=== PATIENT | female | born 1945 | race Caucasian/White ===

== ENCOUNTER 2022-11-06 18:06 | Inpatient (IN) | payer MEDICARE, BC, SELFPAY ==
[2022-11-06 18:08] VITALS: BP 126/60; PULSE 72; RESP 20; TEMP 36.6; O2SAT 96; BMI 25.0
--- NOTE | 2022-11-06 18:12 | XR_ITS ---
The [address] [address] Patient Name: CARLITOS RACHEL MRN: [id number] date: 1945 Sex: F Assigned Patient Location: ER Current Patient Location: ER Accession/Order Number: [id number] Exam Date: 11/06/2022 18:14 Report Date: 11/06/2022 18:48 At the request of: ROSETTA PALACIO Procedure: XR tibia fibula LT 2V EXAM: XR ankle LT min 3V, XR foot LT min 3V, XR tibia fibula LT 2V HISTORY: fall COMPARISON: None. TECHNIQUE: 3 views of the left foot, 3 views of the left ankle, frontal and lateral views of the left tibia and fibula are performed. FINDINGS: The bones are demineralized. There is no acute fracture. There are degenerative changes within the midfoot. The ankle mortise is preserved. There is joint space narrowing and chondrocalcinosis at the knee. No acute fracture is seen. There is a plantar calcaneal spur. There are calcifications along the Achilles tendon and plantar fascia. IMPRESSION: Osteopenia with degenerative changes. No acute fracture is seen. Electronically authenticated by: DHARA MILLER Date: 11/06/2022 18:48
--- NOTE | 2022-11-06 18:12 | XR_ITS ---
The [address] [address] Patient Name: CARLITOS RACHEL MRN: [id number] date: 1945 Sex: F Assigned Patient Location: ER Current Patient Location: ER Accession/Order Number: [id number] Exam Date: 11/06/2022 18:14 Report Date: 11/06/2022 18:48 At the request of: ROSETTA PALACIO Procedure: XR foot LT min 3V EXAM: XR ankle LT min 3V, XR foot LT min 3V, XR tibia fibula LT 2V HISTORY: fall COMPARISON: None. TECHNIQUE: 3 views of the left foot, 3 views of the left ankle, frontal and lateral views of the left tibia and fibula are performed. FINDINGS: The bones are demineralized. There is no acute fracture. There are degenerative changes within the midfoot. The ankle mortise is preserved. There is joint space narrowing and chondrocalcinosis at the knee. No acute fracture is seen. There is a plantar calcaneal spur. There are calcifications along the Achilles tendon and plantar fascia. IMPRESSION: Osteopenia with degenerative changes. No acute fracture is seen. Electronically authenticated by: DHARA MILLER Date: 11/06/2022 18:48
--- NOTE | 2022-11-06 18:12 | XR_ITS ---
The [address] [address] Patient Name: CARLITOS RACHEL MRN: [id number] date: 1945 Sex: F Assigned Patient Location: ER Current Patient Location: ER Accession/Order Number: [id number] Exam Date: 11/06/2022 18:14 Report Date: 11/06/2022 18:48 At the request of: ROSETTA PALACIO Procedure: XR ankle LT min 3V EXAM: XR ankle LT min 3V, XR foot LT min 3V, XR tibia fibula LT 2V HISTORY: fall COMPARISON: None. TECHNIQUE: 3 views of the left foot, 3 views of the left ankle, frontal and lateral views of the left tibia and fibula are performed. FINDINGS: The bones are demineralized. There is no acute fracture. There are degenerative changes within the midfoot. The ankle mortise is preserved. There is joint space narrowing and chondrocalcinosis at the knee. No acute fracture is seen. There is a plantar calcaneal spur. There are calcifications along the Achilles tendon and plantar fascia. IMPRESSION: Osteopenia with degenerative changes. No acute fracture is seen. Electronically authenticated by: DHARA MILLER Date: 11/06/2022 18:48
--- NOTE | 2022-11-06 18:14 | ED.FALL1 ---
Documented by User: Franki Hare MD 11/06/22 18:15 HPI - Fall General Chief Complaint: Fall Stated Complaint: FALL ANKLE PAIN Time Seen by Provider: 11/06/22 18:12 Source: patient Mode of arrival: ambulance Limitations: no limitations History of Present Illness HPI Narrative: this patient's here by transistor tester squad. She fell at home. She thinks she stumbled. She is quite sure she did not have loss of consciousness or syncope. She normally ambulates with no assistance. Her is with her. He had called the squad because she cannot put any weight on the lower left leg and ankle. She is not having pain in her hip or pelvis. The right leg is atraumatic. She does take Plavix. She did not hit her head or neck. She is a good historian. She arrived with a temporizing splint in place. Related Data Home Medications Medication Instructions Recorded Confirmed buspirone 10 mg tablet 10 mg PO DAILY 11/06/22 11/06/22 buspirone 5 mg tablet 5 mg PO DAILY 11/06/22 11/06/22 donepezil 10 mg tablet (Aricept) 10 mg PO DAILY 11/06/22 11/06/22 ferrous sulfate 325 mg (65 mg 325 mg PO DAILY 11/06/22 11/06/22 iron) tablet gabapentin 100 mg capsule 100 mg PO DAILY 11/06/22 11/06/22 hydroxyzine HCl 25 mg tablet 25 mg PO DAILY 11/06/22 11/06/22 lorazepam 2 mg tablet 2 mg PO DAILY 11/06/22 11/06/22 meloxicam 7.5 mg tablet 7.5 mg PO DAILY 11/06/22 11/06/22 memantine 28 mg capsule 28 mg PO DAILY 11/06/22 11/06/22 sprinkle,extended release 24hr (Namenda XR) pantoprazole 20 mg tablet,delayed 20 mg PO DAILY 11/06/22 11/06/22 release paroxetine HCl 40 mg tablet 40 mg PO DAILY 11/06/22 11/06/22 quetiapine 50 mg tablet (Seroquel) 50 mg PO DAILY 11/06/22 11/06/22 ropinirole 0.25 mg tablet 0.25 mg PO DAILY 11/06/22 11/06/22 sucralfate 1 gram tablet 1 g PO DAILY 11/06/22 11/06/22 trazodone 100 mg tablet 100 mg PO .as needed PRN insomnia 11/06/22 11/06/22 Allergies Allergy/AdvReac Type Severity Reaction Status Date / Time No Known Drug Allergies Allergy Verified 11/06/22 18:31 PFSH PFS Social History Smoking status: Former smoker Exam Narrative Exam Narrative: awake alert vital signs are stable blood pressure good as noted. She is oriented ?3 and a good historian. Constitutional does not have evidence of any head neck or upper extremity trauma or injury. No tenderness to palpation in cervical range of motion is normal. Cognition is also normal. Moving to the lower extremity she does have ecchymosis swelling on the lateral aspect of the left foot metatarsal area. Also some swelling over the ankle joint and also the distal tibia-fibula area. The knee is nontender to palpation. The right lower extremity has no symptoms whatsoever Constitutional Vital Signs - 24 hr 11/06/22 18:08 Temperature 97.9 F Pulse Rate [Monitor] 72 Respiratory Rate 20 Blood Pressure [Left Arm] 126/60 H Pulse Oximetry 96 Course Vital Signs Vital signs: Vital Signs Temperature 97.9 F 11/06/22 18:08 Pulse Rate 72 11/06/22 18:08 Respiratory Rate 20 11/06/22 18:08 Blood Pressure 126/60 H 11/06/22 18:08 Pulse Oximetry 96 11/06/22 18:08 Temperature 97.9 F 11/06/22 21:04 Pulse Rate 89 11/06/22 21:04 Respiratory Rate 18 11/06/22 21:04 Blood Pressure 148/70 H 11/06/22 21:04 Pulse Oximetry 96 11/06/22 21:04 Oxygen Delivery Method Room Air 11/06/22 21:04 Discharge Plan Discharge Chief Complaint: Fall Clinical Impression: Foot fracture, left Patient Disposition: Admitted as Observation Discharge Date/Time: 11/06/22 20:54 Documented by User: Hernán Wagner MD 11/06/22 20:37 HPI - Fall General Chief Complaint: Fall Stated Complaint: FALL ANKLE PAIN Time Seen by Provider: 11/06/22 18:12 Related Data Home Medications Medication Instructions Recorded Confirmed buspirone 10 mg tablet 10 mg PO DAILY 11/06/22 11/06/22 buspirone 5 mg tablet 5 mg PO DAILY 11/06/22 11/06/22 donepezil 10 mg tablet (Aricept) 10 mg PO DAILY 11/06/22 11/06/22 ferrous sulfate 325 mg (65 mg 325 mg PO DAILY 11/06/22 11/06/22 iron) tablet gabapentin 100 mg capsule 100 mg PO DAILY 11/06/22 11/06/22 hydroxyzine HCl 25 mg tablet 25 mg PO DAILY 11/06/22 11/06/22 lorazepam 2 mg tablet 2 mg PO DAILY 11/06/22 11/06/22 meloxicam 7.5 mg tablet 7.5 mg PO DAILY 11/06/22 11/06/22 memantine 28 mg capsule 28 mg PO DAILY 11/06/22 11/06/22 sprinkle,extended release 24hr (Namenda XR) pantoprazole 20 mg tablet,delayed 20 mg PO DAILY 11/06/22 11/06/22 release paroxetine HCl 40 mg tablet 40 mg PO DAILY 11/06/22 11/06/22 quetiapine 50 mg tablet (Seroquel) 50 mg PO DAILY 11/06/22 11/06/22 ropinirole 0.25 mg tablet 0.25 mg PO DAILY 11/06/22 11/06/22 sucralfate 1 gram tablet 1 g PO DAILY 11/06/22 11/06/22 trazodone 100 mg tablet 100 mg PO .as needed PRN insomnia 11/06/22 11/06/22 Allergies Allergy/AdvReac Type Severity Reaction Status Date / Time No Known Drug Allergies Allergy Verified 11/06/22 18:31 PFSH PFSH Social History Smoking status: Former smoker Exam Constitutional Vital Signs - 24 hr 11/06/22 18:08 Temperature 97.9 F Pulse Rate [Monitor] 72 Respiratory Rate 20 Blood Pressure [Left Arm] 126/60 H Pulse Oximetry 96 Course Vital Signs Vital signs: Vital Signs Temperature 97.9 F 11/06/22 18:08 Pulse Rate 72 11/06/22 18:08 Respiratory Rate 20 11/06/22 18:08 Blood Pressure 126/60 H 11/06/22 18:08 Pulse Oximetry 96 11/06/22 18:08 Temperature 97.9 F 11/06/22 21:04 Pulse Rate 89 11/06/22 21:04 Respiratory Rate 18 11/06/22 21:04 Blood Pressure 148/70 H 11/06/22 21:04 Pulse Oximetry 96 11/06/22 21:04 Oxygen Delivery Method Room Air 11/06/22 21:04 MDM - Fall MDM Narrative Medical decision making narrative: care transferred at change of shift. patient fell at home injuring left foot. CT ordered at change of shift. CT demonstrated multiple fractures of the left foot . Not able to exclude Lisfrac ligamentous injury. Discussed with Dr Cunningham and he would like her admitted to the hospitalist service and he will consult. Discussed with Telehospitalist and patient accepted for admission Discharge Plan Discharge Chief Complaint: Fall Clinical Impression: Foot fracture, left Patient Disposition: Admitted as Observation Discharge Date/Time: 11/06/22 20:54 Procedures ED Procedure Instructions Procedures Procedures: left foot fracture. fiber glass material and extra padding used to place a posterior ankle splint. Patient tolerated the procedure well. N/V WNL post procedure. No complications
--- NOTE | 2022-11-06 18:31 | CT_ITS ---
The [address] [address] Patient Name: CARLITOS RACHEL MRN: [facility]:[id number] date: 1945 Sex: F Assigned Patient Location: ER Current Patient Location: ER Accession/Order Number: [id number] Exam Date: 11/06/2022 18:35 Report Date: 11/06/2022 19:09 At the request of: ROSETTA PALACIO Procedure: CT foot LT wo con Examination:CT foot LT wo con INDICATION:fall COMPARISON:Left foot and ankle x-rays from the same day. TECHNIQUE:Multiple thin section transaxial slices were acquired through the left foot without contrast. Coronal and sagittal reconstructed images were reviewed. FINDINGS:The bones are severely osteopenic. There is an acute fracture involving the cuboid bone with extension to each articular surface. There are also acute fractures identified in the first, second, third and fourth proximal metatarsal bones. There is an acute fracture in the medial cuneiform bone. There are hypertrophic changes involving the distal tibia and medial malleolus which are chronic. There is very severe diffuse soft tissue swelling. There is no significant widening of the Lisfranc joint space bases examination. However, given the distribution of the fractures, Lisfranc ligament injury cannot be excluded based on CT imaging. IMPRESSION: 1. Acute fractures involving the proximal first through fourth metatarsal bones. Acute fractures of the cuboid bone and medial cuneiform bone. 2. There is severe diffuse soft tissue swelling. 3. Multiple is not significantly widened with dysfunctional based on this examination, the possibility of underlying Lisfranc ligament injury cannot be excluded given the distribution of the fractures. Electronically authenticated by: KILO HARRY Date: 11/06/2022 19:09
--- NOTE | 2022-11-06 18:33 | PC.NURSE ---
pt brought in by ems from home because patient states that she was at home and felt like she couldn't see and she tripped and fell onto left ankle. bruising and swelling to top of left foot at this time. ice pack applied. pt given 50mcg of fentanyl and 4mg of zofran on ride over. pt states pain has not improved at all.
[2022-11-06] MEDS: KETOROLAC TROMETHAMINE 10 MG TABLET PO (18:51)
[2022-11-06 20:58] LABS: Basophils Percent Auto 0.1 % (0.2-2.0); Eosinophils Percent Auto 0.1 % (0.9-7.0); Hemoglobin 8.2 g/dL (12.0-16.0); Immature Granulocytes Abs Auto 0.04 10^3/uL (0.00-0.03); Immature Granulocytes Pct Auto 0.5 % (0.0-0.5); Lymphocytes Absolute Auto 0.9 10^3/uL (1.2-3.8); Lymphocytes Percent Auto 10.8 % (20.5-60.0); Mean Corpuscular HGB Conc 28.3 g/dL (29.9-35.2); Mean Corpuscular Hemoglobin 19.2 pg (26.7-34.0); Mean Corpuscular Volume 68.1 fL (81.0-99.0); Mean Platelet Volume 8.5 fL (9.5-13.5); Monocytes Absolute Auto 0.3 10^3/uL (0.3-0.8); Monocytes Percent Auto 3.5 % (1.7-12.0); Neutrophils Absolute Auto 7.3 10^3/uL (1.4-6.5); Platelet Count 289 10^3/uL (150-450); Red Blood Count 4.26 10^6/uL (4.20-5.40); Red Cell Distribution Width 18.7 % (11.0-15.0); White Blood Count 8.6 10^3/uL (4.0-11.0)
[2022-11-06 21:04] VITALS: BP 148/70; PULSE 89; RESP 18; TEMP 36.6; O2SAT 96; BMI 24.9
[2022-11-06 21:07] LABS: Anion Gap 12.4; BUN Creatinine Ratio 25.4; Calcium 8.8 mg/dL (8.5-10.1); Carbon Dioxide 26.5 mmol/L (21.0-32.0); Chloride 107 mmol/L (98-107); Estimated GFR (African America 51 (>=60); Estimated GFR (Non-African Ame 43 (>=60); Glucose 137 mg/dL (74-106); Potassium 4.9 mmol/L (3.5-5.1); Sodium 141 mmol/L (136-145)
[2022-11-07] VITALS (7 sets, daily range): BP systolic 105–163; BP diastolic 58–88; PULSE 69–71; RESP 18–20; TEMP 36.6–37.6; O2SAT 92–95
--- NOTE | 2022-11-07 00:26 | P.PN_ITS ---
Progress Note: Subjective Subjective Interval history: Left foot pain, inability to bear weight.. HPI: this is a 77 years old female who presents with above complaints. 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 She fell at home. She thinks she stumbled. She is quite sure she did not have loss of consciousness or syncope. She normally ambulates with no assistance. Her is with her. He had called the squad because she cannot put any weight on the lower left leg and ankle. She is not having pain in her hip or pelvis. The right leg is atraumatic. She does take Plavix. She did not hit her head or neck. She is a good historian. She arrived with a temporizing splint in place. Ambulation in the emergency room including CT of the left lower extremity revealed multiple fractures in the left foot bones. Dr. Crespo, podiatry has been consulted recommended medical admission Exam Narrative Exam Narrative: Physical Exam: Not in distress, pleasant, cooperative, Head - atraumatic, eyes - pupils equal, round, reactive to light, extra ocular movement intact, MMM Neck - supple, thyroid not enlarged, LN not palpated Lungs - clear to auscultation, no dullness on percussion CVS - heart sounds S1, S2, no additional murmurs gallop, regular rate and rhythm Gastrointestinal?abdomen is soft, non-tender, non-distended, no organomegaly, positive bowel sounds Extremities no clubbing, cyanosis or edema Neurological?cranial nerve II?XII grossly intact, no meningeal signs, no cerebellar signs, no sensory deficit Musculoskeletal - DJD related changes in multiple joints, no effusions, ROM preserved Dermatological - the skin dry, warm, no rashes Psychiatric?patient has normal affect Constitutional Vital Signs - 24 hr 11/06/22 18:08 11/06/22 21:04 11/06/22 21:04 Temperature 97.9 F 97.9 F Pulse Rate 89 Pulse Rate [Monitor] 72 Respiratory Rate 20 18 Blood Pressure [Left Arm] 126/60 H 148/70 H Pulse Oximetry 96 96 Oxygen Delivery Method Room Air Room Air Progress Note: Objective Labs Labs: Short CBC 11/06/22 Range/Units 20:40 WBC 8.6 (4.0-11.0) 10^3/uL Hgb 8.2 L (12.0-16.0) g/dL Hct 29.0 L (36.0-48.0) % Plt Count 289 (150-450) 10^3/uL BMP 11/06/22 20:40 Sodium 141 Potassium 4.9 Chloride 107 Carbon Dioxide 26.5 BUN 31.0 H Creatinine 1.22 H Glucose 137 H Calcium 8.8 Progress Note: A&P Assessment and Plan (1) Foot fracture, left: Assessment and Plan: Admit to medical floor Pain control Follow-up with Dr. Cunningham for further recommendations (2) Dementia: Assessment and Plan: Continue home dose of Namenda and Aricept Avoid use of psychotropic medications Patient is at risk for delirium Continue with daily orientation (3) Hypertension: Assessment and Plan: Continue home medications, adjust as needed Telemedicine Attestation Telemedicine Attestation I conducted this encounter from [place][] via secure live, [id number] video conference with the patient, located at [facility] with [foot fracture]. Prior to the interview, the risks and benefits of telemedicine were discussed with the patient and verbal consent was obtained. As the provider for the telehealth service, I attest that I introduced myself to the patient, provided my credentials, disclosed by location and determined that based on a review of the patient's chart and discussion with members of the patient's treatment team, telemedicine via real-time, 2 way, and interactive audio and video platform is an appropriate and effective means of providing the service. ?The patient and I mutually agree this visit is appropriate for tel emedicine. ?The virtual encounter was taken place from? [place], [place]. ?The encounter took approximately 35 minutes. ?The nurse was present during the entire time and I was able to move the stethoscope in appropriate directions. ?The patient was evaluated at the Hospital ? Portions of this note may be dictated using [employer] voice recognition software. Variances in spelling and vocabulary are possible and unintentional. Not all errors may be caught and/or corrected. Please notify the author if any discrepancies are noted and/or if the meaning of any statement is unclear.? ? Patient verbally consented for treatment via video visit with patient currently located at [facility] and provider located in [place].
[2022-11-07] MEDS: TRAZODONE HCL 50 MG TABLET 100 MG PO ×2 (00:53→20:48)
[2022-11-07 04:50] LABS: Basophils Percent Auto 0.2 % (0.2-2.0); Eosinophils Percent Auto 0.2 % (0.9-7.0); Hematocrit 25.8 % (36.0-48.0); Hemoglobin 7.3 g/dL (12.0-16.0); Immature Granulocytes Abs Auto 0.02 10^3/uL (0.00-0.03); Immature Granulocytes Pct Auto 0.3 % (0.0-0.5); Lymphocytes Absolute Auto 1.3 10^3/uL (1.2-3.8); Lymphocytes Percent Auto 20.7 % (20.5-60.0); Mean Corpuscular HGB Conc 28.3 g/dL (29.9-35.2); Mean Corpuscular Hemoglobin 19.5 pg (26.7-34.0); Mean Corpuscular Volume 68.8 fL (81.0-99.0); Mean Platelet Volume 8.5 fL (9.5-13.5); Monocytes Absolute Auto 0.4 10^3/uL (0.3-0.8); Monocytes Percent Auto 6.9 % (1.7-12.0); Neutrophils Absolute Auto 4.6 10^3/uL (1.4-6.5); Neutrophils Percent Auto 71.7 % (43.0-75.0); Platelet Count 257 10^3/uL (150-450); Red Blood Count 3.75 10^6/uL (4.20-5.40); Red Cell Distribution Width 18.5 % (11.0-15.0); White Blood Count 6.4 10^3/uL (4.0-11.0)
[2022-11-07 05:13] LABS: Alanine Aminotransferase 17 U/L (14-59); Albumin Globulin Ratio 0.9; Albumin Level 2.8 g/dL (3.4-5.0); Alkaline Phosphatase 96 U/L (46-116); Anion Gap 10.1; Aspartate Amino Transferase 21 U/L (15-37); BUN Creatinine Ratio 26.1; Bilirubin Total 0.6 mg/dL (0.2-1.0); Calcium 8.5 mg/dL (8.5-10.1); Carbon Dioxide 26.9 mmol/L (21.0-32.0); Chloride 108 mmol/L (98-107); Estimated GFR (African America 53 (>=60); Estimated GFR (Non-African Ame 44 (>=60); Globulin 3.2 g/dL; Glucose 128 mg/dL (74-106); Sodium 140 mmol/L (136-145)
[2022-11-07] MEDS: OMEPRAZOLE 20 MG CAPSULE.DR PO (08:35)
[2022-11-07] MEDS: QUETIAPINE FUMARATE 25 MG TABLET 50 MG PO (08:35)
[2022-11-07] MEDS: PAROXETINE HCL 20 MG TABLET 40 MG PO (08:35)
[2022-11-07] MEDS: DONEPEZIL HCL 10 MG TABLET PO (08:36)
[2022-11-07] MEDS: HYDROXYZINE HCL 25 MG TABLET PO (08:36)
[2022-11-07] MEDS: MELOXICAM 7.5 MG TABLET PO (08:36)
[2022-11-07] MEDS: SUCRALFATE 1 GM TABLET PO (08:36)
[2022-11-07] MEDS: MEMANTINE HCL 28 MG CAP XR PO (08:36)
[2022-11-07] MEDS: GABAPENTIN 100 MG CAPSULE PO (08:36)
[2022-11-07] MEDS: FERROUS SULFATE 325 MG TABLET PO ×2 (08:36→20:45)
--- NOTE | 2022-11-07 08:36 | P.HP_ITS ---
H&P: HPI History of Present Illness Chief complaint: FALL ANKLE PAIN LEFT FOOT FRACTURE Narrative: Patient with a syncopal episode from a fall, resulted in fractures of her metatarsal bones, consult to podiatry, work-up for syncope. Review of Systems ROS Status of ROS 10 or more systems reviewed and unremarkable except as noted in history and below Constitutional Denies: fever or chills Neurological Reports: weakness in extremities, lack of coordination, dizziness and behavioral changes; Denies: numbness in extremities PFSH PFS Medical History (Updated 11/07/22 @ 00:55 by Bhavani Newman) Surgical History (Updated 11/07/22 @ 01:00 by Bhavani Newman) Social History (Updated 11/07/22 @ 00:59 by Bhavani Newman) Within the past year, how often did you have a drink containing alcohol: never Score interpretation: A score less than 3 is consistent with normal alcohol consumption. 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 Highest level of school completed/degree received: some college, no degree Are you now , , , , never or living with a partner: Meds Home Medications and Allergies Home Medications Medication Instructions Recorded Confirmed Type buspirone 5 mg tablet 5 mg PO TID 11/06/22 11/07/22 History donepezil 10 mg tablet (Aricept) 10 mg PO DAILY 11/06/22 11/06/22 History ferrous sulfate 325 mg (65 mg 325 mg PO BID 11/06/22 11/07/22 History iron) tablet lorazepam 2 mg tablet 2 mg PO DAILY PRN anxiety 11/06/22 11/07/22 History meloxicam 7.5 mg tablet 7.5 mg PO QAM 11/06/22 11/07/22 History memantine 28 mg capsule 28 mg PO DAILY 11/06/22 11/06/22 History sprinkle,extended release 24hr (Namenda XR) pantoprazole 20 mg tablet,delayed 20 mg PO DAILY 11/06/22 11/06/22 History release paroxetine HCl 40 mg tablet 40 mg PO DAILY 11/06/22 11/06/22 History quetiapine 50 mg tablet (Seroquel) 50 mg PO DAILY 11/06/22 11/06/22 History ropinirole 0.25 mg tablet 0.25 mg PO .AT BEDTIME 11/06/22 11/07/22 History trazodone 100 mg tablet 100 mg PO .AT BEDTIME insomnia 11/06/22 11/07/22 History hydroxyzine HCl 25 mg tablet 25 mg PO QID PRN anxiety 11/07/22 11/07/22 History Allergies Allergy/AdvReac Type Severity Reaction Status Date / Time No Known Drug Allergies Allergy Verified 11/06/22 18:31 Exam Constitutional Vital Signs - 24 hr 11/06/22 18:08 11/06/22 21:04 11/06/22 21:04 Temperature 97.9 F 97.9 F Pulse Rate 89 Pulse Rate [Monitor] 72 Respiratory Rate 20 18 Blood Pressure [Left Arm] 126/60 H 148/70 H Blood Pressure [Right Arm] Pulse Oximetry 96 96 Oxygen Delivery Method Room Air Room Air 11/07/22 05:00 Temperature 99.6 F Pulse Rate 69 Pulse Rate [Monitor] Respiratory Rate 18 Blood Pressure [Left Arm] Blood Pressure [Right Arm] 163/83 H Pulse Oximetry 95 Oxygen Delivery Method Common normals: apparent distress Exam limitations: behavioral limitations General appearance: in distress; not comfortable HENMT Common normals: normocephalic Chest Common normals: inspection of chest normal Respiratory Common normals: normal respiratory effort and no retractions Cardio Common normals: no JVD, regular rate and regular rhythm GI Common normals: Normal to inspection, nondistended, normoactive bowel sounds present Back & Pelvis Common normals: no CVA tenderness Extremity Common normals: abnormal to inspection Results Labs Labs: Short CBC 11/06/22 11/07/22 Range/Units 20:40 04:29 WBC 8.6 6.4 (4.0-11.0) 10^3/uL Hgb 8.2 L 7.3 L (12.0-16.0) g/dL Hct 29.0 L 25.8 L (36.0-48.0) % Plt Count 289 257 (150-450) 10^3/uL BMP 11/06/22 11/07/22 20:40 04:29 Sodium 141 140 Potassium 4.9 5.0 Chloride 107 108 H Carbon Dioxide 26.5 26.9 BUN 31.0 H 31.0 H Creatinine 1.22 H 1.19 H Glucose 137 H 128 H Calcium 8.8 8.5 Liver Function 11/07/ Range/Units 04:29 Total Bilirubin 0.6 (0.2-1.0) mg/dL AST 21 (15-37) U/L ALT 17 (14-59) U/L Alkaline Phosphatase 96 (46-116) U/L Albumin 2.8 L (3.4-5.0) g/dL Assessment and Plan Assessment and Plan (1) Foot fracture, left: (2) Dementia: (3) Hypertension: Plan Foot multiple metatarsal fractures-consult to podiatry Syncope-uncertain etiology-Possibly related to anemia.Continue with work-up Acute blood loss anemia-uncertain source, check occult blood, patient denies black tarry stools-1 unit of PRBCs today likely needs more thanBut will go slow with the amount due to age Uncertain etiology for her syncope and acute blood loss-medical treatment and evaluation will require at least a 2 midnight stay. We will change patient to inpatient status for acute treatment of the above. Unable to improveAnd stabili ze her over the course of the first 24 hours.
--- NOTE | 2022-11-07 08:47 | CM.NOTE ---
Rounds made with Dr. Burk, discussed low Hgb and need for blood transfusion today. Dr. Cunningham will also consult on pt today.
--- NOTE | 2022-11-07 12:07 | SWNOTE1 ---
JEFFERY met with pt to discuss dc needs. Pt had a fall at home and fractured some bones, in foot? SW and pt talked for 15-20 minutes. Pt is aware that she does need to go to rehab for a short time due to her foot. Pt would like to go to [facility] as her has been there in past and she is familiar with them. During conversation pt voiced many concerns and also how she feels anxious as well. She voiced she is the caregiver of the and her son is helping right now but does not want to take full responsibility for him. She stated Dr. Burk's office is working on getting home health back in. Pt also spoke about her cats and caring for them, and also worrying about her identity being stolen. She did voice that her son is assisting with this and has called to cancel cards and the bank is aware. Referral is being sent to [facility]. JEFFERY updated nursing. No precert.
[2022-11-07 13:16] LABS: Eosinophils Percent Auto 0.2 % (0.9-7.0); Hematocrit 26.3 % (36.0-48.0); Hemoglobin 7.6 g/dL (12.0-16.0); Immature Granulocytes Abs Auto 0.02 10^3/uL (0.00-0.03); Immature Granulocytes Pct Auto 0.3 % (0.0-0.5); Lymphocytes Absolute Auto 1.1 10^3/uL (1.2-3.8); Mean Corpuscular HGB Conc 28.9 g/dL (29.9-35.2); Mean Corpuscular Hemoglobin 19.6 pg (26.7-34.0); Mean Corpuscular Volume 67.8 fL (81.0-99.0); Mean Platelet Volume 8.6 fL (9.5-13.5); Monocytes Absolute Auto 0.5 10^3/uL (0.3-0.8); Monocytes Percent Auto 8.5 % (1.7-12.0); Neutrophils Absolute Auto 4.3 10^3/uL (1.4-6.5); Platelet Count 271 10^3/uL (150-450); Red Blood Count 3.88 10^6/uL (4.20-5.40); Red Cell Distribution Width 18.4 % (11.0-15.0)
[2022-11-07] MEDS: BUSPIRONE HCL 10 MG TABLET 5 MG PO ×3 (15:05→23:35)
[2022-11-07] MEDS: LORAZEPAM 1 MG TABLET 2 MG PO (15:43)
[2022-11-07] MEDS: ONDANSETRON PF 4 MG/2 ML VIAL IV (15:43)
--- NOTE | 2022-11-07 16:33 | P.PODCN_ITS ---
[facility] - Podiatry Data of Consult Patient: new to practice Consult date: 11/07/22 Requesting physician: Shaikh Ashwini MD Primary care provider: Piyush Burk MD Details: left foot fractures Consult Narrative Reason for consult: foot fractures Narrative: patient was seen and evaluated this morning. She is a 77-year-old female with past medical history significant for anxiety and depression and dementia.she states yesterday she fell and felt/heard a crunch in her left foot. States she was unable to put any weight on the foot and came to the emergency room. Due to not having much help at home and unable to be nonweightbearing she is admitted to the hospital for observation. The emergency room last night she had x-rays as well as CT performed demonstrating multiplle fractures in her midfoot as well as cuboid. She was told she may or may not need surgery. She is placed into a posterior splint. Today she is complaining of left foot pain. Denies any constitutional symptoms. cc:: CC: Shaikh Ashwini MD Review of Systems ROS Status of ROS 10 or more systems reviewed and unremarkable except as noted in history and below [facility] Medical History (Updated 11/07/22 @ 00:55 by Bhavani Newman) Surgical History (Updated 11/07/22 @ 01:00 by Bhavani Newman) Social History (Updated 11/07/22 @ 00:59 by Bhavani Newman) Within the past year, how often did you have a drink containing alcohol: never Score interpretation: A score less than 3 is consistent with normal alcohol consumption. 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 Highest level of school completed/degree received: some college, no degree Are you now , , , , never or living with a partner: Exam Narrative Exam Narrative: splint is clean dry and intact to left lower extremity I removed, and an David wrap to her foot to evaluate her fractures Edema and ecchymosis noted within the mid foot No fracture blisters No breaks in the skin no Open lesions No hematoma noted Pain to palpation across the midfoot Range of motion deferred Strength deferred Compartments soft and compressible No pain with calf compression Constitutional Vital Signs - 24 hr 11/06/22 18:08 11/06/22 21:04 11/06/22 21:04 Temperature 97.9 F 97.9 F Pulse Rate 89 Pulse Rate [Monitor] 72 Respiratory Rate 20 18 Blood Pressure Blood Pressure [Left Arm] 126/60 H 148/70 H Blood Pressure [Right Arm] Pulse Oximetry 96 96 Oxygen Delivery Method Room Air Room Air 11/07/22 05:00 11/07/22 13:41 11/07/22 15:20 Temperature 99.6 F 98.8 F 97.9 F Pulse Rate 69 69 Pulse Rate [Monitor] Respiratory Rate 18 20 20 Blood Pressure 155/72 H Blood Pressure [Left Arm] Blood Pressure [Right Arm] 163/83 H 133/78 H Pulse Oximetry 95 Oxygen Delivery Method 11/07/22 15:38 Temperature 98 F Pulse Rate 70 Pulse Rate [Monitor] Respiratory Rate 20 Blood Pressure 159/88 H Blood Pressure [Left Arm] Blood Pressure [Right Arm] Pulse Oximetry Oxygen Delivery Method Assessment and Plan Assessment and Plan (1) Foot fracture, left: (2) Dementia: (3) Hypertension: Plan assessment: lis lorenza fracture, left foot Cuboid fracture, left foot Plan: patient seen and evaluated today Physical exam findings discussed with the patient I reviewed her imaging and discussed this with her Her hemoglobin and hematocrit were low this morning at 7.3 Vitals noted to have hypertension I discussed with her that we will likely treat her without surgery and these fractures can heal nonoperatively she will remain nonweightbearing for 8-12 weeks Due to some problems staying nonweightbearing and she does not have much help at home and recommend detention home placement I did discuss this with her hospitalist She complains with us in one week Her splint should remain clean dry and intact Ice, elevate for swelling Pain management per primary team
[2022-11-07 19:33] LABS: Basophils Percent Auto 0.2 % (0.2-2.0); Eosinophils Percent Auto 0.3 % (0.9-7.0); Hematocrit 29.6 % (36.0-48.0); Hemoglobin 8.4 g/dL (12.0-16.0); Immature Granulocytes Abs Auto 0.02 10^3/uL (0.00-0.03); Immature Granulocytes Pct Auto 0.3 % (0.0-0.5); Lymphocytes Absolute Auto 1.2 10^3/uL (1.2-3.8); Lymphocytes Percent Auto 17.9 % (20.5-60.0); Mean Corpuscular HGB Conc 28.4 g/dL (29.9-35.2); Mean Corpuscular Hemoglobin 19.8 pg (26.7-34.0); Mean Corpuscular Volume 69.6 fL (81.0-99.0); Mean Platelet Volume 8.6 fL (9.5-13.5); Monocytes Absolute Auto 0.6 10^3/uL (0.3-0.8); Monocytes Percent Auto 8.7 % (1.7-12.0); Neutrophils Absolute Auto 4.7 10^3/uL (1.4-6.5); Neutrophils Percent Auto 72.6 % (43.0-75.0); Platelet Count 273 10^3/uL (150-450); Red Blood Count 4.25 10^6/uL (4.20-5.40); Red Cell Distribution Width 18.6 % (11.0-15.0); White Blood Count 6.4 10^3/uL (4.0-11.0)
[2022-11-07] MEDS: ROPINIROLE HCL 0.25 MG TABLET PO ×2 (20:48→23:36)
[2022-11-07] MEDS: ROPINIROLE HCL 0.25 MG TABLET (21:50)
[2022-11-08] VITALS (11 sets, daily range): BP systolic 108–148; BP diastolic 54–73; PULSE 69–80; RESP 18–20; TEMP 36.8–37.1; O2SAT 93; BMI 24.9
[2022-11-08] MEDS: BUSPIRONE HCL 10 MG TABLET 5 MG PO ×3 (05:08→21:05)
[2022-11-08 05:10] LABS: Eosinophils Percent Auto 0.2 % (0.9-7.0); Hematocrit 29.9 % (36.0-48.0); Hemoglobin 8.6 g/dL (12.0-16.0); Immature Granulocytes Abs Auto 0.03 10^3/uL (0.00-0.03); Immature Granulocytes Pct Auto 0.5 % (0.0-0.5); Lymphocytes Absolute Auto 1.3 10^3/uL (1.2-3.8); Lymphocytes Percent Auto 19.8 % (20.5-60.0); Mean Corpuscular HGB Conc 28.8 g/dL (29.9-35.2); Mean Corpuscular Hemoglobin 19.9 pg (26.7-34.0); Mean Corpuscular Volume 69.1 fL (81.0-99.0); Mean Platelet Volume 9.1 fL (9.5-13.5); Monocytes Absolute Auto 0.6 10^3/uL (0.3-0.8); Neutrophils Absolute Auto 4.6 10^3/uL (1.4-6.5); Neutrophils Percent Auto 70.5 % (43.0-75.0); Platelet Count 277 10^3/uL (150-450); Red Blood Count 4.33 10^6/uL (4.20-5.40); Red Cell Distribution Width 18.3 % (11.0-15.0); White Blood Count 6.5 10^3/uL (4.0-11.0)
[2022-11-08 07:07] LABS: Alanine Aminotransferase 17 U/L (14-59); Albumin Globulin Ratio 0.8; Albumin Level 2.9 g/dL (3.4-5.0); Alkaline Phosphatase 102 U/L (46-116); Aspartate Amino Transferase 21 U/L (15-37); BUN Creatinine Ratio 27.8; Calcium 8.7 mg/dL (8.5-10.1); Carbon Dioxide 26.4 mmol/L (21.0-32.0); Chloride 105 mmol/L (98-107); Estimated GFR (African America >60 (>=60); Estimated GFR (Non-African Ame >60 (>=60); Globulin 3.5 g/dL; Glucose 146 mg/dL (74-106); Potassium 4.4 mmol/L (3.5-5.1); Sodium 139 mmol/L (136-145); Total Protein 6.4 g/dL (6.4-8.2)
--- NOTE | 2022-11-08 08:03 | CA_ITS ---
Patient: CARLITOS RACHEL Exam Date: 11/08/2022 : 1945 Gender:F Ordering : DR Piyush Burk . Admission #: [id number] Family : SHAIKH Nicolás NINO . Order #: [id number] CLICK HERE TO VIEW EXAM ECHOCARDIOGRAM REPORT PROCEDURE: CA ECHO DOPPLER COMPLETE INDICATIONS: Near syncope, hypertension, dementia, pacemaker COMPARISON: None. DESCRIPTION: COMPLETE ECHOCARDIOGRAM Real-time transthoracic echocardiography with 2D, M-mode, spectral and color flow Doppler performed. QUALITY: Technical quality was good. LEFT VENTRICLE: Normal chamber size. Proximal septal hypertrophy (sigmoid septum). Mild concentric left ventricular hypertrophy. Normal systolic function. LV EF: Normal left ventricular ejection fraction, (55-60%). DIASTOLIC: Grade II diastolic dysfunction. ATRIAL SEPTUM: Visually appears intact. LEFT ATRIUM: Mild dilatation. RIGHT ATRIUM: Normal chamber size. RIGHT VENTRICLE: Normal chamber size. Normal right ventricular systolic function. TRICUSPID VALVE: Normal mobility and thickness. No stenosis with mild to moderate regurgitation. Doppler studies reveal moderately (45-60) elevated right sided pressures. RVSP 59 mmHg MITRAL VALVE: Normal mobility and thickness. No evidence of mitral valve stenosis. There is no mitral annular calcification. Mild mitral regurgitation. AORTIC VALVE: Normal trileaflet appearance. Mildly calcified left coronary cusp. Normal leaflet mobility. No evidence of aortic valve stenosis. No aortic regurgitation. AORTIC ROOT: Normal diameter and appearance. PULMONIC VALVE: Normal thickness and mobility. No stenosis. Trivial regurgitation. PERICARDIUM: No evidence of pericardial effusion. IVC: IVC is mildly dilated (2.2 cm) with partial collapse. PLEURA: CONCLUSION: 1. Mild concentric left ventricular hypertrophy. Normal left ventricular systolic function. LVEF is 55 to 60%. 2. Normal right ventricular size and systolic function. 3. Grade 2 diastolic dysfunction. 4. No significant valvular dysfunction. 5. Moderately elevated right-sided pressures. RVSP is 59 mmHg. 6. No pericardial effusion. Adult Echocardiography Procedure Report Left Ventricle LVEDD (3.7 - 5.6 cm): 5.19 cm LVESD (2.2 - 4.0 cm): 2.56 cm LVIVS thickness (0.6 - 1.2 cm): 1.33 cm LVPW thickness (0.5 - 1.0 cm): 0.85 cm e': 0.07 m/s E - e': 11.70 LVOT Max Gradient: 9.05 mm[Hg] LVOT Area (cm2): 1.50 m/s Peak Velocity (LVOT): 1.50 m/s LVOT Diameter 2.15 cm Left Atrium LA Volume Index (2D A2C): 41.81 ml/m2 Left Atrium Systolic Dimension: 3.27 cm Mitral Valve MV E to A Ratio: 0.83 Mitral Valve A-Wave Peak Velocity: 1.01 m/s Mitral Valve E-Wave Peak Velocity: 0.84 m/s Right Ventricle Aorta AO Root Diam: 3.03 cm Aortic Valve AoV Area (Peak Lazaro): 3.46 cm2, 3.46 cm2 Peak Velocity(Antegrade Flow): 1.58 m/s Peak Gradient(Antegrade Flow): 9.96 mm[Hg] Mean Velocity(Antegrade Flow): 1.01 m/s Mean Gradient(Antegrade Flow): 4.79 mm[Hg] Velocity Time Integral: 29.25 cm Tricuspid Valve Peak Velocity (Regurgitant Flow): 2.99 m/s, 3.32 m/s Pulmonic Valve Mean Gradient: 3.87 mm[Hg] Mean Velocity: 0.91 m/s Peak Velocity: 1.42 m/s, 1.65 m/s Peak Gradient: 10.93 mm[Hg], 8.03 mm[Hg] Right Atrium Dictated by: nIder Salgado M.D. on 11/08/2022 at 17:14 Approved by: Inder Salgado M.D. on 11/08/2022 at 17:18
--- NOTE | 2022-11-08 08:03 | CT_ITS ---
[address] [address] Patient Name: CARLITOS RACHEL MRN: [facility]:[id number] date: 1945 Sex: F Assigned Patient Location: [place] Current Patient Location: [place] Accession/Order Number: [id number] Exam Date: 11/08/2022 08:45 Report Date: 11/08/2022 09:58 At the request of: KATIE SANTIAGO Procedure: CT angio head CT angio head, CT angio neck, 11/08/2022 8:45 AM EDT INDICATION: near syncope - post circulation eval COMPARISON: Noncontrast and contrast enhanced CT of the head 11/03/2021 TECHNIQUE: Axial images of the head and neck were obtained with administration of IV contrast. Multiplanar reformatted images, MIP and 3D images were generated and reviewed as needed. Dose reduction techniques were achieved by using automated exposure control and/or adjustment of mA and/or kV according to patient size and/or use of iterative reconstruction technique. FINDINGS: CTA NECK Aortic arch: No significant stenosis of the origins of the major arch vessels. Left carotid system: No evidence of significant (50% or greater) stenosis or occlusion. Right carotid system: No evidence of significant (50% or greater) stenosis or occlusion. Vertebral arteries: Codominant. No evidence of significant (50% or greater) stenosis or occlusion. No aneurysm, dissection or occlusion. The thyroid gland is unremarkable. No focal consolidation at the lung apices. No acute fracture or dislocation. IMPRESSION: Patent neck CTA. No aneurysm, dissection or rate limiting stenosis. CT/CTA BRAIN: No intracranial mass, sulcal effacement, midline shift or hydrocephalus. No extra-axial collection. Periventricular and deep white matter microvascular ischemic change. Coleman-white matter differentiation is preserved. Remote lacunar infarct left basal ganglia. Orbits unremarkable. Chronic mucosal thickening within the right maxillary sinus. The remaining paranasal sinuses and mastoid air cells are clear. No acute skull fracture. The distal cervical, petrous, cavernous and supraclinoid segments of the internal carotid artery are patent bilaterally. The cerebral arteries are patent. No aneurysm, dissection or occlusion. No enhancing intracranial mass or active extravasation of contrast. Visualized portions of the dural sinuses cortical veins demonstrate no occlusion. No acute skull fracture. IMPRESSION: 1. No acute intracranial process. 2. 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 3. Patent head CTA. No aneurysm, dissection or rate limiting stenosis. Electronically authenticated by: ELISABETH TATUM Date: 11/08/2022 09:58
--- NOTE | 2022-11-08 08:03 | CT_ITS ---
[address] [address] Patient Name: CARLITOS RACHEL MRN: [facility]:[id number] date: 1945 Sex: F Assigned Patient Location: MS Current Patient Location: MS Accession/Order Number: [id number] Exam Date: 11/08/2022 08:45 Report Date: 11/08/2022 09:58 At the request of: KATIE SANTIAGO Procedure: CT angio neck CT angio head, CT angio neck, 11/08/2022 8:45 AM EDT INDICATION: near syncope - post circulation eval COMPARISON: Noncontrast and contrast enhanced CT of the head 11/03/2021 TECHNIQUE: Axial images of the head and neck were obtained with administration of IV contrast. Multiplanar reformatted images, MIP and 3D images were generated and reviewed as needed. Dose reduction techniques were achieved by using automated exposure control and/or adjustment of mA and/or kV according to patient size and/or use of iterative reconstruction technique. FINDINGS: CTA NECK Aortic arch: No significant stenosis of the origins of the major arch vessels. Left carotid system: No evidence of significant (50% or greater) stenosis or occlusion. Right carotid system: No evidence of significant (50% or greater) stenosis or occlusion. Vertebral arteries: Codominant. No evidence of significant (50% or greater) stenosis or occlusion. No aneurysm, dissection or occlusion. The thyroid gland is unremarkable. No focal consolidation at the lung apices. No acute fracture or dislocation. IMPRESSION: Patent neck CTA. No aneurysm, dissection or rate limiting stenosis. CT/CTA BRAIN: No intracranial mass, sulcal effacement, midline shift or hydrocephalus. No extra-axial collection. Periventricular and deep white matter microvascular ischemic change. Coleman-white matter differentiation is preserved. Remote lacunar infarct left basal ganglia. Orbits unremarkable. Chronic mucosal thickening within the right maxillary sinus. The remaining paranasal sinuses and mastoid air cells are clear. No acute skull fracture. The distal cervical, petrous, cavernous and supraclinoid segments of the internal carotid artery are patent bilaterally. The cerebral arteries are patent. No aneurysm, dissection or occlusion. No enhancing intracranial mass or active extravasation of contrast. Visualized portions of the dural sinuses cortical veins demonstrate no occlusion. No acute skull fracture. IMPRESSION: 1. No acute intracranial process. 2. 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 3. Patent head CTA. No aneurysm, dissection or rate limiting stenosis. Electronically authenticated by: ELISABETH TATUM Date: 11/08/2022 09:58
--- NOTE | 2022-11-08 08:06 | P.PN_ITS ---
Progress Note: Subjective Subjective Interval history: Patient still has significant lightheadedness. Not really vertigo but just very off balance. No focal deficits at the time, does come and go Exam Constitutional Vital Signs - 24 hr 11/07/22 13:41 11/07/22 15:20 11/07/22 15:38 Temperature 98.8 F 97.9 F 98 F Pulse Rate 69 70 Respiratory Rate 20 20 20 Blood Pressure 155/72 H 159/88 H Blood Pressure [Right Arm] 133/78 H Pulse Oximetry Oxygen Delivery Method 11/07/22 16:38 11/07/22 18:18 11/07/22 20:09 Temperature 98.1 F 98.9 F Pulse Rate 71 70 Respiratory Rate 20 20 20 Blood Pressure 156/80 H 145/71 H Blood Pressure [Right Arm] Pulse Oximetry Oxygen Delivery Method 11/07/22 20:09 11/08/22 04:44 Temperature 98.3 F 98.8 F Pulse Rate 69 69 Respiratory Rate 20 18 Blood Pressure Blood Pressure [Right Arm] 105/58 L 148/73 H Pulse Oximetry 92 L 93 L Oxygen Delivery Method Room Air Room Air Common normals: no apparent distress Chest Common normals: inspection of chest normal Respiratory Common normals: normal respiratory effort, no retractions and no use of accessory muscles Cardio Common normals: no JVD, regular rate, regular rhythm and S1 normal heart sound Palpation: normal PMI GI Common normals: Normal to inspection, nondistended, normoactive bowel sounds present Extremity Common normals: abnormal to inspection (Foot is in brace) Progress Note: Objective Labs Labs: Short CBC 11/07/22 11/07/22 11/08/22 Range/Units 13:05 18:03 04:35 WBC 6.0 6.4 6.5 (4.0-11.0) 10^3/uL Hgb 7.6 L 8.4 L 8.6 L (12.0-16.0) g/dL Hct 26.3 L 29.6 L 29.9 L (36.0-48.0) % Plt Count 271 273 277 (150-450) 10^3/uL BMP 11/08/22 04:35 Sodium 139 Potassium 4.4 Chloride 105 Carbon Dioxide 26.4 BUN 25.0 H Creatinine 0.90 Glucose 146 H Calcium 8.7 Liver Function 11/08/22 Range/Units 04:35 Total Bilirubin 1.0 (0.2-1.0) mg/dL AST 21 (15-37) U/L ALT 17 (14-59) U/L Alkaline Phosphatase 102 (46-116) U/L Albumin 2.9 L (3.4-5.0) g/dL Progress Note: A&P Assessment and Plan (1) Foot fracture, left: (2) Dementia: (3) Hypertension: Plan Foot multiple metatarsal fractures-consult to podiatry Syncope-uncertain etiology-Initial thought was syncope possibly related to the anemia, anemia is improving patient still having episodes, will place patient on telemetry, check CTA, unable to do CTA yesterday secondary to elevated creatinine,We will review CTA and echocardiogram later today,Telemetry pending Acute blood loss anemia-uncertain source, check occult blood, patient denies black tarry stools-currently stable but still likely upper gastrointestinal blood loss anemia-Serial examsWith labs, Awaiting stool study unable to improve patient over the first 24 hours. She is likely here at leastAnother 1 to 2 daysFor continued medical management work-up of syncope, patient unsafe for being discharged homeUntil etiology for her syncopeCan be treated to prevent further fractures.
[2022-11-08] MEDS: OMEPRAZOLE 20 MG CAPSULE.DR PO (08:29)
[2022-11-08] MEDS: QUETIAPINE FUMARATE 25 MG TABLET 50 MG PO (08:29)
[2022-11-08] MEDS: MELOXICAM 7.5 MG TABLET PO (08:29)
[2022-11-08] MEDS: PAROXETINE HCL 20 MG TABLET 40 MG PO (08:29)
[2022-11-08] MEDS: DONEPEZIL HCL 10 MG TABLET PO (08:29)
[2022-11-08] MEDS: FERROUS SULFATE 325 MG TABLET PO ×2 (08:29→20:41)
[2022-11-08] MEDS: MEMANTINE HCL 28 MG CAP XR PO (08:29)
[2022-11-08] MEDS: HYDROXYZINE HCL 25 MG TABLET PO (08:29)
[2022-11-08] MEDS: ASPIRIN 81 MG TABLET.DR PO (08:31)
--- NOTE | 2022-11-08 10:39 | SWNOTE1 ---
SW did review IMM form with pt on 11/07/22. Pt did not voice any questions or concerns. Pt signed form and was given original, copy placed in chart.
--- NOTE | 2022-11-08 11:03 | SWNOTE1 ---
Updates sent to [facility], they are still reviewing referral. Earliest discharge would be 11/10/22.
--- NOTE | 2022-11-08 12:08 | SWNOTE1 ---
[facility] is able to accept when pt is ready for discharge.
[2022-11-08] MEDS: TRAZODONE HCL 50 MG TABLET 100 MG PO (20:41)
[2022-11-08] MEDS: ROPINIROLE HCL 0.25 MG TABLET PO (21:06)
[2022-11-09] VITALS (16 sets, daily range): BP systolic 104–158; BP diastolic 64–89; PULSE 68–74; RESP 16–18; TEMP 36.4–36.7; O2SAT 93–94
[2022-11-09] MEDS: BUSPIRONE HCL 10 MG TABLET 5 MG PO ×3 (05:08→20:56)
[2022-11-09 05:19] LABS: Basophils Percent Auto 0.2 % (0.2-2.0); Eosinophils Absolute Auto 0.1 10^3/uL (0.0-0.7); Eosinophils Percent Auto 2.1 % (0.9-7.0); Hematocrit 29.8 % (36.0-48.0); Hemoglobin 8.5 g/dL (12.0-16.0); Immature Granulocytes Abs Auto 0.02 10^3/uL (0.00-0.03); Immature Granulocytes Pct Auto 0.4 % (0.0-0.5); Lymphocytes Absolute Auto 1.9 10^3/uL (1.2-3.8); Mean Corpuscular HGB Conc 28.5 g/dL (29.9-35.2); Mean Corpuscular Hemoglobin 19.5 pg (26.7-34.0); Mean Corpuscular Volume 68.3 fL (81.0-99.0); Mean Platelet Volume 8.8 fL (9.5-13.5); Monocytes Absolute Auto 0.4 10^3/uL (0.3-0.8); Monocytes Percent Auto 7.9 % (1.7-12.0); Neutrophils Absolute Auto 2.7 10^3/uL (1.4-6.5); Neutrophils Percent Auto 52.4 % (43.0-75.0); Platelet Count 278 10^3/uL (150-450); Red Blood Count 4.36 10^6/uL (4.20-5.40); Red Cell Distribution Width 18.8 % (11.0-15.0); White Blood Count 5.2 10^3/uL (4.0-11.0)
[2022-11-09 05:55] LABS: Alanine Aminotransferase 30 U/L (14-59); Albumin Globulin Ratio 0.7; Albumin Level 2.6 g/dL (3.4-5.0); Alkaline Phosphatase 109 U/L (46-116); Anion Gap 8.4; Aspartate Amino Transferase 36 U/L (15-37); BUN Creatinine Ratio 19.4; Bilirubin Total 0.8 mg/dL (0.2-1.0); Calcium 8.6 mg/dL (8.5-10.1); Carbon Dioxide 28.6 mmol/L (21.0-32.0); Chloride 105 mmol/L (98-107); Estimated GFR (African America >60 (>=60); Estimated GFR (Non-African Ame 55 (>=60); Globulin 3.5 g/dL; Glucose 90 mg/dL (74-106); Sodium 138 mmol/L (136-145); Total Protein 6.1 g/dL (6.4-8.2)
[2022-11-09] MEDS: MELOXICAM 7.5 MG TABLET PO (08:00)
[2022-11-09] MEDS: OMEPRAZOLE 20 MG CAPSULE.DR PO (08:00)
[2022-11-09] MEDS: PAROXETINE HCL 20 MG TABLET 40 MG PO (08:00)
[2022-11-09] MEDS: FERROUS SULFATE 325 MG TABLET PO ×2 (08:01→20:52)
[2022-11-09] MEDS: HYDROXYZINE HCL 25 MG TABLET PO ×2 (08:01→20:52)
[2022-11-09] MEDS: QUETIAPINE FUMARATE 25 MG TABLET 50 MG PO (08:02)
[2022-11-09] MEDS: LORAZEPAM 1 MG TABLET 2 MG PO (08:02)
[2022-11-09] MEDS: MEMANTINE HCL 28 MG CAP XR PO (08:02)
--- NOTE | 2022-11-09 08:27 | P.PN_ITS ---
Progress Note: Subjective Subjective Interval history: Lightheadedness is a little bit better this morning. But patient has not been moving around yet Exam Constitutional Vital Signs - 24 hr 11/08/22 10:04 11/08/22 12:25 11/08/22 13:05 Temperature 98.5 F Pulse Rate 70 71 71 Respiratory Rate 20 Blood Pressure [Left Arm] Blood Pressure [Right Arm] 108/54 L Pulse Oximetry 93 L Oxygen Delivery Method Room Air 11/08/22 14:07 11/08/22 15:51 11/08/22 18:04 Temperature Pulse Rate 80 70 70 Respiratory Rate Blood Pressure [Left Arm] Blood Pressure [Right Arm] Pulse Oximetry Oxygen Delivery Method 11/08/22 19:49 11/08/22 20:00 11/08/22 20:20 Temperature 98.3 F Pulse Rate 70 78 Respiratory Rate 20 18 Blood Pressure [Left Arm] 116/68 Blood Pressure [Right Arm] Pulse Oximetry Oxygen Delivery Method Room Air 11/08/22 22:00 11/09/22 00:00 11/09/22 02:00 Temperature Pulse Rate 70 70 70 Respiratory Rate Blood Pressure [Left Arm] Blood Pressure [Right Arm] Pulse Oximetry Oxygen Delivery Method 11/09/22 04:00 11/09/22 04:53 11/09/22 06:00 Temperature 97.7 F Pulse Rate 74 68 70 Respiratory Rate 18 Blood Pressure [Left Arm] Blood Pressure [Right Arm] 158/89 H Pulse Oximetry 93 L Oxygen Delivery Method Room Air 11/09/22 08:05 Temperature Pulse Rate 70 Respiratory Rate Blood Pressure [Left Arm] Blood Pressure [Right Arm] Pulse Oximetry Oxygen Delivery Method [facility] Common normals: normocephalic Chest Common normals: inspection of chest normal Respiratory Common normals: normal respiratory effort, no retractions, no use of accessory muscles and clear to auscultation bilaterally Cardio Common normals: no JVD, regular rate, regular rhythm and S1 normal heart sound GI Common normals: Normal to inspection, nondistended, normoactive bowel sounds present Extremity Common normals: abnormal to inspection Progress Note: Objective Labs Labs: Short CBC 11/09/22 Range/Units 05:00 WBC 5.2 (4.0-11.0) 10^3/uL Hgb 8.5 L (12.0-16.0) g/dL Hct 29.8 L (36.0-48.0) % Plt Count 278 (150-450) 10^3/uL BMP 11/09/22 05:00 Sodium 138 Potassium 4.0 Chloride 105 Carbon Dioxide 28.6 BUN 19.0 H Creatinine 0.98 Glucose 90 Calcium 8.6 Liver Function 11/09/22 Range/Units 05:00 Total Bilirubin 0.8 (0.2-1.0) mg/dL AST 36 (15-37) U/L ALT 30 (14-59) U/L Alkaline Phosphatase 109 (46-116) U/L Albumin 2.6 L (3.4-5.0) g/dL Progress Note: A&P Assessment and Plan (1) Foot fracture, left: (2) Dementia: (3) Hypertension: Plan Foot multiple metatarsal fractures-consult to podiatry-no surgery Syncope-uncertain etiology-Initial thought was syncope possibly related to the anemia, anemia is improving patient still having episodes, telemetry so far with nothing but she has not had any significantNear syncopal episodes just a lightheadedness. CTA head and neck were all normal. Acute blood loss anemia-uncertain source, check occult blood, patient denies bl ack tarry stools- check occult studies today.All ?unable to improve patient over the first 24 hours.? She is likely here at leastAnother 1 to 2 daysFor continued medical management work-up of syncope, patient unsafe for being discharged homeUntil etiology for her syncopeCan be treated to prevent further fractures.
--- NOTE | 2022-11-09 09:36 | PM.PN ---
Progress Note: Subjective Subjective Interval history: patient seen and evaluated this morning. Overall complains of increasing swelling and pain. States her pain medicine is not controlling her pain today. She seems quite somnolent and hard to arouse today as well which I think is secondary to increased pain medication. States that she is not quite sure of her plan for discharge. Seems to repeat questions to me that I have answered before and is somewhat confused. Denies any constitutional symptoms. Denies any other pedal complaints Exam Narrative Exam Narrative: Exam Narrative: splint is clean dry and intact to left lower extremity I removed, aand changed out her Codman and David wrap Edema and ecchymosis noted within the mid foot No fracture blisters No breaks in the skin no Open lesions No hematoma noted Pain to palpation across the midfoot Range of motion deferred Strength deferred Compartments soft and compressible wiggles digits without discomfort No pain with calf compression Constitutional Vital Signs - 24 hr 11/08/22 10:04 11/08/22 12:25 11/08/22 13:05 Temperature 98.5 F Pulse Rate 70 71 71 Respiratory Rate 20 Blood Pressure [Left Arm] Blood Pressure [Right Arm] 108/54 L Pulse Oximetry 93 L Oxygen Delivery Method Room Air 11/08/22 14:07 11/08/22 15:51 11/08/22 18:04 Temperature Pulse Rate 80 70 70 Respiratory Rate Blood Pressure [Left Arm] Blood Pressure [Right Arm] Pulse Oximetry Oxygen Delivery Method 11/08/22 19:49 11/08/22 20:00 11/08/22 20:20 Temperature 98.3 F Pulse Rate 70 78 Respiratory Rate 20 18 Blood Pressure [Left Arm] 116/68 Blood Pressure [Right Arm] Pulse Oximetry Oxygen Delivery Method Room Air 11/08/22 22:00 11/09/22 00:00 11/09/22 02:00 Temperature Pulse Rate 70 70 70 Respiratory Rate Blood Pressure [Left Arm] Blood Pressure [Right Arm] Pulse Oximetry Oxygen Delivery Method 11/09/22 04:00 11/09/22 04:53 11/09/22 06:00 Temperature 97.7 F Pulse Rate 74 68 70 Respiratory Rate 18 Blood Pressure [Left Arm] Blood Pressure [Right Arm] 158/89 H Pulse Oximetry 93 L Oxygen Delivery Method Room Air 11/09/22 08:05 Temperature Pulse Rate 70 Respiratory Rate Blood Pressure [Left Arm] Blood Pressure [Right Arm] Pulse Oximetry Oxygen Delivery Method Progress Note: Objective Labs Labs: Short CBC 11/09/22 Range/Units 05:00 WBC 5.2 (4.0-11.0) 10^3/uL Hgb 8.5 L (12.0-16.0) g/dL Hct 29.8 L (36.0-48.0) % Plt Count 278 (150-450) 10^3/uL BMP 11/09/22 05:00 Sodium 138 Potassium 4.0 Chloride 105 Carbon Dioxide 28.6 BUN 19.0 H Creatinine 0.98 Glucose 90 Calcium 8.6 Liver Function 11/09/22 Range/Units 05:00 Total Bilirubin 0.8 (0.2-1.0) mg/dL AST 36 (15-37) U/L ALT 30 (14-59) U/L Alkaline Phosphatase 109 (46-116) U/L Albumin 2.6 L (3.4-5.0) g/dL Progress Note: A&P Assessment and Plan (1) Foot fracture, left: (2) Dementia: (3) Hypertension: Plan assessment: lis franc fracture, left foot Cuboid fracture, left foot Plan: patient seen and evaluated today Physical exam findings discussed with the patient I reviewed her imaging and discussed this with her Her hemoglobin and hematocrit were iimproved today Vitals noted to have hypertension I discussed with her that we will likely treat her without surgery and these fractures can heal nonoperatively she will remain nonweightbearing for 8-12 weeks Due to some problems staying nonweightbearing and she does not have much help at home and recommend [facility] placement I did discuss this with her hospitalist She should follow up with us in one week from discharge I did change out her splint today because she complained of increased swelling and pain and I believe the splint was getting too tight, I loosened the cast padding as well as the David wrap for her and she had good this was already feeling better Her splint should remain clean dry and intact Ice, elevate for swelling Pain management per primary team she seems a little confused and somnolent today which I think is secondary to the pain medication
--- NOTE | 2022-11-09 13:08 | PT.DAILY ---
Physical Therapy Daily Note PT Daily Note/Assess Start: 11/09/22 13:02 Freq: Status: Active Protocol: Document 11/09/22 13:02 AALIYAH (Rec: 11/09/22 13:08 AALIYAH [id number]) Physical Therapy Daily Note/Assessment Time In/Time Out Time In 12:15 Time Out 12:33 Pain In Pain Level 7 Pain Out Pain Level 7 Subjective Subjective Pt sitting in BS chair upon arrival. Agrees to PT. 7/10 L foot pain. NWB L LE. Therapeutic Exercise Time Therapeutic Exercise Minutes (minutes) 5 Therapeutic Exercise Units 0 Therapeutic Exercise Treatment Therapeutic Exercise Treatment Pt performs AP, heel slides, abd slides, SLR on R in long sitting 10x ea. Foot of chair lowered and she perfroms AP (R ), LAQ and marches bilat 10x ea. Therapeutic Activity Time Therapeutic Activity Minutes (minutes) 8 Therapeutic Activity Units 1 Therapeutic Activity Treatment Chair Transfer Ability Moderate Assist Therapeutic Activity Comments Sit>stand from BS chair to RW ModA. Static stand 5 sec before attempting to hop R LE only - 2 hops forward and needs to takes 4 smaller hops back - using RW CGA. Pt able to maintain NWB L LE with this activity. Takes seated rest break. Sit>stand again with ModA and static stands for 30 sec before needing rest break. Remains in BS chair with call light in reach and lunch ordered for pt. Feet elevated. Total Physical Therapy Time Total Therapy Minutes 13 Total Physical Therapy Units 1 Summary Daily Note Summary Improved mobility with RW - 2 hops achieved with NWB LE.
[2022-11-09] MEDS: ASPIRIN 81 MG TABLET.DR PO (14:16)
--- NOTE | 2022-11-09 15:15 | SWNOTE1 ---
Pt will be dc tomorrow as long as medically stable. SW called and set up trips transportation, they will be here at 10:00. SW notified nursing, family, and [place]. SW completed HENS and got packet ready for weekend.
[2022-11-09] MEDS: DOCUSATE SODIUM 100 MG CAPSULE PO (19:28)
[2022-11-09] MEDS: TRAZODONE HCL 50 MG TABLET 100 MG PO (20:52)
[2022-11-09] MEDS: DONEPEZIL HCL 10 MG TABLET PO (20:52)
[2022-11-09] MEDS: ROPINIROLE HCL 0.25 MG TABLET PO (20:56)
[2022-11-09 21:13] LABS: Glucometer 159 mg/dL (74-106)
[2022-11-10] VITALS (15 sets, daily range): BP systolic 138–182; BP diastolic 74–91; PULSE 69–76; RESP 18–20; TEMP 36.7–36.8; O2SAT 93–94
[2022-11-10] MEDS: BUSPIRONE HCL 10 MG TABLET 5 MG PO ×3 (04:44→21:24)
[2022-11-10 05:35] LABS: Basophils Percent Auto 0.3 % (0.2-2.0); Eosinophils Absolute Auto 0.1 10^3/uL (0.0-0.7); Hematocrit 29.1 % (36.0-48.0); Hemoglobin 8.6 g/dL (12.0-16.0); Immature Granulocytes Abs Auto 0.01 10^3/uL (0.00-0.03); Immature Granulocytes Pct Auto 0.3 % (0.0-0.5); Lymphocytes Absolute Auto 1.4 10^3/uL (1.2-3.8); Lymphocytes Percent Auto 37.1 % (20.5-60.0); Mean Corpuscular HGB Conc 29.6 g/dL (29.9-35.2); Mean Corpuscular Hemoglobin 20.3 pg (26.7-34.0); Mean Corpuscular Volume 68.8 fL (81.0-99.0); Mean Platelet Volume 8.5 fL (9.5-13.5); Monocytes Absolute Auto 0.3 10^3/uL (0.3-0.8); Monocytes Percent Auto 8.4 % (1.7-12.0); Neutrophils Absolute Auto 1.9 10^3/uL (1.4-6.5); Neutrophils Percent Auto 50.9 % (43.0-75.0); Platelet Count 278 10^3/uL (150-450); Red Blood Count 4.23 10^6/uL (4.20-5.40); Red Cell Distribution Width 19.2 % (11.0-15.0); White Blood Count 3.7 10^3/uL (4.0-11.0)
[2022-11-10 05:57] LABS: Alanine Aminotransferase 150 U/L (14-59); Albumin Globulin Ratio 0.7; Albumin Level 2.5 g/dL (3.4-5.0); Alkaline Phosphatase 265 U/L (46-116); Anion Gap 9.3; Aspartate Amino Transferase 230 U/L (15-37); BUN Creatinine Ratio 21.4; Bilirubin Total 0.7 mg/dL (0.2-1.0); Calcium 8.7 mg/dL (8.5-10.1); Carbon Dioxide 27.8 mmol/L (21.0-32.0); Chloride 106 mmol/L (98-107); Estimated GFR (African America >60 (>=60); Estimated GFR (Non-African Ame 55 (>=60); Globulin 3.4 g/dL; Glucose 94 mg/dL (74-106); Potassium 4.1 mmol/L (3.5-5.1); Sodium 139 mmol/L (136-145); Total Protein 5.9 g/dL (6.4-8.2)
[2022-11-10 08:43] LABS: Prothrombin Time 9.7 sec (9.0-11.6)
[2022-11-10 08:45] LABS: Ammonia 26 umol/L (11-32); Partial Thromboplastin Time 25.6 sec (22.3-36.2)
[2022-11-10 08:46] LABS: INR <0.93
[2022-11-10 08:49] LABS: Alanine Aminotransferase 155 U/L (14-59); Albumin Globulin Ratio 0.6; Albumin Level 2.3 g/dL (3.4-5.0); Alkaline Phosphatase 274 U/L (46-116); Anion Gap 10.9; Aspartate Amino Transferase 241 U/L (15-37); BUN Creatinine Ratio 21.6; Bilirubin Total 0.7 mg/dL (0.2-1.0); Calcium 8.8 mg/dL (8.5-10.1); Carbon Dioxide 28.3 mmol/L (21.0-32.0); Chloride 104 mmol/L (98-107); Estimated GFR (African America >60 (>=60); Estimated GFR (Non-African Ame 55 (>=60); Globulin 3.6 g/dL; Glucose 105 mg/dL (74-106); Potassium 4.2 mmol/L (3.5-5.1); Sodium 139 mmol/L (136-145); Total Protein 5.9 g/dL (6.4-8.2)
[2022-11-10] MEDS: PAROXETINE HCL 20 MG TABLET 40 MG PO (09:05)
[2022-11-10] MEDS: MEMANTINE HCL 28 MG CAP XR PO (09:05)
[2022-11-10] MEDS: OMEPRAZOLE 20 MG CAPSULE.DR PO (09:06)
[2022-11-10] MEDS: QUETIAPINE FUMARATE 25 MG TABLET 50 MG PO (09:06)
[2022-11-10] MEDS: MELOXICAM 7.5 MG TABLET PO (09:06)
[2022-11-10] MEDS: FERROUS SULFATE 325 MG TABLET PO ×2 (09:06→21:24)
[2022-11-10] MEDS: HYDROXYZINE HCL 25 MG TABLET PO ×2 (09:06→23:54)
[2022-11-10] MEDS: ASPIRIN 81 MG TABLET.DR PO (09:08)
--- NOTE | 2022-11-10 09:09 | US_ITS ---
[address] [address] Patient Name: CARLITOS RACHEL MRN: [id number] date: 1945 Sex: F Assigned Patient Location: [place] Current Patient Location: [place] Accession/Order Number: [id number] Exam Date: 11/10/2022 15:05 Report Date: 11/10/2022 16:33 At the request of: KATIE SANTIAGO Procedure: US right upper quadrant EXAMINATION: US right upper quadrant TECHNIQUE: Limited ultrasound of the abdomen was performed. Grayscale and color flow Doppler imaging. HISTORY: elevated LFT. COMPARISON: MRI 07/26/2020 FINDINGS: Liver: The liver demonstrates normal homogeneous echotexture and normal size. Gallbladder/biliary: Gallbladder has been surgically removed. The common extrahepatic duct diameter measures 5mm. There is no intra or extrahepatic biliary dilatation. There is no visualized obstructing biliary stone. Pancreas: The visualized portion of the pancreas demonstrates normal homogeneous echotexture. Right Kidney: A few tiny echogenic foci of the right kidney measuring up to 4 mm which may represent tiny nonobstructing stones. No hydronephrosis or renal mass. Other findings: None IMPRESSION: No acute right upper quadrant pathology. Electronically authenticated by: ANUP RHODES Date: 11/10/2022 16:33
--- NOTE | 2022-11-10 09:51 | P.PN_ITS ---
Progress Note: Subjective Subjective Interval history: No complaints - denies Abd pain - Foot pain better Exam Constitutional Vital Signs - 24 hr 11/09/22 10:37 11/09/22 12:00 11/09/22 14:01 Temperature Pulse Rate 71 70 70 Respiratory Rate Blood Pressure [Left Arm] Blood Pressure [Right Arm] Pulse Oximetry Oxygen Delivery Method 11/09/22 14:08 11/09/22 15:59 11/09/22 18:03 Temperature 97.6 F Pulse Rate 69 71 70 Respiratory Rate 18 Blood Pressure [Left Arm] Blood Pressure [Right Arm] 104/64 Pulse Oximetry 94 L Oxygen Delivery Method Room Air 11/09/22 19:31 11/09/22 20:02 11/09/22 21:37 Temperature 98.1 F Pulse Rate 70 69 Respiratory Rate 18 16 Blood Pressure [Left Arm] Blood Pressure [Right Arm] 126/79 H Pulse Oximetry 93 L Oxygen Delivery Method Room Air 11/09/22 22:00 11/10/22 00:00 11/10/22 01:55 Temperature Pulse Rate 71 71 70 Respiratory Rate Blood Pressure [Left Arm] Blood Pressure [Right Arm] Pulse Oximetry Oxygen Delivery Method 11/10/22 03:56 11/10/22 04:43 11/10/22 07:58 Temperature 98.1 F Pulse Rate 70 69 70 Respiratory Rate 18 Blood Pressure [Left Arm] 182/91 H Blood Pressure [Right Arm] Pulse Oximetry 93 L Oxygen Delivery Method Room Air Chest Common normals: inspection of chest normal Respiratory Common normals: normal respiratory effort, no retractions and clear to auscultation bilaterally Cardio Common normals: regular rate and regular rhythm GI Common normals: soft to palpation; tender Palpation: tender (RUQ) Details: RLQ Progress Note: Objective Labs Labs: Short CBC 11/10/22 Range/Units 05:10 WBC 3.7 L (4.0-11.0) 10^3/uL Hgb 8.6 L (12.0-16.0) g/dL Hct 29.1 L (36.0-48.0) % Plt Count 278 (150-450) 10^3/uL BMP 11/10/22 11/10/22 05:10 08:17 Sodium 139 139 Potassium 4.1 4.2 Chloride 106 104 Carbon Dioxide 27.8 28.3 BUN 21.0 H 21.0 H Creatinine 0.98 0.97 Glucose 94 105 Calcium 8.7 8.8 Liver Function 11/10/22 11/10/22 Range/Units 05:10 08:17 Total Bilirubin 0.7 0.7 (0.2-1.0) mg/dL AST 230 H 241 H (15-37) U/L ALT 150 H 155 H (14-59) U/L Alkaline Phosphatase 265 H 274 H (46-116) U/L Albumin 2.5 L 2.3 L (3.4-5.0) g/dL Progress Note: A&P Assessment and Plan (1) Foot fracture, left: (2) Dementia: (3) Hypertension: Plan Foot multiple metatarsal fractures-consult to podiatry-no surgery Syncope-uncertain etiology-Initial thought was syncope possibly related to the anemia, anemia is improving patient still having episodes, telemetry so far with nothing but she has not had any significantNear syncopal episodes just a lightheadedness. CTA head and neck were all normal. - syncpe some better Acute blood loss anemia-uncertain source, check occult blood, patient denies black tarry stools- check occult studies today.All Acute Elevation in liver enzymes - [facility] up some on repeat will check u/s abd - and change pain meds - unable to d/c due to acute hepatitis ?unable to improve patient over the first 24 hours.? She is likely here at leastAnother 1 to 2 daysFor continued medical management work-up of syncope, patient unsafe for being discharged homeUntil etiology for her syncopeCan be treated to prevent further fractures.
--- NOTE | 2022-11-10 10:12 | PT.DAILY ---
Physical Therapy Daily Note PT Daily Note/Assess Start: 11/09/22 13:02 Freq: Status: Active Protocol: Document 11/10/22 07:45 AALIYAH (Rec: 11/10/22 10:12 AALIYAH [id number]) Physical Therapy Daily Note/Assessment Time In/Time Out Time In 07:45 Time Out 08:00 Pain In Pain Level 7 Pain Out Pain Level 7 Subjective Subjective Pt supine upon arrival. Agrees to get into chair for breakfast. DC for today was postponed. Therapeutic Exercise Time Therapeutic Exercise Minutes (minutes) 5 Therapeutic Exercise Units 0 Therapeutic Exercise Treatment Therapeutic Exercise Treatment Seated AP(R only), LAQ, marches, add squeezes 10x to improve strength and maintain mobility - seated in BS chair . Therapeutic Activity Time Therapeutic Activity Minutes (minutes) 5 Therapeutic Activity Units 1 Therapeutic Activity Treatment Bed Mobility Ability Maximum Assist Chair Transfer Ability Minimum Assist Therapeutic Activity Comments Pt performs supine>sit transfer with MaxA needed to advance upper body and L LE this morning. Able to maintain seated balance at EOB unsupported. Sit>stand Mert with bed elevated. Pt hops on R LE to BS chair about 3' with RW Mert - maintains NWB L LE. Remains seated in BS chair upon completion with call light in reach and needs met. Total Physical Therapy Time Total Therapy Minutes 10 Total Physical Therapy Units 1 Summary Daily Note Summary Increased assistance needed for bed mobs today. Improving stability with gait while maintaining NWB L LE.Would benefit from SNF to regain strength/endurance/mobility.
[2022-11-10] MEDS: TRAMADOL HCL 50 MG TABLET PO ×2 (14:04→23:53)
[2022-11-10] MEDS: DOCUSATE SODIUM 100 MG CAPSULE PO (21:24)
[2022-11-10] MEDS: DONEPEZIL HCL 10 MG TABLET PO (21:25)
[2022-11-10] MEDS: TRAZODONE HCL 50 MG TABLET 100 MG PO (21:25)
[2022-11-10] MEDS: ROPINIROLE HCL 0.25 MG TABLET PO (21:25)
[2022-11-11] VITALS (7 sets, daily range): BP systolic 161; BP diastolic 91; PULSE 70–73; RESP 18; TEMP 36.8; O2SAT 93
[2022-11-11] MEDS: BUSPIRONE HCL 10 MG TABLET 5 MG PO ×2 (05:17→13:30)
[2022-11-11 05:36] LABS: Basophils Percent Auto 0.2 % (0.2-2.0); Eosinophils Absolute Auto 0.1 10^3/uL (0.0-0.7); Eosinophils Percent Auto 2.8 % (0.9-7.0); Hematocrit 32.3 % (36.0-48.0); Hemoglobin 9.3 g/dL (12.0-16.0); Immature Granulocytes Abs Auto 0.02 10^3/uL (0.00-0.03); Immature Granulocytes Pct Auto 0.4 % (0.0-0.5); Lymphocytes Absolute Auto 1.6 10^3/uL (1.2-3.8); Lymphocytes Percent Auto 33.1 % (20.5-60.0); Mean Corpuscular HGB Conc 28.8 g/dL (29.9-35.2); Mean Corpuscular Hemoglobin 20.1 pg (26.7-34.0); Mean Corpuscular Volume 69.9 fL (81.0-99.0); Mean Platelet Volume 8.7 fL (9.5-13.5); Monocytes Absolute Auto 0.3 10^3/uL (0.3-0.8); Monocytes Percent Auto 6.2 % (1.7-12.0); Neutrophils Absolute Auto 2.7 10^3/uL (1.4-6.5); Neutrophils Percent Auto 57.3 % (43.0-75.0); Platelet Count 348 10^3/uL (150-450); Red Blood Count 4.62 10^6/uL (4.20-5.40); Red Cell Distribution Width 19.9 % (11.0-15.0); White Blood Count 4.7 10^3/uL (4.0-11.0)
[2022-11-11 05:59] LABS: Alanine Aminotransferase 138 U/L (14-59); Albumin Globulin Ratio 0.7; Albumin Level 2.6 g/dL (3.4-5.0); Alkaline Phosphatase 286 U/L (46-116); Anion Gap 11.4; Aspartate Amino Transferase 120 U/L (15-37); Bilirubin Total 0.7 mg/dL (0.2-1.0); Chloride 104 mmol/L (98-107); Estimated GFR (African America >60 (>=60); Estimated GFR (Non-African Ame 53 (>=60); Globulin 3.9 g/dL; Glucose 95 mg/dL (74-106); Potassium 4.4 mmol/L (3.5-5.1); Sodium 140 mmol/L (136-145); Total Protein 6.5 g/dL (6.4-8.2)
[2022-11-11] MEDS: MEMANTINE HCL 28 MG CAP XR PO (08:24)
[2022-11-11] MEDS: HYDROXYZINE HCL 25 MG TABLET PO (08:24)
[2022-11-11] MEDS: TRAMADOL HCL 50 MG TABLET PO (08:24)
[2022-11-11] MEDS: PAROXETINE HCL 20 MG TABLET 40 MG PO (08:24)
[2022-11-11] MEDS: MELOXICAM 7.5 MG TABLET PO (08:24)
[2022-11-11] MEDS: FERROUS SULFATE 325 MG TABLET PO (08:25)
[2022-11-11] MEDS: ASPIRIN 81 MG TABLET.DR PO (08:25)
[2022-11-11] MEDS: OMEPRAZOLE 20 MG CAPSULE.DR PO (08:25)
[2022-11-11] MEDS: QUETIAPINE FUMARATE 25 MG TABLET 50 MG PO (08:25)
--- NOTE | 2022-11-11 08:29 | P.DS_ITS ---
DS: Providers Provider Date of admission: 11/07/22 08:37 Primary care physician: Piyush Burk MD Consults: 11/06/22 Consult to Manager Delivery Routine 11/07/22 08:37 Occupational Therapy Eval and Treat Routine Physical Therapy Eval and Treat Routine 11/07/22 08:38 Consult to Podiatry Routine Consulting Provider: Tad Cunningham DS: Diagnosis Discharge Diagnosis (1) Foot fracture, left: (2) Dementia: (3) Hypertension: Plan Foot multiple metatarsal fractures Syncope-uncertain etiology Acute blood loss anemia Acute Elevation in liver enzymes DS: Summary Hospital Course Hospital Course: Patient admitted after syncopal episode resulting in fracture, 4 metatarsal fractures, initially thought the altered mental status likely secondary to acute blood loss anemia, she was given 1 unit of PRBCs with an excellent increase in her hemoglobin, her near syncopal symptoms persisted. CTA of head and neck were normal. Medications were adjusted and she is a little bit better now. She has not did complain about the dizziness over the last 24 hours. She was to be discharged yesterday but had acute elevation in her liver enzymes likely related to oxycodone, that was the only medication was changed and liver test are better, ultrasound of liver was normal, she is status postcholecystectomy. Current pain control with Ultram. With nonweightbearing, pain should also be improving. Stable for discharge to rehab Status at Discharge Functional status at discharge: bed bound Overall status at discharge: patient is not back to baseline Time Spent with Patient Time attestation: Total time spent providing and/or coordinating discharge services: Exam Constitutional Vital Signs - 24 hr 11/10/22 09:51 11/10/22 11:55 11/10/22 14:10 Temperature Pulse Rate 70 70 71 Respiratory Rate Blood Pressure [Right Arm] Pulse Oximetry Oxygen Delivery Method 11/10/22 14:00 11/10/22 16:04 11/10/22 17:42 Temperature 98.2 F Pulse Rate 76 70 70 Respiratory Rate 20 Blood Pressure [Right Arm] 138/74 H Pulse Oximetry 93 L Oxygen Delivery Method Room Air 11/10/22 19:28 11/10/22 20:00 11/10/22 21:22 Temperature 98.1 F Pulse Rate 70 75 Respiratory Rate 20 18 Blood Pressure [Right Arm] 139/83 H Pulse Oximetry 94 L Oxygen Delivery Method Room Air 11/10/22 23:50 11/11/22 01:56 11/11/22 03:59 Temperature Pulse Rate 75 70 70 Respiratory Rate Blood Pressure [Right Arm] Pulse Oximetry Oxygen Delivery Method 11/11/22 05:46 11/11/22 05:48 11/11/22 07:54 Temperature 98.2 F Pulse Rate 73 71 70 Respiratory Rate 18 Blood Pressure [Right Arm] 161/91 H Pulse Oximetry 93 L Oxygen Delivery Method Room Air Documenting provider has reviewed patient's vital signs: yes Common normals: no apparent distress Chest Common normals: inspection of chest normal Respiratory Common normals: normal respiratory effort, no use of accessory muscles and clear to auscultation bilaterally Cardio Common normals: no JVD, regular rate and regular rhythm Jugular venous distention: JVD and other GI Common normals: Normal to inspection, nondistended, normoactive bowel sounds present, soft to palpation and non-tender Extremity Common normals: abnormal to inspection (Splint on left foot) DS: Data Data Completed and Pending Labs on day of discharge: Labs from last 24 hours 11/11/22 11/10/22 04:49 08:17 WBC 4.7 RBC 4.62 Hgb 9.3 L Hct 32.3 L MCV 69.9 L MCH 20.1 L MCHC 28.8 L RDW 19.9 H Plt Count 348 MPV 8.7 L Neut % (Auto) 57.3 Lymph % (Auto) 33.1 [place] % (Auto) 6.2 Eos % (Auto) 2.8 Baso % (Auto) 0.2 Neut # (Auto) 2.7 Lymph # (Auto) 1.6 [place] # (Auto) 0.3 Eos # (Auto) 0.1 Baso # (Auto) 0.0 Abs Immat Gran (auto) 0.02 Imm/Tot Granulo (auto) 0.4 PT 9.7 INR <0.93 APTT 25.6 Sodium 140 139 Potassium 4.4 4.2 Chloride 104 104 Carbon Dioxide 29.0 28.3 Anion Gap 11.4 10.9 BUN 21.0 H 21.0 H Creatinine 1.00 0.97 Est GFR ( Amer) >60 >60 Est GFR (Non-Af Amer) 53 L 55 L BUN/Creatinine Ratio 21.0 21.6 Glucose 95 105 Calcium 9.0 8.8 Total Bilirubin 0.7 0.7 AST 120 H 241 H ALT 138 H 155 H Alkaline Phosphatase 286 H 274 H Ammonia 26 Total Protein 6.5 5.9 L Albumin 2.6 L 2.3 L Globulin 3.9 3.6 Albumin/Globulin Ratio 0.7 0.6 Discharge Plan Discharge Disposition: Xfer SNF Condition: Good Discharge Medications: New tramadol 50 mg Tablet 50 mg PO Q4H PRN (Reason: Pain Scale 7-10) Qty: 180 0RF Continued buspirone 5 mg tablet 5 mg PO TID donepezil [Aricept] 10 mg tablet 10 mg PO DAILY ferrous sulfate 325 mg (65 mg iron) tablet 325 mg PO BID lorazepam 2 mg tablet 2 mg PO DAILY PRN (Reason: anxiety) meloxicam 7.5 mg tablet 7.5 mg PO QAM memantine [Namenda XR] 28 mg capsule,sprinkle,ER 24hr 28 mg PO DAILY pantoprazole 20 mg tablet,delayed release (DR/EC) 20 mg PO DAILY paroxetine HCl 40 mg tablet 40 mg PO DAILY quetiapine [Seroquel] 50 mg tablet 50 mg PO DAILY ropinirole 0.25 mg tablet 0.25 mg PO .AT BEDTIME trazodone 100 mg tablet 100 mg PO .AT BEDTIME hydroxyzine HCl 25 mg tablet 25 mg PO QID PRN (Reason: anxiety) 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 Forms: Portal Instructions Referrals: Piyush Burk MD [Primary Care Provider] - 1 week
--- NOTE | 2022-11-11 09:39 | PT.DAILY ---
Physical Therapy Daily Note PT Daily Note/Assess Start: 11/09/22 13:02 Freq: Status: Active Protocol: Document 11/11/22 09:05 AALIYAH (Rec: 11/11/22 09:39 BLANCHEGLENDY [id number]) Physical Therapy Daily Note/Assessment Time In/Time Out Time In 09:05 Time Out 09:15 Pain In Pain N/A Pain Out Pain N/A Subjective Subjective Pt sitting in BS chair just finished breakfast. Reports she would like to lay down after PT. Therapeutic Exercise Time Therapeutic Exercise Minutes (minutes) 3 Therapeutic Exercise Units 0 Therapeutic Exercise Treatment Therapeutic Exercise Treatment Seated AP (R), marches, add squeezes and LAQ 10x ea prior to transfers. R LE supine ex heel slides, SLR, abd slides, AP 10x ea. Therapeutic Activity Time Therapeutic Activity Minutes (minutes) 6 Therapeutic Activity Units 1 Therapeutic Activity Treatment Bed Mobility Ability Moderate Assist Chair Transfer Ability Minimum Assist Therapeutic Activity Comments Pt sit>stand to RW Mert. 3 forward hops then pivot on R LE and 4 retro hops to bed. Sit>supine ModA for L LE. R LE supine ex complete then remains supine with pillows under L LE. Total Physical Therapy Time Total Therapy Minutes 9 Total Physical Therapy Units 1 Summary Daily Note Summary Improving mobility while maintain NWB but does fatigue quickly.
== END 2022-11-11 14:10 | DRG 563 ==
LOC: ER 20:34 → MS 21:10
PROVIDERS: Internal Medicine; Admitting Provider Family Medicine; Emergency Provider Internal Medicine; PCP Family Medicine; Visit Provider Family Medicine
DX: S92.312A Displaced fracture of first metatarsal bone, left foot, initial encounter for closed fracture (principal); D62 Acute posthemorrhagic anemia; R55 Syncope and collapse; S92.322A Displaced fracture of second metatarsal bone, left foot, initial encounter for closed fracture; S92.332A Displaced fracture of third metatarsal bone, left foot, initial encounter for closed fracture; S92.342A Displaced fracture of fourth metatarsal bone, left foot, initial encounter for closed fracture; F03.90 Unspecified dementia, unspecified severity, without behavioral disturbance, psychotic disturbance, mood disturbance, and anxiety; I10 Essential (primary) hypertension; Z87.891 Personal history of nicotine dependence; Z79.899 Other long term (current) drug therapy; S92.212A Displaced fracture of cuboid bone of left foot, initial encounter for closed fracture; W01.0XXA Fall on same level from slipping, tripping and stumbling without subsequent striking against object, initial encounter; Z91.81 History of falling; R74.01 Elevation of levels of liver transaminase levels; T40.2X5A Adverse effect of other opioids, initial encounter; Z90.49 Acquired absence of other specified parts of digestive tract; Z79.1 Long term (current) use of non-steroidal anti-inflammatories (NSAID)
CPT/HCPCS: 36415; 36430; 70496; 70498; 73590; 73610; 73630; 73700; 76705; 80048; 80053; 81003; 82140; 85025; 85610; 85730; 86850; 86900; 86901; 93306; 96374; 97116; 97161; 97165; 97530; 97535; 99285; G0328; G0378; P9016; Q3014; Q9967

== ENCOUNTER 2023-01-02 10:43 | Outpatient (OUT) | payer MEDICARE, BC, SELFPAY ==
--- NOTE | 2023-01-02 | XR_ITS ---
The [address] [address] Patient Name: CARLITOS RACHEL MRN: [id number] date: 1945 Sex: F Assigned Patient Location: [facility] Current Patient Location: [facility] Accession/Order Number: [id number] Exam Date: 01/02/2023 10:50 Report Date: 01/02/2023 23:24 At the request of: YELENA HOANG Procedure: XR foot LT min 3V EXAM: XR foot LT min 3V HISTORY: LEFT FOOT PAIN COMPARISON: 12/05/2022 foot radiographs. 11/06/2022 CT foot. TECHNIQUE: 3 view study FINDINGS: The proximal phalanx fracture of the fifth toe is healed. There is persistent deformity of the cuboid with the fracture line barely discernible. The previously described fractures of the first through fourth metatarsals are not visualized. Osteopenia generally is noted. Soft tissue swelling is noted. XR/XR foot LT min 3V IMPRESSION: Healed proximal phalanx fifth digit fracture. The fracture lines of the cuboid remain visible. The known first through fourth metatarsal fractures are not well depicted. Electronically authenticated by: Bhaskar LIM Date: 01/02/2023 23:24
== END 2023-01-02 10:44 | disposition home or self-care (01) ==
LOC: RAD 10:43
PROVIDERS: PCP Family Medicine; Visit Provider Podiatrist Foot & Ankle Surgery
DX: S92.342A Displaced fracture of fourth metatarsal bone, left foot, initial encounter for closed fracture (principal)
CPT/HCPCS: 73630

== ENCOUNTER 2023-01-23 10:59 | Outpatient (OUT) | payer MEDICARE, BC, SELFPAY ==
--- NOTE | 2023-01-23 | XR_ITS ---
[address] [address] Patient Name: CARLITOS RACHEL MRN: [id number] date: 1945 Sex: F Assigned Patient Location: [facility] Current Patient Location: [facility] Accession/Order Number: [id number] Exam Date: 01/23/2023 11:15 Report Date: 01/23/2023 16:56 At the request of: YELENA HOANG Procedure: XR foot LT min 3V PROCEDURE: XR foot LT min 3V COMPARISON: 01/02/2023 HISTORY: LEFT FOOT PAIN FINDINGS: BONES:Slight interval sclerosis along a extra-articular fracture proximal diaphysis of the fifth proximal phalanx. Subtle lucency through the lateral cuboid likely represents a healing fracture. Moderate degenerative change with joint space narrowing marginal osteophyte relation. Moderate plantar enthesopathic spurring of the calcaneus. Underlying permeative pattern of bone suggest osteopenia SOFT TISSUES:Negative. No visible soft tissue swelling. EFFUSION:None visible. OTHER: Negative. XR/XR foot LT min 3V IMPRESSION: Stable healing fractures of the fifth proximal phalanx and cuboid Electronically authenticated by: NISREEN VALDEZ Date: 01/23/2023 16:56
== END 2023-01-23 11:00 | disposition home or self-care (01) ==
LOC: RAD 11:00
PROVIDERS: PCP Family Medicine; Visit Provider Podiatrist Foot & Ankle Surgery
DX: S92.342A Displaced fracture of fourth metatarsal bone, left foot, initial encounter for closed fracture (principal)
CPT/HCPCS: 73630

== ENCOUNTER 2023-02-01 15:56 | Emergency (ER) | payer MEDICARE, BC, SELFPAY ==
[2023-02-01 16:01] VITALS: BP 130/57; PULSE 84; RESP 18; TEMP 37.1; O2SAT 98; BMI 22.4
--- NOTE | 2023-02-01 16:04 | XR_ITS ---
The [address] [address] Patient Name: CARLITOS RACHEL MRN: [id number] date: 1945 Sex: F Assigned Patient Location: ER Current Patient Location: ER Accession/Order Number: [id number] Exam Date: 02/01/2023 16:40 Report Date: 02/01/2023 17:21 At the request of: GEORGE RUSSELL Procedure: XR foot LT min 3V EXAM: XR foot LT min 3V HISTORY: injury COMPARISON: 01/23/2023. 01/02/2023. TECHNIQUE: 3 views. FINDINGS: Nondisplaced intra-articular fracture extending through the base of the fourth proximal phalanx. Diffuse soft tissue swelling. Calcaneal spur at the attachment of plantar aponeurosis. Diffuse demineralization. XR/XR foot LT min 3V IMPRESSION: 1. Nondisplaced intra-articular fracture extending through the base of the fourth proximal phalanx. 2. Diffuse demineralization. 3. Diffuse soft tissue swelling. 4. Calcaneal spur at the attachment of plantar aponeurosis. Electronically authenticated by: BLAIR BRENNAN Date: 02/01/2023 17:21
--- NOTE | 2023-02-01 16:07 | XR_ITS ---
The [place] [id number] Patient Name: CARLITOS RACHEL MRN: [id number] date: 1945 Sex: F Assigned Patient Location: ER Current Patient Location: Accession/Order Number: [id number] Exam Date: 02/01/2023 16:40 Report Date: 02/01/2023 17:05 At the request of: AMANDO SARKAR Procedure: XR ankle LT min 3V EXAM: XR ankle LT min 3V TECHNIQUE: AP, lateral and oblique views left ankle HISTORY: pain COMPARISON: 11/06/2022 FINDINGS: There is no acute fracture or dislocation of the left ankle. The ankle mortise is aligned. Soft tissue swelling is seen laterally. Chronic deformity of the tip of the lateral malleolus. There is diffuse bony demineralization. Moderate-sized plantar calculus spur. Degenerative changes of the midfoot. Thickening of the distal Achilles tendon. XR/XR ankle LT min 3V IMPRESSION: No fracture. Thickening of the Achilles tendon which could represent a partial tear and/or tendinosis. Electronically authenticated by: ANUP RHODES Date: 02/01/2023 17:05
--- NOTE | 2023-02-01 17:16 | ED_ITS ---
Documented by User: Lizbet Rico 02/01/23 17:31 HPI - General Adult General Chief complaint: Extremity Injury, Lower Stated complaint: foot injury Time Seen by Provider: 02/01/23 16:05 Source: patient Mode of arrival: walk-in History of Present Illness HPI narrative: 77 year old female presents to ed with chief complaint of left lateral foot and ankle injury. pt states she just returned home from a significant foot fracture in October. She has been in rehabilitation therapy until two days ago. Today she was walking through her home and tripped over an object. She has left lateral and ankle pain and swelling. Minimal amount of pain across the dorsal aspect of the 1st through 4th digits of the left foot. Left lateral ankle tenderness noted with swelling. Extremity is neurovascular intact. She has been walking with an David wrap and her walker at home. Related Data Home Medications Medication Instructions Recorded Confirmed buspirone 5 mg tablet 5 mg PO TID 11/06/22 11/07/22 donepezil 10 mg tablet (Aricept) 10 mg PO DAILY 11/06/22 11/06/22 ferrous sulfate 325 mg (65 mg 325 mg PO BID 11/06/22 11/07/22 iron) tablet lorazepam 2 mg tablet 2 mg PO DAILY PRN anxiety 11/06/22 11/07/22 meloxicam 7.5 mg tablet 7.5 mg PO QAM 11/06/22 11/07/22 memantine 28 mg capsule 28 mg PO DAILY 11/06/22 11/06/22 sprinkle,extended release 24hr (Namenda XR) pantoprazole 20 mg tablet,delayed 20 mg PO DAILY 11/06/22 11/06/22 release paroxetine HCl 40 mg tablet 40 mg PO DAILY 11/06/22 11/06/22 quetiapine 50 mg tablet (Seroquel) 50 mg PO DAILY 11/06/22 11/06/22 ropinirole 0.25 mg tablet 0.25 mg PO .AT BEDTIME 11/06/22 11/07/22 trazodone 100 mg tablet 100 mg PO .AT BEDTIME insomnia 11/06/22 11/07/22 hydroxyzine HCl 25 mg tablet 25 mg PO QID PRN anxiety 11/07/22 11/07/22 Previous Rx's Medication Instructions Recorded tramadol 50 mg tablet 50 mg PO Q4H PRN Pain Scale 7-10 11/11/22 #180 tabs Allergies Allergy/AdvReac Type Severity Reaction Status Date / Time No Known Drug Allergies Allergy Verified 11/06/22 18:31 Review of Systems ROS Narrative All Systems are negative except as noted/marked.All systems reviewed and otherwise negative [facility] Medical History (Updated 02/01/23 @ 17:31 by Lizbet Rico) Surgical History (Updated 11/07/22 @ 01:00 by Bhavani Newman) Social History (Updated 11/07/22 @ 00:59 by Bhavani Newman) Within the past year, how often did you have a drink containing alcohol: never Score interpretation: A score less than 3 is consistent with normal alcohol consumption. 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 General: The patient appears well and in no apparent distress. Patient is resting comfortably on cart. Skin: Warm, dry, no pallor noted. There is no rash noted. Head: Normocephalic, atraumatic Eye: Normal conjunctiva, no drainage, EOMI. PERRL Musculoskeletal: left lateral ankle pain and swelling, pain to the 1st through 4th tarsals of the left foot.remainder of extremities are unremarkable. pulses noted bilaterally Neurological: A&O x4, normal speech Psychiatric: Cooperative Constitutional Vital Signs, click to edit/add: Last Vital Signs Temp 98.7 F 02/01/23 16:01 Pulse 82 02/01/23 17:39 Resp 16 02/01/23 17:39 BP 132/78 02/01/23 17:39 Pulse Ox 98 02/01/23 17:39 O2 Del Method Room Air 02/01/23 17:39 Course Vital Signs Vital signs: Vital Signs Temperature 98.7 F 02/01/23 16:01 Pulse Rate 84 02/01/23 16:01 Respiratory Rate 18 02/01/23 16:01 Blood Pressure 130/57 02/01/23 16:01 Pulse Oximetry 98 02/01/23 16:01 Oxygen Delivery Method Room Air 02/01/23 16:01 Temperature 98.7 F 02/01/23 16:01 Pulse Rate 82 02/01/23 17:39 Respiratory Rate 16 02/01/23 17:39 Blood Pressure 132/78 02/01/23 17:39 Pulse Oximetry 98 02/01/23 17:39 Oxygen Delivery Method Room Air 02/01/23 17:39 Medical Decision Making MDM Narrative Medical decision making narrative: patient presenting here with a chief complaint of left lateral ankle and foot pain. X-ray bby radiology ALLERGY shows no acute new fracture deformity. Patient is currently recovering from a cuboid and cuneiform fracture in October. She has completed physical therapy. She does see Dr. Cunningham. Patient will be given David wrap and air splint and postop shoe. Discharged home with left lateral ankle sprain. Rest ice elevation. Follow-up with Dr. Cunningham. We discussed results with patient and family agree with plan of care. They verbalize understanding. Medical Records Medical records reviewed: Yes I reviewed the patient's medical records Imaging Data foot fx: Radiologist's impression: MRN: [facility]:[id number] date: 1945 Sex: F Assigned Patient Location: ER Current Patient Location: ER Accession/Order Number: [id number] Exam Date: 02/01/2023 16:40 Report Date: 02/01/2023 17:21 At the request of: GEORGE MC Procedure: XR foot LT min 3V EXAM: XR foot LT min 3V HISTORY: injury COMPARISON: 01/23/2023. 01/02/2023. TECHNIQUE: 3 views. FINDINGS: Nondisplaced intra-articular fracture extending through the base of the fourth proximal phalanx. Diffuse soft tissue swelling. Calcaneal spur at the attachment of plantar aponeurosis. Diffuse demineralization. IMPRESSION: 1. Nondisplaced intra-articular fracture extending through the base of the fourth proximal phalanx. 2. Diffuse demineralization. 3. Diffuse soft tissue swelling. 4. Calcaneal spur at the attachment of plantar aponeurosis. Electronically authenticated by: BLAIR BRENNAN Date: 02/01/2023 17:21 Discharge Plan Discharge Chief Complaint: Extremity Injury, Lower Clinical Impression: Ankle sprain and strain Patient Disposition: Home, Self-Care Time of Disposition Decision: 17:30 Condition: Good Prescriptions / Home Meds: No Action buspirone 5 mg tablet 5 mg PO TID donepezil [Aricept] 10 mg tablet 10 mg PO DAILY ferrous sulfate 325 mg (65 mg iron) tablet 325 mg PO BID lorazepam 2 mg tablet 2 mg PO DAILY PRN (Reason: anxiety) meloxicam 7.5 mg tablet 7.5 mg PO QAM memantine [Namenda XR] 28 mg capsule,sprinkle,ER 24hr 28 mg PO DAILY pantoprazole 20 mg tablet,delayed release (DR/EC) 20 mg PO DAILY paroxetine HCl 40 mg tablet 40 mg PO DAILY quetiapine [Seroquel] 50 mg tablet 50 mg PO DAILY ropinirole 0.25 mg tablet 0.25 mg PO .AT BEDTIME trazodone 100 mg tablet 100 mg PO .AT BEDTIME hydroxyzine HCl 25 mg tablet 25 mg PO QID PRN (Reason: anxiety) tramadol 50 mg Tablet 50 mg PO Q4H PRN (Reason: Pain Scale 7-10) Qty: 180 0RF Instructions: Ankle Sprain (ED), Ankle Stirrup Splint (ED) Stand Alone Forms: Portal Instructions Referrals: Piyush Burk MD [Primary Care Provider] - 1 week Tad Cunningham DPM [Physician] - 1 week Discharge Date/Time: 02/01/23 17:42 Documented by User: George Mc MD 02/01/23 18:55 HPI - General Adult General Chief complaint: Extremity Injury, Lower Stated complaint: foot injury Time Seen by Provider: 02/01/23 16:05 Related Data Home Medications Medication Instructions Recorded Confirmed buspirone 5 mg tablet 5 mg PO TID 11/06/22 11/07/22 donepezil 10 mg tablet (Aricept) 10 mg PO DAILY 11/06/22 11/06/22 ferrous sulfate 325 mg (65 mg 325 mg PO BID 11/06/22 11/07/22 iron) tablet lorazepam 2 mg tablet 2 mg PO DAILY PRN anxiety 11/06/22 11/07/22 meloxicam 7.5 mg tablet 7.5 mg PO QAM 11/06/22 11/07/22 memantine 28 mg capsule 28 mg PO DAILY 11/06/22 11/06/22 sprinkle,extended release 24hr (Namenda XR) pantoprazole 20 mg tablet,delayed 20 mg PO DAILY 11/06/22 11/06/22 release paroxetine HCl 40 mg tablet 40 mg PO DAILY 11/06/22 11/06/22 quetiapine 50 mg tablet (Seroquel) 50 mg PO DAILY 11/06/22 11/06/22 ropinirole 0.25 mg tablet 0.25 mg PO .AT BEDTIME 11/06/22 11/07/22 trazodone 100 mg tablet 100 mg PO .AT BEDTIME insomnia 11/06/22 11/07/22 hydroxyzine HCl 25 mg tablet 25 mg PO QID PRN anxiety 11/07/22 11/07/22 Previous Rx's Medication Instructions Recorded tramadol 50 mg tablet 50 mg PO Q4H PRN Pain Scale 7-10 11/11/22 #180 tabs Allergies Allergy/AdvReac Type Severity Reaction Status Date / Time No Known Drug Allergies Allergy Verified 11/06/22 18:31 [facility] Medical History (Updated 02/01/23 @ 17:31 by Lizbet Rico) Surgical History (Updated 11/07/22 @ 01:00 by Bhavani Newman) Social History (Updated 11/07/22 @ 00:59 by Bhavani Newman) Within the past year, how often did you have a drink containing alcohol: never Score interpretation: A score less than 3 is consistent with normal alcohol consumption. 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 Highest level of school completed/degree received: some college, no degree Are you now , , , , never or living with a partner: Exam Constitutional Vital Signs, click to edit/add: Last Vital Signs Temp 98.7 F 02/01/23 16:01 Pulse 82 02/01/23 17:39 Resp 16 02/01/23 17:39 BP 132/78 02/01/23 17:39 Pulse Ox 98 02/01/23 17:39 O2 Del Method Room Air 02/01/23 17:39 Course Vital Signs Vital signs: Vital Signs Temperature 98.7 F 02/01/23 16:01 Pulse Rate 84 02/01/23 16:01 Respiratory Rate 18 02/01/23 16:01 Blood Pressure 130/57 02/01/23 16:01 Pulse Oximetry 98 02/01/23 16:01 Oxygen Delivery Method Room Air 02/01/23 16:01 Temperature 98.7 F 02/01/23 16:01 Pulse Rate 82 02/01/23 17:39 Respiratory Rate 16 02/01/23 17:39 Blood Pressure 132/78 02/01/23 17:39 Pulse Oximetry 98 02/01/23 17:39 Oxygen Delivery Method Room Air 02/01/23 17:39 Medical Decision Making MDM Narrative Medical decision making narrative: patient presenting here with a chief complaint of left lateral ankle and foot pain. X-ray bb radiology [facility]ERGY shows no acute new fracture deformity. Patient is currently recovering from a cuboid and cuneiform fracture in October. She has completed physical therapy. She does see Dr. Cunningham. Patient will be given David wrap and air splint and postop shoe. Discharged home with left lateral ankle sprain. Rest ice elevation. Follow-up with Dr. Cunningham. We discussed results with patient and family agree with plan of care. They verbalize understanding. I, Dr Mc, have reviewed the above progress note and course of action in the ER; agree with the above. I have personally seen and evaluated this patient, gone over history and physical, and discussed disposition and treatment plan with the patient. Patient was placed in David wrap, Aircast, and postop shoe to the right ankle/foot. Splint was assisted with . the patient was neurovascularly intact before and after the splint was placed. the affected bones/injured area had proper alignment in a splint. Education on splint care at home was given at bedside. Patient and family have no questions at discharge. Discharge Plan Discharge Chief Complaint: Extremity Injury, Lower Clinical Impression: Ankle sprain and strain Patient Disposition: Home, Self-Care Time of Disposition Decision: 17:30 Condition: Good Prescriptions / Home Meds: No Action buspirone 5 mg tablet 5 mg PO TID donepezil [Aricept] 10 mg tablet 10 mg PO DAILY ferrous sulfate 325 mg (65 mg iron) tablet 325 mg PO BID lorazepam 2 mg tablet 2 mg PO DAILY PRN (Reason: anxiety) meloxicam 7.5 mg tablet 7.5 mg PO QAM memantine [Namenda XR] 28 mg capsule,sprinkle,ER 24hr 28 mg PO DAILY pantoprazole 20 mg tablet,delayed release (DR/EC) 20 mg PO DAILY paroxetine HCl 40 mg tablet 40 mg PO DAILY quetiapine [Seroquel] 50 mg tablet 50 mg PO DAILY ropinirole 0.25 mg tablet 0.25 mg PO .AT BEDTIME trazodone 100 mg tablet 100 mg PO .AT BEDTIME hydroxyzine HCl 25 mg tablet 25 mg PO QID PRN (Reason: anxiety) tramadol 50 mg Tablet 50 mg PO Q4H PRN (Reason: Pain Scale 7-10) Qty: 180 0RF Instructions: Ankle Sprain (ED), Ankle Stirrup Splint (ED) Stand Alone Forms: Portal Instructions Referrals: Piyush Burk MD [Primary Care Provider] - 1 week Tad Cunningham DPM [Physician] - 1 week Discharge Date/Time: 02/01/23 17:42
[2023-02-01 17:39] VITALS: BP 132/78; PULSE 82; RESP 16; O2SAT 98
== END 2023-02-01 17:42 | disposition home or self-care (01) ==
PROVIDERS: Emergency Provider Emergency Medicine; PCP Family Medicine
DX: S93.402A Sprain of unspecified ligament of left ankle, initial encounter (principal); S96.912A Strain of unspecified muscle and tendon at ankle and foot level, left foot, initial encounter; W18.40XA Slipping, tripping and stumbling without falling, unspecified, initial encounter; Z79.899 Other long term (current) drug therapy; Z87.81 Personal history of (healed) traumatic fracture; Z87.891 Personal history of nicotine dependence
CPT/HCPCS: 73610; 73630; 99284

== ENCOUNTER 2023-02-15 15:39 | Emergency (ER) | payer MEDICARE, BC, SELFPAY ==
[2023-02-15] VITALS (17 sets, daily range): BP systolic 118–142; BP diastolic 58–73; PULSE 70–88; RESP 12–23; TEMP 36.8; O2SAT 93–98; BMI 24.6
--- NOTE | 2023-02-15 16:17 | ECG_ITS ---
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
[2023-02-15] MEDS: 0.9 % SODIUM CHLORIDE 1,000 ML 1000 ML IV (16:33)
[2023-02-15] MEDS: ONDANSETRON PF 4 MG/2 ML VIAL IV (16:33)
[2023-02-15 16:41] LABS: Basophils Percent Auto 0.1 % (0.2-2.0); Eosinophils Absolute Auto 0.1 10^3/uL (0.0-0.7); Eosinophils Percent Auto 1.6 % (0.9-7.0); Hematocrit 36.9 % (36.0-48.0); Hemoglobin 11.2 g/dL (12.0-16.0); Immature Granulocytes Abs Auto 0.03 10^3/uL (0.00-0.03); Immature Granulocytes Pct Auto 0.3 % (0.0-0.5); Lymphocytes Absolute Auto 2.1 10^3/uL (1.2-3.8); Lymphocytes Percent Auto 24.2 % (20.5-60.0); Mean Corpuscular HGB Conc 30.4 g/dL (29.9-35.2); Mean Corpuscular Hemoglobin 27.3 pg (26.7-34.0); Mean Platelet Volume 8.7 fL (9.5-13.5); Monocytes Absolute Auto 0.7 10^3/uL (0.3-0.8); Monocytes Percent Auto 7.5 % (1.7-12.0); Neutrophils Absolute Auto 5.7 10^3/uL (1.4-6.5); Neutrophils Percent Auto 66.3 % (43.0-75.0); Platelet Count 374 10^3/uL (150-450); Red Cell Distribution Width 17.2 % (11.0-15.0); White Blood Count 8.7 10^3/uL (4.0-11.0)
--- NOTE | 2023-02-15 16:55 | XR_ITS ---
The [address] [address] Patient Name: CARLITOS RACHEL MRN: [id number] date: 1945 Sex: F Assigned Patient Location: ER Current Patient Location: ER Accession/Order Number: [id number] Exam Date: 02/15/2023 16:50 Report Date: 02/15/2023 17:06 At the request of: AMANDO SARKAR Procedure: XR chest 1V EXAM: XR chest 1V at 1650 hours HISTORY: weakness . Hypotension COMPARISON: 06/18/2021 TECHNIQUE: AP upright portable chest x-ray FINDINGS: The heart is borderline enlarged without overt cardiac decompensation. No acute infiltrate, effusion or pneumothorax is identified. A left-sided transvenous pacemaker is in place. The osseous structures are grossly intact XR/XR chest 1V IMPRESSION: Interval placement of left-sided pacemaker. The cardiac silhouette is slightly larger in size, without overt cardiac decompensation. A discrete infiltrate is not identified. Electronically authenticated by: YELENA DAVIS Date: 02/15/2023 17:06
[2023-02-15 16:57] LABS: Alanine Aminotransferase 14 U/L (14-59); Albumin Globulin Ratio 0.8; Albumin Level 2.8 g/dL (3.4-5.0); Alkaline Phosphatase 116 U/L (46-116); Anion Gap 12.7; Aspartate Amino Transferase 21 U/L (15-37); BUN Creatinine Ratio 22.7; Bilirubin Total 0.4 mg/dL (0.2-1.0); Carbon Dioxide 27.9 mmol/L (21.0-32.0); Chloride 106 mmol/L (98-107); Estimated GFR (African America 58 (>=60); Estimated GFR (Non-African Ame 48 (>=60); Globulin 3.4 g/dL; Glucose 133 mg/dL (74-106); Potassium 4.6 mmol/L (3.5-5.1); Sodium 142 mmol/L (136-145); Total Protein 6.2 g/dL (6.4-8.2); Troponin I High Sensitivity 10.1 pg/mL (4.0-51.3)
--- NOTE | 2023-02-15 17:55 | ED_ITS ---
HPI - General Adult General Chief complaint: Recheck/Abnormal Lab/Rx Stated complaint: HYPOTENSION Time Seen by Provider: 02/15/23 15:50 Source: patient Mode of arrival: ambulance Limitations: no limitations History of Present Illness HPI narrative: 77-year-old female presented to the emergency room with a chief complaint of hypotension. Patient was being seen at Dr. Mae's office. She states she had not eaten or drinking today. She became lightheaded and dizzy and had a low blood pressure while in the office. Son had driven her to the appointment and she states she began to feel lightheaded upon driving to the doctor's appointment today. Patient looks well at this time. Upon arrival with pressure had improved. She denied chest pain or shortness of breath. He is a history of dementia and hypertension. She has not taking any of her medications prior to coming today. Related Data Home Medications Medication Instructions Recorded Confirmed buspirone 5 mg tablet 5 mg PO TID 11/06/22 11/07/22 donepezil 10 mg tablet (Aricept) 10 mg PO DAILY 11/06/22 02/15/23 meloxicam 7.5 mg tablet 7.5 mg PO QAM 11/06/22 02/15/23 memantine 28 mg capsule 28 mg PO DAILY 11/06/22 02/15/23 sprinkle,extended release 24hr (Namenda XR) pantoprazole 20 mg tablet,delayed 20 mg PO DAILY 11/06/22 02/15/23 release paroxetine HCl 40 mg tablet 40 mg PO DAILY 11/06/22 02/15/23 quetiapine 50 mg tablet (Seroquel) 50 mg PO DAILY 11/06/22 02/15/23 ropinirole 0.25 mg tablet 0.25 mg PO .AT BEDTIME 11/06/22 02/15/23 trazodone 100 mg tablet 100 mg PO .AT BEDTIME insomnia 11/06/22 02/15/23 hydroxyzine HCl 25 mg tablet 25 mg PO QID PRN anxiety 11/07/22 02/15/23 buspirone 15 mg tablet 15 mg PO DAILY 02/15/23 02/15/23 Allergies Allergy/AdvReac Type Severity Reaction Status Date / Time No Known Drug Allergies Allergy Verified 11/06/22 18:31 Review of Systems ROS Narrative All Systems are negative except as noted/marked.All systems reviewed and otherwise negative [facility] Medical History (Updated 02/15/23 @ 18:40 by Lizbet Rico) Anxiety ?F41.9 - Anxiety disorder, unspecified (ICD-10) Depression ?F32.A - Depression, unspecified (ICD-10) Surgical History (Updated 11/07/22 @ 01:00 by Bhavani Newman) Bariatric surgery status ?Z98.84 - Bariatric surgery status (ICD-10) Social History (Updated 11/07/22 @ 00:59 by Bhavani Newman) Within the past year, how often did you have a drink containing alcohol: never Score interpretation: A score less than 3 is consistent with normal alcohol consumption. 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 General: The patient appears well and in no apparent distress. Patient is resting comfortably on cart. Skin: Warm, dry, no pallor noted. There is no rash noted. Head: Normocephalic, atraumatic Eye: Normal conjunctiva, no drainage, EOMI. PERRL Ears, Nose, Mouth, and Throat: oral mucosa is moist. Nares patent. Mouth without vesicles. Ear canals patent. Tm's without Erythema Cardiovascular: Regular Rate and Rhythm Respiratory: Patient is in no distress, no accessory muscle use, lungs are clear to auscultation, no wheezing, rales or rhonchi Back: non-tender, no CVA tenderness bilaterally to percussion. GI: Normal bowel sounds, no tenderness to palpation, no masses appreciated. No rebound, guarding, or rigidity noted. Musculoskeletal: Patient is able to ambulate moves all extremities well no swelling no edema noted to bilateral lower extremities, Neurological: A&O 3, normal speech Psychiatric: Cooperative Constitutional Vital Signs, click to edit/add: Last Vital Signs Temp 98.2 F 02/15/23 15:36 Pulse 70 02/15/23 17:20 Resp 23 02/15/23 17:20 BP 133/73 02/15/23 19:10 Pulse Ox 98 02/15/23 17:00 O2 Del Method Room Air 02/15/23 16:38 Course Vital Signs Vital signs: Vital Signs Temperature 98.2 F 02/15/23 15:36 Pulse Rate 70 02/15/23 15:36 Respiratory Rate 16 02/15/23 15:36 Blood Pressure 118/68 02/15/23 15:36 Pulse Oximetry 97 02/15/23 15:36 Oxygen Delivery Method Room Air 02/15/23 15:36 Temperature 98.2 F 02/15/23 15:36 Pulse Rate 70 02/15/23 17:20 Respiratory Rate 23 02/15/23 17:20 Blood Pressure 133/73 02/15/23 19:10 Pulse Oximetry 98 02/15/23 17:00 Oxygen Delivery Method Room Air 02/15/23 16:38 Medical Decision Making Differential Diagnosis Differential Diagnosis: Hypotension, bradycardia, dizziness Medical Records Medical records reviewed: Yes I reviewed the patient's medical records Medical records narrative: Patient was brought to the emergency room for evaluation. While at doctor's office prior to arrival she was lightheaded and dizzy. She is known to be hypotensive at the office. Upon arrival patient initial blood pressure was 118/67. Patient states she hadn't eaten or drank today prior to going to her doctor's appointment. She became lightheaded while at the doctor's office and had a low blood pressure per nursing staff. Patient was sent here by david for evaluation. She is alert and oriented. CBC BMP showed a mildly elevated BUN/creatinine at 25 and 1.1. Patient was given IV fluids and states she feels much better at this time. Urinalysis also reviewed and unremarkable. Patient's son is at bedside and she does feel comfortable going home. Blood pressure is improved Patient did eat here in the emergency room. she did become nauseous after eating which Son states is typical behavior due to gastroparesis The patient's symptoms are due to dehydration and dizziness. Patient is stable at this time, Patient will follow back up with Dr. mae. Patient came member verbalized understanding agrees with plan of care Lab Data Lab results reviewed: Yes I reviewed the patient's lab results Labs: Lab Results 02/15/23 02/15/23 Range/Units 16:34 18:23 WBC 8.7 (4.0-11.0) 10^3/uL RBC 4.10 L (4.20-5.40) 10^6/uL Hgb 11.2 L (12.0-16.0) g/dL Hct 36.9 (36.0-48.0) % MCV 90.0 (81.0-99.0) fL MCH 27.3 (26.7-34.0) pg MCHC 30.4 (29.9-35.2) g/dL RDW 17.2 H (11.0-15.0) % Plt Count 374 (150-450) 10^3/uL MPV 8.7 L (9.5-13.5) fL Neut % (Auto) 66.3 (43.0-75.0) % Lymph % (Auto) 24.2 (20.5-60.0) % [place] % (Auto) 7.5 (1.7-12.0) % Eos % (Auto) 1.6 (0.9-7.0) % Baso % (Auto) 0.1 L (0.2-2.0) % Neut # (Auto) 5.7 (1.4-6.5) 10^3/uL Lymph # (Auto) 2.1 (1.2-3.8) 10^3/uL [place] # (Auto) 0.7 (0.3-0.8) 10^3/uL Eos # (Auto) 0.1 (0.0-0.7) 10^3/uL Baso # (Auto) 0.0 (0.0-0.1) 10^3/uL Abs Immat Gran (auto) 0.03 (0.00-0.03) 10^3/uL Imm/Tot Granulo (auto) 0.3 (0.0-0.5) % Sodium 142 (136-145) mmol/L Potassium 4.6 (3.5-5.1) mmol/L Chloride 106 (98-107) mmol/L Carbon Dioxide 27.9 (21.0-32.0) mmol/L Anion Gap 12.7 BUN 25.0 H (7.0-18.0) mg/dL Creatinine 1.10 H (0.55-1.02) mg/dL Est GFR ( Amer) 58 L (>=60) Est GFR (Non-Af Amer) 48 L (>=60) BUN/Creatinine Ratio 22.7 Glucose 133 H (74-106) mg/dL Calcium 9.0 (8.5-10.1) mg/dL Total Bilirubin 0.4 (0.2-1.0) mg/dL AST 21 (15-37) U/L ALT 14 (14-59) U/L Alkaline Phosphatase 116 (46-116) U/L Troponin I High Sens 10.1 (4.0-51.3) pg/mL Total Protein 6.2 L (6.4-8.2) g/dL Albumin 2.8 L (3.4-5.0) g/dL Globulin 3.4 g/dL Albumin/Globulin Ratio 0.8 Urine Color Lt. yellow (YELLOW) Urine Clarity Slightly cloudy A (CLEAR) Urine pH 5.5 (5.0-9.0) Ur Specific [place] 1.025 (1.005-1.025) Urine Protein Negative (NEG/TRACE) mg/dL Urine Glucose (UA) Negative (NEGATIVE) mg/dL Urine Ketones Negative (NEGATIVE) mg/dL Urine Occult Blood Negative (NEGATIVE) Urine Nitrite Negative (NEGATIVE) Urine Bilirubin Negative (NEGATIVE) Urine Urobilinogen 0.2 (0.2-1.0) EU/dL Ur Leukocyte Esterase Negative (NEGATIVE) Urine RBC None seen (0-2) #/HPF Urine WBC None seen (NONE SEEN) #/HPF Ur Squamous Epith Cells Moderate A (NONE/RARE) #/LPF Urine Crystals None seen (None Seen) #/HPF Amorphous Sediment Moderate Urine Bacteria None seen (NONE SEEN) #/HPF Urine Casts None seen (NONE SEEN) #/LPF Urine Mucus Trace A (NONE SEEN) Ur Culture Indicated? No Imaging Data Chest x-ray: Attestation: I have reviewed the pertinent imaging results. ECG Data Attestation: ?I have reviewed the pertinent ECG results. Interpretation: 1539 Paced rhythm with a rate of 69 bpm, NH interval 158 ms duration of 158 ms atrial pacemaker Discharge Plan Discharge Chief Complaint: Recheck/Abnormal Lab/Rx Clinical Impression: Hypotension, Dehydration Patient Disposition: Home, Self-Care Time of Disposition Decision: 18:39 Condition: Good Mode of Transportation: Private Vehicle Prescriptions / Home Meds: No Action buspirone 5 mg tablet 5 mg PO TID donepezil [Aricept] 10 mg tablet 10 mg PO DAILY meloxicam 7.5 mg tablet 7.5 mg PO QAM memantine [Namenda XR] 28 mg capsule,sprinkle,ER 24hr 28 mg PO DAILY pantoprazole 20 mg tablet,delayed release (DR/EC) 20 mg PO DAILY paroxetine HCl 40 mg tablet 40 mg PO DAILY quetiapine [Seroquel] 50 mg tablet 50 mg PO DAILY ropinirole 0.25 mg tablet 0.25 mg PO .AT BEDTIME trazodone 100 mg tablet 100 mg PO .AT BEDTIME hydroxyzine HCl 25 mg tablet 25 mg PO QID PRN (Reason: anxiety) buspirone 15 mg tablet 15 mg PO DAILY Instructions: Hypotension (ED) Stand Alone Forms: Portal Instructions Referrals: Piyush Mae MD [Primary Care Provider] - 1 week Discharge Date/Time: 02/15/23 19:11
[2023-02-15] MEDS: PROMETHAZINE HCL 25 MG/ML VIAL 12.5 MG IV (17:56)
[2023-02-15 18:29] LABS: Bilirubin Urine NEGATIVE (NEGATIVE); Blood Urine NEGATIVE (NEGATIVE); Color Urine LT. YELLOW (YELLOW); Glucose Urine UA NEGATIVE (NEGATIVE); Ketones Urine NEGATIVE (NEGATIVE); Leukocyte Esterase Urine NEGATIVE (NEGATIVE); Nitrite Urine NEGATIVE (NEGATIVE); Protein Urine NEGATIVE (NEG/TRACE); Specific Gravity Urine 1.025 (1.005-1.025); Urobilinogen Urine 0.2 EU/dL (0.2-1.0); pH Urine 5.5 (5.0-9.0)
[2023-02-15 18:30] LABS: Clarity Urine SLIGHTLY CLOUDY (CLEAR)
[2023-02-15 18:35] LABS: Amorphous Sediment Urine MODERATE; Bacteria Urine NONE SEEN #/HPF (NONE SEEN); Cast Seen? NONE SEEN #/LPF (NONE SEEN); Crystals Seen? None Seen #/HPF (None Seen); Mucus Urine TRACE (NONE SEEN); RBC Urine NONE SEEN #/HPF (0-2); Squamous Epithelial Cell Urine MODERATE #/LPF (NONE/RARE); Urine Culture Indicated NO; WBC Urine NONE SEEN #/HPF (NONE SEEN)
== END 2023-02-15 19:11 | disposition home or self-care (01) ==
PROVIDERS: Physician Assistant; Emergency Provider Emergency Medicine; PCP Family Medicine
DX: I95.9 Hypotension, unspecified (principal); E86.0 Dehydration; F03.90 Unspecified dementia, unspecified severity, without behavioral disturbance, psychotic disturbance, mood disturbance, and anxiety; I10 Essential (primary) hypertension; Z79.899 Other long term (current) drug therapy; F41.9 Anxiety disorder, unspecified; F32.A Depression, unspecified; Z98.84 Bariatric surgery status; Z95.0 Presence of cardiac pacemaker
CPT/HCPCS: 36415; 71045; 80053; 81001; 84484; 85025; 93005; 96361; 96374; 96375; 99285

== ENCOUNTER 2023-04-09 09:12 | Outpatient (OUT) | payer MEDICARE, BC, SELFPAY ==
[2023-04-09 09:33] LABS: Basophils Percent Auto 0.2 % (0.2-2.0); Eosinophils Absolute Auto 0.3 10^3/uL (0.0-0.7); Eosinophils Percent Auto 4.8 % (0.9-7.0); Hematocrit 35.4 % (36.0-48.0); Hemoglobin 10.8 g/dL (12.0-16.0); Immature Granulocytes Abs Auto 0.01 10^3/uL (0.00-0.03); Immature Granulocytes Pct Auto 0.2 % (0.0-0.5); Lymphocytes Absolute Auto 2.3 10^3/uL (1.2-3.8); Lymphocytes Percent Auto 44.4 % (20.5-60.0); Mean Corpuscular HGB Conc 30.5 g/dL (29.9-35.2); Mean Corpuscular Hemoglobin 26.2 pg (26.7-34.0); Mean Corpuscular Volume 85.9 fL (81.0-99.0); Mean Platelet Volume 9.1 fL (9.5-13.5); Monocytes Absolute Auto 0.3 10^3/uL (0.3-0.8); Monocytes Percent Auto 6.3 % (1.7-12.0); Neutrophils Absolute Auto 2.3 10^3/uL (1.4-6.5); Neutrophils Percent Auto 44.1 % (43.0-75.0); Platelet Count 318 10^3/uL (150-450); Red Blood Count 4.12 10^6/uL (4.20-5.40); Red Cell Distribution Width 13.9 % (11.0-15.0); White Blood Count 5.2 10^3/uL (4.0-11.0)
[2023-04-09 10:26] LABS: Estimated Average Glucose 120 mg/dL; Glycohemoglobin A1C 5.8 % (4.5-6.2)
[2023-04-09 12:21] LABS: Alanine Aminotransferase 17 U/L (14-59); Albumin Level 3.3 g/dL (3.4-5.0); Alkaline Phosphatase 96 U/L (46-116); Anion Gap 14.2; Aspartate Amino Transferase 22 U/L (15-37); Bilirubin Total 0.8 mg/dL (0.2-1.0); Calcium 8.8 mg/dL (8.5-10.1); Carbon Dioxide 28.8 mmol/L (21.0-32.0); Chloride 105 mmol/L (98-107); Chol HDL Ratio 2.9; Cholesterol 233 mg/dL (<=200); Estimated GFR (African America 55 (>=60); Estimated GFR (Non-African Ame 45 (>=60); Free T3 2.21 pg/mL (2.18-3.98); Globulin 3.2 g/dL; Glucose 85 mg/dL (74-106); HDL Cholesterol 80 mg/dL (40-60); Sodium 144 mmol/L (136-145); Thyroid Stimulating Hormone 1.223 uIU/mL (0.358-3.740); Total Protein 6.5 g/dL (6.4-8.2); Triglycerides 74 mg/dL (<=150); VLDL CHOLESTEROL 14.8 mg/dL
== END 2023-04-09 09:13 | disposition home or self-care (01) ==
LOC: LAB 09:12
PROVIDERS: PCP Family Medicine; Visit Provider Family Medicine
DX: E78.5 Hyperlipidemia, unspecified (principal); E11.9 Type 2 diabetes mellitus without complications; F03.90 Unspecified dementia, unspecified severity, without behavioral disturbance, psychotic disturbance, mood disturbance, and anxiety; F41.9 Anxiety disorder, unspecified; D64.9 Anemia, unspecified; E55.9 Vitamin D deficiency, unspecified
CPT/HCPCS: 36415; 80053; 80061; 82306; 83036; 83540; 84436; 84443; 84481; 85025

== ENCOUNTER 2023-05-10 14:19 | Outpatient (OUT) | payer MEDICARE, BC, SELFPAY ==
--- OUTSIDE RECORDS SUMMARY | 2023-05-10 14:23 | XMS_ITS | CCD ---
Author Name Unknown Address [address] [place] [address] Organization [facility] Care Team Providers Care Librarian Special Collections Name Role Phone Katie Burk Primary Care Unavailable Jim Lundberg Consulting Unavailable Janusz Vargas Attending UnavailJanusz Elizabeth Admitting Unavailabl e JACK ., DR WILSON Admitting Unavailable HOY ., DR WILSON Attending Unavailable HOY ., DR WILSON Primary Care Unavailable HOY ., DR WILSON Consulting Unavailable HOY ., DR WILSON Admitting Unavailable HOY ., DR WILSON Attending Unavailable HOY ., DR WILSON Primary Care Unavailable HOY ., DR WILSON Consulting Unavailable ZIEBER, DR SATURNINO Ortiz Consulting Unavailable HOY ., DR WILSON Admitting Unavailable HOY ., DR WILSON Attending Unavailable HOY ., DR WILSON Primary Care Unavailable HOY ., DR WILSON Consulting Unavailable ZIEBER, DR SATURNINO Ortiz Consulting Unavailable HOY ., DR WILSON Admitting Unavailable HOY ., DR WILSON Attending Unavailable HOY ., DR WILSON Primary Care Unavailable HOY ., DR WILSON Consulting Unavailable [place], DR NISREEN Trimble Consulting Unavailable Katie Burk Primary Care Physician [phone] Yury POND Attending Unavailable DANNY SAUNDERS Referring Unavailable STEPHAN OLVERA Attending Unavailable DANNY SAUNDERS Referring Unavailable STEPHAN OLVERA Attending Unavailable Allergies Allergy Classification Reported Allergen(s) Allergy Type Date of Onset Reaction(s) Facility (2 sources) atorvastatin; Translations: [ATORVASTATIN] Drug Allergy 06-19-19 [facility] Repository (1 source) chlordiazePOXIDE Drug Allergy 06-19-19 [facility] Repository (1 source) clidinium Drug Allergy 06-19-19 [facility] Repository (1 source) venom-honey bee Drug allergy (disorder) 06-19-19 [facility] Repository (1 source) chlordiazePOXIDE / clidinium Drug Allergy 02-26-20 13 [facility] Repository (1 source) Dextroamphetamine Drug Allergy 04-16-20 19 [facility] Repository (2 sources) chlordiazePOXIDE / clidinium; Translations: [chlordiazepoxide-cli dinium] Drug Allergy [facility] (1 source) Bee pollen; Translations: [BEE POLLEN] Propensity to adverse reactions to drug (disorder) 12-27-[address] [facility] Repository (1 source) chlordiazePOXIDE / clidinium; Translations: [CHLORDIAZEPOXIDE-CLI DINIUM] Drug Allergy 12-27-[address] [facility] Repository Medications Current Medications Medication Drug Class(es) Dates Sig (Normalized) Sig (Original) busPIRone hydrochloride 15 mg oral tablet (1 source) Start: 11-06-2022 take 1 tablet by mouth twice daily busPIRone 15 mg Tab 15 mg = 1 tab(s), Oral, BID, Refills(s) 0 Start Date: 11/06/22 Status: Ordered ferrous sulfate 325 mg delayed release oral tablet (1 source) Start: 04-15-2023 take 1 tablet by mouth twice daily ferrous sulfate 325 mg oral enteric coated tablet 325 mg = 1 tab(s), Oral, BID, Refills(s) 0 Start Date: 04/15/23 Status: Ordered hydrOXYzine hydrochloride 25 mg oral tablet (1 source) Antihistamine Start: 04-15-2023 take 1 tablet by mouth four times daily hydrOXYzine hydrochloride 25 mg Tab 25 mg = 1 tab(s), Oral, QID, Refills(s) 0 Start Date: 04/15/23 Status: Ordered meloxicam 7.5 mg oral tablet (1 source) Nonsteroidal Anti-inflammatory Drug Start: 05-01-2023 take 1 tablet by mouth once daily meloxicam 7.5 mg Tab 7.5 mg = 1 tab(s), Oral, Daily, Refills(s) 0 Start Date: 05/01/23 Status: Ordered 24 hr memantine hydrochloride 28 mg extended release oral capsule (1 source) I-gsnbsz-I-aspartat e Receptor Antagonist Start: 04-15-2023 take 1 capsule by mouth once daily Namenda XR 28 mg oral capsule, extended release 28 mg = 1 cap(s), Oral, Daily, Refills(s) 0 Start Date: 04/15/23 Status: Ordered olmesartan medoxomil 5 mg oral tablet (1 source) Angiotensin 2 Receptor Ezra Start: 04-15-2023 take 2 tablets by mouth once daily olmesartan 5 mg oral tablet 10 mg = 2 tab(s), Oral, Daily, Refills(s) 0 Start Date: 04/15/23 Status: Ordered pantoprazole 20 mg delayed release oral tablet (1 source) Proton Pump Inhibitor Start: 11-06-2022 take 1 tablet by mouth once daily Pantoprazole [address] Tab 20 mg = 1 tab(s), Oral, Daily, Refills(s) 0 Start Date: 11/06/22 Status: Ordered PARoxetine hydrochloride 40 mg oral tablet (1 source) Serotonin Reuptake Inhibitor Start: 04-15-2023 take 1 tablet by mouth once daily paroxetine 40 mg Tab 40 mg = 1 tab(s), Oral, Daily, Refills(s) 0 Start Date: 04/15/23 Status: Ordered rOPINIRole 0.25 mg oral tablet (1 source) Nonergot Dopamine Agonist Start: 11-06-2022 take 1 tablet by mouth once daily ropinirole 0.25 mg Tab 0.25 mg = 1 tab(s), Oral, Daily, Refills(s) 0 Start Date: 11/06/22 Status: Ordered sucralfate 1000 mg oral tablet (1 source) Aluminum Complex Start: 04-15-2023 Carafate 1 gram Tab 1 gm = 1 tab(s), Oral, QIDACHS, Refills(s) 0 Start Date: 04/15/23 Status: Ordered Completed/Discontinued Medications Medication Drug Class(es) Dates Sig (Normalized) Sig (Original) donepezil hydrochloride 10 mg oral tablet (1 source) Start: 11-06-2022 QUEtiapine 50 mg oral tablet (1 source) Atypical Antipsychotic Start: 11-06-2022 traZODone hydrochloride 100 mg oral tablet (1 source) Serotonin Reuptake Inhibitor Start: 11-06-2022 Problems Active Problems Problem Classification Problem Date Documented Date Episodic/Chronic Anxiety disorders (2 sources) Anxiety disorder, unspecified; Translations: [Anxiety] Onset: 06-19-2021 04-15-2023 Chronic Conduction disorders (4 sources) Atrioventricular block, second degree; Translations: [Presence of cardiac pacemaker] Onset: 06-19-2021 Chronic Congestive heart failure; nonhypertensive (1 source) Unspecified diastolic (congestive) heart failure; Translations: [UNSPECIFIED DIASTOLIC HEART FAILURE] Onset: 11-22-2021 Chronic Deficiency and other anemia (2 sources) Iron deficiency anemia; Translations: [Iron deficiency anemia, unspecified] Onset: 05-01-2023 Episodic Delirium, dementia, and amnestic and other cognitive disorders (2 sources) Unspecified dementia without behavioral disturbance; Translations: [Dementia] Onset: 11-22-2021 04-15-2023 Chronic Diabetes mellitus without complication (1 source) Type 2 diabetes mellitus without complication 04-15-2023 Chronic Disorders of lipid metabolism (1 source) Hyperlipidemia, unspecified; Translations: [HYPERLIPIDEMIA UNSPECIFIED] Onset: 11-08-2021 Chronic Esophageal disorders (3 sources) Gastro-esophageal reflux disease without esophagitis; Translations: [Gastroesophageal reflux disease without esophagitis] Onset: 06-19-2021 Chronic Essential hypertension (3 sources) Essential hypertension; Translations: [Essential (primary) hypertension] Onset: 05-03-2023 04-15-2023 Chronic Hypertension with complications and secondary hypertension (5 sources) Hypertensive heart disease with heart failure; Translations: [HTN HEART DISEASE W/HEART FAIL] Onset: 11-08-2021 Chronic Mood disorders (1 source) Depressive disorder 04-15-2023 Chronic Mood disorders (1 source) Mood disorders; Translations: [F32.A - Depression, unspecified] Onset: 06-19-2021 Occlusion or stenosis of precerebral arteries (1 source) Occlusion and stenosis of bilateral carotid arteries; Translations: [OCCLUSION AND STENOS MIGUEL CAROTID ART] Onset: 11-22-2021 Chronic Osteoarthritis (1 source) Unspecified osteoarthritis, unspecified site; Translations: [M19.90 - Unspecified osteoarthritis, unspecified site] Onset: 06-19-2021 Chronic Other bone disease and musculoskeletal deformities (1 source) Osteopenia 04-15-2023 Episodic Other hereditary and degenerative nervous system conditions (1 source) Restless legs syndrome; Translations: [G25.81 - Restless legs syndrome] Onset: 06-19-2021 Chronic Residual codes; unclassified (2 sources) H/O: Disorder; Translations: [Personal history of other specified conditions] Onset: 05-01-2023 Episodic Screening and history of mental health and substance abuse codes (1 source) Ex-smoker 04-15-2023 Episodic Spondylosis; intervertebral disc disorders; other back problems (1 source) Spondylosis without myelopathy or radiculopathy, lumbar region; Translations: [SPONDYLS W/O MYELO-/RADICULOP LUMB] Onset: 12-26-2021 Chronic Unclassified (1 source) I95.9 - Hypotension, unspecified; Translations: [I95.9 - Hypotension, unspecified] Onset: 06-19-2021 Unclassified (3 sources) CONTACT W/AND (SUSP) EXPOS COVID-19; Translations: [CONTACT W/AND (SUSP) EXPOS COVID-19] Onset: 07-18-2022 Unclassified (1 source) COUGH, UNSPECIFIED; Translations: [COUGH, UNSPECIFIED] Onset: 07-18-2022 Unclassified (1 source) Body mass index 20-24 - normal 05-01-2023 Past or Other Problems Problem Classification Problem Date Documented Da te Episodic/Chronic Acute and unspecified renal failure (1 source) Acute kidney failure, unspecified; Translations: [N17.9 - Acute kidney failure, unspecified] Onset: 06-19-2021 Episodic Cardiac dysrhythmias (1 source) Bradycardia, unspecified; Translations: [R00.1 - Bradycardia, unspecified] Onset: 06-19-2021 Episodic Deficiency and other anemia (1 source) Anemia, unspecified; Translations: [ANEMIA UNSPECIFIED] Onset: 11-08-2021 Episodic Diabetes mellitus without complication (1 source) Other abnormal glucose; Translations: [OTHER ABNORMAL GLUCOSE] Onset: 11-08-2021 Episodic Other lower respiratory disease (1 source) Shortness of breath; Translations: [SHORTNESS OF BREATH] Onset: 11-22-2021 Episodic Other screening for suspected conditions (not mental disorders or infectious disease) (1 source) Other specified abnormal findings of blood chemistry; Translations: [R79.89 - Other specified abnormal findings of blood chemistry] Onset: 06-19-2021 Episodic Other upper respiratory infections (1 source) Acute upper respiratory infection, unspecified; Translations: [J06.9 - Acute upper respiratory infection, unspecified] Onset: 06-19-2021 Episodic Residual codes; unclassified (4 sources) Other amnesia; Translations: [OTHER AMNESIA] Onset: 11-03-2021 Episodic Spondylosis; intervertebral disc disorders; other back problems (4 sources) Sciatica, unspecified side; Translations: [SCIATICA UNSPECIFIED SIDE] Onset: 12-22-2021 Episodic Sprains and strains (1 source) Sprain of unspecified ligament of right ankle, initial encounter; Translations: [S93.401A - Sprain of unspecified ligament of right ankle, initial encounter] Onset: 06-19-2021 Episodic Unclassified (1 source) CONTACT W/AND (SUSP) EXPOS COVID-19; Translations: [CONTACT W/AND (SUSP) EXPOS COVID-19] Onset: 07-17-2022 Results Test Name Value Interpretation Reference Range Facility Office Visiton 05-03-2023 Follow-up visit [id number] Johann Rachel ma 1945 F Date Provider Department Center 05/03/2023 Jose-STEPHAN OLVERA [facility] Family History Family history unknown: Yes Level of Service:29507 [place] OFFICE/OUTPATIENT ESTABLISHED MOD MDM [address] [facility] Consent for Procedure/Surger yon 05-02-2023 Consent for Procedure/Surgery [id number] IFF Normal [facility] Facesheeton 05-02-2023 Facesheet [id number] TIFF Normal [facility] Ambulatory Visit Summaryon 1 07-02-2022 Ambulatory Visit Summary CARLITOS RACHEL :1945 Visit Date:05/01/2023 Ambulatory Visit Instructions Your Diagnosis Iron deficiency anemia GERD (gastroesophageal reflux disease) History of ulcer disease Your Care Team Attending Physician - DEJAH CANNON, Yury Ortiz Primary Care Physician - Katie Burk MD This Is Your Medications List Contact prescribing physician if questions or concerns busPIRone (busPIRone 15 mg Tab) donepezil (donepezil 10 mg Tab) ferrous sulfate (ferrous sulfate 325 mg oral enteric coated tablet) hydrOXYzine (hydrOXYzine hydrochloride 25 mg Tab) meloxicam (meloxicam 7.5 mg Tab) memantine (Namenda XR 28 mg oral capsule, extended release) olmesartan (olmesartan 5 mg oral tablet) pantoprazole (Pantoprazole [address] Tab) paroxetine (paroxetine 40 mg Tab) quetiapine (quetiapine 50 mg oral tablet) ropinirole (ropinirole 0.25 mg Tab) sucralfate (Carafate 1 gram Tab) trazodone (traZODONE 100 mg Tab) Procedures Performed Arthroscopy of knee, Bariatric surgery, Biopsy of adrenal gland, EGD - esophagogastroduodenosc opy, Hysterectomy, Insertion of pacemaker pulse generator. Discharge Vitals Heart Rate (Peripheral) 76 Respiratory Rate 16 Blood Pressure 132/90 Height 152.4 cm Height 60 in Weight 57.2 kg Weight 125.84 lb BMI 24.63 Medications What How Much When Instructions Unchanged busPIRone (busPIRone 15 mg Tab) 1 Tablets By Mouth 2 times a day Contact prescribing physician if questions or concerns Unchanged donepezil (donepezil 10 mg Tab) 1 Tablets By Mouth Once a day (at bedtime) 10 Unknown, Oral, 0 Refill(s) Contact prescribing physician if questions or concerns Unchanged ferrous sulfate (ferrous sulfate 325 mg oral enteric coated tablet) 1 Tablets By Mouth 2 times a day Contact prescribing physician if questions or concerns Unchanged hydrOXYzine (hydrOXYzine hydrochloride 25 mg Tab) 1 Tablets By Mouth 4 times a day Contact prescribing physician if questions or concerns Unchanged meloxicam (meloxicam 7.5 mg Tab) 1 Tablets By Mouth Every day Contact prescribing physician if questions or concerns Unchanged memantine (Namenda XR 28 mg oral capsule, extended release) 1 Capsules By Mouth Every day Contact prescribing physician if questions or concerns Unchanged olmesartan (olmesartan 5 mg oral tablet) 2 Tablets By Mouth Every day Contact prescribing physician if questions or concerns Unchanged pantoprazole (Pantoprazole [address] Tab) 1 Tablets By Mouth Every day Contact prescribing physician if questions or concerns Unchanged paroxetine (paroxetine 40 mg Tab) 1 Tablets By Mouth Every day Contact prescribing physician if questions or concerns Unchanged quetiapine (quetiapine 50 mg oral tablet) 1 Tablets By Mouth Every day 50 Unknown, Oral, 0 Refill(s) Contact prescribing physician if questions or concerns Unchanged ropinirole (ropinirole 0.25 mg Tab) 1 Tablets By Mouth Every day Contact prescribing physician if questions or concerns Unchanged sucralfate (Carafate 1 gram Tab) 1 Tablets By Mouth Four times a day (before meals and at bedtime) Contact prescribing physician if questions or concerns Unchanged trazodone (traZODONE 100 mg Tab) 1 Tablets By Mouth Once a day (at bedtime) 100 Unknown, Oral, 0 Refill(s) Contact prescribing physician if questions or concerns Medications and Immunizations Administered Not Given influenza virus vaccine, inactivated, Patient Refuses Allergies Librax Problems Ongoing - Any problem that you are currently receiving treatment for. Anxiety BMI 24.0-24.9, adult Dementia Depressive disorder Essential hypertension Former smoker GERD (gastroesophageal reflux disease) History of ulcer disease Iron deficiency anemia Osteopenia Type 2 diabetes mellitus without complication Patient Survey You may receive a survey via text or e-mail asking about your office visit. Please share your experience with us by completing your survey. We appreciate your feedback and thank you for choosing us for your care. Normal [facility] Physician Referralon 023 Physician Referral [id number] IFF Normal [facility] Covid-19 PCR (CVDTBH)on SARS-CoV-2 (COVID-19) RNA UKRTIS+probe Ql (Unsp spec) Not detected Normal NOT DETECTED [facility] Comment on above: Result Comment: When diagnostic testing is negative, the possibility of a false negative should be considered in the context of a patient's recent exposures and the presence of clinical signs and symptoms consistent with SARS-CoV-2. This test is not yet approved or cleared by the [place] FDA. When there are no FDA-approved or cleared tests available, and other criteria are met, FDA can make tests available under an emergency access mechanism called an Emergency Use Authorization (EUA). The EUA for this test is supported by the [place] of Health and Human Service's declaration that circumstances exist to justify the emergency use of in vitro diagnostics for the detection and/or diagnosis of the virus that causes COVID-19. This EUA will remain in effect for the duration of the COVID-19 declaration justifying emergency of IVDs, unless it is terminated or revoked by the FDA (after which the test may no longer be used). Performed By: #### C [facility] ####[facility] [id number] [place], [place] [address]Zt. Karla Benjamin Office Visiton 06-12-2022 Follow-up visit [id number] Johann Rachel evans Jennifer 1945 F Date Provider Department Center 06/12/2022 STEPHAN DE [facility] Family History Family history unknown: Yes Level of Service:48893 [place] OFFICE/OUTPATIENT ESTABLISHED LOW MDM 20-[address] [facility] XR LSPINE MIN 4 VIEWSon 12-11 XR LSPINE MIN 4 VIEWS EXAMINATION: XR LSPINE MIN 4 VIEWS HISTORY: Sciatica COMPARISON: 02/22/2021 FINDINGS: BONES: 4 mm anterolisthesis of L4. Moderate degenerative spondylosis and facet osteoarthropathy most significant at L5-S1 DISC SPACES: Mild to moderate multilevel disc space narrowing PARASPINOUS: Negative. No paraspinous abnormality is seen. OTHER: Extensive vascular calcifications. 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 Exam Date: 11/17/2021 : 1945 Gender:F Ordering : DR KATIE BURK . Admission #: [id number] Family : Order #: [id number] CLICK HERE TO VIEW EXAM ECHOCARDIOGRAM REPORT PROCEDURE: CARDIO PULMONARY ECHOCARDIO M/2D COMP INDICATIONS: Shortness of breath, pacemaker COMPARISON: None. DESCRIPTION: COMPLETE ECHOCARDIOGRAM Real-time transthoracic echocardiography with 2D, M-mode, spectral and color flow Doppler performed. QUALITY: Technical quality was good. 59 105# BP 134/88 HR 70 LEFT VENTRICLE: Normal chamber size. Proximal septal hypertrophy (sigmoid septum). Abnormal septal motion likely due to ventricular pacing. Systolic function is at the lower limits of normal. LV EF: Lower limits of normal left ventricular ejection fraction, (50-55%). DIASTOLIC: Diastolic function is indeterminate. ATRIAL SEPTUM: LEFT ATRIUM: Mild dilatation. RIGHT ATRIUM: Mild dilatation. RIGHT VENTRICLE: Normal chamber size. Normal right ventricular systolic function. TRICUSPID VALVE: Normal mobility and thickness. No stenosis with mild regurgitation. No evidence of pulmonary hypertension. RVSP 28 mmHg MITRAL VALVE: Normal mobility and thickness. No evidence of mitral valve stenosis. There is no mitral annular calcification. Trivial mitral regurgitation. AORTIC VALVE: Normal trileaflet appearance. Mildly calcified aortic valve. Normal leaflet mobility. No evidence of aortic valve stenosis. No aortic regurgitation. AORTIC ROOT: Normal diameter and appearance. Ascending aorta is normal in size (3.5 cm) PULMONIC VALVE: Normal thickness and mobility. No stenosis. Trivial regurgitation. PERICARDIUM: No evidence of pericardial effusion. IVC: Collapses with inspirations. PLEURA: CONCLUSION: 1. Left ventricular systolic function is at the lower limits of normal. LVEF is 50 to 55%. 2. Normal right ventricular size and function. 3. No significant valvular dysfunction. 4. Normal right-sided pressures. 5. No pericardial effusion. Dictated by: Inder Salgado M.D. on 11/20/2021 at 09:23 Approved by: Inder Salgado M.D. on 11/20/2021 at 09:29 Normal [facility] US CAROTID ART BILon 07-08-2 022 US CAROTID ART MIGUEL EXAMINATION: US REID TID ART MIGUEL HISTORY: Bilateral carotid artery occlusion , dementia, confusion COMPARISON: No relevant comparison available. TECHNIQUE: Duplex Doppler ultrasound analysis of carotid and vertebral arteries. . Bilateral carotid arterial duplex examination was performed using B-mode, color flow and spectral analysis. Carotid stenosis is reported according to validated velocity parameters, similar to NASCET criteria. FINDINGS: RIGHT CAROTID ARTERY: No visible stenosis or significant plaque. RIGHT VERTEBRAL: Antegrade flow. Subclavian: PSV: 96.4 cm/s EDV: 6.7 cm/s CCA: Prox: PSV: 75.7 cm/s EDV: 16.4 cm/s Mid: PSV: 51.1 cm/s EDV: 9.2 cm/s Distal: PSV: 58.1 cm/s EDV: 11.0 cm/s BULB: PSV: 58.1 cm/s EDV: 11.9 cm/s ICA: Prox: PSV: 48.8 cm/s EDV: 11.8 cm/s Mid: PSV: 46.7 cm/s EDV: 16.8 cm/s Distal: PSV: 68.6 cm/s EDV: 21.5 cm/s ECA: PSV: 45.3 cm/s EDV: 6.8 cm/s VERTEBRAL: PSV: 58.1 cm/s EDV: 16.1 cm/s ICA/CCA ratio: PSV: 1.2 EDV: 2.0 LEFT CAROTID ARTERY: Mild plaque without significant stenosis. LEFT VERTEBRAL: Antegrade flow. Subclavian: PSV: 86.6 cm/s EDV: 4.0 cm/s CCA: Prox: PSV: 67.7 cm/s EDV: 19.7 cm/s Mid: PSV: 46.0 cm/s EDV: 9.7 cm/s Distal: PSV: 49.5 cm/s EDV: 16.8 cm/s BULB: PSV: 43.8 cm/s EDV: 14.7 cm/s ICA: Prox: PSV: 44.5 cm/s EDV: 15.4 cm/s Mid: PSV: 48.8 cm/s EDV: 19.6 cm/s Distal: PSV: 88.6 cm/s EDV: 29.2 cm/s ECA: PSV: 48.8 cm/s EDV: 7.5 cm/s VERTEBRAL: PSV: 55.9 cm/s EDV: 16.1 cm/s ICA/CCA ratio: PSV: 1.8 EDV: 1.7 IMPRESSION: 1. 0-49% flow stenosis within the right left carotid arteries. 2. Minimal atherosclerotic plaque without significant stenosis. Electronically authenticated by: SATURNINO HOLGUIN Date: 2021-11-17 17:57 Normal [facility] BNPon 11-03-2021 Natriuretic peptide B (Bld) [Mass/Vol] 284.0 pg/mL Normal <=1,800.0 [facility] Comment on above: Performed By: #### B SHRIMP PEELER, T7, LIPID, TSH #### [facility] [address] [place] [address] Dr. Karla Benjamin CBC AUTO DIFFon 11-03-2021 BASO # 0.0 103/ul Normal 0.0-0.1 [facility] Comment on above: Performed By: #### C BC #### [facility] [address] [place] [address] Dr. Karla Benjamin Basophils/100 WBC (Bld) 0.2 % Normal 0.2-2.0 [facility] Comment on above: Performed By: #### C BC #### [facility] [address] [place] [address] Dr. Karla Benjamin EO # 0.1 103/ul Normal 0.0-0.7 [facility] Comment on above: Performed By: #### C BC #### [facility] [address] [place] [address] Dr. Karla Benjamin Eosinophils/100 WBC (Bld) 2.5 % Normal 0.9-7.0 [facility] Comment on above: Performed By: #### C BC #### [facility] [address] [place] [address] Dr. Karla Benjamin Erythrocyte distribution width (RBC) [Ratio] 15.1 % Critically high 11.0-15.0 [facility] Comment on above: Performed By: #### C BC #### [facility] [address] [place] [address] Dr. Karla Benjamin Hematocrit (Bld) [Volume fraction] 35.0 % Critically low 36.0-48.0 [facility] Comment on above: Performed By: #### C BC #### [facility] [address] [place] [address] Dr. Karla Benjamin Hemoglobin (Bld) [Mass/Vol] 10.5 g/dL Critically low 12.0-16.0 [facility] Comment on above: Performed By: #### C BC #### [facility] [address] [place] [address] Dr. Karla Benjamin IG # 0.00 10e3/ul Normal 0.00-0.03 [facility] Comment on above: Performed By: #### C BC #### [facility] [address] [place] [address] Dr. Karla Benjamin IG % 0.0 % Normal 0.0-0.5 [facility] Comment on above: Performed By: #### C BC #### [facility] [address] [place] [address] Dr. Karla Benjamin LYMPH # 2.2 103/ul Normal 1.2-3.8 [facility] Comment on above: Performed By: #### C BC #### [facility] [address] [place] [address] Dr. Karla Benjamin Lymphocytes/100 WBC (Bld) 50.2 % Normal 20.5-60.0 [facility] Comment on above: Performed By: #### C BC #### [facility] [address] [place] [address] Dr. Karla Benjamin MANUAL DIFF REQ NO Normal [place] Comment on above: Performed By: #### C BC #### [facility] [address] [place] [address] Dr. Karla Benjamin MCH (RBC) [Entitic mass] 24.2 pg Critically low 26.7-34.0 [facility] Comment on above: Performed By: #### C BC #### [facility] [address] [place] [address] Dr. Karla Benjamin MCHC (RBC) [Mass/Vol] 30.0 g/dL Normal 29.9-35.2 [facility] Comment on above: Performed By: #### C BC #### [facility] [address] [place] [address] Dr. Karla Benjamin MCV (RBC) [Entitic vol] 80.6 fL Critically low 81.0-99.0 [facility] Comment on above: Performed By: #### C BC #### [facility] [address] [place] [address] Dr. Karla Benjamin MONO # 0.3 103/ul Normal 0.3-0.8 [facility] Comment on above: Performed By: #### C BC #### [facility] [address] [place] [address] Dr. Karla Benjamin Monocytes/100 WBC (Bld) 6.1 % Normal 1.7-12.0 [facility] Comment on above: Performed By: #### C BC #### [facility] [address] [place] [address] Dr. Karla Benjamin NEUT # 1.8 103/ul Normal 1.4-6.5 [facility] Comment on above: Performed By: #### C BC #### [facility] [address] [place] [address] Dr. Karla Benjamin Neutrophils/100 WBC (Bld) 41.0 % Critically low 43.0-75.0 [facility] Comment on above: Performed By: #### C BC #### [facility] [address] [place] [address] Dr. Karla Benjamin Platelet mean volume (Bld) [Entitic vol] 8.9 fL Critically low 9.5-13.5 [facility] Comment on above: Performed By: #### C BC #### [facility] [address] [place] [address] Dr. Karla Benjamin PLT 279 103/ul Normal 150-450 [facility] Comment on above: Performed By: #### C BC #### [facility] [address] [place] [address] Dr. Karla Benjamin RBC 4.34 106/ul Normal 4.20-5.40 [facility] Comment on above: Performed By: #### C BC #### [facility] [address] [place] [address] Dr. Karla Benjamin WBC 4.4 103/ul Normal 4.0-11.0 [facility] Comment on above: Performed By: #### C BC #### [facility] [address] [place] [address] HEAD WO W CONon CT HEAD WO W CON EXAMINATION: CT HEAD WO W CON HISTORY: Amnesia , unstable COMPARISON: CT head 06/18/2021 TECHNIQUE: CT imaging of the head following IV administration of non-ionic contrast. Multi-planar/3-D imaging were created to optimize visualization of vascular anatomy. Dose reduction techniques were achieved by using automated exposure control and/or adjustment of mA and/or kV according to patient size and/or use of iterative reconstruction technique. FINDINGS: VASCULATURE: Normal. No significant stenosis. No visible aneurysm or vascular malformation. VENTRICLES: Normal for age. No enlargement or displacement. 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 Prominent areas of decreased attenuation throughout the deep white matter bilaterally, unchanged. No excessive atrophy, mass, or hemorrhage, or abnormal enhancement. CEREBELLUM: Normal for age. No excessive atrophy, mass, or hemorrhage, or abnormal enhancement. BRAINSTEM: Normal for age. No excessive atrophy, mass, or hemorrhage, or abnormal enhancement. BASAL CISTERNS: Normal. No subarachnoid hemorrhage or effacement. SKULL: Negative. IMPRESSION: 1. Prominent, but age consistent atrophy and chronic small vessel ischemic changes; grossly stable. 2. No acute intracranial hemorrhage or appreciable acute abnormality. 3. No mass or mass effect. Electronically authenticated by: SATURNINO HOLGUIN Date: 2021-11-03 14:41 Normal [facility] FREE THYROXINE INDEX T7on FTI 2.61 Normal 1.30-4.50 [facility] Comment on above: Performed By: #### B SHRIMP PEELER, T7, LIPID, TSH #### [facility] [address] [address] [address] Karla Benjamin T3U 33.0 % Normal 30.0-39.0 [facility] Comment on above: Performed By: #### B SHRIMP PEELER, T7, LIPID, TSH #### [facility] [address] [place], [place] [address] Dr. Karla Benjamin T4 [Mass/Vol] 7.90 ug/dL Normal 4.80-13.90 [facility] Comment on above: Performed By: #### B SHRIMP PEELER, T7, LIPID, TSH #### [facility] [address] [address] [address] Karla Benjamin GLYCOHEMOGLOBIN A1Con 2021 ADA RECOMMENDATION SEE BELOW Normal [facility] Comment on above: Result Comment: ADA RECOMMENDED LIMIT 4.0 - 6.0 ADA THERAPEUTIC TARGET < 7.0 ACTION SUGGESTED > 7.0 Performed By: #### A 1C ####[facility] [address] [id number] Benjamin Glucose [Mass/Vol] 131 mg/dL Normal [facility] Comment on above: Performed By: #### A 1C ####[facility] [address] [place] [address]DrBillie Benjamin HbA1c (Bld) [Mass fraction] 6.2 % Normal 4.5-6.2 [facility] Comment on above: Performed By: #### A 1C ####[facility] [address] [address]DrBillie Benjamin IRONon 11-03-2021 Iron [Mass/Vol] 55.0 ug/dL Normal 50.0-170.0 [place] Comment on above: Performed By: #### I FADIA ####[facility] [address] [address]Dr. Karla Benjamin LIPID PROFILEon 11-03-2021 CHOL-HDL RATIO NORM SEE BELOW Normal [facility] Comment on above: Result Comment: 3.3 - 4.4 LOW RISK 4.4 - 7.1 AVERAGE RISK 7.1 - 11.0 MODERATE RISK >11.0 HIGH RISK Performed By: #### B SHRIMP PEELER, T7, LIPID, TSH #### [facility] [address] [address] [address] Karla Benjamin Cholesterol [Mass/Vol] 248 mg/dL Critically high <=200 [facility] Comment on above: Performed By: #### B SHRIMP PEELER, T7, LIPID, TSH #### [facility] [address] [address] [address] Karla Benjamin Cholesterol in HDL [Mass/Vol] 71 mg/dL Critically high 40-60 [facility] Comment on above: Performed By: #### B SHRIMP PEELER, T7, LIPID, TSH #### [facility] [address] [address] [address] Karla Benjamin Cholesterol in LDL [Mass/Vol] 157.6 mg/dL Normal [facility] Comment on above: Performed By: #### B SHRIMP PEELER, T7, LIPID, TSH #### [facility] [address] [address] [address] Karla Benjamin Cholesterol.total/Ch olesterol in HDL [Mass ratio] 3.5 {ratio} Normal [facility] Comment on above: Performed By: #### B SHRIMP PEELER, T7, LIPID, TSH #### [facility] [address] [address] [address] Karla Benjamin HDL NORMAL > or = 60 mg/dl - LO W CARDIOVASCULAR RISK <40 mg/dl - HIGH CARDIOVASCULAR RISK Normal [facility] Comment on above: Performed By: #### B SHRIMP PEELER, T7, LIPID, TSH #### [facility] [address] [address] [address] Karla Benjamin LDL CALC NORMAL SEE BELOW Normal [place] Comment on above: Result Comment: <100 mg/dl OPTIMAL 100 - 129 mg/dl NEAR OR ABOVE OPTIMAL 130 - 159 mg/dl BORDERLINE HIGH 160 - 189 mg/dl HIGH >190 mg/dl VERY HIGH Performed By: #### B SHRIMP PEELER, T7, LIPID, TSH #### [facility] [address] [address] [address] Karla Benjamin Triglyceride [Mass/Vol] 97 mg/dL Normal <=150 [facility] Comment on above: Performed By: #### B SHRIMP PEELER, T7, LIPID, TSH #### [facility] [address] [address] [address] Karla Benjamin VLDL CALC 19.4 mg/dL Normal [facility] Comment on above: Performed By: #### B SHRIMP PEELER, T7, LIPID, TSH #### [facility] [address] [address] [address] Karla Benjamin PROF 14(COMP METB)on 022 Albumin [Mass/Vol] 3.4 g/dL Normal 3.4-5.0 [facility] Comment on above: Performed By: #### C MP ####[facility] [address] [address]Dr. Karla Benjamin Albumin/Globulin [Mass ratio] 1.1 {ratio} Normal [facility] Comment on above: Performed By: #### C MP ####[facility] [address] [address]Dr. Karla Benjamin ALP [Catalytic activity/Vol] 116 U/L Normal 46-116 [facility] Comment on above: Performed By: #### C MP ####[facility] [address] [address]Dr. Karla Benjamin ALT [Catalytic activity/Vol] 26 U/L Normal 14-59 [facility] Comment on above: Performed By: #### C MP ####[facility] [address] [place], [place] [address]Dr. Karla Benjamin Anion gap [Moles/Vol] 10.3 mmol/L Normal [facility] Comment on above: Performed By: #### C MP ####[facility] [address] [place], [place] [address]Dr. Karla Sourav AST [Catalytic activity/Vol] 21 U/L Normal 15-37 [facility] Comment on above: Performed By: #### C MP ####[facility] [address] [place], [place] [address]Dr. Karla Sourav Bilirubin [Mass/Vol] 0.8 mg/dL Normal 0.2-1.0 [facility] Comment on above: Performed By: #### C MP ####[facility] [address] [place], [place] [address]Dr. Karla Sourav Calcium [Mass/Vol] 9.0 mg/dL Normal 8.5-10.1 [facility] Comment on above: Performed By: #### C MP ####[facility] [address] [place], [place] [address]Dr. Karla Sourav Chloride [Moles/Vol] 106 mmol/L Normal 98-107 [facility] Comment on above: Performed By: #### C MP ####[facility] [address] [place], [place] [address]Dr. Karla Sourav CO2 [Moles/Vol] 31.2 mmol/L Normal 21.0-32.0 [facility] Comment on above: Performed By: #### C MP ####[facility] [address] [place], [place] [address]Dr. Karla Sourav Creatinine [Mass/Vol] 1.19 mg/dL Critically high 0.55-1.02 [facility] Comment on above: Performed By: #### C MP ####[facility] [address] [place] [address]Dr. Karla Sourav EGFR-AF MICRONESIAN 53 mL/min/1.73m2 Critically low >=60 [facility] Comment on above: Performed By: #### C MP ####[facility] [address] [address]Dr. Karla Sourav EGFR-NON AF MICRONESIAN 44 mL/min/1.73m2 Critically low >=60 [facility] Comment on above: Performed By: #### C MP ####[facility] [address] [place], [place] [address]Dr. Karla Benjamin Globulin (S) [Mass/Vol] 3.1 g/dL Normal [facility] Comment on above: Performed By: #### C MP ####[facility] [address] [place], [place] [address]Dr. Karla Benjamin Glucose [Mass/Vol] 91 mg/dL Normal 74-106 [facility] Comment on above: Performed By: #### C MP ####[facility] [address] [place], [place] [address]Dr. Karla Benjamin Potassium [Moles/Vol] 4.6 mmol/L Normal 3.5-5.1 [facility] Comment on above: Performed By: #### C MP ####[facility] [address] [place], [place] [address]Dr. Karla Benjamin Protein [Mass/Vol] 6.5 g/dL Normal 6.4-8.2 [facility] Comment on above: Performed By: #### C MP ####[facility] [address] [place], [place] [address]Dr. Karla Benjamin Sodium [Moles/Vol] 143 mmol/L Normal 136-145 [facility] Comment on above: Performed By: #### C MP ####[facility] [address] [place], [place] [address]Dr. Karla Benjamin Urea nitrogen [Mass/Vol] 34.0 mg/dL Critically high 7.0-18.0 [facility] Comment on above: Performed By: #### C MP ####[facility] [address] [place], [place] [address]Dr. Karla Benjamin Urea nitrogen/Creatinine [Mass ratio] 28.6 mg/mg Normal [facility] Comment on above: Performed By: #### C MP ####[facility] [address] [place], [place] [address]PoDr. Karla Benjamin TSHon 11-03-2021 TSH 0.923 uIU/mL Normal 0.358-3.740 [facility] Comment on above: Performed By: #### B SHRIMP PEELER, T7, LIPID, TSH #### [facility] [address] [place], [place] [address] Dr. Karla Benjamin Basic Metabolic Panelon Calcium [Mass/Vol] 7.8 mg/dL Low 8.2-10.2 [facility] Comment on above: Performed By: #### C BC, HEPATIC, BMP #### [facility] [address] [place] [address] [place] Chloride [Moles/Vol] 108 mmol/L Normal 95-114 [facility] Comment on above: Performed By: #### C BC, HEPATIC, BMP #### [facility] [address] CO2 [Moles/Vol] 22.7 mmol/L Normal 22.0-30.0 [facility] Comment on above: Performed By: #### C BC, HEPATIC, BMP #### [facility] [address] [place] [address] [place] Creatinine [Mass/Vol] 0.82 mg/dL Normal 0.44-1.03 [facility] Comment on above: Performed By: #### C BC, HEPATIC, BMP #### [facility] [address] [place] [address] [place] Creatinine Clr Calc Pharmacy 48.89 Normal [facility] Comment on above: Result Comment: PERF ORMED BY: [facility] [address] [place] [address] PATHOLOGIST [employer] TRELL ELAINE M.D. Performed By: #### C BC, HEPATIC, BMP #### [facility] [address] Estimated GFR ( Radha > 60 Normal [facility] Comment on above: Result Comment: GFR estimated reference range: According to KDOQI guidelines, <60 ml/min/1.73m2 is sufficient to diagnose a patient with chronic kidney disease. Performed By: #### C BC, HEPATIC, BMP #### [facility] [address] [place] [address] [place] Estimated GFR (Non- Am > 60 Normal [facility] Comment on above: Performed By: #### C BC, HEPATIC, BMP #### [address] Glucose [Mass/Vol] 88 mg/dL Normal 70-100 [facility] Comment on above: Result Comment: [place] Glucose Reference Range is dependent on time and content of last meal. Glucose of more than 200 mg/dL in a nonstressed, ambulatory subject supports the diagnosis of Diabetes Mellitus. ADA recommended reference range Performed By: #### C BC, HEPATIC, BMP #### [address] Potassium Normal 3.5-5.1 [facility] Comment on above: Result Comment: Spec imen hemolyzed, redraw requested Performed By: #### C BC, HEPATIC, BMP #### [facility] [address] [place] [address] [place] Sodium [Moles/Vol] 140 mmol/L Normal 136-146 [facility] Comment on above: Performed By: #### C BC, HEPATIC, BMP #### [facility] [address] [place] [address] [place] Urea nitrogen [Mass/Vol] 15 mg/dL Normal 9-23 [facility] Comment on above: Performed By: #### C BC, HEPATIC, BMP #### [facility] [address] [place] [address] [place] Bilirubin, Total and Directo n 06-21-2021 Bilirubin [Mass/Vol] 1.0 mg/dL Normal 0.3-1.2 [facility] Comment on above: Performed By: #### A 1C WT eA #### [facility] [address] Bilirubin,Indirect 0.8 mg/dL Normal [facility] Comment on above: Performed By: #### A 1C WT eA #### [facility] [address] Redraw Bilirubin,Direct 0.2 mg/dL Normal 0.0-0.4 [facility] Comment on above: Performed By: #### A 1C WT eA #### [address] abdomen pelvis w conon CT abdomen pelvis w con [facility] [place] [address] [place] [address] CT Scan Report Signed Patient: Carlitos Rachel MR#: [id number] 305 : 1945 Acct:[id number] Age/Sex: 75 / F ADM Date: 06/19/21 Loc: Room: [address] [place] [address] Type: ADM IN Attending Dr: Janusz Vargas DO Ordering Provider: Janusz Vargas DO Date of Service: 06/21/21 CT/CT abdomen pelvis w con: abdominal pain, elevated LFT Copies to: Janusz Vargas DO CT ABDOMEN AND PELVIS WITH CONTRAST CLINICAL DATA: Abdominal pain and elevated liver functions. Recent pacemaker placement. COMPARISON: None Spiral images were obtained through the abdomen and pelvis following oral and 83 mm Isovue-300. This CT exam was performed using one or more following dose reduction techniques: Automated exposure control, adjustment of the mA and/or kV according to patient size, or use of iterative reconstruction technique. Limited cuts through the lung bases show a trace amount pleural fluid bilaterally and minor dependent atelectasis. There is a small hiatal hernia and postoperative changes of bariatric surgery. Diffuse subcutaneous edema is seen. The gallbladder is surgically absent. Intra and extrahepatic biliary dilatation is seen. No common duct stones are noted. There are a few tiny scattered hepatic hypodensities which are too small to fully characterize though they may be cysts. The spleen is unremarkable. The proximal pancreatic duct is mildly prominent. No other pancreatic abnormalities are seen. There is low density nodularity involving the right adrenal glands measuring 4.8 x 2.5 cm in size. There are symmetric bilateral renal nephrograms, without hydronephrosis. There are suspected tiny renal cysts Atherosclerotic plaque is present at the aorta, visceral and iliac arteries. No enlarged lymph nodes are present. There is minimal perihepatic free fluid that extends into the right paracolic gutter. Proximal The small bowel loops are not distended. There is moderate colonic stool. Postoperative changes suggesting ventral hernia repair are present at the anterior lower abdominal wall. There is osteopenia. There is subtle dextroscoliotic curvature and degenerative changes at the spine, greatest at the lower facets. There is also some degenerative change at the SI joints. Subcutaneous edema is visualized. Images through the pelvis show additional postoperative changes of suspected ventral hernia repair. There is subcutaneous edema. The small bowel loops are normal caliber. The appendix shows no signs of inflammation. There is mild stool at the distal colon. No diverticular disease is noted. The urinary bladder contains a Adrian catheter and is not adequately distended for assessment. There is a trace amount of free fluid as well as presacral edema. CT/CT abdomen pelvis w con IMPRESSION: MINOR BIBASILAR PLEURAL PARENCHYMAL CHANGES. SMALL HIATAL HERNIA. BILIARY AND PANCREATIC DUCTAL DILATATION. PATIENT IS STATUS POST CHOLECYSTECTOMY. THERE IS NO OBVIOUS CHOLEDOCHOLITHIASIS. TINY SUSPECTED HEPATIC AND RENAL CYSTS. NO BOWEL OR URINARY TRACT OBSTRUCTION. LOW DENSITY RIGHT ADRENAL NODULARITY. POSTOPERATIVE CHANGES OF BARIATRIC SURGERY AND SUSPECTED VENTRAL HERNIA REPAIR DIFFUSE SUBCUTANEOUS EDEMA AND MINIMAL ASCITES. Impression dictated by: Modesta Salgado M.D.06/21/2021 11:31 AM Dictation Location: [place] [address] Transcribed By: [facility] 06/21/21 1131 Dictated By: Modesta Salgado MD 06/21/21 1119 Signed By: 06/21/21 1131 Normal [facility] Complete Blood Count Auto Di ffon 06-21-2021 Basophils (Bld) [#/Vol] 0.0 10*3/uL Normal 0.0-0.2 [facility] Comment on above: Result Comment: PERF ORMED BY: [place] [id number] PATHOLOGIST [employer]PER[employer] TRELL ELAINE M.D. Performed By: #### C BC, HEPATIC, BMP #### [address] Basophils/100 WBC (Bld) 0.2 % Normal . [facility] Comment on above: Performed By: #### C BC, HEPATIC, BMP #### [address] Eosinophils (Bld) [#/Vol] 0.1 10*3/uL Normal 0.0-0.45 [facility] Comment on above: Performed By: #### C BC, HEPATIC, BMP #### [address] Eosinophils/100 WBC (Bld) 1.4 % Normal . [facility] Comment on above: Performed By: #### C BC, HEPATIC, BMP #### [address] Erythrocyte distribution width (RBC) [Ratio] 16.3 % High 11.9-15.3 [facility] Comment on above: Performed By: #### C BC, HEPATIC, BMP #### [address] Hematocrit (Bld) [Volume fraction] 30.9 % Low 34.0-46.4 [facility] Comment on above: Performed By: #### C BC, HEPATIC, BMP #### [address] Hemoglobin (Bld) [Mass/Vol] 9.9 g/dL Low 11.8-15.4 [facility] Comment on above: Performed By: #### C BC, HEPATIC, BMP #### [address] Lymphocytes (Bld) [#/Vol] 1.9 10*3/uL Normal 1.00-4.8 [facility] Comment on above: Performed By: #### C BC, HEPATIC, BMP #### [facility] [address] [place] [address] [place] Lymphocytes/100 WBC (Bld) 34.5 % Normal . [facility] Comment on above: Performed By: #### C BC, HEPATIC, BMP #### [facility] [address] [place] [address] [place] MCH (RBC) [Entitic mass] 25.3 pg Normal 24.7-34.3 [facility] Comment on above: Performed By: #### C BC, HEPATIC, BMP #### [facility] [address] [place] [address] [place] MCV (RBC) [Entitic vol] 78.6 fL Low 80-100 [facility] Comment on above: Performed By: #### C BC, HEPATIC, BMP #### [facility] [address] Mean Corpuscular HGB Conc 32.2 g/dL Normal 32.0-35.0 [facility] Comment on above: Performed By: #### C BC, HEPATIC, BMP #### [facility] [address] [place] [address] [place] Monocytes (Bld) [#/Vol] 0.3 10*3/uL Normal 0.0-0.8 [facility] Comment on above: Performed By: #### C BC, HEPATIC, BMP #### [facility] [address] [place] [address] [place] Monocytes/100 WBC (Bld) 4.9 % Normal . [facility] Comment on above: Performed By: #### C BC, HEPATIC, BMP #### [facility] [address] [place] [address] [place] Neutrophils (Bld) [#/Vol] 3.2 10*3/uL Normal 1.8-7.7 [facility] Comment on above: Performed By: #### C BC, HEPATIC, BMP #### [facility] [address] [place] [address] [place] Neutrophils/100 WBC (Bld) 59.0 % Normal . [facility] Comment on above: Performed By: #### C BC, HEPATIC, BMP #### [facility] [address] [place] [address] [place] Nucleated RBC/100 WBC (Bld) [Ratio] 0.0 % Normal 0-0.5 [facility] Comment on above: Performed By: #### C BC, HEPATIC, BMP #### [facility] [address] Platelet mean volume (Bld) [Entitic vol] 7.6 fL Normal 6.3-10.7 [facility] Comment on above: Performed By: #### C BC, HEPATIC, BMP #### [facility] [address] [place] [address] [place] Platelets (Bld) [#/Vol] 231 10*3/uL Normal 150-450 [facility] Comment on above: Performed By: #### C BC, HEPATIC, BMP #### [facility] [address] [place] [address] [place] RBC (Bld) [#/Vol] 3.93 10*6/uL Normal 3.60-5.00 [facility] Comment on above: Performed By: #### C AYANNA, HEPATIC, BMP #### [facility] [address] [place] [address] [place] WBC (Bld) [#/Vol] 5.4 10*3/uL Normal 4.5-11.0 [facility] Comment on above: Performed By: #### C BC, HEPATIC, BMP #### [address] ECG 12 lead ECGon 06-21-2021 ECG 12 lead ECG [facility] [place] [address] [place] [address] Electrocardiograph Report Signed Patient: Carlitos Rachel MR#: [id number] 305 : 1945 Acct:[id number] Age/Sex: 75 / F ADM Date: 06/19/21 Loc: Room: [address] [place] [address] Type: DIS IN Attending Dr: Janusz Vargas DO Ordering Provider: Janusz Vargas DO Date of Service: 06/21/2102/01/500 ECG/ECG 12 lead ECG: bradycardia Copies to: Test Reason : Blood Pressure : / mmHG Vent. Rate : 072 BPM Atrial Rate : 072 BPM P-R Int : 188 ms QRS Dur : 158 ms QT Int : 430 ms P-R-T Axes : 000 -79 089 degrees QTc Int : 470 ms Sinus rhythm Left bundle branch block Confirmed by FANNIE CANNON [facility], TRISHA ([id number]) on 06/21/2021 9:48:54 PM Referred By: Electronically Signed By:TRISHA LIU MD [facility] Transcribed By: MUS Signed By Trisha Liu MD, [facility] 06/21/212148 [facility] Hepatic Panelon 06-21-2021 Alanine Aminotransferase Normal 10-60 [facility] Comment on above: Result Comment: Spec imen hemolyzed, redraw requested Performed By: #### C BC, HEPATIC, BMP #### [facility] [address] [place] [address] [place] Albumin [Mass/Vol] 2.1 g/dL Low 3.2-5.5 [facility] Comment on above: Performed By: #### C BC, HEPATIC, BMP #### [facility] [address] [place] [id number] [facility] Albumin/Globulin [Mass ratio] 1.1 {ratio} [facility] Comment on above: Performed By: #### C BC, HEPATIC, BMP #### [facility] [address] [place] [address] [place] Alkaline Phosphatase Normal 32-92 [facility] Comment on above: Result Comment: Spec imen hemolyzed, redraw requested Performed By: #### C BC, HEPATIC, BMP #### [facility] [address] [place] [address] [place] Aspartate Amino Transferase Normal 10-42 [facility] Comment on above: Result Comment: Spec imen hemolyzed, redraw requested Performed By: #### C BC, HEPATIC, BMP #### [facility] [address] [place] [address] [place] Bilirubin,Direct Normal 0.0-0.4 [facility] Comment on above: Result Comment: Spec imen hemolyzed, redraw requested Performed By: #### C BC, HEPATIC, BMP #### [facility] [address] Bilirubin,Indirect Not performed Normal [facility] Comment on above: Performed By: #### C BC, HEPATIC, BMP #### [facility] [address] Bilirubin,Total Normal 0.3-1.2 [facility] Comment on above: Result Comment: Spec imen hemolyzed, redraw requested Performed By: #### C BC, HEPATIC, BMP #### [facility] [address] Globulin (S) [Mass/Vol] 2.0 g/dL Normal [facility] Comment on above: Performed By: #### C BC, HEPATIC, BMP #### [address] Protein [Mass/Vol] 4.1 g/dL Low 6.1-7.9 [facility] Comment on above: Performed By: #### C BC, HEPATIC, BMP #### [address] Redraw Lan 06-21-2021 ALT [Catalytic activity/Vol] 44 U/L Normal 10-60 [facility] Comment on above: Performed By: #### A 1C WTH eA #### [facility] [address] [place] [address] [place] Redraw Brandee 06-21-2021 AST [Catalytic activity/Vol] 38 U/L Normal 10-42 [facility] Comment on above: Performed By: #### A 1C WTH eA #### [facility] [address] [place] [address] [place] Redraw Alkaline Phosphataseo n 06-21-2021 ALP [Catalytic activity/Vol] 151 U/L High 32-92 [facility] Comment on above: Result Comment: PERF ORMED BY: [place] [id number] PATHOLOGIST [employer] SUPERVISOR TRELL ELAINE M.D. Performed By: #### [facility] e[facility] #### [facility] [address] [place] [address] Redraw Potassiumon 2 Potassium [Moles/Vol] 3.3 mmol/L Low 3.5-5.1 [facility] Comment on above: Performed By: #### A [facility] #### [address] XR ankle RT min 3V*on 2021 XR ankle RT min 3V* [facility] [place] [address] [place] [address] XRay Report Signed Patient: Carlitos Rachel MR#: [id number] 305 : 1945 Acct:[id number] Age/Sex: 75 / F ADM Date: 06/19/21 Loc: Room: [address] [place] [address] Type: ADM IN Attending Dr: Janusz Vargas DO Ordering Provider: Janusz Vargas DO Date of Service: 06/21/21 XR/XR ankle RT min 3V*: pain in right ankle. Can not bear weight. Copies to: Janusz Vargas DO XR ankle RT min 3V* 06/21/2021 10:57 AM SIGNS AND SYMPTOMS: Right ankle pain with swelling laterally PROTOCOL: Frontal, lateral, and oblique radiographs of the right ankle COMPARISON: None FINDINGS: The ankle mortise is preserved. There is no fracture. No dislocation. There is soft tissue swelling greatest over the lateral malleolus. There is plantar and Achilles surface calcaneal spurring. XR/XR ankle RT min 3V* IMPRESSION: No acute displaced fracture. Mild diffuse soft tissue swelling is present. Impression dictated by: Washington Whitaker M.D.06/21/2021 2:42 PM Dictation Location: [place] [address] Transcribed By: [facility] 06/21/21 1442 Dictated By: Washington Whitaker II, MD 06/21/21 1441 Signed By: 06/21/21 1442 [facility] XR chest 2V*on 06-21-2021 XR chest 2V* [facility] [place] [address] [place] [address] XRay Report Signed Patient: Carlitos Rachel MR#: [id number] 305 : 1945 Acct:[id number] Age/Sex: 75 / F ADM Date: 06/19/21 Loc: Room: [address] [place] [address] Type: ADM IN Attending Dr: Janusz Vargas DO Ordering Provider: Sandro Russell MD Date of Service: 06/21/21 XR/XR chest 2V*: Rule out pneumothorax on only new implants cases in am Copies to: DO Sandro Telles MD XR chest 2V* 06/20/2021 4:41 PM SIGNS AND SYMPTOMS: Status post pacer insertion, follow-up PROTOCOL: frontal and lateral radiograph of the chest COMPARISON: 06/20/2021 FINDINGS: The trachea is midline. There is a dual lead pacer device in the left hemithorax. Atherosclerotic changes are noted in the thoracic aorta. There is no pneumothorax. The heart and mediastinal structu res are within normal limits. The lung parenchyma is clear. The bony thorax is intact. Degenerative changes are noted in the shoulders and thoracic spine. XR/XR chest 2V* IMPRESSION: No acute cardiopulmonary pathology. Impression dictated by: Washington Whitaker M.D.06/21/2021 11:03 AM Dictation Location: [place] [address] Transcribed By: [facility] 06/21/21 1103 Dictated By: Washington Whitaker II, MD 06/21/21 1101 Signed By: 06/21/21 1103 Normal [facility] Basic Metabolic Panelon 02-0 Calcium [Mass/Vol] 8.7 mg/dL Normal 8.2-10.2 [facility] Comment on above: Performed By: #### C BC, HEPATIC, BMP #### [facility] [address] [place] [id number] [facility] Chloride [Moles/Vol] 106 mmol/L Normal 95-114 [facility] Comment on above: Performed By: #### C BC, HEPATIC, BMP #### [facility] [address] CO2 [Moles/Vol] 25.0 mmol/L Normal 22.0-30.0 [facility] Comment on above: Performed By: #### C BC, HEPATIC, BMP #### [facility] [address] Creatinine [Mass/Vol] 0.99 mg/dL Normal 0.44-1.03 [facility] Comment on above: Performed By: #### C BC, HEPATIC, BMP #### [facility] [address] [place] [address] [place] Creatinine Clr Calc Pharmacy 37.31 [facility] Comment on above: Result Comment: PERF ORMED BY: [place] [id number] PATHOLOGIST [employer] SUPERVISOR TRELL ELAINE M.D. Performed By: #### C BC, HEPATIC, BMP #### [address] Estimated GFR ( Radha > 60 [facility] Comment on above: Result Comment: GFR estimated reference range: According to KDOQI guidelines, <60 ml/min/1.73m2 is sufficient to diagnose a patient with chronic kidney disease. Performed By: #### C BC, HEPATIC, BMP #### [address] Estimated GFR (Non- Am 54 [facility] Comment on above: Performed By: #### C BC, HEPATIC, BMP #### [address] Glucose [Mass/Vol] 131 mg/dL High 70-100 [facility] Comment on above: Result Comment: [place] Glucose Reference Range is dependent on time and content of last meal. Glucose of more than 200 mg/dL in a nonstressed, ambulatory subject supports the diagnosis of Diabetes Mellitus. ADA recommended reference range Performed By: #### C BC, HEPATIC, BMP #### [place] [address] [place] Potassium [Moles/Vol] 4.0 mmol/L Normal 3.5-5.1 [facility] Comment on above: Performed By: #### C BC, HEPATIC, BMP #### [address] Sodium [Moles/Vol] 141 mmol/L Normal 136-146 [facility] Comment on above: Performed By: #### C BC, HEPATIC, BMP #### [address] Urea nitrogen [Mass/Vol] 27 mg/dL High 9- [facility] Comment on above: Performed By: #### C BC, HEPATIC, BMP #### [address] Complete Blood Count Auto Di ffon 06-20-2021 Basophils (Bld) [#/Vol] 0.0 10*3/uL Normal 0.0-0.2 [facility] Comment on above: Result Comment: PERF ORMED BY: [place] [id number] PATHOLOGIST [employer] SUPERVISOR TRELL ELAINE M.D. Performed By: #### C BC, HEPATIC, BMP #### [place] [address] [place] Basophils/100 WBC (Bld) 0.1 % Normal . [facility] Comment on above: Performed By: #### C BC, HEPATIC, BMP #### [facility] [address] [place] [address] [place] Eosinophils (Bld) [#/Vol] 0.0 10*3/uL Normal 0.0-0.45 [facility] Comment on above: Performed By: #### C BC, HEPATIC, BMP #### [facility] [address] [place] [address] [place] Eosinophils/100 WBC (Bld) 0.0 % Normal . [facility] Comment on above: Performed By: #### C BC, HEPATIC, BMP #### [address] Erythrocyte distribution width (RBC) [Ratio] 16.3 % High 11.9-15.3 [facility] Comment on above: Performed By: #### C BC, HEPATIC, BMP #### [address] Hematocrit (Bld) [Volume fraction] 34.4 % Normal 34.0-46.4 [facility] Comment on above: Performed By: #### C BC, HEPATIC, BMP #### [address] Hemoglobin (Bld) [Mass/Vol] 11.4 g/dL Low 11.8-15.4 [facility] Comment on above: Performed By: #### C BC, HEPATIC, BMP #### [address] Lymphocytes (Bld) [#/Vol] 0.7 10*3/uL Low 1.00-4.8 [facility] Comment on above: Performed By: #### C BC, HEPATIC, BMP #### [address] Lymphocytes/100 WBC (Bld) 10.2 % Normal . [facility] Comment on above: Performed By: #### C BC, HEPATIC, BMP #### [address] MCH (RBC) [Entitic mass] 25.9 pg Normal 24.7-34.3 [facility] Comment on above: Performed By: #### C BC, HEPATIC, BMP #### [address] MCV (RBC) [Entitic vol] 78.3 fL Low 80-100 [facility] Comment on above: Performed By: #### C BC, HEPATIC, BMP #### [address] Mean Corpuscular HGB Conc 33.1 g/dL Normal 32.0-35.0 [facility] Comment on above: Performed By: #### C BC, HEPATIC, BMP #### [address] Monocytes (Bld) [#/Vol] 0.2 10*3/uL Normal 0.0-0.8 [facility] Comment on above: Performed By: #### C AYANNA HEPATIC, BMP #### [facility] [address] [place] [address] [place] Monocytes/100 WBC (Bld) 2.4 % Normal . [facility] Comment on above: Performed By: #### C AYANNA HEPATIC, BMP #### [facility] [address] [place] [address] [place] Neutrophils (Bld) [#/Vol] 6.2 10*3/uL Normal 1.8-7.7 [facility] Comment on above: Performed By: #### C AYANNA HEPATIC, BMP #### [facility] [address] Neutrophils/100 WBC (Bld) 87.3 % Normal . [facility] Comment on above: Performed By: #### C AYANNA HEPATIC, BMP #### [facility] [address] [place] [address] [place] Nucleated RBC/100 WBC (Bld) [Ratio] 0.1 % Normal 0-0.5 [facility] Comment on above: Performed By: #### C AYANNA HEPATIC, BMP #### [address] Platelet mean volume (Bld) [Entitic vol] 7.4 fL Normal 6.3-10.7 [facility] Comment on above: Performed By: #### C BC HEPATIC, BMP #### [facility] [address] [place] [address] [place] Platelets (Bld) [#/Vol] 282 10*3/uL Normal 150-450 [facility] Comment on above: Performed By: #### C AYANNA HEPATIC, BMP #### [facility] [address] [place] [address] [place] RBC (Bld) [#/Vol] 4.39 10*6/uL Normal 3.60-5.00 [facility] Comment on above: Performed By: #### C BC HEPATIC, BMP #### [facility] [address] WBC (Bld) [#/Vol] 7.1 10*3/uL Normal 4.5-11.0 [facility] Comment on above: Performed By: #### C BC, HEPATIC, BMP #### [facility] [address] [place] [id number] [facility] Creatine Kinaseon 06-20-2021 CK [Catalytic activity/Vol] 51 U/L Normal 22-269 [facility] Comment on above: Performed By: #### C BC, HEPATIC, BMP #### [facility] [address] ECG 12 lead ECGon 06-20-2021 ECG 12 lead ECG [facility] [place] [address] [place] [address] Electrocardiograph Report Signed Patient: Carlitos Rachel MR#: [id number] 305 : 1945 Acct:[id number] Age/Sex: 75 / F ADM Date: 06/19/21 Loc: Room: [address] [place] [address] Type: DIS IN Attending Dr: Janusz Vargas DO Ordering Provider: Janusz Vargas DO Date of Service: 06/20/2101/01/500 ECG/ECG 12 lead ECG: bradycardia Copies to: Test Reason : Blood Pressure : / mmHG Vent. Rate : 074 BPM Atrial Rate : 074 BPM P-R Int : 356 ms QRS Dur : 080 ms QT Int : 388 ms P-R-T Axes : 069 004 076 degrees QTc Int : 430 ms Sinus rhythm with 1st degree AV block Low voltage QRS Cannot rule out Anteroseptal infarct (cited on or before 20-JUN-2021) Abnormal ECG When compared with ECG of 20-JUN-2021 04:46, (Unconfirmed) Sinus rhythm is no longer with 2nd degree AV block (Mobitz I) Confirmed by FANNIE CANNON [facility], TRISHA ([id number]) on 06/20/2021 12:26:23 PM Referred By: Electronically Signed By:TRISHA LIU MD [facility] Transcribed By: MUS Signed By Trisha Liu MD, [facility] 06/20/21 1226 [facility] ECG 12 lead ECG [facility] [place] [address] [place] [address] Electrocardiograph Report Signed Patient: Carlitos Rachel MR#: [id number] 305 : 1945 Acct:[id number] Age/Sex: 75 / F ADM Date: 06/19/21 Loc: Room: [address] [place] [address] Type: DIS IN Attending Dr: Janusz Vargas DO Ordering Provider: Janusz Vargas DO Date of Service: 06/20/2101/01/446 ECG/ECG 12 lead ECG: Pt Evaluation Copies to: Test Reason : Blood Pressure : / mmHG Vent. Rate : 053 BPM Atrial Rate : 067 BPM P-R Int : 000 ms QRS Dur : 080 ms QT Int : 378 ms P-R-T Axes : 087 015 074 degrees QTc Int : 354 ms Sinus rhythm with 2nd degree AV block (Mobitz I) Low voltage QRS Cannot rule out Anteroseptal infarct , age undetermined Abnormal ECG No previous ECGs available Confirmed by FANNIE CANNON [facility], TRISHA ([id number]) on 06/20/2021 12:26:02 PM Referred By: Electronically Signed By:TRISHA LIU MD [facility] Transcribed By: MUS Signed By Trisha Liu MD, [facility] 06/20/21 1226 [facility] Hepatic Panelon 06-20-2021 Albumin [Mass/Vol] 2.6 g/dL Low 3.2-5.5 [facility] Comment on above: Performed By: #### C BC, HEPATIC, BMP #### [facility] [address] [place] [address] [place] Albumin/Globulin [Mass ratio] 1.0 {ratio} [facility] Comment on above: Performed By: #### C BC, HEPATIC, BMP #### [facility] [address] [place] [address] [facility] ALP [Catalytic activity/Vol] 190 U/L High 32-92 [facility] Comment on above: Performed By: #### C BC, HEPATIC, BMP #### [facility] [address] [place] [id number] [place] ALT [Catalytic activity/Vol] 79 U/L High 10-60 [facility] Comment on above: Performed By: #### C BC, HEPATIC, BMP #### [facility] [address] [place] [id number] [facility] AST [Catalytic activity/Vol] 111 U/L High 10-42 [facility] Comment on above: Performed By: #### C BC, HEPATIC, BMP #### [facility] [address] [place] [address] [place] Bilirubin [Mass/Vol] 1.0 mg/dL Normal 0.3-1.2 [facility] Comment on above: Performed By: #### C BC, HEPATIC, BMP #### [address] Bilirubin,Indirect 0.7 mg/dL Normal [facility] Comment on above: Performed By: #### C BC, HEPATIC, BMP #### [facility] [address] [place] [address] Bilirubin.indirect [Mass/Vol] 0.3 mg/dL Normal 0.0-0.4 [facility] Comment on above: Performed By: #### C BC, HEPATIC, BMP #### [address] Globulin (S) [Mass/Vol] 2.5 g/dL Normal [facility] Comment on above: Performed By: #### C BC, HEPATIC, BMP #### [facility] [address] [place] [address] Protein [Mass/Vol] 5.1 g/dL Low 6.1-7.9 [facility] Comment on above: Performed By: #### C BC, HEPATIC, BMP #### [facility] [address] [place] [address] [place] Troponin I High Sensitivityo n 06-20-2021 Troponin I High Sensitivity 8 pg/mL Normal 0-15 [facility] Comment on above: Result Comment: PERF ORMED BY: [address] [place] [address] PATHOLOGIST [employer] SUPERVISOR TRELL ELAINE M.D. Performed By: #### C BC, HEPATIC, BMP #### [place] [id number] [facility] XR chest 1V portableon 06-20 XR chest 1V portable [facility] [place] [address] [place] [address] XRay Report Signed Patient: Carlitos Rachel MR#: [id number] 305 : 1945 Acct:[id number] Age/Sex: 75 / F ADM Date: 06/19/21 Loc: Room: [address] [place] [address] Type: ADM IN Attending Dr: Janusz Vargas DO Ordering Provider: Sandro Russell MD Date of Service: 06/20/21 XR/XR chest 1V portable: PACEMAKER Copies to: DO Sandro Telles MD PORTABLE AP ERECT CHEST 1640 hours CLINICAL HISTORY: Follow-up after pacemaker placement COMPARISON: 06/19/2021 A new dual-lead left-sided pacemaker is present. The leads appear intact and in appropriate position. The heart is within normal limits. There is minor coarsening of interstitial markings. No developing consolidation is noted. There is no effusion or pneumothorax. The osseous structures are intact. There is mild endplate spurring. XR/XR chest 1V portable IMPRESSION: SATISFACTORY APPEARANCE OF PACEMAKER. NO POSTPROCEDURE PNEUMOTHORAX. Impression dictated by: Modesta Salgado M.D.06/20/2021 4:57 PM Dictation Location: [place] [address] Transcribed By: [facility] 06/20/21 165 Dictated By: Modesta Salgado MD 06/20/21 165 Signed By: 06/20/21 165 Normal [facility] A1C with Estimated Average G jeremy 06-19-2021 Glucose [Mass/Vol] 131 mg/dL Normal [facility] Comment on above: Result Comment: PERF ORMED BY: [place] [id number] PATHOLOGIST [employer] SUPERVISOR TRELL ELAINE M.D. Performed By: #### A [facility] eA #### [address] HbA1c (Bld) [Mass fraction] 6.2 % High 4.3-5.6 [facility] Comment on above: Result Comment: Incr eased risk for diabetes: 5.7 - 6.4 diabetes: >6.4 glycemic control for adults with diabetes: <7.0 Performed By: #### A [facility] e[facility] #### [address] Blood Cultureon 06-19-2021 Bacteria identified Cx Nom (Bld) NO GROWTH 5 DAYS PERFORMED BY: [place] [id number] PATHOLOGIST [employer] SUPERVISOR TRELL ELAINE M.D. [facility] Comment on above: Performed By: #### A [facility] eA #### [address] Bacteria identified Cx Nom (Bld) NO GROWTH 5 DAYS PERFORMED BY: [place] [id number] PATHOLOGIST [employer] SUPERVISOR TRELL ELAINE M.D. [facility] Comment on above: Performed By: #### A [facility] eA #### [address] Complete Blood Count Auto Di ffon 06-19-2021 Basophils (Bld) [#/Vol] 0.0 10*3/uL Normal 0.0-0.2 [facility] Comment on above: Result Comment: PERF ORMED BY: [place] [id number] PATHOLOGIST [employer] SUPERVISOR TRELL ELAINE M.D. Performed By: #### H S TROP, CUBLD, CBC, PT, PTT, CMP, MG, CK, CKMB #### [address] Basophils/100 WBC (Bld) 0.3 % Normal . [facility] Comment on above: Performed By: #### H S TROP, CUBLD, CBC, PT, PTT, CMP, MG, CK, CKMB #### [address] Eosinophils (Bld) [#/Vol] 0.0 10*3/uL Normal 0.0-0.45 [facility] Comment on above: Performed By: #### H S TROP, CUBLD, CBC, PT, PTT, CMP, MG, CK, CKMB #### [address] Eosinophils/100 WBC (Bld) 0.1 % Normal . [facility] Comment on above: Performed By: #### H S TROP, CUBLD, CBC, PT, PTT, CMP, MG, CK, CKMB #### [address] Erythrocyte distribution width (RBC) [Ratio] 16.2 % High 11.9-15.3 [facility] Comment on above: Performed By: #### H S TROP, CUBLD, CBC, PT, PTT, CMP, MG, CK, CKMB #### [address] Hematocrit (Bld) [Volume fraction] 35.2 % Normal 34.0-46.4 [facility] Comment on above: Performed By: #### H S TROP, CUBLD, CBC, PT, PTT, CMP, MG, CK, CKMB #### [address] Hemoglobin (Bld) [Mass/Vol] 11.3 g/dL Low 11.8-15.4 [facility] Comment on above: Performed By: #### H S TROP, CUBLD, CBC, PT, PTT, CMP, MG, CK, CKMB #### [address] Lymphocytes (Bld) [#/Vol] 0.8 10*3/uL Low 1.00-4.8 [facility] Comment on above: Performed By: #### H S TROP, CUBLD, CBC, PT, PTT, CMP, MG, CK, CKMB #### [address] Lymphocytes/100 WBC (Bld) 13.6 % Normal . [facility] Comment on above: Performed By: #### H S TROP, CUBLD, CBC, PT, PTT, CMP, MG, CK, CKMB #### [address] MCH (RBC) [Entitic mass] 25.2 pg Normal 24.7-34.3 [facility] Comment on above: Performed By: #### H S TROP, CUBLD, CBC, PT, PTT, CMP, MG, CK, CKMB #### [address] MCV (RBC) [Entitic vol] 78.5 fL Low 80-100 [facility] Comment on above: Performed By: #### H S TROP, CUBLD, CBC, PT, PTT, CMP, MG, CK, CKMB #### [address] Mean Corpuscular HGB Conc 32.2 g/dL Normal 32.0-35.0 [facility] Comment on above: Performed By: #### H S TROP, CUBLD, CBC, PT, PTT, CMP, MG, CK, CKMB #### [address] Monocytes (Bld) [#/Vol] 0.2 10*3/uL Normal 0.0-0.8 [facility] Comment on above: Performed By: #### H S TROP, CUBLD, CBC, PT, PTT, CMP, MG, CK, CKMB #### [address] Monocytes/100 WBC (Bld) 3.1 % Normal . [facility] Comment on above: Performed By: #### H S TROP, CUBLD, CBC, PT, PTT, CMP, MG, CK, CKMB #### [address] Neutrophils (Bld) [#/Vol] 4.8 10*3/uL Normal 1.8-7.7 [facility] Comment on above: Performed By: #### H S TROP, CUBLD, CBC, PT, PTT, CMP, MG, CK, CKMB #### [facility] [address] Neutrophils/100 WBC (Bld) 82.9 % Normal . [facility] Comment on above: Performed By: #### H S TROP, CUBLD, CBC, PT, PTT, CMP, MG, CK, CKMB #### [facility] [address] Nucleated RBC/100 WBC (Bld) [Ratio] 0.0 % Normal 0-0.5 [facility] Comment on above: Performed By: #### H S TROP, CUBLD, CBC, PT, PTT, CMP, MG, CK, CKMB #### [address] Platelet mean volume (Bld) [Entitic vol] 7.3 fL Normal 6.3-10.7 [facility] Comment on above: Performed By: #### H S TROP, CUBLD, CBC, PT, PTT, CMP, MG, CK, CKMB #### [address] Platelets (Bld) [#/Vol] 265 10*3/uL Normal 150-450 [facility] Comment on above: Performed By: #### H S TROP, CUBLD, CBC, PT, PTT, CMP, MG, CK, CKMB #### [place] [address] [place] RBC (Bld) [#/Vol] 4.49 10*6/uL Normal 3.60-5.00 [facility] Comment on above: Performed By: #### H S TROP, CUBLD, CBC, PT, PTT, CMP, MG, CK, CKMB #### [facility] [address] [place] [address] [place] WBC (Bld) [#/Vol] 5.8 10*3/uL Normal 4.5-11.0 [facility] Comment on above: Performed By: #### H S TROP, CUBLD, CBC, PT, PTT, CMP, MG, CK, CKMB #### [facility] [address] Comprehensive Metabolic Pane gretchen 06-19-2021 Albumin [Mass/Vol] 2.6 g/dL Low 3.2-5.5 [facility] Comment on above: Performed By: #### H S TROP, CUBLD, CBC, PT, PTT, CMP, MG, CK, CKMB #### [facility] [address] Albumin/Globulin [Mass ratio] 1.0 {ratio} Normal [facility] Comment on above: Performed By: #### H S TROP, CUBLD, CBC, PT, PTT, CMP, MG, CK, CKMB #### [facility] [address] ALP [Catalytic activity/Vol] 186 U/L High 32-92 [facility] Comment on above: Performed By: #### H S TROP, CUBLD, CBC, PT, PTT, CMP, MG, CK, CKMB #### [facility] [address] ALT [Catalytic activity/Vol] 84 U/L High 10-60 [facility] Comment on above: Performed By: #### H S TROP, CUBLD, CBC, PT, PTT, CMP, MG, CK, CKMB #### [address] AST [Catalytic activity/Vol] 216 U/L High 10-42 [facility] Comment on above: Performed By: #### H S TROP, CUBLD, CBC, PT, PTT, CMP, MG, CK, CKMB #### [address] Bilirubin [Mass/Vol] 1.3 mg/dL High 0.3-1.2 [facility] Comment on above: Result Comment: Samp les from patients who have taken Naproxen have shown spurious elevation in Total Bilirubin levels. A metabolite of Naproxen, O-desmethylnaproxen, has been shown to interfere with the Jendrassik-Grof method for measuring Total Bilirubin. Performed By: #### H S TROP, CUBLD, CBC, PT, PTT, CMP, MG, CK, CKMB #### [facility] [address] Calcium [Mass/Vol] 8.5 mg/dL Normal 8.2-10.2 [facility] Comment on above: Performed By: #### H S TROP, CUBLD, CBC, PT, PTT, CMP, MG, CK, CKMB #### [facility] [address] Chloride [Moles/Vol] 104 mmol/L Normal 95-114 [facility] Comment on above: Performed By: #### H S TROP, CUBLD, CBC, PT, PTT, CMP, MG, CK, CKMB #### [facility] [address] CO2 [Moles/Vol] 21.1 mmol/L Low 22.0-30.0 [facility] Comment on above: Performed By: #### H S TROP, CUBLD, CBC, PT, PTT, CMP, MG, CK, CKMB #### [address] Creatinine [Mass/Vol] 1.27 mg/dL High 0.44-1.03 [facility] Comment on above: Performed By: #### H S TROP, CUBLD, CBC, PT, PTT, CMP, MG, CK, CKMB #### [address] Creatinine Clr Calc Pharmacy 29.08 [facility] Comment on above: Performed By: #### H S TROP, CUBLD, CBC, PT, PTT, CMP, MG, CK, CKMB #### [address] Estimated GFR ( Radha 49 Normal [facility] Comment on above: Result Comment: GFR estimated reference range: According to KDOQI guidelines, <60 ml/min/1.73m2 is sufficient to diagnose a patient with chronic kidney disease. Performed By: #### H S TROP, CUBLD, CBC, PT, PTT, CMP, MG, CK, CKMB #### [facility] [address] Estimated GFR (Non- Am 41 Normal [facility] Comment on above: Performed By: #### H S TROP, CUBLD, CBC, PT, PTT, CMP, MG, CK, CKMB #### [facility] [address] Globulin (S) [Mass/Vol] 2.7 g/dL Normal [facility] Comment on above: Performed By: #### H S TROP, CUBLD, CBC, PT, PTT, CMP, MG, CK, CKMB #### [address] Glucose [Mass/Vol] 101 mg/dL High 70-100 [facility] Comment on above: Result Comment: [facility] Glucose Reference Range is dependent on time and content of last meal. Glucose of more than 200 mg/dL in a nonstressed, ambulatory subject supports the diagnosis of Diabetes Mellitus. ADA recommended reference range Performed By: #### H S TROP, CUBLD, CBC, PT, PTT, CMP, MG, CK, CKMB #### [address] Potassium [Moles/Vol] 3.9 mmol/L Normal 3.5-5.1 [facility] Comment on above: Performed By: #### H S TROP, CUBLD, CBC, PT, PTT, CMP, MG, CK, CKMB #### [address] Protein [Mass/Vol] 5.3 g/dL Low 6.1-7.9 [facility] Comment on above: Performed By: #### H S TROP, CUBLD, CBC, PT, PTT, CMP, MG, CK, CKMB #### [address] Sodium [Moles/Vol] 139 mmol/L Normal 136-146 [facility] Comment on above: Performed By: #### H S TROP, CUBLD, CBC, PT, PTT, CMP, MG, CK, CKMB #### [address] Urea nitrogen [Mass/Vol] 25 mg/dL High 9-23 [facility] Comment on above: Performed By: #### H S TROP, CUBLD, CBC, PT, PTT, CMP, MG, CK, CKMB #### [address] Cortisolon 06-19-2021 Cortisol 37.0 ug/dL Normal [facility] Comment on above: Result Comment: Refe rence range: AM 6 - 24 ug/dl PM <10 ug/dl PERFORMED BY: [place] [id number] PATHOLOGIST [employer]PER[employer] TRELL ELAINE M.D. Performed By: #### C BC, HEPATIC, BMP #### [address] Creatine Kinaseon 06-19-2021 CK [Catalytic activity/Vol] 58 U/L Normal 22-269 [facility] Comment on above: Performed By: #### [facility] e[facility] #### [address] Creatinine Kinase MBon 06-19 CK.MB [Mass/Vol] 1.7 ng/mL Normal 0.6-6.3 [facility] Comment on above: Performed By: #### A 1C WT eA #### [address] CKMB Relative Index 2.9 % High 0.00-2.50 [facility] Comment on above: Performed By: #### A 1C WT eA #### [address] ECG 12 lead ECGon 06-19-2021 ECG 12 lead ECG [facility] [place] [address] [place] [address] Electrocardiograph Report Signed Patient: Carlitos Rachel MR#: [id number] 305 : 1945 Acct:[id number] Age/Sex: 75 / F ADM Date: 06/19/21 Loc: Room: [address] [place] [address] Type: DIS IN Attending Dr: Janusz Vargas DO Ordering Provider: Janusz Vargas DO Date of Service: 06/19/2112/01/1618 ECG/ECG 12 lead ECG: Pt Evaluation Copies to: Test Reason : Blood Pressure : / mmHG Vent. Rate : 039 BPM Atrial Rate : 057 BPM P-R Int : 000 ms QRS Dur : 092 ms QT Int : 432 ms P-R-T Axes : 065 003 075 degrees QTc Int : 347 ms Sinus bradycardia with 2nd degree AV block (Mobitz I) with 2:1 AV conduction Low voltage QRS Abnormal ECG No previous ECGs available Confirmed by [facility] ([id number] on 06/20/2021 12:25:45 PM Referred By: Electronically Signed By:TRISHA LIU MD [facility] Transcribed By: MUS Signed By Trisha Liu MD, FACC 06/20/21 1225 Normal [facility] ECG 12 lead ECG [facility] [place] [address] Electrocardiograph Report Signed Patient: Carlitos Rachel MR#: [id number] 305 : 1945 Acct:[id number] Age/Sex: 75 / F ADM Date: 06/19/21 Loc: Room: [address] [place] [address] Type: DIS IN Attending Dr: Janusz Vargas DO Ordering Provider: Janusz Vargas DO Date of Service: 06/19/2112/01/958 ECG/ECG 12 lead ECG: bradycardia Copies to: Test Reason : Blood Pressure : / mmHG Vent. Rate : 054 BPM Atrial Rate : 054 BPM P-R Int : 322 ms QRS Dur : 078 ms QT Int : 398 ms P-R-T Axes : 059 026 065 degrees QTc Int : 377 ms Sinus bradycardia with 1st degree AV block Low voltage QRS Nonspecific T wave abnormality Abnormal ECG No previous ECGs available Confirmed by FANNIE CANNON [facility], TRISHA ([id number]) on 06/19/2021 3:41:45 PM Referred By: Electronically Signed By:TRISHA LIU MD [facility] Transcribed By: MUS Signed By Trisha Liu MD, [facility] 06/19/[address] [facility] echo transthoracicon [facility] echo transthoracic [facility] [place] [address] [place] [address] Echocardiogram Signed Patient: Carlitos Rachel MR#: [id number] 305 : 1945 Acct:[id number] Age/Sex: 75 / F ADM Date: 06/19/21 Loc: Room: [address] [place] [address] Type: DIS IN Attending Dr: Janusz Vargas DO Ordering Provider: Janusz Vargas DO Date of Service: 06/19/2112/01/958 [facility] echo transthoracic: bradycardia, hypotension Copies to: Trisha Liu MD, [facility] Janusz Vargas DO Weight: 123 lb Performed By: Roya Nolasco RDCS BSA: 1.5 m2 BP: 156/76 mmHg HR: 53 Reason For Study: bradycardia, hypotension History: GERD. HTN. Former Smoker. Gastric Bypass. Interpretation Summary The left ventricular size, thickness and function are normal The left ventricular wall motion is normal. Ejection Fraction = 65-70%. A variety of Doppler measurements indicate impaired left ventricular relaxation, which is associated with grade I/IV or mild diastolic dysfunction. There is no prior echocardiogram noted for this patient. Procedure/Quality: A two-dimensional transthoracic echocardiogram with color flow and Doppler was performed. The study was technically good in quality. There is no prior echocardiogram noted for this patient. Left Ventricle: The left ventricular size, thickness and function are normal. Ejection Fraction = 65-70%. A variety of Doppler measurements indicate impaired left ventricular relaxation, which is associated with grade I/IV or mild diastolic dysfunction. The left ventricular wall motion is normal. Left Atrium: The left atrium appears normal in size. The atrial septum appears normal. Right Atrium: The right atrium appears normal in size. Right Ventricle: The right ventricular size, thickness and function are normal. Aortic Valve: The aortic valve is normal in structure and function. No aortic regurgitation is present. Mitral Valve: The mitral valve is normal in structure and function. There is no mitral regurgitation noted. Tricuspid Valve: The tricuspid valve is normal in structure and function. There is trace tricuspid regurgitation. Pulmonic Valve: The pulmonic valve is normal in structure and function. Arteries: The aortic root is normal size. Pericardium/Pleura: No pericardial effusion seen. There is no pleural effusion. IVC/Hepatic Viens: The inferior vena cava is normal in size, with a normal collapsibility index. Miscellaneous: No thrombus, vegetation or mass is seen. Measurements with Normals IVSd: 0.77 cm (0.7-1.1 cm)LVIDd: 3.5 cm (3.7-5.4 cm) LVPWd: 0.99 cm (0.7-1.1 cm)LVIDs: 1.9 cm (2.3-3.6 cm) LA dimension: 3.7 cm (2.3-4.0 cm)Ao root diam: 2.9 cm(2.0-3.6 cm) asc Aorta Diam: 3.2 cm(2.1-3.4cm) Doppler with Normals RVSP(TR): 27.7 mmHg (18-35mmHg) LV V1 max: 127.4 cm/sec (0.7-1.7m/s)MV E max lazaro: 87.5 cm/sec(0.8-1.3m/s) MV A max lazaro: 119.2 cm/sec(0.0-0.0m/s) MV E/A: 0.73 (<1.5) MMode/2D Measurements Calculations TAPSE: 2.6 cm FS: 44.6 % Ao root area: LVOT diam: 1.9 cm RV S Lazaro: EDV(Teich): 6.5 cm2 LVOT area: 2.8 cm2 16.6 cm/sec 49.7 ml ESV(Teich): 11.5 ml EF(Teich): 76.9 % __ LVLd ap4: 7.7 cm SV(MOD-sp4): LAV(MOD-sp4): LA A2 area: 13.2 cm2 EDV(MOD-sp4): 46.7 ml 37.6 ml 67.4 ml LAV(MOD-sp2): LA A4 area: 17.0 cm2 LVLs ap4: 6.6 cm 28.5 ml LA length (vol): ESV(MOD-sp4): 6.1 cm 20.7 ml LA vol: 31.3 ml EF(MOD-sp4): 69.3 % LA vol index: 20.7 ml/m2 Doppler Measurements Calculations MV dec time: E/E' lat: 14.6 MV dec slope: Ao V2 max: 0.22 sec E/E' med: 17.1 146.6 cm/sec 394.5 cm/sec2 Ao max P.6 mmHg Ao mean P.1 mmHg Ao V2 mean: 92.8 cm/sec Ao V2 VTI: 28.8 cm ROHITH(I,D): 2.4 cm2 ROHITH(V,D): 2.4 cm2 __ LV V1 max PG: TV max PG: PI end-d lazaro: TR max lazaro: 6.5 mmHg 25.0 mmHg 96.4 cm/sec 248.4 cm/sec LV V1 mean PG: TR max P.7 mmHg 3.1 mmHg RAP systole: LV V1 mean: 3.0 mmHg 88.4 cm/sec LV V1 VTI: 25.2 cm Transcribed By: SCV Performed At: 06/19/21 1140 Signed By: Trisha Liu MD, [facility] 06/19/21 1223 [facility] Free T4 (Free Thyroxine)on 0 06-19-2021 Free T4 [Mass/Vol] 1.58 ng/dL High 0.61-1.12 [facility] Comment on above: Performed By: #### C BC, HEPATIC, BMP #### [facility] [address] [place] [address] Magnesiumon 06-19-2021 Magnesium [Mass/Vol] 1.7 mg/dL Normal 1.6-2.6 [facility] Comment on above: Result Comment: PERF ORMED BY: [place] [id number] PATHOLOGIST [employer] SUPERVISOR TRELL ELAINE M.D. Performed By: #### H S TROP, CUBLD, CBC, PT, PTT, CMP, MG, CK, CKMB #### [address] Partial Thromboplastin Timeo n 06-19-2021 aPTT Coag (Bld) [Time] 24.2 s Low 25.1-36.5 [facility] Comment on above: Result Comment: PERF ORMED BY: [place] [id number] PATHOLOGIST [employer] SUPERVISOR TRELL ELAINE M.D. Performed By: #### H S TROP, CUBLD, CBC, PT, PTT, CMP, MG, CK, CKMB #### [address] Prothrombin Time INRon 06-19 INR Coag (PPP) [Relative time] 1.0 {INR} Normal [facility] Comment on above: Result Comment: INR Therapeutic Range A) Pre- and Peroperative OAT started two weeks before surgery. NOT HIP SURGERY: 1.5 - 2.5 HIP SURGERY: 2 - 3 B) Primary and secondary prevention of venous THROMBOSIS: 2 - 3 C) Active venous thrombosis, pulmonary embolism and prevention of recurrent venous thrombosis: 2 - 3 D) Prevention of arterial thromboembolism including patients with mechanical heart valves: 3 - 4.5 Performed By: #### H S TROP, CUBLD, CBC, PT, PTT, CMP, MG, CK, CKMB #### [facility] [address] [place] [address] PT Coag (PPP) [Time] 10.7 s Normal 9.0-12.9 [facility] Comment on above: Performed By: #### H S TROP, CUBLD, CBC, PT, PTT, CMP, MG, CK, CKMB #### [facility] [address] Thyroid Stimulating Hormoneo n 06-19-2021 TSH Qn 0.15 m[IU]/L Low 0.45-5.33 [facility] Comment on above: Performed By: #### C BC, HEPATIC, BMP #### [facility] [address] Thyroxine (T4) Totalon 06-19 T4 [Mass/Vol] 6.62 ug/dL Normal 5.39-11.82 [facility] Comment on above: Performed By: #### C BC, HEPATIC, BMP #### [address] Troponin I High Sensitivityo n 06-19-2021 Troponin I High Sensitivity 7 pg/mL Normal 0-15 [facility] Comment on above: Result Comment: PERF ORMED BY: [place] [id number] PATHOLOGIST [employer] SUPERVISOR TRELL ELAINE M.D. Performed By: #### A 1C WTH eA #### [address] US liveron 06-19-2021 liver [facility] [place] [address] Ultrasound Report Signed Patient: Carlitos Rachel MR#: [id number] 305 : 1945 Acct:[id number] Age/Sex: 75 / F ADM Date: 06/19/21 Loc: Room: [address] [place] [address] Type: ADM IN Attending Dr: Janusz Vargas DO Ordering Provider: Janusz Vargas DO Date of Service: 06/19/21 US/US liver: elevated LFT Copies to: Janusz Vargas DO Exam: Liver ultrasound. Reason for exam: Elevated LFTs. COMPARISON: None. TECHNIQUE: Grayscale and color Doppler images of the right upper quadrant organs were obtained. FINDINGS: Visualized portions of the pancreas appear unremarkable. There is diffuse interstitial is extrahepatic bile duct dilatation with the CBD measuring 11 mm. Gallbladder has been surgically removed. No focal hepatic mass. Hepatopedal flow is seen within the portal vein. US/US liver IMPRESSION: Intra-as well as extrahepatic biliary duct dilatation of the CBD measuring 11 mm. Finding could relate to postcholecystectomy status, however given the history, an obstructing stone or mass cannot be excluded. If this finding is of clinical concern, further evaluation with MRI/MRCP with and without IV contrast is recommended. Impression dictated by: Gavin Anderson Jr., D.O.06/19/2021 1:56 PM Dictation Location: [place] [address] Tech: Mable Tonia Transcribed By: INEZ 06/19/21 1356 Dictated By: Gavin Anderson Jr, DO 06/19/21 1352 Signed By: 06/19/21 1356 [facility] XR chest 1V portableon 06-19 XR chest 1V portable [facility] [place] [address] XRay Report Signed Patient: Carlitos Rachel MR#: [id number] 305 : 1945 Acct:[id number] Age/Sex: 75 / F ADM Date: 06/19/21 Loc: Room: [address] [place] [address] Type: ADM IN Attending Dr: Janusz Vargas DO Ordering Provider: Janusz Vargas DO Date of Service: 06/19/21 XR/XR chest 1V portable: bradycardia, hypotension Copies to: Janusz Vargas DO PORTABLE AP CHEST CLINICAL HISTORY: Bradycardia. Hypotension. COMPARISON: None FINDINGS: Heart appears normal in size. Lungs are clear. No free air. XR/XR chest 1V portable IMPRESSION: NO ACUTE FINDINGS Impression dictated by: Gavin Anderson Jr., D.O.06/19/2021 10:42 AM Dictation Location: [facility] Transcribed By: INEZ 06/19/21 1042 Dictated By: Gavin Anderson Jr, DO 06/19/21 1042 Signed By: 06/19/21 1042 [facility] Vital Signs Date Time Vital Sign Value Performing Clinician Deny phan 05-01-2023 15:51-0500 Blood Pressure Location Yury NILL [facility] 05-01-2023 15:51-0500 Diastolic blood pressure 90 mm[Hg] [facility] 05-01-2023 15:51-0500 Heart rate 76 /min [facility] NILL [facility] 05-01-2023 15:51-0500 Respiratory rate 16 /min Yury NILL [facility] 05-01-2023 15:51-0500 Systolic blood pressure 132 mm[Hg] Yury NILL [facility] Encounters Encounter Date Encounter Type Care Provider Facility Start: 05-03-2023 End: 05-03-2023 ambulatory [facility] Start: 05-01-2023 End: 05-02-2023 ambulatory [facility] POND [facility] Start: 05-01-2023 End: 05-01-2023 Patient encounter procedure Yury R NILL [facility] Start: 04-22-2023 End: 04-22-2023 ambulatory [facility] Start: 09-04-2022 End: 09-04-2022 ambulatory [facility] Start: 07-17-2022 End: 07-17-[address] KATIE BURK . Facility:[facility] Start: 06-12-2022 End: 06-12-2022 ambulatory [facility] Start: 12-22-2021 End: 12-23-[address] KATIE BURK . Facility:[facility] Start: 11-17-2021 End: 11-18-[address] KATIE BURK . Facility:[facility] Start: 11-03-2021 End: 11-04-[address] KATIE BURK . Facility:[facility] Start: 06-19-2021 End: 06-21-2021 Evaluation and management of inpatient Katie Burk Facility:[facility] Procedures Date Procedure Procedure Detail Performing Clinician Arthroscopy of knee Yury ROBERTL Bariatric operative procedure Yury ROBERTL Biopsy of adrenal gland Eric ROBERTL Esophagogastroduodenoscopy [place] ROBERTL Hysterectomy Yury NILL Insertion of pacemaker pulse generator Yury NILL Immunizations Immunization Date Immunization Notes Care Provider Fa cilikylah 12-25-2021 SARS-CoV-2 mRNA (rjkxidfofgq-loec-gnai ose) vaccine Yury ROBERTL [facility] 08-23-2020 SARS-CoV-2 (COVID-19 ) mRNA BNT-162b2 vax Yury ROBERTL [facility] 07-30-2020 SARS-CoV-2 (COVID-19 ) mRNA BNT-162b2 vax Yury ROBERTL [facility] NEGATED: Highlighted row has not occurred!05-01-2023 influenza virus vaccine, unspecified formulation Yury ROBERTL [facility] Payers Date Payer Category Payer Unknown [id number] 2021 Self-pay 1961 Medicare [id number] 1961 Unknown [id number] 1961 Unknown [id number] 1945 Unknown [id number] 2.16.84 [id number] 1945 Unknown [id number] .16.84 [id number] 1945 Unknown [id number] .16.84 [id number] 1945 Unknown [id number] 2.16.84 [id number] 1945 Unknown [id number] 2.16.8 [id number] Unknown [id number] 2.16.8 [id number] Social History Date Type Detail Facility Start: 05-01-2023 Tobacco smoking status Ex-smoker (fi nding) [facility] Tobacco smoking status Never [facility] Sex Assigned At Female [facility] Functional Status Date Assessment Result Facility 05-01-2023 Functional Status N/A [facility] 12-22-2021 to 05-03-2023 Note Date & Type Note Facility 05-03-2023 Note [facility] Consul t Note Reason for visit: follow up, last seen 07/25/2021 05/03/23 She is here for follow-up Since last seen 05/2022 she has been in the ER multiple times She denies CP, SOB, FUNES, LE alisia a She went to [facility] 10/2022 6, 11/29/2022 and 03/01/2023. 02/2023 was related to hypotension, the visits in 10/30/2022 and 11/29/2022 related to syncope. One of her syncopal episdoes unfortunately resulted in fracture of her foot. Device check 04/22/23 shows stable device function and lead thresholds, did show PMT with a-pace on OMT, she is A-paced 54% and V-paced 100% but no afib noted device check09/04 2022 which showed stable device function and normal lead thresholds, she did have A-fib twice for 8 seconds. RA pacing 31%, V pacing 99%. Given the short episodes and her recent episodes of syncope and falls, for now we will continue to monitor before discussing DOAC given risk of bleed from frequent falls CHADVASC 3 for age x 2, hypertension. 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 05/2022 HPI: Carlitos Rachel is a 77 y.o. 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 Is here for follow-up; She is crying during visit due to CONCERNS her has been having. She states she is constantly depressed and anxious. She denies seem to be handling the changes in her home life.. She does see a psychologist and they have been adjusting her medications as well. She states she stopped taking her lisinopril/hydrochlorothiazide pill due to something having to do with an elevated liver enzyme stopping it and not resuming. She states her recent PCP visit as her blood pressure was fine, I do not have documentation of those names and she does not remember what her vitals were. I did recheck her blood pressure it was 159/81. I discussed with her starting low-dose Norvasc to see how she tolerates. I did tell her if she starts to experience lightheadedness, dizziness, syncope or presyncope symptoms to stop the dose. Patient does seem forgetful during the visit. She had device check in February 2022 showed no concerns besides pacemaker mediated tachycardia Patient states when she is flustered and anxious she feels some discomfort in her chest which goes away when she calms down. - Previous HPI per Dr. Saunders 07/25/2021: cc S/p PPM HPI: 75-year-old lady with a past medical history of dementia, GERD, hypertension, depression who was recently admitted to [place] where she was noted to be having significant bradycardia and low blood pressure associated with thi. She was initially taken to [facility] and was noted to have marked bradycardia and transcutaneous pacing was initiated and transferred to [facility] in [place]. Upon arrival that her heart rate seemed to have been stabilized at 60 bpm. She was admitted to [facility] and monitored and was noted to have evidence of first-degree AV block. She was taken to the lab on 06/20/[address] Sandro Russell for what the operative report states is symptomatic second-degree type II block. She underwent a [employer] dual-chamber pacemaker placement. She has come today and feels better she complains of soreness on the pacemaker site and is notable that she has hardly any subcutaneous tissue. She has to sleep on her right side to feel better. There is no increased warmth or discharge or erythema noted on the site past medical history Recent diagnosis of AV block s/p pacemaker placement GERD hypertension Depression Arthritis Past surgical history Tonsillectomy hysterectomy Left adrenal gland tumor gastric bypass surgery Social history she quit tobacco use 20 years ago and had a [id number] history and does not consume any alcohol Family history significant for mother who of breast cancer in father who had [place] EKG 02/01/2014 shows sinus of the normal intervals Echocardiogram performed on 05/11/2017 showed normal EF with normal chamber size and no significant valvular problems PMH: Past Medical History: Diagnosis Date Chest pain 12/26/2021 Chronic anxiety 12/26/2021 Diabetes mellitus type II, non insulin dependent (CMS/HCC) 12/26/2021 H/O: hysterectomy 12/26/2021 History of musculoskeletal disease 12/26/2021 Mobitz type II atrioventricular block 12/26/2021 Recurrent major depression in partial remission (CMS/HCC) 12/26/2021 Tight chest 12/26/2021 PSH: Past Surgical History: Procedure Laterality Date BARIATRIC SURGERY CHOLECYSTECTOMY HERNIA REPAIR HYSTERECTOMY INSERT / REPLA (more content not included)... [facility] 05-03-2023 Note Patient here for 1 y ear follow up Mobitz type II AV block and hypertension. Her device was interrogated in the office on 04/22/2023. Had routine labs last month. Says chest pain has resolved. She feels good, denies SOB, palpitations, and lightheadedness/syncope. Review of Systems All other systems reviewed and are negative. [facility] 05-01-2023 Note Chief Complaint consultation for anemia HPI Staff 77 year old female presents on consultation from Dr. Burk for anemia. Labs completed 04/09- H/H- 10.8/35.4, iron 30. Patient with history of bariatric surgery approximately 20 years ago. EGD completed 09/2009 with ulcer at gastrojejunostomy. Last colonoscopy unknown. Reports some fatigue but denies dizziness, lightheadedness or SOB. Denies abdominal or rectal pain. No rectal bleeding or change in bowel habits. Denies nausea or vomiting. No unexplained weight loss. No known family history of colon cancer. History of Present Illness 77 yo female with h/o htn, DMII, pacemaker, dementia, GERD, anxiety/depression, referred for iron deficiency anemia; hb 10.8 at end of March; low iron; h/o bariatric surgery; had ulcer at gastrojejunostomy 09/2009; unknown if any prior colonoscopy; abd surgery also significant for hysterectomy; on Meloxicam, no asa, no SBE prophylaxis, no fmhx of GI malignancy or IBD; former smoker. Review of Systems PHQ Score Initial Depression Screen Score: 0 SCORE ROS - Provider Constitutional: no fever, no sweats, no weight loss. Eyes: no glasses, no blurred vision, no visual loss. ENMT: no dentures, no hoarseness, no swallowing difficulties, no hearing loss, no ear infection(s), no nose bleeds. Cardiovascular: normal blood pressure, no chest pain, regular heartbeat, no heart murmur. Respiratory: no shortness of breath, no cough, no asthma, no wheezing. Gastrointestinal: no nausea, no vomiting, no diarrhea, no constipation, no blood in stool, no change in bowel habits, no abdominal pain, no hepatitis. Genitourinary: no kidney stones, no urine infection, no dysuria. Musculoskeletal: no pain, no weakness. Skin: no changing moles, no rash, no skin lumps. Neurologic: no seizures, no epilepsy, no headache. Psychiatric: yes emotional or psychiatric problem. Heme/Lymph: no bleeding problems, no anemia, no blood clots, no transfusions. Allergy/Immunologic: no swollen lymph nodes/glands, no IV drug abuse. Other: Additional ROS info: Except as noted in the above Review of Systems and in the History of Present Illness, all other systems have been reviewed and are negative or noncontributory. Physical Exam Vitals & Measurements HR: 76(Peripheral) RR: 16 BP: 132/90 HT: 60 in HT: 152.4 cm WT: 57.2 kg WT: 125.84 lb BMI: 24.63 HEENT: normal conjunctiva, sclera clear, no scleral icterus, EOM intact, PERRLA, oral mucosa moist without lesions. Neck: trachea midline, no mass, symmetric, no thyromegaly or nodules, no adenopathy Respiratory: lungs CTA, respirations non labored. Cardiovascular: regular rate and rhythm, no murmur, no pedal edema or varicosities. Gastrointestinal: soft, non distended, mild tenderness, epigastrium no masses, no palpable hernias, diastasis recti no, no hepatosplenomegaly; normal bs Lymphatic: no cervical adenopathy, no supraclavicular adenopathy. Musculoskeletal: normal gait, digits and nails without infection, nodes, cyanosis, clubbing. Skin: no rashes, no lesions, no ulcers, no subcutaneous nodules, induration. Psychiatric/Neuro: oriented to time, place, person, judgement normal, affect appropriate for age, insight intact, no focal deficits. Tests: labs reviewed, , review of old records completed , Discussed surgical options, risks, and possible complications with patient. Assessment/Plan 1. Iron deficiency anemia (D50.9: Iron deficiency anemia, unspecified) plan EGD and colonoscopy under anesthesia for further evaluation; informed consent obtained. 2. GERD (gastroesophageal reflux disease) (K21.9: Gastro-esophageal reflux disease without esophagitis) see #1 3. History of ulcer disease (Z87.898: Personal history of other specified conditions) see # 1 Follow-up No qualifying data available Problem List/Past Medical History Ongoing Anxiety BMI 24.0-24.9, adult Dementia Depressive disorder Essential hypertension Former smoker GERD (gastroesophageal reflux disease) History of ulcer disease Iron deficiency anemia Osteopenia Type 2 diabetes mellitus without complication Historical No qualifying data Procedure/Surgical History Arthroscopy of knee, Bariatric surgery, Biopsy of adrenal gland, EGD - esophagogastroduodenoscopy, Hysterectomy, Insertion of pacemaker pulse generator. Medications busPIRone 15 mg Tab, 15 mg= 1 tab(s), Oral, BID Carafate 1 gram Tab, 1 gm= 1 tab(s), Oral, QIDACHS donepezil 10 mg Tab, 10 mg= 1 tab(s), Oral, Once a day (at bedtime) ferrous sulfate 325 mg oral enteric coated tablet, 325 mg= 1 tab(s), Oral, BID hydrOXYzine hydrochloride 25 mg Tab, 25 mg= 1 tab(s), Oral, QID meloxicam 7.5 mg Tab, 7.5 mg= 1 tab(s), Oral, Daily Namenda XR 28 mg oral capsule, extended release, 28 mg= 1 cap(s), Oral, Daily olmesartan 5 mg oral tablet, 10 mg= 2 tab(s), Oral, Daily Pantoprazole [address] Tab, 20 mg= 1 tab(s), Oral, Daily paroxetine 40 mg Tab, 40 mg= 1 tab(s), Oral, Daily quetiap (more content not included)... [facility] Comment on above: Result Comment: Elec tronically Signed By: DEJAH CANNON, Yury Tapia\Date and Time Signed: 05/01/23 16:36 EST 06-12-2022 Note -s/p PPM 06/2021 -device functioning well, follow up with device clinic as scheduled (should be around 3 months from now) [facility] 06-12-2022 Note Hypertension is elev ated -patient agreeable to starting low dose norvasc 2.5mg -unclear when or why she stopped her lisinopril/hctz [facility] 06-12-2022 Note Had chest pain in th e middle of the month, she was upset and had 15 beats of pain, then it stopped and hasnt done it since, she has been under a lot of stress lately due to husbands health. She is very upset and tearful she lost her anxitey meds Review of Systems Cardiovascular: Positive for chest pain. [facility] 06-12-2022 Note [facility] Consul t Note Reason for visit: follow up, last seen 07/25/2021 HPI: Carlitos Rachel is a 76 y.o. 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 Is here for follow-up; She is crying during visit due to CONCERNS her has been having. She states she is constantly depressed and anxious. She denies seem to be handling the changes in her home life.. She does see a psychologist and they have been adjusting her medications as well. She states she stopped taking her lisinopril/hydrochlorothiazide pill due to something having to do with an elevated liver enzyme stopping it and not resuming. She states her recent PCP visit as her blood pressure was fine, I do not have documentation of those names and she does not remember what her vitals were. I did recheck her blood pressure it was 159/81. I discussed with her starting low-dose Norvasc to see how she tolerates. I did tell her if she starts to experience lightheadedness, dizziness, syncope or presyncope symptoms to stop the dose. Patient does seem forgetful during the visit. She had device check in February 2022 showed no concerns besides pacemaker mediated tachycardia Patient states when she is flustered and anxious she feels some discomfort in her chest which goes away when she calms down. - Previous HPI per Dr. Saunders 07/25/2021: cc S/p PPM HPI: 75-year-old lady with a past medical history of dementia, GERD, hypertension, depression who was recently admitted to [place] where she was noted to be having significant bradycardia and low blood pressure associated with thi. She was initially taken to [facility] and was noted to have marked bradycardia and transcutaneous pacing was initiated and transferred to [facility] in [place]. Upon arrival that her heart rate seemed to have been stabilized at 60 bpm. She was admitted to [facility] and monitored and was noted to have evidence of first-degree AV block. She was taken to the lab on 06/20/[address] Sandro Russell for what the operative report states is symptomatic second-degree type II block. She underwent a [employer] dual-chamber pacemaker placement. She has come today and feels better she complains of soreness on the pacemaker site and is notable that she has hardly any subcutaneous tissue. She has to sleep on her right side to feel better. There is no increased warmth or discharge or erythema noted on the site past medical history Recent diagnosis of AV block s/p pacemaker placement GERD hypertension Depression Arthritis Past surgical history Tonsillectomy hysterectomy Left adrenal gland tumor gastric bypass surgery Social history she quit tobacco use 20 years ago and had a 64-joen-scta history and does not consume any alcohol Family history significant for mother who of breast cancer in father who had [place] EKG 02/01/2014 shows sinus of the normal intervals Echocardiogram performed on 05/11/2017 showed normal EF with normal chamber size and no significant valvular problems PMH: Past Medical History: Diagnosis Date Chest pain 12/26/2021 Chronic anxiety 12/26/2021 Diabetes mellitus type II, non insulin dependent (CMS/HCC) 12/26/2021 H/O: hysterectomy 12/26/2021 History of musculoskeletal disease 12/26/2021 Mobitz type II atrioventricular block 12/26/2021 Recurrent major depression in partial remission (CMS/HCC) 12/26/2021 Tight chest 12/26/2021 PSH: Past Surgical History: Procedure Laterality Date BARIATRIC SURGERY CHOLECYSTECTOMY CT CHEST ANGIOGRAM W AND/OR WO IV CONTRAST 11/30/2021 CT CHEST ANGIOGRAM W AND/OR WO IV CONTRAST 11/30/2021 HERNIA REPAIR HYSTERECTOMY INSERT / REPLACE / REMOVE PACEMAKER 06/19/2021 KNEE SURGERY Left SMALL INTESTINE SURGERY TONSILLECTOMY TUMOR REMOVAL LEFT KIDNEY SH: Social Determinants of Health Tobacco Use: Medium Risk Smoking Tobacco Use: Former Smokeless Tobacco Use: Never Passive Exposure: Not on file Alcohol Use: Not on file Financial Resource Strain: Not on file Food Insecurity: Not on file Transportation Needs: Not on file Physical Activity: Not on file Stress: Not on file Social Connections: Not on file Intimate Partner Violence: Not on file Depression: Not on file Housing Stability: Not on file Allergies: Allergies Allergen Reactions Bee Pollen Librax (With Clidinium) [Chlordiazepoxide-Clidinium] Lipitor [Atorvastatin] Weight: 56.7kg Visit Vitals BP 161/84 Pulse 68 Wt 56.7 kg (125 lb) SpO2 97% BMI 24.41 kg/m??? Smoking Status Former BSA 1.55 m??? Meds: Current Outpatient Medications on File Prior to Visit Medication Sig Dispense Refill donepezil (Aricept) 10 mg tablet Take 10 mg by mouth at bedtime. memantine (Namenda XR) 28 mg capsule,spri (more content not included)... [facility] 12-22-2021 Note PROCEDURE: XR HIP RT 2 3V W PELVIS COMPARISON: None. HISTORY: Sciatica FINDINGS: BONES:No acute fracture or dislocation. Moderate degenerative changes of the spine. Moderate bilateral sacroiliac joint sclerosis left greater than right. Moderate bilateral hip osteoarthropathy SOFT TISSUES:Negative. No visible soft tissue swelling. EFFUSION:None visible. OTHER: Multiple surgical clips. Pelvic calcifications likely vascular phleboliths. Extensive vascular calcifications IMPRESSION: Moderate degenerative changes Electronically authenticated by: NISREEN VALDEZ Date: 2021-12-22 17:40 [facility] Evaluation + Plan note No data available for this section General [facility] Discharge instructions No data available for this section General [facility] note No data available for this section General [facility] Summary Purpose Family History No Family History Records FoundNo Family History Records Found No data available for this section No Family History Records FoundNo Family History Records Found Advance Directives No Advanced Directives Records FoundNo Advanced Directives Records FoundNo Advanced Directives Records FoundNo Advanced Directives Records Found Additional Source Comments INFORMATION SOURCE (unrecogn ized section and content) DATE CREATED AUTHOR 06/16/2022 [facility] DATE CREATED AUTHOR AUTHOR'S ORGANIZ ATION 07/19/2022 [facility] DATE CREATED AUTHOR AUTHOR'S ORGANIZ ATION 05/02/2023 [facility] DATE CREATED AUTHOR AUTHOR'S ORGANIZ ATION 05/04/2023 [facility] Patient Care team informatio n (unrecognized section and content) Personnel Name: Katie Burk MD Address: Address: [address] [place] [address] FOR RECORDS PERTAINING TO PATIENTS WHO ARE OR HAVE BEEN ENROLLED IN A CHEMICAL DEPENDENCY/SUBSTANCEABUSE PROGRAM, SOME INFORMATION MAY BE OMITTED. This clinical summary was aggregated from multiple sources. Caution should be exercised in using it in the provision of clinical care. This summary normalizes information from multiple sources, and as a consequence, information in this document may materially change the coding, format and clinical context of patient data. In addition, data may be omitted in some cases. CLINICAL DECISIONS SHOULD BE BASED ON THE PRIMARY CLINICAL RECORDS. [facility] [employer] [facility]. provides no warranty or guarantee of the accuracy or completeness of information in this document.
== END 2023-05-10 14:20 | disposition home or self-care (01) ==
LOC: PST 14:19
PROVIDERS: PCP Family Medicine; Visit Provider Surgery
DX: Z01.818 Encounter for other preprocedural examination (principal); D50.9 Iron deficiency anemia, unspecified; K21.9 Gastro-esophageal reflux disease without esophagitis; Z87.898 Personal history of other specified conditions

== ENCOUNTER 2023-05-22 06:40 | Day surgery (SDC) | payer MEDICARE, BC, SELFPAY ==
--- NOTE | 2023-05-22 | OP_ITS ---
OPERATION DATE: 05/22/2023 PREOPERATIVE DIAGNOSIS: Anemia, iron deficiency, as well as gastroesophageal reflux disease, history of ulcer disease. POSTOPERATIVE DIAGNOSIS: Ulcer at gastrojejunostomy as well as 7 mm flat rectal polyp. PROCEDURE: EGD and colonoscopy to cecum with cold snare polypectomy x1 for rectal polyp. SURGEON: Yury Meng M.D. ANESTHESIA: Monitored anesthesia care. ESTIMATED BLOOD LOSS: Less than 1 mL. 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 She has been taking meloxicam, was found to have worsening iron deficiency anemia. Indications, risks, benefits, alternatives of proceeding with EGD and colonoscopy were explained extensively to the patient, including the risks of bleeding, aspiration, esophageal/gastric/colonic perforation or anesthetic complications. All of her questions were answered. Informed consent was obtained. PROCEDURE: Patient brought to the operating room, placed in the left lateral decubitus position. Monitored anesthesia care was provided. Bite block was placed in the patient?s mouth. Scope was inserted into the oropharynx. Under direct visualization, it was advanced into the esophagus, past the cricopharyngeus, down to the stomach. The stomach was insufflated with air. There was a small gastric pouch. Right upon exiting the pouch, the gastrojejunostomy, in the center, was a 5 mm shallow ulcer with a white base. No visible vessel. No active bleeding. No other abnormalities were noted. The GE junction was noted at approximately 37 cm. There was no distal esophagitis or Marie?s changes. Remainder of the esophagus was unremarkable. The scope was then withdrawn. Patient was then positioned for colonoscopy. Rectal exam was performed, which showed no masses or blood. The scope was then inserted into the anal canal. Under direct visualization, it was advanced. With the aid of abdominal compression, it was advanced to the cecum where cecal markings were clearly identified. Upon withdrawal of the scope, mucosal surfaces were carefully examined. There were no mass lesions or inflammatory changes. There was mild sigmoid diverticulosis without inflammatory changes or scarring. Within the rectum, there was noted to be a flat, irregular, 7 mm polyp that was removed with cold snare with good hemostasis. There was no significant hemorrhoidal disease. The scope was then withdrawn. The patient tolerated procedure well, was sent to recovery room in good condition. follow up colonoscopy in 3 years, but will depend on polyp pathology. CC: Piyush Burk M.D. JESSIE
--- OUTSIDE RECORDS SUMMARY | 2023-05-22 06:43 | XMS_ITS | CCD ---
Author Name Unknown Address [address] [place] [address] Organization [facility] Care Team Providers Care Budget Technician Name Role Phone Katie Burk Primary Care Unavailable Jim Lundberg Consulting Unavailable Janusz aVrgas Attending UnavailJanusz Elizabeth Admitting Unavailabl e JACK [...] Unavailable HOY ., DR WILSON Consulting Unavailable ELKHORN, DR NISREEN Trimble Consulting Unavailable Katie Burk Primary Care Physician [phone] Yury POND Attending Unavailable DANNY SAUNDERS Referring Unavailable STEPHAN OLVERA Attending Unavailable DANNY SAUNDERS Referring Unavailable STEPHAN OLVERA Attending Unavailable Allergies Allergy Classification Reported Allergen(s) Allergy Type Date of Onset Reaction(s) Facility (2 sources) atorvastatin; Translations: [ATORVASTATIN] Drug Allergy 06-19-19 [facility] Repository (1 source) chlordiazePOXIDE Drug Allergy 06-19-19 [facility] Repository (1 source) clidinium Drug Allergy 06-19-19 [facility] Repository (1 source) venom-honey bee Drug allergy (disorder) 06-19-19 [facility] Repository (1 source) chlordiazePOXIDE / clidinium Drug Allergy 02-26-20 13 [facility] Repository (1 source) Dextroamphetamine Drug Allergy 04-16-20 19 [facility] Repository (2 sources) chlordiazePOXIDE / clidinium; Translations: [chlordiazepoxide-cli dinium] Drug Allergy [facility] (1 source) Bee pollen; Translations: [BEE POLLEN] Propensity to adverse reactions to drug (disorder) 12-27-19 [facility] Repository (1 source) chlordiazePOXIDE / clidinium; Translations: [CHLORDIAZEPOXIDE-CLI DINIUM] Drug Allergy 12-27-19 [facility] Rep[facility] Medications Current Medications Medication Drug [...] mg extended release oral capsule (1 source) K-kozkmz-D-aspartat e Receptor Antagonist Start: 04-15-2023 take 1 [...] Range Facility Office Visiton 05-03-2023 Follow-up visit [id number] Johann Rachel ma 1945 F Date Provider Department Center 05/03/2023 Jose-STEPHAN OLVERA CARD [facility] Family History Family history unknown: Yes Level of Service:37762 [place] OFFICE/OUTPATIENT ESTABLISHED MOD MDM 30 MIN [facility] Consent for Procedure/Surger yon 05-02-2023 Consent for Procedure/Surgery [id number] IFF [facility] Facesheeton 05-02-2023 Facesheet [id number] TIFF [facility] Ambulatory Visit Summaryon 1 07-02-2022 Ambulatory Visit [...] for choosing us for your care. [facility] Physician Referralon 023 Physician Referral [id number] IFF [facility] Covid-19 PCR (CVDTBH)on SARS-CoV-2 (COVID-19) RNA KURTIS+probe Ql (Unsp spec) Not detected Normal NOT DETECTED [facility] Comment on above: Result Comment: When diagnostic [...] for this test is supported by the [place] of Health and Human Service's declaration that [...] longer be used). Performed By: #### C [facility] ####[facility] [address] [place], [place] [address]Pr. Karla Benjamin Office Visiton 06-12-2022 Follow-up visit [id number] Johann Rachel evans Jennifer 1945 F Date Provider Department Center 06/12/2022 STEPHAN DE [facility] Family History Family history unknown: Yes Level of Service:92225 [place] OFFICE/OUTPATIENT ESTABLISHED LOW MDM 20-29 MIN [facility] XR LSPINE MIN 4 VIEWSon 12-11 [...] by: NISREEN VALDEZ Date: 2021-12-22 17:38 Normal [facility] ECHOCARDIO M/2D COMPLETEon 0 11-17-2021 ECHOCARDIO M/2D COMPLETE Patient: CARLITOS RACHEL. Exam Date: 11/17/2021 : 1945 Gender:F Ordering : DR KATIE BURK . Admission #: [id number] Family : Order #: [id number] CLICK HERE TO VIEW EXAM ECHOCARDIOGRAM REPORT [...] Salgado M.D. on 11/20/2021 at 09:29 Normal [facility] US CAROTID ART BILon 07-08-2 022 US [...] SATURNINO HOLGUIN Date: 2021-11-17 17:57 Normal [facility] BNPon 11-03-2021 Natriuretic peptide B (Bld) [Mass/Vol] 284.0 pg/mL Normal <=1,800.0 [facility] Comment on above: Performed By: #### B STRUCTURAL METAL WORKER, T7, LIPID, TSH #### [facility] [address] [place] [address] Dr. Karla Benjamin CBC AUTO DIFFon 11-03-2021 BASO # 0.0 103/ul Normal 0.0-0.1 [facility] Comment on above: Performed By: #### C BC #### [facility] [address] [place] [address] Dr. Karla Benjamin Basophils/100 WBC (Bld) 0.2 % Normal 0.2-2.0 [facility] Comment on above: Performed By: #### C BC #### [facility] [address] [place] [address] Dr. Karla Benjamin EO # 0.1 103/ul Normal 0.0-0.7 [facility] Comment on above: Performed By: #### C BC #### [facility] [address] [place] [address] Dr. Karla Benjamin Eosinophils/100 WBC (Bld) 2.5 % Normal 0.9-7.0 [facility] Comment on above: Performed By: #### C BC #### [facility] [address] [place] [address] Dr. Karla Benjamin Erythrocyte distribution width (RBC) [Ratio] 15.1 % Critically high 11.0-15.0 [facility] Comment on above: Performed By: #### C BC #### [facility] [address] [place] [address] Dr. Karla Benjamin Hematocrit (Bld) [Volume fraction] 35.0 % Critically low 36.0-48.0 [facility] Comment on above: Performed By: #### C BC #### [facility] [address] [place] [address] Dr. Karla Benjamin Hemoglobin (Bld) [Mass/Vol] 10.5 g/dL Critically low 12.0-16.0 [facility] Comment on above: Performed By: #### C BC #### [facility] [address] [place] [address] Dr. Karla Benjamin IG # 0.00 10e3/ul Normal 0.00-0.03 [facility] Comment on above: Performed By: #### C BC #### [facility] [address] [place] [address] Dr. Karla Benjamin IG % 0.0 % Normal 0.0-0.5 [facility] Comment on above: Performed By: #### C BC #### [facility] [address] [place] [address] Dr. Karla Benjamin LYMPH # 2.2 103/ul Normal 1.2-3.8 [facility] Comment on above: Performed By: #### C BC #### [facility] [address] [place] [address] Dr. Karla Benjamin Lymphocytes/100 WBC (Bld) 50.2 % Normal 20.5-60.0 [facility] Comment on above: Performed By: #### C BC #### [facility] [address] [place] [address] Dr. Karla Benjamin MANUAL DIFF REQ NO Normal [facility] [place] Comment on above: Performed By: #### C BC #### [facility] [address] [place] [address] Dr. Karla Benjamin MCH (RBC) [Entitic mass] 24.2 pg Critically low 26.7-34.0 [facility] Comment on above: Performed By: #### C BC #### [facility] [address] [place] [address] Dr. Karla Benjamin MCHC (RBC) [Mass/Vol] 30.0 g/dL Normal 29.9-35.2 [facility] Comment on above: Performed By: #### C BC #### [facility] [address] [place] [address] Dr. Karla Benjamin MCV (RBC) [Entitic vol] 80.6 fL Critically low 81.0-99.0 [facility] Comment on above: Performed By: #### C BC #### [facility] [address] [place] [address] Dr. Karla Benjamin MONO # 0.3 103/ul Normal 0.3-0.8 [facility] Comment on above: Performed By: #### C BC #### [facility] [address] [place] [address] Dr. Karla Benjamin Monocytes/100 WBC (Bld) 6.1 % Normal 1.7-12.0 [facility] Comment on above: Performed By: #### C BC #### [facility] [address] [place] [address] Dr. Karla Benjamin NEUT # 1.8 103/ul Normal 1.4-6.5 [facility] Comment on above: Performed By: #### C BC #### [facility] [address] [place] [address] Dr. Karla Benjamin Neutrophils/100 WBC (Bld) 41.0 % Critically low 43.0-75.0 [facility] Comment on above: Performed By: #### C BC #### [facility] [address] [place] [address] Dr. Karla Benjamin Platelet mean volume (Bld) [Entitic vol] 8.9 fL Critically low 9.5-13.5 [facility] Comment on above: Performed By: #### C BC #### [facility] [address] [place] [address] Dr. Karla Benjamin PLT 279 103/ul Normal 150-450 [facility] Comment on above: Performed By: #### C BC #### [facility] [address] [place] [address] Dr. Karla Benjamin RBC 4.34 106/ul Normal 4.20-5.40 [facility] Comment on above: Performed By: #### C BC #### [facility] [address] [place] [address] Dr. Karla Benjamin WBC 4.4 103/ul Normal 4.0-11.0 [facility] Comment on above: Performed By: #### C BC #### [facility] [address] [place] [address] HEAD WO W [...] SATURNINO HOLGUIN Date: 2021-11-03 14:41 Normal [facility] FREE THYROXINE INDEX T7on FTI 2.61 Normal 1.30-4.50 [facility] Comment on above: Performed By: #### B STRUCTURAL METAL WORKER, T7, LIPID, TSH #### [facility] [address] [place] [address] [address] Karla Benjamin T3U 33.0 % Normal 30.0-39.0 [facility] Comment on above: Performed By: #### B STRUCTURAL METAL WORKER, T7, LIPID, TSH #### [facility] [address] [place], [place] [address] Dr. Karla Benjamin T4 [Mass/Vol] 7.90 ug/dL Normal 4.80-13.90 [facility] Comment on above: Performed By: #### B STRUCTURAL METAL WORKER, T7, LIPID, TSH #### [facility] [address] [place] [address] [address] Karla Benjamin GLYCOHEMOGLOBIN A1Con 2021 ADA RECOMMENDATION SEE BELOW Normal [facility] Comment on above: Result Comment: ADA RECOMMENDED LIMIT 4.0 - 6.0 ADA THERAPEUTIC TARGET < 7.0 ACTION SUGGESTED > 7.0 Performed By: #### A 1C ####[facility] [address] [place] [id number] Benjamin Glucose [Mass/Vol] 131 mg/dL Normal [facility] Comment on above: Performed By: #### A 1C ####[facility] [address] [place] [address]DrBillie Benjamin HbA1c (Bld) [Mass fraction] 6.2 % Normal 4.5-6.2 [facility] Comment on above: Performed By: #### A 1C ####[facility] [address] [place] [address]DrBillie Benjamin IRONon 11-03-2021 Iron [Mass/Vol] 55.0 ug/dL Normal 50.0-170.0 [facility] [place] Comment on above: Performed By: #### I FADIA ####[facility] [address] [place] [address]Dr. Karla Benjamin LIPID PROFILEon 11-03-2021 CHOL-HDL RATIO NORM SEE BELOW Normal [facility] Comment on above: Result Comment: 3.3 - 4.4 LOW RISK 4.4 - 7.1 AVERAGE RISK 7.1 - 11.0 MODERATE RISK >11.0 HIGH RISK Performed By: #### B STRUCTURAL METAL WORKER, T7, LIPID, TSH #### [facility] [address] [place] [address] [address] Karla Benjamin Cholesterol [Mass/Vol] 248 mg/dL Critically high <=200 [facility] Comment on above: Performed By: #### B STRUCTURAL METAL WORKER, T7, LIPID, TSH #### [facility] [address] [place] [address] [address] Karla Benjamin Cholesterol in HDL [Mass/Vol] 71 mg/dL Critically high 40-60 [facility] Comment on above: Performed By: #### B STRUCTURAL METAL WORKER, T7, LIPID, TSH #### [facility] [address] [place] [address] [address] Karla Benjamin Cholesterol in LDL [Mass/Vol] 157.6 mg/dL Normal [facility] Comment on above: Performed By: #### B STRUCTURAL METAL WORKER, T7, LIPID, TSH #### [facility] [address] [place] [address] [address] Karla Benjamin Cholesterol.total/Ch olesterol in HDL [Mass ratio] 3.5 {ratio} Normal [facility] Comment on above: Performed By: #### B STRUCTURAL METAL WORKER, T7, LIPID, TSH #### [facility] [address] [place] [address] [address] Karla Benjamin HDL NORMAL > or = 60 mg/dl - LO W CARDIOVASCULAR RISK <40 mg/dl - HIGH CARDIOVASCULAR RISK Normal [facility] Comment on above: Performed By: #### B STRUCTURAL METAL WORKER, T7, LIPID, TSH #### [facility] [address] [place] [address] [address] Karla Benjamin LDL CALC NORMAL SEE BELOW Normal [facility] [place] Comment on above: Result Comment: <100 mg/dl OPTIMAL 100 - 129 mg/dl NEAR OR ABOVE OPTIMAL 130 - 159 mg/dl BORDERLINE HIGH 160 - 189 mg/dl HIGH >190 mg/dl VERY HIGH Performed By: #### B STRUCTURAL METAL WORKER, T7, LIPID, TSH #### [facility] [address] [place] [address] [address] Karla Benjamin Triglyceride [Mass/Vol] 97 mg/dL Normal <=150 [facility] Comment on above: Performed By: #### B STRUCTURAL METAL WORKER, T7, LIPID, TSH #### [facility] [address] [place] [address] [address] Karla Benjamin VLDL CALC 19.4 mg/dL Normal [facility] Comment on above: Performed By: #### B STRUCTURAL METAL WORKER, T7, LIPID, TSH #### [facility] [address] [place] [address] [address] Karla Benjamin PROF 14(COMP METB)on 022 Albumin [Mass/Vol] 3.4 g/dL Normal 3.4-5.0 [facility] Comment on above: Performed By: #### C MP ####[facility] [address] [place] [address]Dr. Karla Benjamin Albumin/Globulin [Mass ratio] 1.1 {ratio} Normal [facility] Comment on above: Performed By: #### C MP ####[facility] [address] [place] [address]Dr. Karla Benjamin ALP [Catalytic activity/Vol] 116 U/L Normal 46-116 [facility] Comment on above: Performed By: #### C MP ####[facility] [address] [place] [address]Dr. Karla Benjamin ALT [Catalytic activity/Vol] 26 U/L Normal 14-59 [facility] Comment on above: Performed By: #### C MP ####[facility] [address] [place], [place] [address]Dr. Karla Benjamin Anion gap [Moles/Vol] 10.3 mmol/L Normal [facility] Comment on above: Performed By: #### C MP ####[facility] [address] [place], [place] [address]Dr. Karla Sourav AST [Catalytic activity/Vol] 21 U/L Normal 15-37 [facility] Comment on above: Performed By: #### C MP ####[facility] [address] [place], [place] [address]Dr. Karla Sourav Bilirubin [Mass/Vol] 0.8 mg/dL Normal 0.2-1.0 [facility] Comment on above: Performed By: #### C MP ####[facility] [address] [place], [place] [address]Dr. Karla Sourav Calcium [Mass/Vol] 9.0 mg/dL Normal 8.5-10.1 [facility] Comment on above: Performed By: #### C MP ####[facility] [address] [place], [place] [address]Dr. Karla Sourav Chloride [Moles/Vol] 106 mmol/L Normal 98-107 [facility] Comment on above: Performed By: #### C MP ####[facility] [address] [place], [place] [address]Dr. Karla Sourav CO2 [Moles/Vol] 31.2 mmol/L Normal 21.0-32.0 [facility] Comment on above: Performed By: #### C MP ####[facility] [address] [place], [place] [address]Dr. Karla Sourav Creatinine [Mass/Vol] 1.19 mg/dL Critically high 0.55-1.02 [facility] Comment on above: Performed By: #### C MP ####[facility] [address] [place] [address]Dr. Karla Sourav EGFR-AF ANDORRAN 53 mL/min/1.73m2 Critically low >=60 [facility] Comment on above: Performed By: #### C MP ####[facility] [address] [place] [address]Dr. Karla Sourav EGFR-NON AF ANDORRAN 44 mL/min/1.73m2 Critically low >=60 [facility] Comment on above: Performed By: #### C MP ####[facility] [address] [place], [place] [address]Dr. Karla Benjamin Globulin (S) [Mass/Vol] 3.1 g/dL Normal [facility] Comment on above: Performed By: #### C MP ####[facility] [address] [place], [place] [address]Dr. Karla Benjamin Glucose [Mass/Vol] 91 mg/dL Normal 74-106 [facility] Comment on above: Performed By: #### C MP ####[facility] [address] [place], [place] [address]Dr. Karla Benjamin Potassium [Moles/Vol] 4.6 mmol/L Normal 3.5-5.1 [facility] Comment on above: Performed By: #### C MP ####[facility] [address] [place], [place] [address]Dr. Karla Benjamin Protein [Mass/Vol] 6.5 g/dL Normal 6.4-8.2 [facility] Comment on above: Performed By: #### C MP ####[facility] [address] [place], [place] [address]Dr. Karla Benjamin Sodium [Moles/Vol] 143 mmol/L Normal 136-145 [facility] Comment on above: Performed By: #### C MP ####[facility] [address] [place], [place] [address]Dr. Karla Benjamin Urea nitrogen [Mass/Vol] 34.0 mg/dL Critically high 7.0-18.0 [facility] Comment on above: Performed By: #### C MP ####[facility] [address] [place], [place] [address]DmDr. Karla Benjamin Urea nitrogen/Creatinine [Mass ratio] 28.6 mg/mg Normal [facility] Comment on above: Performed By: #### C MP ####[facility] [address] [place], [place] [address]QlDr. Karla Benjamin TSHon 11-03-2021 TSH 0.923 uIU/mL Normal 0.358-3.740 [facility] Comment on above: Performed By: #### B STRUCTURAL METAL WORKER, T7, LIPID, TSH #### [facility] [address] [place], [place] [address] Dr. Karla Benjamin Basic Metabolic Panelon Calcium [Mass/Vol] 7.8 mg/dL Low 8.2-10.2 [facility] Comment on above: Performed By: #### C BC, HEPATIC, BMP #### [facility] [address] [place] [address] [place] Chloride [Moles/Vol] 108 mmol/L Normal 95-114 [facility] Comment on above: Performed By: #### C BC, HEPATIC, BMP #### [facility] [address] CO2 [Moles/Vol] 22.7 mmol/L Normal 22.0-30.0 [facility] Comment on above: Performed By: #### C BC, HEPATIC, BMP #### [facility] [address] [place] [address] [place] Creatinine [Mass/Vol] 0.82 mg/dL Normal 0.44-1.03 [facility] Comment on above: Performed By: #### C BC, HEPATIC, BMP #### [facility] [address] [place] [address] [place] Creatinine Clr Calc Pharmacy 48.89 Normal [facility] Comment on above: Result Comment: PERF ORMED BY: [facility] [address] [place] [address] PATHOLOGIST ASSET MANAGEMENT COORDINATOR TRELL ELAINE M.D. Performed By: #### C BC, HEPATIC, BMP #### [facility] [address] Estimated GFR ( Radha > 60 Normal [facility] Comment on above: Result Comment: GFR estimated reference range: According to KDOQI guidelines, <60 ml/min/1.73m2 is sufficient to diagnose a patient with chronic kidney disease. Performed By: #### C BC, HEPATIC, BMP #### [facility] [address] [place] [address] [place] Estimated GFR (Non- Am > 60 Normal [facility] Comment on above: Performed By: #### C BC, HEPATIC, BMP #### [address] Glucose [Mass/Vol] 88 mg/dL Normal 70-100 [facility] Comment on above: Result Comment: [place] Glucose Reference Range is dependent on time and content of last meal. Glucose of more than 200 mg/dL in a nonstressed, ambulatory subject supports the diagnosis of Diabetes Mellitus. ADA recommended reference range Performed By: #### C BC, HEPATIC, BMP #### [address] Potassium Normal 3.5-5.1 [facility] Comment on above: Result Comment: Spec imen hemolyzed, redraw requested Performed By: #### C BC, HEPATIC, BMP #### [facility] [address] [place] [address] [place] Sodium [Moles/Vol] 140 mmol/L Normal 136-146 [facility] Comment on above: Performed By: #### C BC, HEPATIC, BMP #### [facility] [address] [place] [address] [place] Urea nitrogen [Mass/Vol] 15 mg/dL Normal 9-23 [facility] Comment on above: Performed By: #### C BC, HEPATIC, BMP #### [facility] [address] [place] [address] [place] Bilirubin, Total and Directo n 06-21-2021 Bilirubin [Mass/Vol] 1.0 mg/dL Normal 0.3-1.2 [facility] Comment on above: Performed By: #### A 1C WT eA #### [facility] [address] Bilirubin,Indirect 0.8 mg/dL Normal [facility] Comment on above: Performed By: #### A 1C WT eA #### [facility] [address] Redraw Bilirubin,Direct 0.2 mg/dL Normal 0.0-0.4 [facility] Comment on above: Performed By: #### A 1C WT eA #### [address] abdomen pelvis w conon CT abdomen pelvis w con [facility] [place] [address] [place] [address] CT Scan Report Signed Patient: Carlitos Rachel MR#: [id number] : 1945 Acct:[id number] Age/Sex: 75 / F ADM Date: 06/19/21 Loc: Room: [address] [place] [address] Type: ADM IN Attending Dr: Janusz Vargas [...] Modesta Salgado M.D.06/21/2021 11:31 AM Dictation Location: [place] [address] Transcribed By: [facility] 06/21/21 1131 Dictated By: Modesta Salgado MD 06/21/21 1119 Signed By: 06/21/21 1131 Normal [facility] Complete Blood Count Auto Di ffon 06-21-2021 Basophils (Bld) [#/Vol] 0.0 10*3/uL Normal 0.0-0.2 [facility] Comment on above: Result Comment: PERF ORMED BY: [place] [address] PATHOLOGIST ASSET MANAGEMENT COORDINATOR TRELL ELAINE M.D. Performed By: #### C BC, HEPATIC, BMP #### [address] Basophils/100 WBC (Bld) 0.2 % Normal . [facility] Comment on above: Performed By: #### C BC, HEPATIC, BMP #### [address] Eosinophils (Bld) [#/Vol] 0.1 10*3/uL Normal 0.0-0.45 [facility] Comment on above: Performed By: #### C BC, HEPATIC, BMP #### [address] Eosinophils/100 WBC (Bld) 1.4 % Normal . [facility] Comment on above: Performed By: #### C BC, HEPATIC, BMP #### [address] Erythrocyte distribution width (RBC) [Ratio] 16.3 % High 11.9-15.3 [facility] Comment on above: Performed By: #### C BC, HEPATIC, BMP #### [address] Hematocrit (Bld) [Volume fraction] 30.9 % Low 34.0-46.4 [facility] Comment on above: Performed By: #### C BC, HEPATIC, BMP #### [address] Hemoglobin (Bld) [Mass/Vol] 9.9 g/dL Low 11.8-15.4 [facility] Comment on above: Performed By: #### C BC, HEPATIC, BMP #### [address] Lymphocytes (Bld) [#/Vol] 1.9 10*3/uL Normal 1.00-4.8 [facility] Comment on above: Performed By: #### C BC, HEPATIC, BMP #### [facility] [address] [place] [address] [place] Lymphocytes/100 WBC (Bld) 34.5 % Normal . [facility] Comment on above: Performed By: #### C BC, HEPATIC, BMP #### [facility] [address] [place] [address] [place] MCH (RBC) [Entitic mass] 25.3 pg Normal 24.7-34.3 [facility] Comment on above: Performed By: #### C BC, HEPATIC, BMP #### [facility] [address] [place] [address] [place] MCV (RBC) [Entitic vol] 78.6 fL Low 80-100 [facility] Comment on above: Performed By: #### C BC, HEPATIC, BMP #### [facility] [address] Mean Corpuscular HGB Conc 32.2 g/dL Normal 32.0-35.0 [facility] Comment on above: Performed By: #### C BC, HEPATIC, BMP #### [facility] [address] [place] [address] [place] Monocytes (Bld) [#/Vol] 0.3 10*3/uL Normal 0.0-0.8 [facility] Comment on above: Performed By: #### C BC, HEPATIC, BMP #### [facility] [address] [place] [address] [place] Monocytes/100 WBC (Bld) 4.9 % Normal . [facility] Comment on above: Performed By: #### C BC, HEPATIC, BMP #### [facility] [address] [place] [address] [place] Neutrophils (Bld) [#/Vol] 3.2 10*3/uL Normal 1.8-7.7 [facility] Comment on above: Performed By: #### C BC, HEPATIC, BMP #### [facility] [address] [place] [address] [place] Neutrophils/100 WBC (Bld) 59.0 % Normal . [facility] Comment on above: Performed By: #### C BC, HEPATIC, BMP #### [facility] [address] [place] [address] [place] Nucleated RBC/100 WBC (Bld) [Ratio] 0.0 % Normal 0-0.5 [facility] Comment on above: Performed By: #### C BC, HEPATIC, BMP #### [facility] [address] Platelet mean volume (Bld) [Entitic vol] 7.6 fL Normal 6.3-10.7 [facility] Comment on above: Performed By: #### C BC, HEPATIC, BMP #### [facility] [address] [place] [address] [place] Platelets (Bld) [#/Vol] 231 10*3/uL Normal 150-450 [facility] Comment on above: Performed By: #### C BC, HEPATIC, BMP #### [facility] [address] [place] [address] [place] RBC (Bld) [#/Vol] 3.93 10*6/uL Normal 3.60-5.00 [facility] Comment on above: Performed By: #### C AYANNA, HEPATIC, BMP #### [facility] [address] [place] [address] [place] WBC (Bld) [#/Vol] 5.4 10*3/uL Normal 4.5-11.0 [facility] Comment on above: Performed By: #### C BC, HEPATIC, BMP #### [address] ECG 12 lead ECGon 06-21-2021 ECG 12 lead ECG [facility] [place] [address] [place] [address] Electrocardiograph Report Signed Patient: Carlitos Rachel MR#: [id number] 305 : 1945 Acct:[id number] Age/Sex: 75 / F ADM Date: 06/19/21 Loc: Room: [address] [place] [address] Type: DIS IN Attending Dr: Janusz Vargas [...] bundle branch block Confirmed by FANNIE CANNON [facility], TRISHA ([id number]) on 06/21/2021 9:48:54 PM Referred By: Electronically Signed By:TRISHA LIU MD [facility] Transcribed By: MUS Signed By Trisha Liu MD, [facility] 06/21/212148 [facility] Hepatic Panelon 06-21-2021 Alanine Aminotransferase Normal 10-60 [facility] Comment on above: Result Comment: Spec imen hemolyzed, redraw requested Performed By: #### C BC, HEPATIC, BMP #### [facility] [address] [place] [address] [place] Albumin [Mass/Vol] 2.1 g/dL Low 3.2-5.5 [facility] Comment on above: Performed By: #### C BC, HEPATIC, BMP #### [facility] [address] [place] [id number] [facility] Albumin/Globulin [Mass ratio] 1.1 {ratio} [facility] Comment on above: Performed By: #### C BC, HEPATIC, BMP #### [facility] [address] [place] [address] [place] Alkaline Phosphatase Normal 32-92 [facility] Comment on above: Result Comment: Spec imen hemolyzed, redraw requested Performed By: #### C BC, HEPATIC, BMP #### [facility] [address] [place] [address] [place] Aspartate Amino Transferase Normal 10-42 [facility] Comment on above: Result Comment: Spec imen hemolyzed, redraw requested Performed By: #### C BC, HEPATIC, BMP #### [facility] [address] [place] [address] [place] Bilirubin,Direct Normal 0.0-0.4 [facility] Comment on above: Result Comment: Spec imen hemolyzed, redraw requested Performed By: #### C BC, HEPATIC, BMP #### [facility] [address] Bilirubin,Indirect Not performed Normal [facility] Comment on above: Performed By: #### C BC, HEPATIC, BMP #### [facility] [address] Bilirubin,Total Normal 0.3-1.2 [facility] Comment on above: Result Comment: Spec imen hemolyzed, redraw requested Performed By: #### C BC, HEPATIC, BMP #### [facility] [address] Globulin (S) [Mass/Vol] 2.0 g/dL Normal [facility] Comment on above: Performed By: #### C BC, HEPATIC, BMP #### [address] Protein [Mass/Vol] 4.1 g/dL Low 6.1-7.9 [facility] Comment on above: Performed By: #### C BC, HEPATIC, BMP #### [address] Redraw Lan 06-21-2021 ALT [Catalytic activity/Vol] 44 U/L Normal 10-60 [facility] Comment on above: Performed By: #### A 1C WTH eA #### [facility] [address] [place] [address] [place] Redraw Brandee 06-21-2021 AST [Catalytic activity/Vol] 38 U/L Normal 10-42 [facility] Comment on above: Performed By: #### A 1C WTH eA #### [facility] [address] [place] [address] [place] Redraw Alkaline Phosphataseo n 06-21-2021 ALP [Catalytic activity/Vol] 151 U/L High 32-92 [facility] Comment on above: Result Comment: PERF ORMED BY: [place] [address] PATHOLOGIST ASSET MANAGEMENT COORDINATOR TRELL ELAINE M.D. Performed By: #### A 1C [facility] eA #### [facility] [address] [place] [address] Redraw Potassiumon 2 Potassium [Moles/Vol] 3.3 mmol/L Low 3.5-5.1 [facility] Comment on above: Performed By: #### A 1C [facility] eA #### [address] XR ankle RT min 3V*on 2021 XR ankle RT min 3V* [facility] [place] [address] [place] [address] XRay Report Signed Patient: Carlitos Rachel MR#: [id number] 305 : 1945 Acct:[id number] Age/Sex: 75 / F ADM Date: 06/19/21 Loc: Room: [address] [place] [address] Type: ADM IN Attending Dr: Janusz Vargas [...] Washington Whitaker M.D.06/21/2021 2:42 PM Dictation Location: [place] [address] Transcribed By: [facility] 06/21/21 1442 Dictated By: Washington Whitaker II, MD 06/21/21 1441 Signed By: 06/21/21 1442 [facility] XR chest 2V*on 06-21-2021 XR chest 2V* [facility] [place] [address] [place] [address] XRay Report Signed Patient: Carlitos Rachel MR#: [id number] [birth year] : 1945 Acct:[id number] Age/Sex: 75 / F ADM Date: 06/19/21 Loc: Room: [address] [place] [address] Type: ADM IN Attending Dr: Janusz Vargas [...] Washington Whitaker M.D.06/21/2021 11:03 AM Dictation Location: [place] [address] Transcribed By: [facility] 06/21/21 1103 Dictated By: Washington Whitaker II, MD 06/21/21 1101 Signed By: 06/21/21 1103 Normal [facility] Basic Metabolic Panelon 02-0 Calcium [Mass/Vol] 8.7 mg/dL Normal 8.2-10.2 [facility] Comment on above: Performed By: #### C BC, HEPATIC, BMP #### [facility] [address] [place] [id number] [facility] Chloride [Moles/Vol] 106 mmol/L Normal 95-114 [facility] Comment on above: Performed By: #### C BC, HEPATIC, BMP #### [facility] [address] CO2 [Moles/Vol] 25.0 mmol/L Normal 22.0-30.0 [facility] Comment on above: Performed By: #### C BC, HEPATIC, BMP #### [facility] [address] Creatinine [Mass/Vol] 0.99 mg/dL Normal 0.44-1.03 [facility] Comment on above: Performed By: #### C BC, HEPATIC, BMP #### [facility] [address] [place] [address] [place] Creatinine Clr Calc Pharmacy 37.31 [facility] Comment on above: Result Comment: PERF ORMED BY: [place] [address] PATHOLOGIST ASSET MANAGEMENT COORDINATOR TRELL ELAINE M.D. Performed By: #### C BC, HEPATIC, BMP #### [address] Estimated GFR ( Radha > 60 [facility] Comment on above: Result Comment: GFR estimated reference range: According to KDOQI guidelines, <60 ml/min/1.73m2 is sufficient to diagnose a patient with chronic kidney disease. Performed By: #### C BC, HEPATIC, BMP #### [address] Estimated GFR (Non- Am 54 [facility] Comment on above: Performed By: #### C BC, HEPATIC, BMP #### [address] Glucose [Mass/Vol] 131 mg/dL High 70-100 [facility] Comment on above: Result Comment: [place] Glucose Reference Range is dependent on time and content of last meal. Glucose of more than 200 mg/dL in a nonstressed, ambulatory subject supports the diagnosis of Diabetes Mellitus. ADA recommended reference range Performed By: #### C BC, HEPATIC, BMP #### [place] [address] [place] Potassium [Moles/Vol] 4.0 mmol/L Normal 3.5-5.1 [facility] Comment on above: Performed By: #### C BC, HEPATIC, BMP #### [address] Sodium [Moles/Vol] 141 mmol/L Normal 136-146 [facility] Comment on above: Performed By: #### C BC, HEPATIC, BMP #### [address] Urea nitrogen [Mass/Vol] 27 mg/dL High 9- [facility] Comment on above: Performed By: #### C BC, HEPATIC, BMP #### [address] Complete Blood Count Auto Di ffon 06-20-2021 Basophils (Bld) [#/Vol] 0.0 10*3/uL Normal 0.0-0.2 [facility] Comment on above: Result Comment: PERF ORMED BY: [place] [address] PATHOLOGIST ASSET MANAGEMENT COORDINATOR TRELL ELAINE M.D. Performed By: #### C BC, HEPATIC, BMP #### [place] [address] [place] Basophils/100 WBC (Bld) 0.1 % Normal . [facility] Comment on above: Performed By: #### C BC, HEPATIC, BMP #### [facility] [address] [place] [address] [place] Eosinophils (Bld) [#/Vol] 0.0 10*3/uL Normal 0.0-0.45 [facility] Comment on above: Performed By: #### C BC, HEPATIC, BMP #### [facility] [address] [place] [address] [place] Eosinophils/100 WBC (Bld) 0.0 % Normal . [facility] Comment on above: Performed By: #### C BC, HEPATIC, BMP #### [address] Erythrocyte distribution width (RBC) [Ratio] 16.3 % High 11.9-15.3 [facility] Comment on above: Performed By: #### C BC, HEPATIC, BMP #### [address] Hematocrit (Bld) [Volume fraction] 34.4 % Normal 34.0-46.4 [facility] Comment on above: Performed By: #### C BC, HEPATIC, BMP #### [address] Hemoglobin (Bld) [Mass/Vol] 11.4 g/dL Low 11.8-15.4 [facility] Comment on above: Performed By: #### C BC, HEPATIC, BMP #### [address] Lymphocytes (Bld) [#/Vol] 0.7 10*3/uL Low 1.00-4.8 [facility] Comment on above: Performed By: #### C BC, HEPATIC, BMP #### [address] Lymphocytes/100 WBC (Bld) 10.2 % Normal . [facility] Comment on above: Performed By: #### C BC, HEPATIC, BMP #### [address] MCH (RBC) [Entitic mass] 25.9 pg Normal 24.7-34.3 [facility] Comment on above: Performed By: #### C BC, HEPATIC, BMP #### [address] MCV (RBC) [Entitic vol] 78.3 fL Low 80-100 [facility] Comment on above: Performed By: #### C BC, HEPATIC, BMP #### [address] Mean Corpuscular HGB Conc 33.1 g/dL Normal 32.0-35.0 [facility] Comment on above: Performed By: #### C BC, HEPATIC, BMP #### [address] Monocytes (Bld) [#/Vol] 0.2 10*3/uL Normal 0.0-0.8 [facility] Comment on above: Performed By: #### C AYANNA HEPATIC, BMP #### [facility] [address] [place] [address] [place] Monocytes/100 WBC (Bld) 2.4 % Normal . [facility] Comment on above: Performed By: #### C AYANNA HEPATIC, BMP #### [facility] [address] [place] [address] [place] Neutrophils (Bld) [#/Vol] 6.2 10*3/uL Normal 1.8-7.7 [facility] Comment on above: Performed By: #### C AYANNA HEPATIC, BMP #### [facility] [address] Neutrophils/100 WBC (Bld) 87.3 % Normal . [facility] Comment on above: Performed By: #### C AYANNA HEPATIC, BMP #### [facility] [address] [place] [address] [place] Nucleated RBC/100 WBC (Bld) [Ratio] 0.1 % Normal 0-0.5 [facility] Comment on above: Performed By: #### C AYANNA HEPATIC, BMP #### [address] Platelet mean volume (Bld) [Entitic vol] 7.4 fL Normal 6.3-10.7 [facility] Comment on above: Performed By: #### C BC HEPATIC, BMP #### [facility] [address] [place] [address] [place] Platelets (Bld) [#/Vol] 282 10*3/uL Normal 150-450 [facility] Comment on above: Performed By: #### C AYANNA HEPATIC, BMP #### [facility] [address] [place] [address] [place] RBC (Bld) [#/Vol] 4.39 10*6/uL Normal 3.60-5.00 [facility] Comment on above: Performed By: #### C BC HEPATIC, BMP #### [facility] [address] WBC (Bld) [#/Vol] 7.1 10*3/uL Normal 4.5-11.0 [facility] Comment on above: Performed By: #### C BC, HEPATIC, BMP #### [facility] [address] [place] [id number] [facility] Creatine Kinaseon 06-20-2021 CK [Catalytic activity/Vol] 51 U/L Normal 22-269 [facility] Comment on above: Performed By: #### C BC, HEPATIC, BMP #### [facility] [address] ECG 12 lead ECGon 06-20-2021 ECG 12 lead ECG [facility] [place] [address] [place] [address] Electrocardiograph Report Signed Patient: Carlitos Rachel MR#: [id number] 305 : 1945 Acct:[id number] Age/Sex: 75 / F ADM Date: 06/19/21 Loc: Room: [address] [place] [address] Type: DIS IN Attending Dr: Janusz Vargas [...] By Trisha Liu MD, FACC 06/20/21 1226 [facility] ECG 12 lead ECG [facility] [place] [address] [place] [address] Electrocardiograph Report Signed Patient: Carlitos Rachel MR#: [id number] 305 : 1945 Acct:[id number] Age/Sex: 75 / F ADM Date: 06/19/21 Loc: Room: [address] [place] [address] Type: DIS IN Attending Dr: Janusz Vargas [...] previous ECGs available Confirmed by FANNIE CANNON [facility], TRISHA (137) on 06/20/2021 12:26:02 PM Referred By: Electronically Signed By:TRISHA LIU MD [facility] Transcribed By: MUS Signed By Trisha Liu MD, [facility] 06/20/21 1226 [facility] Hepatic Panelon 06-20-2021 Albumin [Mass/Vol] 2.6 g/dL Low 3.2-5.5 [facility] Comment on above: Performed By: #### C BC, HEPATIC, BMP #### [facility] [address] [place] [address] [place] Albumin/Globulin [Mass ratio] 1.0 {ratio} [facility] Comment on above: Performed By: #### C BC, HEPATIC, BMP #### [facility] [address] [place] [address] [facility] ALP [Catalytic activity/Vol] 190 U/L High 32-92 [facility] Comment on above: Performed By: #### C BC, HEPATIC, BMP #### [facility] [address] [place] [id number] [place] ALT [Catalytic activity/Vol] 79 U/L High 10-60 [facility] Comment on above: Performed By: #### C BC, HEPATIC, BMP #### [facility] [address] [place] [id number] [facility] AST [Catalytic activity/Vol] 111 U/L High 10-42 [facility] Comment on above: Performed By: #### C BC, HEPATIC, BMP #### [facility] [address] [place] [address] [place] Bilirubin [Mass/Vol] 1.0 mg/dL Normal 0.3-1.2 [facility] Comment on above: Performed By: #### C BC, HEPATIC, BMP #### [address] Bilirubin,Indirect 0.7 mg/dL Normal [facility] Comment on above: Performed By: #### C BC, HEPATIC, BMP #### [facility] [address] [place] [address] Bilirubin.indirect [Mass/Vol] 0.3 mg/dL Normal 0.0-0.4 [facility] Comment on above: Performed By: #### C BC, HEPATIC, BMP #### [address] Globulin (S) [Mass/Vol] 2.5 g/dL Normal [facility] Comment on above: Performed By: #### C BC, HEPATIC, BMP #### [facility] [address] [place] [address] Protein [Mass/Vol] 5.1 g/dL Low 6.1-7.9 [facility] Comment on above: Performed By: #### C BC, HEPATIC, BMP #### [facility] [address] [place] [address] [place] Troponin I High Sensitivityo n 06-20-2021 Troponin I High Sensitivity 8 pg/mL Normal 0-15 [facility] Comment on above: Result Comment: PERF ORMED BY: [address] [place] [address] PATHOLOGIST ASSET MANAGEMENT COORDINATOR TRELL ELAINE M.D. Performed By: #### C BC, HEPATIC, BMP #### [place] [id number] [facility] X[facility] chest 1V portableon 06-20 XR chest 1V portable [facility] [place] [address] [place] [address] XRay Report Signed Patient: Carlitos Rachel MR#: [id number] 305 : 1945 Acct:[id number] Age/Sex: 75 / F ADM Date: 06/19/21 Loc: Room: [address] [place] [address] Type: ADM IN Attending Dr: Janusz Vargas DO Ordering Provider: Sandro Russell MD Date of Service: 06/20/21 XR/XR chest 1V portable: PACEMAKER Copies to: DO Sanrdo Telles MD PORTABLE AP ERECT CHEST 1640 [...] Modesta Salgado M.D.06/20/2021 4:57 PM Dictation Location: [place] [address] Transcribed By: [facility] 06/20/21 165 Dictated By: Modesta Salgado MD 06/20/21 165 Signed By: 06/20/21 165 Normal [facility] A1C with Estimated Average G jeremy 06-19-2021 Glucose [Mass/Vol] 131 mg/dL Normal [facility] Comment on above: Result Comment: PERF ORMED BY: [place] [address] PATHOLOGIST ASSET MANAGEMENT COORDINATOR TRELL ELAINE M.D. Performed By: #### A [facility] eA #### [address] HbA1c (Bld) [Mass fraction] 6.2 % High 4.3-5.6 [facility] Comment on above: Result Comment: Incr eased risk for diabetes: 5.7 - 6.4 diabetes: >6.4 glycemic control for adults with diabetes: <7.0 Performed By: #### A 1C [facility] eA #### [address] Blood Cultureon 06-19-2021 Bacteria identified Cx Nom (Bld) NO GROWTH 5 DAYS PERFORMED BY: [place] [address] PATHOLOGIST ASSET MANAGEMENT COORDINATOR TRELL ELAINE M.D. [facility] Comment on above: Performed By: #### A [facility] eA #### [address] Bacteria identified Cx Nom (Bld) NO GROWTH 5 DAYS PERFORMED BY: [place] [address] PATHOLOGIST ASSET MANAGEMENT COORDINATOR TRELL ELAINE M.D. [facility] Comment on above: Performed By: #### A [facility] eA #### [address] Complete Blood Count Auto Di ffon 06-19-2021 Basophils (Bld) [#/Vol] 0.0 10*3/uL Normal 0.0-0.2 [facility] Comment on above: Result Comment: PERF ORMED BY: [place] [address] PATHOLOGIST ASSET MANAGEMENT COORDINATOR TRELL ELAINE M.D. Performed By: #### H S TROP, CUBLD, CBC, PT, PTT, CMP, MG, CK, CKMB #### [address] Basophils/100 WBC (Bld) 0.3 % Normal . [facility] Comment on above: Performed By: #### H S TROP, CUBLD, CBC, PT, PTT, CMP, MG, CK, CKMB #### [address] Eosinophils (Bld) [#/Vol] 0.0 10*3/uL Normal 0.0-0.45 [facility] Comment on above: Performed By: #### H S TROP, CUBLD, CBC, PT, PTT, CMP, MG, CK, CKMB #### [address] Eosinophils/100 WBC (Bld) 0.1 % Normal . [facility] Comment on above: Performed By: #### H S TROP, CUBLD, CBC, PT, PTT, CMP, MG, CK, CKMB #### [address] Erythrocyte distribution width (RBC) [Ratio] 16.2 % High 11.9-15.3 [facility] Comment on above: Performed By: #### H S TROP, CUBLD, CBC, PT, PTT, CMP, MG, CK, CKMB #### [address] Hematocrit (Bld) [Volume fraction] 35.2 % Normal 34.0-46.4 [facility] Comment on above: Performed By: #### H S TROP, CUBLD, CBC, PT, PTT, CMP, MG, CK, CKMB #### [address] Hemoglobin (Bld) [Mass/Vol] 11.3 g/dL Low 11.8-15.4 [facility] Comment on above: Performed By: #### H S TROP, CUBLD, CBC, PT, PTT, CMP, MG, CK, CKMB #### [address] Lymphocytes (Bld) [#/Vol] 0.8 10*3/uL Low 1.00-4.8 [facility] Comment on above: Performed By: #### H S TROP, CUBLD, CBC, PT, PTT, CMP, MG, CK, CKMB #### [address] Lymphocytes/100 WBC (Bld) 13.6 % Normal . [facility] Comment on above: Performed By: #### H S TROP, CUBLD, CBC, PT, PTT, CMP, MG, CK, CKMB #### [address] MCH (RBC) [Entitic mass] 25.2 pg Normal 24.7-34.3 [facility] Comment on above: Performed By: #### H S TROP, CUBLD, CBC, PT, PTT, CMP, MG, CK, CKMB #### [address] MCV (RBC) [Entitic vol] 78.5 fL Low 80-100 [facility] Comment on above: Performed By: #### H S TROP, CUBLD, CBC, PT, PTT, CMP, MG, CK, CKMB #### [address] Mean Corpuscular HGB Conc 32.2 g/dL Normal 32.0-35.0 [facility] Comment on above: Performed By: #### H S TROP, CUBLD, CBC, PT, PTT, CMP, MG, CK, CKMB #### [address] Monocytes (Bld) [#/Vol] 0.2 10*3/uL Normal 0.0-0.8 [facility] Comment on above: Performed By: #### H S TROP, CUBLD, CBC, PT, PTT, CMP, MG, CK, CKMB #### [address] Monocytes/100 WBC (Bld) 3.1 % Normal . [facility] Comment on above: Performed By: #### H S TROP, CUBLD, CBC, PT, PTT, CMP, MG, CK, CKMB #### [address] Neutrophils (Bld) [#/Vol] 4.8 10*3/uL Normal 1.8-7.7 [facility] Comment on above: Performed By: #### H S TROP, CUBLD, CBC, PT, PTT, CMP, MG, CK, CKMB #### [facility] [address] Neutrophils/100 WBC (Bld) 82.9 % Normal . [facility] Comment on above: Performed By: #### H S TROP, CUBLD, CBC, PT, PTT, CMP, MG, CK, CKMB #### [facility] [address] Nucleated RBC/100 WBC (Bld) [Ratio] 0.0 % Normal 0-0.5 [facility] Comment on above: Performed By: #### H S TROP, CUBLD, CBC, PT, PTT, CMP, MG, CK, CKMB #### [address] Platelet mean volume (Bld) [Entitic vol] 7.3 fL Normal 6.3-10.7 [facility] Comment on above: Performed By: #### H S TROP, CUBLD, CBC, PT, PTT, CMP, MG, CK, CKMB #### [address] Platelets (Bld) [#/Vol] 265 10*3/uL Normal 150-450 [facility] Comment on above: Performed By: #### H S TROP, CUBLD, CBC, PT, PTT, CMP, MG, CK, CKMB #### [place] [address] [place] RBC (Bld) [#/Vol] 4.49 10*6/uL Normal 3.60-5.00 [facility] Comment on above: Performed By: #### H S TROP, CUBLD, CBC, PT, PTT, CMP, MG, CK, CKMB #### [facility] [address] [place] [address] [place] WBC (Bld) [#/Vol] 5.8 10*3/uL Normal 4.5-11.0 [facility] Comment on above: Performed By: #### H S TROP, CUBLD, CBC, PT, PTT, CMP, MG, CK, CKMB #### [facility] [address] Comprehensive Metabolic Pane gretchen 06-19-2021 Albumin [Mass/Vol] 2.6 g/dL Low 3.2-5.5 [facility] Comment on above: Performed By: #### H S TROP, CUBLD, CBC, PT, PTT, CMP, MG, CK, CKMB #### [facility] [address] Albumin/Globulin [Mass ratio] 1.0 {ratio} Normal [facility] Comment on above: Performed By: #### H S TROP, CUBLD, CBC, PT, PTT, CMP, MG, CK, CKMB #### [facility] [address] ALP [Catalytic activity/Vol] 186 U/L High 32-92 [facility] Comment on above: Performed By: #### H S TROP, CUBLD, CBC, PT, PTT, CMP, MG, CK, CKMB #### [facility] [address] ALT [Catalytic activity/Vol] 84 U/L High 10-60 [facility] Comment on above: Performed By: #### H S TROP, CUBLD, CBC, PT, PTT, CMP, MG, CK, CKMB #### [address] AST [Catalytic activity/Vol] 216 U/L High 10-42 [facility] Comment on above: Performed By: #### H S TROP, CUBLD, CBC, PT, PTT, CMP, MG, CK, CKMB #### [address] Bilirubin [Mass/Vol] 1.3 mg/dL High 0.3-1.2 [facility] Comment on above: Result Comment: Samp les from patients who have taken Naproxen have shown spurious elevation in Total Bilirubin levels. A metabolite of Naproxen, O-desmethylnaproxen, has been shown to interfere with the Jendrassik-Grof method for measuring Total Bilirubin. Performed By: #### H S TROP, CUBLD, CBC, PT, PTT, CMP, MG, CK, CKMB #### [facility] [address] Calcium [Mass/Vol] 8.5 mg/dL Normal 8.2-10.2 [facility] Comment on above: Performed By: #### H S TROP, CUBLD, CBC, PT, PTT, CMP, MG, CK, CKMB #### [facility] [address] Chloride [Moles/Vol] 104 mmol/L Normal 95-114 [facility] Comment on above: Performed By: #### H S TROP, CUBLD, CBC, PT, PTT, CMP, MG, CK, CKMB #### [facility] [address] CO2 [Moles/Vol] 21.1 mmol/L Low 22.0-30.0 [facility] Comment on above: Performed By: #### H S TROP, CUBLD, CBC, PT, PTT, CMP, MG, CK, CKMB #### [address] Creatinine [Mass/Vol] 1.27 mg/dL High 0.44-1.03 [facility] Comment on above: Performed By: #### H S TROP, CUBLD, CBC, PT, PTT, CMP, MG, CK, CKMB #### [address] Creatinine Clr Calc Pharmacy 29.08 [facility] Comment on above: Performed By: #### H S TROP, CUBLD, CBC, PT, PTT, CMP, MG, CK, CKMB #### [address] Estimated GFR ( Radha 49 Normal [facility] Comment on above: Result Comment: GFR estimated reference range: According to KDOQI guidelines, <60 ml/min/1.73m2 is sufficient to diagnose a patient with chronic kidney disease. Performed By: #### H S TROP, CUBLD, CBC, PT, PTT, CMP, MG, CK, CKMB #### [facility] [address] Estimated GFR (Non- Am 41 Normal [facility] Comment on above: Performed By: #### H S TROP, CUBLD, CBC, PT, PTT, CMP, MG, CK, CKMB #### [facility] [address] Globulin (S) [Mass/Vol] 2.7 g/dL Normal [facility] Comment on above: Performed By: #### H S TROP, CUBLD, CBC, PT, PTT, CMP, MG, CK, CKMB #### [address] Glucose [Mass/Vol] 101 mg/dL High 70-100 [facility] Comment on above: Result Comment: [facility] Glucose Reference Range is dependent on time and content of last meal. Glucose of more than 200 mg/dL in a nonstressed, ambulatory subject supports the diagnosis of Diabetes Mellitus. ADA recommended reference range Performed By: #### H S TROP, CUBLD, CBC, PT, PTT, CMP, MG, CK, CKMB #### [address] Potassium [Moles/Vol] 3.9 mmol/L Normal 3.5-5.1 [facility] Comment on above: Performed By: #### H S TROP, CUBLD, CBC, PT, PTT, CMP, MG, CK, CKMB #### [address] Protein [Mass/Vol] 5.3 g/dL Low 6.1-7.9 [facility] Comment on above: Performed By: #### H S TROP, CUBLD, CBC, PT, PTT, CMP, MG, CK, CKMB #### [address] Sodium [Moles/Vol] 139 mmol/L Normal 136-146 [facility] Comment on above: Performed By: #### H S TROP, CUBLD, CBC, PT, PTT, CMP, MG, CK, CKMB #### [address] Urea nitrogen [Mass/Vol] 25 mg/dL High 9-23 [facility] Comment on above: Performed By: #### H S TROP, CUBLD, CBC, PT, PTT, CMP, MG, CK, CKMB #### [address] Cortisolon 06-19-2021 Cortisol 37.0 ug/dL Normal [facility] Comment on above: Result Comment: Refe rence range: AM 6 - 24 ug/dl PM <10 ug/dl PERFORMED BY: [place] [address] PATHOLOGIST ASSET MANAGEMENT COORDINATOR TRELL ELAINE M.D. Performed By: #### C BC, HEPATIC, BMP #### [address] Creatine Kinaseon 06-19-2021 CK [Catalytic activity/Vol] 58 U/L Normal 22-269 [facility] Comment on above: Performed By: #### A 1C [facility] eA #### [address] Creatinine Kinase MBon 06-19 CK.MB [Mass/Vol] 1.7 ng/mL Normal 0.6-6.3 [facility] Comment on above: Performed By: #### A 1C WT eA #### [address] CKMB Relative Index 2.9 % High 0.00-2.50 [facility] Comment on above: Performed By: #### A 1C WT eA #### [address] ECG 12 lead ECGon 06-19-2021 ECG 12 lead ECG [facility] [place] [address] [place] [address] Electrocardiograph Report Signed Patient: Carlitos Rachel MR#: [id number] 305 : 1945 Acct:[id number] Age/Sex: 75 / F ADM Date: 06/19/21 Loc: Room: [address] [place] [address] Type: DIS IN Attending Dr: Janusz Vargas [...] previous ECGs available Confirmed [id number] on 06/20/2021 12:25:45 PM Referred By: Electronically Signed By:TRISHA LIU MD [facility] Transcribed By: MUS Signed By Trisha Liu MD, FACC 06/20/21 1225 Normal [facility] ECG 12 lead ECG [facility] [place] [address] Electrocardiograph Report Signed Patient: Carlitos Rachel MR#: [id number] 305 : 1945 Acct:[id number] Age/Sex: 75 / F ADM Date: 06/19/21 Loc: Room: [address] [place] [address] Type: DIS IN Attending Dr: Janusz Vargas [...] previous ECGs available Confirmed by FANNIE CANNON [facility], TRISHA ([id number]) on 06/19/2021 3:41:45 PM Referred By: Electronically Signed By:TRISHA LIU MD [facility] Transcribed By: MUS Signed By Trisha Liu MD, [facility] 06/19/21 1541 Normal [facility] echo transthoracicon [facility] echo transthoracic [facility] [place] [address] [place] [address] Echocardiogram Signed Patient: Carlitos Rachel MR#: [id number] 305 : 1945 Acct:[id number] Age/Sex: 75 / F ADM Date: 06/19/21 Loc: Room: [address] [place] [address] Type: DIS IN Attending Dr: Janusz Vargas DO Ordering Provider: Janusz Vargas DO Date of Service: 06/19/2112/01/958 [facility] echo transthoracic: bradycardia, hypotension Copies to: Trisha Liu MD, [facility] Janusz Vargas DO Weight: 123 lb Performed [...] 06/19/21 1140 Signed By: Trisha Liu MD, [facility] 06/19/21 1223 [facility] Free T4 (Free Thyroxine)on 0 06-19-2021 Free T4 [Mass/Vol] 1.58 ng/dL High 0.61-1.12 [facility] Comment on above: Performed By: #### C BC, HEPATIC, BMP #### [facility] [address] [place] [address] Magnesiumon 06-19-2021 Magnesium [Mass/Vol] 1.7 mg/dL Normal 1.6-2.6 [facility] Comment on above: Result Comment: PERF ORMED BY: [place] [address] PATHOLOGIST ASSET MANAGEMENT COORDINATOR TRELL ELAINE M.D. Performed By: #### H S TROP, CUBLD, CBC, PT, PTT, CMP, MG, CK, CKMB #### [address] Partial Thromboplastin Timeo n 06-19-2021 aPTT Coag (Bld) [Time] 24.2 s Low 25.1-36.5 [facility] Comment on above: Result Comment: PERF ORMED BY: [place] [address] PATHOLOGIST ASSET MANAGEMENT COORDINATOR TRELL ELAINE M.D. Performed By: #### H S TROP, CUBLD, CBC, PT, PTT, CMP, MG, CK, CKMB #### [address] Prothrombin Time INRon 06-19 INR Coag (PPP) [Relative time] 1.0 {INR} Normal [facility] Comment on above: Result Comment: INR Therapeutic [...] PT, PTT, CMP, MG, CK, CKMB #### [facility] [address] [place] [address] PT Coag (PPP) [Time] 10.7 s Normal 9.0-12.9 [facility] Comment on above: Performed By: #### H S TROP, CUBLD, CBC, PT, PTT, CMP, MG, CK, CKMB #### [facility] [address] Thyroid Stimulating Hormoneo n 06-19-2021 TSH Qn 0.15 m[IU]/L Low 0.45-5.33 [facility] Comment on above: Performed By: #### C BC, HEPATIC, BMP #### [facility] [address] Thyroxine (T4) Totalon 06-19 T4 [Mass/Vol] 6.62 ug/dL Normal 5.39-11.82 [facility] Comment on above: Performed By: #### C BC, HEPATIC, BMP #### [address] Troponin I High Sensitivityo n 06-19-2021 Troponin I High Sensitivity 7 pg/mL Normal 0-15 [facility] Comment on above: Result Comment: PERF ORMED BY: [place] [address] PATHOLOGIST ASSET MANAGEMENT COORDINATOR TRELL ELAINE M.D. Performed By: #### A 1C WTH eA #### [address] US liveron 06-19-2021 liver [facility] [place] [address] Ultrasound Report Signed Patient: Carlitos Rachel MR#: [id number] 305 : 1945 Acct:[id number] Age/Sex: 75 / F ADM Date: 06/19/21 Loc: Room: [address] [place] [address] Type: ADM IN Attending Dr: Janusz Vargas [...] Anderson Jr., D.O.06/19/2021 1:56 PM Dictation Location: [place] [address] Tech: Mable Tonia Transcribed By: INEZ 06/19/21 1356 Dictated By: Gavin Anderson Jr, DO 06/19/21 1352 Signed By: 06/19/21 1356 [facility] XR chest 1V portableon 06-19 XR chest 1V portable [facility] [place] [address] XRay Report Signed Patient: Carlitos Rachel MR#: [id number] 305 : 1945 Acct:[id number] Age/Sex: 75 / F ADM Date: 06/19/21 Loc: Room: [address] [place] [address] Type: ADM IN Attending Dr: Janusz Vargas [...] Anderson Jr., D.O.06/19/2021 10:42 AM Dictation Location: [facility] Transcribed By: INEZ 06/19/21 1042 Dictated By: Gavin Anderson Jr, DO 06/19/21 1042 Signed By: 06/19/21 1042 [facility] Vital Signs Date Time Vital Sign Value Performing Clinician Deny phan 05-01-2023 15:51-0500 Blood Pressure Location Yury NILL [facility] 05-01-2023 15:51-0500 Diastolic blood pressure 90 mm[Hg] [facility] N[facility] 05-01-2023 15:51-0500 Heart rate 76 /min [facility] N[facility] 05-01-2023 15:51-0500 Respiratory rate 16 /min Yury NILL [facility] 05-01-2023 15:51-0500 Systolic blood pressure 132 mm[Hg] Yury NILL [facility] Encounters Encounter Date Encounter Type Care Provider Facility Start: 05-03-2023 End: 05-03-2023 ambulatory [facility] Start: 05-01-2023 End: 05-02-2023 [facility]: 05-01-2023 End: 05-01-2023 Patient encounter procedure Yury R NILL [facility] Start: 04-22-2023 End: 04-22-2023 ambulatory [facility] Start: 09-04-2022 End: 09-04-2022 ambulatory [facility] Start: 07-17-2022 End: 07-17-[address] KATIE BURK . Facility:[facility] Start: 06-12-2022 End: 06-12-2022 ambulatory [facility] Start: 12-22-2021 End: 12-23-[address] KATIE BURK . Facility:[facility] Start: 11-17-2021 End: 11-18-[address] KATIE BURK . Facility:[facility] Start: 11-03-2021 End: 11-04-[address] KATIE BURK . Facility:[facility] Start: 06-19-2021 End: 06-21-2021 Evaluation and management of inpatient Katie Burk Facility:[facility] Procedures Date Procedure Procedure Detail Performing Clinician Arthroscopy of knee Yury ROBERTL Bariatric operative procedure Yury ROBERTL Biopsy of adrenal gland Eric ROBERTL Esophagogastroduodenoscopy [place] ROBERTL Hysterectomy Yury NILL Insertion of pacemaker pulse generator Yury NILL Immunizations Immunization Date Immunization Notes Care Provider Fa cilikylah 12-25-2021 SARS-CoV-2 mRNA (cwcewcrfaky-jwle-gmpb ose) vaccine Yury ROBERTL [facility] 08-23-2020 SARS-CoV-2 (COVID-19 ) mRNA BNT-162b2 vax Yury ROBERTL [facility] 07-30-2020 SARS-CoV-2 (COVID-19 ) mRNA BNT-162b2 vax Yury ROBERTL [facility] NEGATED: Highlighted row has not occurred!05-01-2023 influenza virus vaccine, unspecified formulation Yury ROBERTL [facility] Payers Date Payer Category Payer Unknown [id number] 2021 Self-pay 1961 Medicare [id number] 1959 Unknown [id number] 1959 Unknown [id number] 1945 Unknown [id number] 2.16.84 [id number] 1945 Unknown [id number] .16.84 [id number] 1945 Unknown [id number] .16.84 [id number] 1945 Unknown [id number] 2.16.84 [id number] 1945 Unknown [id number] 2.16.8 [id number] Unknown [id number] 2.16.8 [id number] Social History Date Type Detail Facility Start: 05-01-2023 Tobacco smoking status Ex-smoker (fi nding) [facility] Tobacco smoking status Never [facility] Sex Assigned At Female [facility] Functional Status Date Assessment Result Facility 05-01-2023 Functional Status N/A [facility] 12-22-2021 to 05-03-2023 Note Date & Type Note Facility 05-03-2023 Note [facility] Consul t Note Reason for visit: follow up, last seen 07/25/2021 05/03/23 She is here for follow-up Since last seen 05/2022 she has been in the ER multiple times She denies CP, SOB, FUNES, LE alisia a She went to [facility] 10/2022 6, 11/29/2022 and 03/01/2023. 02/2023 [...] hypertension, depression who was recently admitted to [place] where she was noted to be having significant bradycardia and low blood pressure associated with thi. She was initially taken to [facility] and was noted to have marked bradycardia and transcutaneous pacing was initiated and transferred to [facility] in [place]. Upon arrival that her heart rate seemed to have been stabilized at 60 bpm. She was admitted to [facility] and monitored and was noted [...] use 20 years ago and had a 35-elqf-enyo history and does not consume any alcohol Family history significant for mother who of breast cancer in father who had [place] EKG 02/01/2014 shows sinus of the normal [...] INSERT / REPLA (more content not included)... [facility] 05-03-2023 Note Patient here for 1 y ear follow up Mobitz type II AV block and hypertension. Her device was interrogated in the office on 04/22/2023. Had routine labs last month. Says chest pain has resolved. She feels good, denies SOB, palpitations, and lightheadedness/syncope. Review of Systems All other systems reviewed and are negative. [facility] 05-01-2023 Note Chief Complaint consultation for [...] Oral, Daily quetiap (more content not included)... [facility] Comment on above: Result Comment: Elec tronically Signed By: DEJAH CANNON, Yury Tapia\Date and Time Signed: 05/01/23 16:36 EST 06-12-2022 Note -s/p PPM 06/2021 -device functioning well, follow up with device clinic as scheduled (should be around 3 months from now) [facility] 06-12-2022 Note Hypertension is elev ated -patient agreeable to starting low dose norvasc 2.5mg -unclear when or why she stopped her lisinopril/hctz [facility] 06-12-2022 Note Had chest pain in th e middle of the month, she was upset and had 15 beats of pain, then it stopped and hasnt done it since, she has been under a lot of stress lately due to husbands health. She is very upset and tearful she lost her anxitey meds Review of Systems Cardiovascular: Positive for chest pain. [facility] 06-12-2022 Note [facility] Consul t [...] hypertension, depression who was recently admitted to [place] where she was noted to be having significant bradycardia and low blood pressure associated with thi. She was initially taken to [facility] and was noted to have marked bradycardia and transcutaneous pacing was initiated and transferred to [facility] in [place]. Upon arrival that her heart rate seemed to have been stabilized at 60 bpm. She was admitted to [facility] and monitored and was noted [...] use 20 years ago and had a 59-rank-wgup history and does not consume any alcohol Family history significant for mother who of breast cancer in father who had [place] EKG 02/01/2014 shows sinus of the normal [...] 28 mg capsule,spri (more content not included)... [facility] 12-22-2021 Note PROCEDURE: XR HIP RT [...] authenticated by: NISREEN VALDEZ Date: 2021-12-22 17:40 [facility] Evaluation + Plan note No data available for this section [facility] Discharge instructions No data available for this section [facility] Progress note No data available for this section [facility] Summary Purpose Family History No Family History Records FoundNo Family History Records Found No data available for this section No Family History Records FoundNo Family History Records Found Advance Directives No Advanced Directives Records FoundNo Advanced Directives Records FoundNo Advanced Directives Records FoundNo Advanced Directives Records Found Additional Source Comments INFORMATION SOURCE (unrecogn ized section and content) DATE CREATED AUTHOR 06/16/2022 [facility] DATE CREATED AUTHOR AUTHOR'S ORGANIZ ATION 07/19/2022 [facility] DATE CREATED AUTHOR AUTHOR'S ORGANIZ ATION 05/02/2023 [facility] DATE CREATED AUTHOR AUTHOR'S ORGANIZ ATION 05/04/2023 [facility] Patient Care team informatio n (unrecognized section and content) Personnel Name: Katie Burk MD Address: Address: [address] [place] [address] FOR RECORDS PERTAINING TO PATIENTS WHO ARE [...] BE BASED ON THE PRIMARY CLINICAL RECORDS. [facility] Car reviews [facility]. provides no warranty or guarantee of the accuracy or completeness of information in this document.
[2023-05-22 06:45] VITALS: BP 156/86; PULSE 70; RESP 16; TEMP 36.2; O2SAT 97; BMI 24.3
[2023-05-22] MEDS: LACTATED RINGER'S SOLUTION 1,000 ML 50 ML IV (07:12)
[2023-05-22 08:31] VITALS: BP 179/99; PULSE 69; RESP 16; O2SAT 100
[2023-05-22 08:44] VITALS: BP 180/78; PULSE 71; RESP 16; O2SAT 96
== END 2023-05-22 09:03 | disposition home or self-care (01) ==
PROVIDERS: PCP Family Medicine; Visit Provider Surgery
PROC: (CPT 43235; principal; 2023-05-22 07:55)
DX: D50.9 Iron deficiency anemia, unspecified (principal); K21.9 Gastro-esophageal reflux disease without esophagitis; Z87.19 Personal history of other diseases of the digestive system; Z98.84 Bariatric surgery status; K57.30 Diverticulosis of large intestine without perforation or abscess without bleeding; D12.8 Benign neoplasm of rectum; F41.9 Anxiety disorder, unspecified; F03.90 Unspecified dementia, unspecified severity, without behavioral disturbance, psychotic disturbance, mood disturbance, and anxiety; Z87.891 Personal history of nicotine dependence; F32.A Depression, unspecified; E11.9 Type 2 diabetes mellitus without complications; M85.80 Other specified disorders of bone density and structure, unspecified site; Z95.0 Presence of cardiac pacemaker; Z90.710 Acquired absence of both cervix and uterus; Z79.899 Other long term (current) drug therapy
CPT/HCPCS: 43235; 45385; 88305; J2704

== ENCOUNTER 2023-11-14 19:55 | Emergency (ER) | payer MEDICARE, BC, SELFPAY ==
[2023-11-14 19:58] VITALS: BP 80/47; PULSE 88; TEMP 37.1; O2SAT 95; BMI 21.3
[2023-11-14 20:02] VITALS: PULSE 70
--- NOTE | 2023-11-14 20:02 | ECG_ITS ---
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
--- OUTSIDE RECORDS SUMMARY | 2023-11-14 20:03 | XMS_ITS ---
Patient Summarization (C-CDA 2.1 CCD) Created on: November 14, 2023 CARLITOS RACHEL : 1945 Sex: Female Author Organization Sample organization Care Team Providers Care Trading Specialist Name Role Phone Katie Burk Primary Care Unavailable Jim Lundberg Consulting Unavailable Janusz Vargas Attending UnavailJanusz Elizabeth Admitting Unavailabl e KADENY ., DR WILSON Admitting Unavailable HOY ., [...] Unavailable HOY ., DR WILSON Consulting Unavailable G[place], DR NISREEN Trimble Consulting Unavailable Katie Burk Primary Care Physician [phone] DANNY SAUNDERS Referring Unavailable STEPHAN OLVERA Attending Unavailable DANNY SAUNDERS Referring Unavailable STEPHAN OLVERA Attending Unavailable Yury POND Attending Unavailable Yury POND Attending Unavailable Yury POND Attending Unavailable Allergies Allergy Classification Reported Allergen(s) Allergy Type Date of Onset Reaction(s) Facility (2 sources) atorvastatin; Translations: [ATORVASTATIN] Drug Allergy 06-19-19 [facility] Repository (1 source) chlordiazePOXIDE Drug Allergy 06-19-19 [facility] Repository (1 source) clidinium Drug Allergy 06-19-19 [facility] Repository (1 source) venom-honey bee Drug allergy (disorder) 06-19-19 [facility] Repository (1 source) chlordiazePOXIDE / clidinium Drug Allergy 02-26-20 13 [facility] Repository (1 source) Dextroamphetamine Drug Allergy 04-16-20 19 [facility] Repository (2 sources) chlordiazePOXIDE / clidinium; Translations: [chlordiazepoxide-cli dinium] Drug Allergy General [facility] [place] (1 source) Bee pollen; Translations: [BEE POLLEN] Propensity to adverse reactions to drug (disorder) 12-27-19 [facility] Repository (1 source) chlordiazePOXIDE / clidinium; Translations: [CHLORDIAZEPOXIDE-CLI DINIUM] Drug Allergy 12-27-19 [facility] Repository Encounters Encounter Date Encounter Type Care Provider Facility Start: 06-18-2023 ambulatory Yury POND Facility : [facility] Start: 05-22-2023 End: 05-23-2023 ambulatory Yury POND Facility:CD:[id number] Start: 05-03-2023 End: 05-03-2023 ambulatory [facility] Start: 05-01-2023 End: 05-02-2023 ambulatory Yury POND Facility: [facility] Start: 05-01-2023 End: 05-01-2023 Patient encounter procedure Yury POND General Surgery [facility]enn[facility] Start: 04-22-2023 End: 04-22-2023 ambulatory [facility] Start: 09-04-2022 End: 09-04-2022 ambulatory [facility] Start: 07-17-2022 End: 07-17-[address] KATIE BURK . Facility:[facility] Start: 06-12-2022 End: 06-12-2022 ambulatory [facility] Start: 12-22-2021 End: 12-23-[address] KATIE BURK . Facility:[facility] Start: 11-17-2021 End: 11-18-[address] KATIE BURK . Facility:[facility] Start: 11-03-2021 End: 11-04-[address] KATIE BURK . Facility:[facility] Start: 06-19-2021 End: 06-21-2021 Evaluation and management of inpatient Katie Burk Facility:[facility] Immunizations Immunization Date Immunization Notes Care Provider Fa cility 12-25-2021 SARS-CoV-2 mRNA (bvtwozdmpzz-msof-fvye ose) vaccine [employer] [facility] 08-23-2020 SARS-CoV-2 (COVID-19 ) mRNA BNT-162b2 vax [employer] [facility] 07-30-2020 SARS-CoV-2 (COVID-19 ) mRNA BNT-162b2 vax [employer] [facility] NEGATED: Highlighted row has not occurred!05-01-2023 influenza virus vaccine, unspecified formulation Yury [employer] [facility] Medications Current Medications Medication Drug Class(es) Dates [...] mg extended release oral capsule (1 source) Y-oljdrv-F-aspartat e Receptor Antagonist Start: 04-15-2023 take 1 [...] (1 source) Serotonin Reuptake Inhibitor Start: 11-06-2022 Payers Date Payer Category Payer Unknown [id number] 2021 Self-pay 1959 Medicare [id number] 1959 Unknown [id number] 1959 Unknown [id number] 1945 Unknown [id number] 2.16.84 [id number] 1945 Unknown [id number] 2.16.84 [id number] 1945 Unknown [id number] 2.16.84 [id number] 1945 Unknown [id number] 2.16.84 [id number] 1945 Unknown [id number] 2.16.8 [id number] 1945 Unknown [id number] 2.16.8 [id number] 1945 Unknown [id number] 2.16.8 [id number] Unknown [id number] 2.16.8 [id number] Problems Active Problems Problem Classification Problem Date [...] [CONTACT W/AND (SUSP) EXPOS COVID-19] Onset: 07-17-2022 Procedures Date Procedure Procedure Detail Performing Clinician Arthroscopy of knee Yury [employer]ERTContix Bariatric operative procedure Yury [employer]ERTContix Biopsy of adrenal gland Eric christine [employer] Esophagogastroduodenoscopy [place] ROBERTContix Hysterectomy Yury [facility] [employer] Insertion of pacemaker pulse generator Yury [facility] [employer] Results Test Name Value Interpretation Reference Range Facility Rem[facility]erson 06-17-2023 Reminders - From: Falguni Patton LPN To: N - Clinical; Sent: 06/17/2023 16:29:17 EST Show up: 04/21/2026 07:00:00 EST Subject: colonoscopy recall Due Date/Time: 05/22/2026 07:00:00 EST Reminder/Recall Patient due for surveillance colonoscopy 05/22/2026 due to flat tubular adenoma. Normal [facility] Pathology Noteon 05-27-2023 Pathology Note [id number]#1.00T IFF Normal [facility] Outside Colonoscopyon 2023 Outside Colonoscopy [id number]#1.00TI FF Normal [facility] Office Visiton 05-03-2023 Follow-up visit [id number] Johann Rachel ma 1945 F Date Provider Department Center 05/03/2023 1596-STEPHAN OLVERA Family History Family history unknown: Yes Level of Service:52980 MD OFFICE/OUTPATIENT ESTABLISHED MOD MDM 30 MIN Normal [facility] Consent for Procedure/Surger yon 05-02-2023 Consent for Procedure/Surgery [id number]#1.00T IFF Normal [facility] Facesheeton 05-02-2023 Facesheet [id number]#1.00 TIFF Normal [facility] Ambulatory Visit Summaryon 1 07-02-2022 Ambulatory Visit Summary CARLITOS RACHEL :1945 Visit Date:05/01/2023 Ambulatory Visit Instructions Your Diagnosis Iron deficiency anemia GERD (gastroesophageal reflux disease) History of ulcer disease Your Care Team Attending Physician - DEJAH CANNON, Yury Ortiz Primary Care Physician - Bhargavi CANNON, Katie This Is Your Medications List Contact prescribing [...] for choosing us for your care. Normal [facility] Physician Referralon 023 Physician Referral [id number] IFF Normal [facility] Covid-19 PCR (CVDTB)on SARS-CoV-2 (COVID-19) RNA KURTIS+probe Ql (Unsp spec) Not detected Normal NOT DETECTED [facility] Comment on above: Result Comment: When [...] for this test is supported by the [place] of Health and Human Service's declaration that [...] longer be used). Performed By: #### [facility] ####[facility] [address] [place], [place] [address]Cb. Karla Sourav Office Visiton 06-12-2022 Follow-up visit [id number] Johann Rachel ma 1945 F Date Provider Department Center 06/12/2022 STEPHAN DE [facility] Family History Family history unknown: Yes Level of Service:77319 MD OFFICE/OUTPATIENT ESTABLISHED LOW MDM 20-29 MIN Normal [facility] XR LSPINE MIN 4 VIEWSon 12-11 XR [...] by: NISREEN VALDEZ Date: 2021-12-22 17:38 Normal [facility] ECHOCARDIO M/2D COMPLETEon 0 11-17-2021 ECHOCARDIO M/2D COMPLETE Patient: CARLITOS RACHEL Exam Date: 11/17/2021 : 1945 Gender:F Ordering : DR KATIE BURK . Admission #: [id number] Family : Order #: [id number] CLICK HERE TO VIEW EXAM ECHOCARDIOGRAM REPORT [...] Salgado M.D. on 11/20/2021 at 09:29 Normal [facility] US CAROTID ART BILon -08-2 022 US CAROTID ART MIGUEL EXAMINATION: US FRANKLIN TID ART MIGUEL HISTORY: Bilateral carotid artery [...] SATURNINO HOLGUIN Date: 2021-11-17 17:57 Normal [facility] BNPon 11-03-2021 Natriuretic peptide B (Bld) [Mass/Vol] 284.0 pg/mL Normal <=1,800.0 [facility] Comment on above: Performed By: #### B PRE PLANNING ADVISOR, T7, LIPID, TSH #### [facility] [address] [place] [address] Dr. Karla Benjamin CBC AUTO DIFFon 11-03-2021 BASO # 0.0 103/ul Normal 0.0-0.1 [facility] Comment on above: Performed By: #### C BC #### [facility] [address] [place] [address] Dr. Karla Benjamin Basophils/100 WBC (Bld) 0.2 % Normal 0.2-2.0 [facility] Comment on above: Performed By: #### C BC #### [facility] [address] [place] [address] Dr. Karla Benjamin EO # 0.1 103/ul Normal 0.0-0.7 [facility] Comment on above: Performed By: #### C BC #### [facility] [address] [place] [address] Dr. Karla Benjamin Eosinophils/100 WBC (Bld) 2.5 % Normal 0.9-7.0 [facility] Comment on above: Performed By: #### C BC #### [facility] [address] [place] [address] Dr. Karla Benjamin Erythrocyte distribution width (RBC) [Ratio] 15.1 % Critically high 11.0-15.0 [facility] Comment on above: Performed By: #### C BC #### [facility] [address] [place] [address] Dr. Karla Benjamin Hematocrit (Bld) [Volume fraction] 35.0 % Critically low 36.0-48.0 [facility] Comment on above: Performed By: #### C BC #### [facility] [address] [place] [address] Dr. Karla Benjamin Hemoglobin (Bld) [Mass/Vol] 10.5 g/dL Critically low 12.0-16.0 [facility] Comment on above: Performed By: #### C BC #### [facility] [address] [place] [address] Dr. Karla Benjamin IG # 0.00 10e3/ul Normal 0.00-0.03 [facility] Comment on above: Performed By: #### C BC #### [facility] [address] [place] [address] Dr. Karla Benjamin IG % 0.0 % Normal 0.0-0.5 [facility] Comment on above: Performed By: #### C BC #### [facility] [address] [place] [address] Dr. Karla Benjamin LYMPH # 2.2 103/ul Normal 1.2-3.8 [facility] Comment on above: Performed By: #### C BC #### [facility] [address] [place] [address] Dr. Karla Benjamin Lymphocytes/100 WBC (Bld) 50.2 % Normal 20.5-60.0 [facility] Comment on above: Performed By: #### C BC #### [facility] [address] [place] [address] Dr. Karla Benjamin MANUAL DIFF REQ NO Normal [facility] Comment on above: Performed By: #### C BC #### [facility] [address] [place] [address] Dr. Karla Benjamin MCH (RBC) [Entitic mass] 24.2 pg Critically low 26.7-34.0 [facility] Comment on above: Performed By: #### C BC #### [facility] [address] [address] [address] Karla Benjamin MCHC (RBC) [Mass/Vol] 30.0 g/dL Normal 29.9-35.2 [facility] Comment on above: Performed By: #### C BC #### [facility] [address] [address] [address] Karla Benjamin MCV (RBC) [Entitic vol] 80.6 fL Critically low 81.0-99.0 [facility] Comment on above: Performed By: #### C BC #### [facility] [address] [place] [address] Dr. Karla Benjamin MONO # 0.3 103/ul Normal 0.3-0.8 [facility] Comment on above: Performed By: #### C BC #### [facility] [address] [place] [address] Dr. Karla Benjamin Monocytes/100 WBC (Bld) 6.1 % Normal 1.7-12.0 [facility] Comment on above: Performed By: #### C BC #### [facility] [address] [place] [address] Dr. Karla Benjamin NEUT # 1.8 103/ul Normal 1.4-6.5 [facility] Comment on above: Performed By: #### C BC #### [facility] [address] [place] [address] Dr. Karla Benjamin Neutrophils/100 WBC (Bld) 41.0 % Critically low 43.0-75.0 [facility] Comment on above: Performed By: #### C BC #### [facility] [address] [place] [address] Dr. Karla Benjamin Platelet mean volume (Bld) [Entitic vol] 8.9 fL Critically low 9.5-13.5 [facility] Comment on above: Performed By: #### C BC #### [facility] [address] [place] [address] Dr. Karla Benjamin PLT 279 103/ul Normal 150-450 [facility] Comment on above: Performed By: #### C BC #### [facility] [address] [place], [place] [address] Dr. Karla Benjamin RBC 4.34 106/ul Normal 4.20-5.40 [facility] Comment on above: Performed By: #### C BC #### [facility] [address] [place], [place] [address] Dr. Karla Benjamin WBC 4.4 103/ul Normal 4.0-11.0 [facility] Comment on above: Performed By: #### C BC #### [facility] [address] [place], [place] [address] HEAD WO W CONon 2 CT HEAD WO W CON EXAMINATION: CT [...] SATURNINO HOLGUIN Date: 2021-11-03 14:41 Normal [facility] FREE THYROXINE INDEX T7on FTI 2.61 Normal 1.30-4.50 [facility] Comment on above: Performed By: #### B PRE PLANNING ADVISOR, T7, LIPID, TSH #### [facility] [address] [place] [address] [address] Karla Benjamin T3U 33.0 % Normal 30.0-39.0 [facility] Comment on above: Performed By: #### B PRE PLANNING ADVISOR, T7, LIPID, TSH #### [facility] [address] [address] [address] Karla Benjamin T4 [Mass/Vol] 7.90 ug/dL Normal 4.80-13.90 [facility] Comment on above: Performed By: #### B PRE PLANNING ADVISOR, T7, LIPID, TSH #### [facility] [address] [address] [address] Karla Benjamin GLYCOHEMOGLOBIN A1Con 2021 ADA RECOMMENDATION SEE BELOW Normal [facility] Comment on above: Result Comment: ADA RECOMMENDED LIMIT 4.0 - 6.0 ADA THERAPEUTIC TARGET < 7.0 ACTION SUGGESTED > 7.0 Performed By: #### A 1C ####[facility] [address] [place] [address]Dr. Karla Benjamin Glucose [Mass/Vol] 131 mg/dL Normal [facility] Comment on above: Performed By: #### A 1C ####[facility] [address] [place] [address]DrBillie Benjamin HbA1c (Bld) [Mass fraction] 6.2 % Normal 4.5-6.2 [facility] Comment on above: Performed By: #### A 1C ####[facility] [address] [place] [id number]. Karla Benjamin IRONon 11-03-2021 Iron [Mass/Vol] 55.0 ug/dL Normal 50.0-170.0 [facility] Comment on above: Performed By: #### I FADIA ####[facility] [address] [place] [address]DrBillie Benjamin LIPID PROFILEon 11-03-2021 CHOL-HDL RATIO NORM SEE BELOW Normal [facility] Comment on above: Result Comment: 3.3 - 4.4 LOW RISK 4.4 - 7.1 AVERAGE RISK 7.1 - 11.0 MODERATE RISK >11.0 HIGH RISK Performed By: #### B PRE PLANNING ADVISOR, T7, LIPID, TSH #### [facility] [address] [address] [address] Karla Benjamin Cholesterol [Mass/Vol] 248 mg/dL Critically high <=200 [facility] Comment on above: Performed By: #### B PRE PLANNING ADVISOR, T7, LIPID, TSH #### [facility] [address] [place] [address] [address] Karla Benjamin Cholesterol in HDL [Mass/Vol] 71 mg/dL Critically high 40-60 [facility] Comment on above: Performed By: #### B PRE PLANNING ADVISOR, T7, LIPID, TSH #### [facility] [address] [place] [address] [address] Karla Benjamin Cholesterol in LDL [Mass/Vol] 157.6 mg/dL Normal [facility] Comment on above: Performed By: #### B PRE PLANNING ADVISOR, T7, LIPID, TSH #### [facility] [address] [address] [address] Karla Benjamin Cholesterol.total/Ch olesterol in HDL [Mass ratio] 3.5 {ratio} Normal [facility] Comment on above: Performed By: #### B PRE PLANNING ADVISOR, T7, LIPID, TSH #### [facility] [address] [address] [address] Karla Benjamin HDL NORMAL > or = 60 mg/dl - LO W CARDIOVASCULAR RISK <40 mg/dl - HIGH CARDIOVASCULAR RISK Normal [facility] Comment on above: Performed By: #### B PRE PLANNING ADVISOR, T7, LIPID, TSH #### [facility] [address] [place] [address] [address] Karla Benjamin LDL CALC NORMAL SEE BELOW Normal [facility] Comment on above: Result Comment: <100 mg/dl OPTIMAL 100 - 129 mg/dl NEAR OR ABOVE OPTIMAL 130 - 159 mg/dl BORDERLINE HIGH 160 - 189 mg/dl HIGH >190 mg/dl VERY HIGH Performed By: #### B PRE PLANNING ADVISOR, T7, LIPID, TSH #### [facility] [address] [place] [address] [address] Karla Benjamin Triglyceride [Mass/Vol] 97 mg/dL Normal <=150 [facility] Comment on above: Performed By: #### B PRE PLANNING ADVISOR, T7, LIPID, TSH #### [facility] [address] [place] [address] [address] Karla Benjamin VLDL CALC 19.4 mg/dL Normal [facility] Comment on above: Performed By: #### B PRE PLANNING ADVISOR, T7, LIPID, TSH #### [facility] [address] [place] [address] [address] Karla Benjamin PROF 14(COMP METB)on 022 Albumin [Mass/Vol] 3.4 g/dL Normal 3.4-5.0 [facility] Comment on above: Performed By: #### C MP ####[facility] [address] [place] [address]Dr. Karla Benjamin Albumin/Globulin [Mass ratio] 1.1 {ratio} Normal [facility] Comment on above: Performed By: #### C MP ####[facility] [address] [place] [address]Dr. Karla Benjamin ALP [Catalytic activity/Vol] 116 U/L Normal 46-116 [facility] Comment on above: Performed By: #### C MP ####[facility] [address] [place] [address]Dr. Karla Benjamin ALT [Catalytic activity/Vol] 26 U/L Normal 14-59 [facility] Comment on above: Performed By: #### C MP ####[facility] [address] [place] [address]Dr. Karla Benjamin Anion gap [Moles/Vol] 10.3 mmol/L Normal [facility] Comment on above: Performed By: #### C MP ####[facility] [address] [place] [address]Dr. Karla Benjamin AST [Catalytic activity/Vol] 21 U/L Normal 15-37 [facility] Comment on above: Performed By: #### C MP ####[facility] [address] [place] [address]Dr. Karla Benjamin Bilirubin [Mass/Vol] 0.8 mg/dL Normal 0.2-1.0 [facility] Comment on above: Performed By: #### C MP ####[facility] [address] [place] [id number]. Karla Benjamin Calcium [Mass/Vol] 9.0 mg/dL Normal 8.5-10.1 [facility] Comment on above: Performed By: #### C MP ####[facility] [address] [place] [address]Dr. Karla Benjamin Chloride [Moles/Vol] 106 mmol/L Normal 98-107 [facility] Comment on above: Performed By: #### C MP ####[facility] [address] [place], [place] [address]Dr. Karla Bnejamin CO2 [Moles/Vol] 31.2 mmol/L Normal 21.0-32.0 [facility] Comment on above: Performed By: #### C MP ####[facility] [address] [place], [place] [address]Dr. Karla Benjamin Creatinine [Mass/Vol] 1.19 mg/dL Critically high 0.55-1.02 [facility] Comment on above: Performed By: #### C MP ####[facility] [address] [place], [place] [address]Dr. Karla Benjamin EGFR-AF IRAQI 53 mL/min/1.73m2 Critically low >=60 [facility] Comment on above: Performed By: #### C MP ####[facility] [address] [place], [place] [address]Dr. Karla Benjamin EGFR-NON AF IRAQI 44 mL/min/1.73m2 Critically low >=60 [facility] Comment on above: Performed By: #### C MP ####[facility] [address] [place], [place] [address]Dr. Karla Benjamin Globulin (S) [Mass/Vol] 3.1 g/dL Normal [facility] Comment on above: Performed By: #### C MP ####[facility] [address] [place], [place] [address]Dr. Karla Benjamin Glucose [Mass/Vol] 91 mg/dL Normal 74-106 [facility] Comment on above: Performed By: #### C MP ####[facility] [address] [place], [place] [address]Lh. Karla Benjamin Potassium [Moles/Vol] 4.6 mmol/L Normal 3.5-5.1 [facility] Comment on above: Performed By: #### C MP ####[facility] [address] [place], [place] [address]Lm. Karla Benjamin Protein [Mass/Vol] 6.5 g/dL Normal 6.4-8.2 [facility] Comment on above: Performed By: #### C MP ####[facility] [address] [place] [id number]. Karla Benjamin Sodium [Moles/Vol] 143 mmol/L Normal 136-145 [facility] Comment on above: Performed By: #### C MP ####[facility] [address] [place] [id number]. Karla Benjamin Urea nitrogen [Mass/Vol] 34.0 mg/dL Critically high 7.0-18.0 [facility] Comment on above: Performed By: #### C MP ####[facility] [address] [place] [id number]. Karla Benjamin Urea nitrogen/Creatinine [Mass ratio] 28.6 mg/mg Normal [facility] Comment on above: Performed By: #### C MP ####[facility] [address] [place] [id number]. Karla Benjamin TSHon 11-03-2021 TSH 0.923 uIU/mL Normal 0.358-3.740 [facility] Comment on above: Performed By: #### B PRE PLANNING ADVISOR, T7, LIPID, TSH #### [facility] [address] [place], [place] [address] Dr. Karla Benjamin Basic Metabolic Panelon Calcium [Mass/Vol] 7.8 mg/dL Low 8.2-10.2 [facility] Comment on above: Performed By: #### C BC, HEPATIC, BMP #### [facility] [address] [place] [address] [place] Chloride [Moles/Vol] 108 mmol/L Normal 95-114 [facility] Comment on above: Performed By: #### C BC, HEPATIC, BMP #### [facility] [address] CO2 [Moles/Vol] 22.7 mmol/L Normal 22.0-30.0 [facility] Comment on above: Performed By: #### C BC, HEPATIC, BMP #### [facility] [address] Creatinine [Mass/Vol] 0.82 mg/dL Normal 0.44-1.03 [facility] Comment on above: Performed By: #### C BC, HEPATIC, BMP #### [facility] [address] [place] [address] [place] Creatinine Clr Calc Pharmacy 48.89 [facility] Comment on above: Result Comment: PERF ORMED BY: [place] [address] PATHOLOGIST CHOIR DIRECTOR TRELL ELAINE M.D. Performed By: #### C BC, HEPATIC, BMP #### [facility] [address] Estimated GFR ( Radha > 60 [facility] Comment on above: Result Comment: GFR estimated reference range: According to KDOQI guidelines, <60 ml/min/1.73m2 is sufficient to diagnose a patient with chronic kidney disease. Performed By: #### C BC, HEPATIC, BMP #### [facility] [address] Estimated GFR (Non- Am > 60 [facility] Comment on above: Performed By: #### C BC, HEPATIC, BMP #### [facility] [address] Glucose [Mass/Vol] 88 mg/dL Normal 70-100 [facility] Comment on above: Result Comment: [place] Glucose Reference Range is dependent on time and content of last meal. Glucose of more than 200 mg/dL in a nonstressed, ambulatory subject supports the diagnosis of Diabetes Mellitus. ADA recommended reference range Performed By: #### C BC, HEPATIC, BMP #### [facility] [address] [place] [address] [place] Potassium Normal 3.5-5.1 [facility] Comment on above: Result Comment: Spec imen hemolyzed, redraw requested Performed By: #### C BC, HEPATIC, BMP #### [facility] [address] [place] [id number] [place] Sodium [Moles/Vol] 140 mmol/L Normal 136-146 [facility] Comment on above: Performed By: #### C BC, HEPATIC, BMP #### [facility] [address] Urea nitrogen [Mass/Vol] 15 mg/dL Normal 9-23 [facility] Comment on above: Performed By: #### C BC, HEPATIC, BMP #### [facility] [address] [place] [address] [place] Bilirubin, Total and Directo n 06-21-2021 Bilirubin [Mass/Vol] 1.0 mg/dL Normal 0.3-1.2 [facility] Comment on above: Performed By: #### A 1C WTH eA #### [facility] [address] [place] [address] [place] Bilirubin,Indirect 0.8 mg/dL Normal [facility] Comment on above: Performed By: #### A 1C WT eA #### [facility] [address] [place] [address] [place] Redraw Bilirubin,Direct 0.2 mg/dL Normal 0.0-0.4 [facility] Comment on above: Performed By: #### A 1C WT eA #### [facility] [address] [place] [address] [place] [address] abdomen pelvis w conon CT abdomen pelvis w con [facility] [place] [address] [place] [address] CT Scan Report Signed Patient: Carlitos Rachel MR#: [id number] 305 : 1945 Acct:[id number] Age/Sex: 75 / F ADM Date: 06/19/21 Loc: Room: [address] [place] [address] Type: ADM IN Attending Dr: Janusz Vargas [...] Modesta Salgado M.D.06/21/2021 11:31 AM Dictation Location: [place] [address] Transcribed By: [facility] 06/21/21 1131 Dictated By: Modesta Salgado MD 06/21/21 1119 Signed By: 06/21/21 1131 Normal [facility] Complete Blood Count Auto Di ffon 06-21-2021 Basophils (Bld) [#/Vol] 0.0 10*3/uL Normal 0.0-0.2 [facility] Comment on above: Result Comment: PERF ORMED BY: [place] [address] PATHOLOGIST CHOIR DIRECTOR TRELL ELAINE M.D. Performed By: #### C BC, HEPATIC, BMP #### [address] Basophils/100 WBC (Bld) 0.2 % Normal . [facility] Comment on above: Performed By: #### C BC, HEPATIC, BMP #### [address] Eosinophils (Bld) [#/Vol] 0.1 10*3/uL Normal 0.0-0.45 [facility] Comment on above: Performed By: #### C BC, HEPATIC, BMP #### [address] Eosinophils/100 WBC (Bld) 1.4 % Normal . [facility] Comment on above: Performed By: #### C BC, HEPATIC, BMP #### [address] Erythrocyte distribution width (RBC) [Ratio] 16.3 % High 11.9-15.3 [facility] Comment on above: Performed By: #### C BC, HEPATIC, BMP #### [facility] [address] Hematocrit (Bld) [Volume fraction] 30.9 % Low 34.0-46.4 [facility] Comment on above: Performed By: #### C BC, HEPATIC, BMP #### [address] Hemoglobin (Bld) [Mass/Vol] 9.9 g/dL Low 11.8-15.4 [facility] Comment on above: Performed By: #### C BC, HEPATIC, BMP #### [address] Lymphocytes (Bld) [#/Vol] 1.9 10*3/uL Normal 1.00-4.8 [facility] Comment on above: Performed By: #### C BC, HEPATIC, BMP #### [address] Lymphocytes/100 WBC (Bld) 34.5 % Normal . [facility] Comment on above: Performed By: #### C BC, HEPATIC, BMP #### [address] MCH (RBC) [Entitic mass] 25.3 pg Normal 24.7-34.3 [facility] Comment on above: Performed By: #### C BC, HEPATIC, BMP #### [address] MCV (RBC) [Entitic vol] 78.6 fL Low 80-100 [facility] Comment on above: Performed By: #### C BC, HEPATIC, BMP #### [address] Mean Corpuscular HGB Conc 32.2 g/dL Normal 32.0-35.0 [facility] Comment on above: Performed By: #### C BC, HEPATIC, BMP #### [address] Monocytes (Bld) [#/Vol] 0.3 10*3/uL Normal 0.0-0.8 [facility] Comment on above: Performed By: #### C BC, HEPATIC, BMP #### [facility] [address] [place] [address] [place] Monocytes/100 WBC (Bld) 4.9 % Normal . [facility] Comment on above: Performed By: #### C BC, HEPATIC, BMP #### [facility] [address] [place] [address] [place] Neutrophils (Bld) [#/Vol] 3.2 10*3/uL Normal 1.8-7.7 [facility] Comment on above: Performed By: #### C BC, HEPATIC, BMP #### [facility] [address] Neutrophils/100 WBC (Bld) 59.0 % Normal . [facility] Comment on above: Performed By: #### C BC, HEPATIC, BMP #### [facility] [address] [place] [address] [place] Nucleated RBC/100 WBC (Bld) [Ratio] 0.0 % Normal 0-0.5 [facility] Comment on above: Performed By: #### C BC, HEPATIC, BMP #### [facility] [address] [place] [address] [place] Platelet mean volume (Bld) [Entitic vol] 7.6 fL Normal 6.3-10.7 [facility] Comment on above: Performed By: #### C BC, HEPATIC, BMP #### [facility] [address] [place] [address] [place] Platelets (Bld) [#/Vol] 231 10*3/uL Normal 150-450 [facility] Comment on above: Performed By: #### C BC, HEPATIC, BMP #### [facility] [address] [place] [address] [place] RBC (Bld) [#/Vol] 3.93 10*6/uL Normal 3.60-5.00 [facility] Comment on above: Performed By: #### C BC, HEPATIC, BMP #### [facility] [address] [place] [address] [place] WBC (Bld) [#/Vol] 5.4 10*3/uL Normal 4.5-11.0 [facility] Comment on above: Performed By: #### C AYANNA, HEPATIC, BMP #### [facility] [address] [place] [id number] [facility] ECG 12 lead ECGon 06-21-2021 ECG 12 lead ECG [facility] [place] [address] [place] [address] Electrocardiograph Report Signed Patient: Carlitos Rachel MR#: [id number] 305 : 1945 Acct:[id number] Age/Sex: 75 / F ADM Date: 06/19/21 Loc: Room: [address] [place] [address] Type: DIS IN Attending Dr: Janusz Vargas [...] bundle branch block Confirmed by FANNIE CANNON [facility], TRISHA ([id number]) on 06/21/2021 9:48:54 PM Referred By: Electronically Signed By:TRISHA LIU MD [facility] Transcribed By: MUS Signed By Trisha Liu MD, [facility] 06/21/212148 Normal [facility] Hepatic Panelon 06-21-2021 Alanine Aminotransferase Normal 10-60 [facility] Comment on above: Result Comment: Spec imen hemolyzed, redraw requested Performed By: #### C AYANNA, HEPATIC, BMP #### [facility] [address] [place], [place] [id number] [facility] Albumin [Mass/Vol] 2.1 g/dL Low 3.2-5.5 [facility] Comment on above: Performed By: #### C AYANNA, HEPATIC, BMP #### [facility] [address] [place] [id number] [facility] Albumin/Globulin [Mass ratio] 1.1 {ratio} Normal [facility] Comment on above: Performed By: #### C BC, HEPATIC, BMP #### [facility] [address] [place] [id number] [place] Alkaline Phosphatase Normal 32-92 [facility] Comment on above: Result Comment: Spec imen hemolyzed, redraw requested Performed By: #### C BC, HEPATIC, BMP #### [facility] [address] [place] [id number] [place] Aspartate Amino Transferase Normal 10-42 [facility] Comment on above: Result Comment: Spec imen hemolyzed, redraw requested Performed By: #### C BC, HEPATIC, BMP #### [facility] [address] [place] [address] [place] Bilirubin,Direct Normal 0.0-0.4 [facility] Comment on above: Result Comment: Spec imen hemolyzed, redraw requested Performed By: #### C BC, HEPATIC, BMP #### [facility] [address] [place] [address] [place] Bilirubin,Indirect Not performed Normal [facility] Comment on above: Performed By: #### C BC, HEPATIC, BMP #### [facility] [address] [place] [address] [place] Bilirubin,Total Normal 0.3-1.2 [facility] Comment on above: Result Comment: Spec imen hemolyzed, redraw requested Performed By: #### C BC, HEPATIC, BMP #### [facility] [address] [place] [id number] [place] Globulin (S) [Mass/Vol] 2.0 g/dL Normal [facility] Comment on above: Performed By: #### C BC, HEPATIC, BMP #### [facility] [address] [place] [address] [place] Protein [Mass/Vol] 4.1 g/dL Low 6.1-7.9 [facility] Comment on above: Performed By: #### C BC, HEPATIC, BMP #### [facility] [address] [place] [address] [place] Redraw Lan 06-21-2021 ALT [Catalytic activity/Vol] 44 U/L Normal 10-60 [facility] Comment on above: Performed By: #### A 1C [facility] eA #### [place] [id number] [place] Redraw Brandee 06-21-2021 AST [Catalytic activity/Vol] 38 U/L Normal 10-42 [facility] Comment on above: Performed By: #### A 1C WT eA #### [place] [address] [place] Redraw Alkaline Phosphataseo n 06-21-2021 ALP [Catalytic activity/Vol] 151 U/L High 32-92 [facility] Comment on above: Result Comment: PERF ORMED BY: [place] [address] PATHOLOGIST CHOIR DIRECTOR TRELL ELAINE M.D. Performed By: #### A 1C [facility] eA #### [address] Redraw Potassiumon 2 Potassium [Moles/Vol] 3.3 mmol/L Low 3.5-5.1 [facility] Comment on above: Performed By: #### A 1C [facility] eA #### [address] XR ankle RT min 3V*on 2021 XR ankle RT min 3V* [facility] [place] [address] XRay Report Signed Patient: Carlitos Rachel MR#: [id number] 305 : 1945 Acct:[id number] Age/Sex: 75 / F ADM Date: 06/19/21 Loc: Room: [address] [place] [address] Type: ADM IN Attending Dr: Janusz Vargas [...] Washington Whitaker M.D.06/21/2021 2:42 PM Dictation Location: [place] [address] Transcribed By: [facility] 06/21/21 144 Dictated By: Washington Whitaker II, MD 06/21/21 1441 Signed By: 06/21/21 1442 [facility] XR chest 2V*on 06-21-2021 XR chest 2V* [facility] [place] [address] [place] [address] XRay Report Signed Patient: Carlitos Rachel MR#: [id number] 305 : 1945 Acct:[id number] Age/Sex: 75 / F ADM Date: 06/19/21 Loc: Room: [address] [place] [address] Type: ADM IN Attending Dr: Janusz Vargas [...] Washington Whitaker M.D.06/21/2021 11:03 AM Dictation Location: [place] [address] Transcribed By: [facility] 06/21/211102 Dictated By: Washington Whitaker II, MD 06/21/211100 Signed By: 06/21/21 110 Normal [facility] Basic Metabolic Panelon 02- Calcium [Mass/Vol] 8.7 mg/dL Normal 8.2-10.2 [facility] Comment on above: Performed By: #### C BC, HEPATIC, BMP #### [facility] [address] Chloride [Moles/Vol] 106 mmol/L Normal 95-114 [facility] Comment on above: Performed By: #### C BC, HEPATIC, BMP #### [facility] [address] CO2 [Moles/Vol] 25.0 mmol/L Normal 22.0-30.0 [facility] Comment on above: Performed By: #### C BC, HEPATIC, BMP #### [facility] [address] Creatinine [Mass/Vol] 0.99 mg/dL Normal 0.44-1.03 [facility] Comment on above: Performed By: #### C BC, HEPATIC, BMP #### [facility] [address] [place] [address] [place] Creatinine Clr Calc Pharmacy 37.31 [facility] Comment on above: Result Comment: PERF ORMED BY: [place] [address] PATHOLOGIST CHOIR DIRECTOR TRELL ELAINE M.D. Performed By: #### C BC, HEPATIC, BMP #### [facility] [address] [place] [address] [place] Estimated GFR ( Radha > 60 Normal [facility] Comment on above: Result Comment: GFR estimated reference range: According to KDOQI guidelines, <60 ml/min/1.73m2 is sufficient to diagnose a patient with chronic kidney disease. Performed By: #### C BC, HEPATIC, BMP #### [facility] [address] Estimated GFR (Non- Am 54 Normal [facility] Comment on above: Performed By: #### C BC, HEPATIC, BMP #### [facility] [address] Glucose [Mass/Vol] 131 mg/dL High 70-100 [facility] Comment on above: Result Comment: [place] Glucose Reference Range is dependent on time and content of last meal. Glucose of more than 200 mg/dL in a nonstressed, ambulatory subject supports the diagnosis of Diabetes Mellitus. ADA recommended reference range Performed By: #### C BC, HEPATIC, BMP #### [address] Potassium [Moles/Vol] 4.0 mmol/L Normal 3.5-5.1 [facility] Comment on above: Performed By: #### C BC, HEPATIC, BMP #### [address] Sodium [Moles/Vol] 141 mmol/L Normal 136-146 [facility] Comment on above: Performed By: #### C BC, HEPATIC, BMP #### [address] Urea nitrogen [Mass/Vol] 27 mg/dL High 9-23 [facility] Comment on above: Performed By: #### C BC, HEPATIC, BMP #### [address] Complete Blood Count Auto Di ffon 06-20-2021 Basophils (Bld) [#/Vol] 0.0 10*3/uL Normal 0.0-0.2 [facility] Comment on above: Result Comment: PERF ORMED BY: [place] [address] PATHOLOGIST CHOIR DIRECTOR TRELL ELAINE M.D. Performed By: #### C BC, HEPATIC, BMP #### [facility] [address] [place] [address] [place] Basophils/100 WBC (Bld) 0.1 % Normal . [facility] Comment on above: Performed By: #### C BC, HEPATIC, BMP #### [facility] [address] [place] [address] [place] Eosinophils (Bld) [#/Vol] 0.0 10*3/uL Normal 0.0-0.45 [facility] Comment on above: Performed By: #### C BC, HEPATIC, BMP #### [facility] [address] [place] [address] [place] Eosinophils/100 WBC (Bld) 0.0 % Normal . [facility] Comment on above: Performed By: #### C BC, HEPATIC, BMP #### [facility] [address] Erythrocyte distribution width (RBC) [Ratio] 16.3 % High 11.9-15.3 [facility] Comment on above: Performed By: #### C BC, HEPATIC, BMP #### [facility] [address] Hematocrit (Bld) [Volume fraction] 34.4 % Normal 34.0-46.4 [facility] Comment on above: Performed By: #### C BC, HEPATIC, BMP #### [facility] [address] [place] [address] [place] Hemoglobin (Bld) [Mass/Vol] 11.4 g/dL Low 11.8-15.4 [facility] Comment on above: Performed By: #### C BC, HEPATIC, BMP #### [facility] [address] [place] [address] [place] Lymphocytes (Bld) [#/Vol] 0.7 10*3/uL Low 1.00-4.8 [facility] Comment on above: Performed By: #### C BC, HEPATIC, BMP #### [facility] [address] [place] [address] [place] Lymphocytes/100 WBC (Bld) 10.2 % Normal . [facility] Comment on above: Performed By: #### C BC, HEPATIC, BMP #### [facility] [address] MCH (RBC) [Entitic mass] 25.9 pg Normal 24.7-34.3 [facility] Comment on above: Performed By: #### C BC, HEPATIC, BMP #### [facility] [address] MCV (RBC) [Entitic vol] 78.3 fL Low 80-100 [facility] Comment on above: Performed By: #### C BC, HEPATIC, BMP #### [facility] [address] Mean Corpuscular HGB Conc 33.1 g/dL Normal 32.0-35.0 [facility] Comment on above: Performed By: #### C BC, HEPATIC, BMP #### [facility] [address] Monocytes (Bld) [#/Vol] 0.2 10*3/uL Normal 0.0-0.8 [facility] Comment on above: Performed By: #### C BC, HEPATIC, BMP #### [facility] [address] [place] [address] [place] Monocytes/100 WBC (Bld) 2.4 % Normal . [facility] Comment on above: Performed By: #### C BC, HEPATIC, BMP #### [facility] [address] [place] [address] [place] Neutrophils (Bld) [#/Vol] 6.2 10*3/uL Normal 1.8-7.7 [facility] Comment on above: Performed By: #### C BC, HEPATIC, BMP #### [place] [address] [place] Neutrophils/100 WBC (Bld) 87.3 % Normal . [facility] Comment on above: Performed By: #### C BC, HEPATIC, BMP #### [facility] [address] [place] [address] [place] Nucleated RBC/100 WBC (Bld) [Ratio] 0.1 % Normal 0-0.5 [facility] Comment on above: Performed By: #### C BC, HEPATIC, BMP #### [facility] [address] Platelet mean volume (Bld) [Entitic vol] 7.4 fL Normal 6.3-10.7 [facility] Comment on above: Performed By: #### C BC, HEPATIC, BMP #### [facility] [address] Platelets (Bld) [#/Vol] 282 10*3/uL Normal 150-450 [facility] Comment on above: Performed By: #### C BC, HEPATIC, BMP #### [facility] [address] RBC (Bld) [#/Vol] 4.39 10*6/uL Normal 3.60-5.00 [facility] Comment on above: Performed By: #### C BC, HEPATIC, BMP #### [facility] [address] WBC (Bld) [#/Vol] 7.1 10*3/uL Normal 4.5-11.0 [facility] Comment on above: Performed By: #### C BC, HEPATIC, BMP #### [address] Creatine Kinaseon 06-20-2021 CK [Catalytic activity/Vol] 51 U/L Normal 22-269 [facility] Comment on above: Performed By: #### C BC, HEPATIC, BMP #### [address] ECG 12 lead ECGon 06-20-2021 ECG 12 lead ECG [facility] [place] [address] [place] [address] Electrocardiograph Report Signed Patient: Carlitos Rachel MR#: [id number] 305 : 1945 Acct:[id number] Age/Sex: 75 / F ADM Date: 06/19/21 Loc: Room: [address] [place] [address] Type: DIS IN Attending Dr: Janusz Vargas [...] ECG No previous ECGs available Confirmed by TRISHA LIU MD, FACC ([id number]) on 06/20/2021 12:26:02 PM Referred By: Electronically Signed By:TRISHA LIU MD [facility] Transcribed By: MUS Signed By Trisha Liu MD, FACC 06/20/21 1226 Normal [facility] ECG 12 lead ECG [facility] [place] [address] Electrocardiograph Report Signed Patient: Carlitos Rachel MR#: [id number] 305 : 1945 Acct:[id number] Age/Sex: 75 / F ADM Date: 06/19/21 Loc: Room: [address] [place] [address] Type: DIS IN Attending Dr: Janusz Vargas [...] degree AV block (Mobitz I) Confirmed by TRISHA LIU MD, FACC ([id number]) on 06/20/2021 12:26:23 PM Referred By: Electronically Signed By:TRISHA LIU MD [facility] Transcribed By: MUS Signed By Trisha Liu MD, [facility] 06/20/21 1226 [facility] Hepatic Panelon 06-20-2021 Albumin [Mass/Vol] 2.6 g/dL Low 3.2-5.5 [facility] Comment on above: Performed By: #### C BC, HEPATIC, BMP #### [address] Albumin/Globulin [Mass ratio] 1.0 {ratio} [facility] Comment on above: Performed By: #### C BC, HEPATIC, BMP #### [address] ALP [Catalytic activity/Vol] 190 U/L High 32-92 [facility] Comment on above: Performed By: #### C BC, HEPATIC, BMP #### [address] ALT [Catalytic activity/Vol] 79 U/L High 10-60 [facility] Comment on above: Performed By: #### C BC, HEPATIC, BMP #### [address] AST [Catalytic activity/Vol] 111 U/L High 10-42 [facility] Comment on above: Performed By: #### C BC, HEPATIC, BMP #### [place] [address] [place] Bilirubin [Mass/Vol] 1.0 mg/dL Normal 0.3-1.2 [facility] Comment on above: Performed By: #### C BC, HEPATIC, BMP #### [place] [address] [place] Bilirubin,Indirect 0.7 mg/dL Normal [facility] Comment on above: Performed By: #### C BC, HEPATIC, BMP #### [address] Bilirubin.indirect [Mass/Vol] 0.3 mg/dL Normal 0.0-0.4 [facility] Comment on above: Performed By: #### C BC, HEPATIC, BMP #### [facility] [address] Globulin (S) [Mass/Vol] 2.5 g/dL Normal [facility] Comment on above: Performed By: #### C BC, HEPATIC, BMP #### [facility] [address] Protein [Mass/Vol] 5.1 g/dL Low 6.1-7.9 [facility] Comment on above: Performed By: #### C BC, HEPATIC, BMP #### [facility] [address] Troponin I High Sensitivityo n 06-20-2021 Troponin I High Sensitivity 8 pg/mL Normal 0-15 [facility] Comment on above: Result Comment: PERF ORMED BY: [place] [address] PATHOLOGIST CHOIR DIRECTOR TRELL ELAINE M.D. Performed By: #### C BC, HEPATIC, BMP #### [facility] [address] XR chest 1V portableon 06-20 XR chest 1V portable [facility] [address] [place] [address] [place] [address] XRay Report Signed Patient: Carlitos Rachel MR#: [id number] 305 : 1945 Acct:[id number] Age/Sex: 75 / F ADM Date: 06/19/21 Loc: Room: 1L1030-7 Type: ADM IN Attending Dr: Janusz Vargas [...] Modesta Salgado M.D.06/20/2021 4:57 PM Dictation Location: [place] [address] Transcribed By: [facility] 06/20/211656 Dictated By: Modesta Salgado MD 06/20/211654 Signed By: 06/20/211656 Normal [facility] A1C with Estimated Average G jeremy 06-19-2021 Glucose [Mass/Vol] 131 mg/dL Normal [facility] Comment on above: Result Comment: PERF ORMED BY: [place] [address] PATHOLOGIST CHOIR DIRECTOR TRELL ELAINE M.D. Performed By: #### A 1C [facility] eA #### [address] HbA1c (Bld) [Mass fraction] 6.2 % High 4.3-5.6 [facility] Comment on above: Result Comment: Incr eased risk for diabetes: 5.7 - 6.4 diabetes: >6.4 glycemic control for adults with diabetes: <7.0 Performed By: #### A 1C [facility] eA #### [address] Blood Cultureon 06-19-2021 Bacteria identified Cx Nom (Bld) NO GROWTH 5 DAYS PERFORMED BY: [place] [address] PATHOLOGIST CHOIR DIRECTOR TRELL ELAINE M.D. [facility] Comment on above: Performed By: #### A 1C [facility] eA #### [address] Complete Blood Count Auto Di ffon 06-19-2021 Basophils (Bld) [#/Vol] 0.0 10*3/uL Normal 0.0-0.2 [facility] Comment on above: Result Comment: PERF ORMED BY: [place] [address] PATHOLOGIST CHOIR DIRECTOR TRELL ELAINE M.D. Performed By: #### H S TROP, CUBLD, CBC, PT, PTT, CMP, MG, CK, CKMB #### [address] Basophils/100 WBC (Bld) 0.3 % Normal . [facility] Comment on above: Performed By: #### H S TROP, CUBLD, CBC, PT, PTT, CMP, MG, CK, CKMB #### [address] Eosinophils (Bld) [#/Vol] 0.0 10*3/uL Normal 0.0-0.45 [facility] Comment on above: Performed By: #### H S TROP, CUBLD, CBC, PT, PTT, CMP, MG, CK, CKMB #### [address] Eosinophils/100 WBC (Bld) 0.1 % Normal . [facility] Comment on above: Performed By: #### H S TROP, CUBLD, CBC, PT, PTT, CMP, MG, CK, CKMB #### [address] Erythrocyte distribution width (RBC) [Ratio] 16.2 % High 11.9-15.3 [facility] Comment on above: Performed By: #### H S TROP, CUBLD, CBC, PT, PTT, CMP, MG, CK, CKMB #### [address] Hematocrit (Bld) [Volume fraction] 35.2 % Normal 34.0-46.4 [facility] Comment on above: Performed By: #### H S TROP, CUBLD, CBC, PT, PTT, CMP, MG, CK, CKMB #### [address] Hemoglobin (Bld) [Mass/Vol] 11.3 g/dL Low 11.8-15.4 [facility] Comment on above: Performed By: #### H S TROP, CUBLD, CBC, PT, PTT, CMP, MG, CK, CKMB #### [address] Lymphocytes (Bld) [#/Vol] 0.8 10*3/uL Low 1.00-4.8 [facility] Comment on above: Performed By: #### H S TROP, CUBLD, CBC, PT, PTT, CMP, MG, CK, CKMB #### [address] Lymphocytes/100 WBC (Bld) 13.6 % Normal . [facility] Comment on above: Performed By: #### H S TROP, CUBLD, CBC, PT, PTT, CMP, MG, CK, CKMB #### [address] MCH (RBC) [Entitic mass] 25.2 pg Normal 24.7-34.3 [facility] Comment on above: Performed By: #### H S TROP, CUBLD, CBC, PT, PTT, CMP, MG, CK, CKMB #### [address] MCV (RBC) [Entitic vol] 78.5 fL Low 80-100 [facility] Comment on above: Performed By: #### H S TROP, CUBLD, CBC, PT, PTT, CMP, MG, CK, CKMB #### [address] Mean Corpuscular HGB Conc 32.2 g/dL Normal 32.0-35.0 [facility] Comment on above: Performed By: #### H S TROP, CUBLD, CBC, PT, PTT, CMP, MG, CK, CKMB #### [address] Monocytes (Bld) [#/Vol] 0.2 10*3/uL Normal 0.0-0.8 [facility] Comment on above: Performed By: #### H S TROP, CUBLD, CBC, PT, PTT, CMP, MG, CK, CKMB #### [address] Monocytes/100 WBC (Bld) 3.1 % Normal . [facility] Comment on above: Performed By: #### H S TROP, CUBLD, CBC, PT, PTT, CMP, MG, CK, CKMB #### [address] Neutrophils (Bld) [#/Vol] 4.8 10*3/uL Normal 1.8-7.7 [facility] Comment on above: Performed By: #### H S TROP, CUBLD, CBC, PT, PTT, CMP, MG, CK, CKMB #### [address] Neutrophils/100 WBC (Bld) 82.9 % Normal . [facility] Comment on above: Performed By: #### H S TROP, CUBLD, CBC, PT, PTT, CMP, MG, CK, CKMB #### [address] Nucleated RBC/100 WBC (Bld) [Ratio] 0.0 % Normal 0-0.5 [facility] Comment on above: Performed By: #### H S TROP, CUBLD, CBC, PT, PTT, CMP, MG, CK, CKMB #### [address] Platelet mean volume (Bld) [Entitic vol] 7.3 fL Normal 6.3-10.7 [facility] Comment on above: Performed By: #### H S TROP, CUBLD, CBC, PT, PTT, CMP, MG, CK, CKMB #### [place] [address] [place] Platelets (Bld) [#/Vol] 265 10*3/uL Normal 150-450 [facility] Comment on above: Performed By: #### H S TROP, CUBLD, CBC, PT, PTT, CMP, MG, CK, CKMB #### [facility] [address] RBC (Bld) [#/Vol] 4.49 10*6/uL Normal 3.60-5.00 [facility] Comment on above: Performed By: #### H S TROP, CUBLD, CBC, PT, PTT, CMP, MG, CK, CKMB #### [address] WBC (Bld) [#/Vol] 5.8 10*3/uL Normal 4.5-11.0 [facility] Comment on above: Performed By: #### H S TROP, CUBLD, CBC, PT, PTT, CMP, MG, CK, CKMB #### [address] Comprehensive Metabolic Pane gretchen 06-19-2021 Albumin [Mass/Vol] 2.6 g/dL Low 3.2-5.5 [facility] Comment on above: Performed By: #### H S TROP, CUBLD, CBC, PT, PTT, CMP, MG, CK, CKMB #### [address] Albumin/Globulin [Mass ratio] 1.0 {ratio} Normal [facility] Comment on above: Performed By: #### H S TROP, CUBLD, CBC, PT, PTT, CMP, MG, CK, CKMB #### [address] ALP [Catalytic activity/Vol] 186 U/L High 32-92 [facility] Comment on above: Performed By: #### H S TROP, CUBLD, CBC, PT, PTT, CMP, MG, CK, CKMB #### [address] ALT [Catalytic activity/Vol] 84 U/L High 10-60 [facility] Comment on above: Performed By: #### H S TROP, CUBLD, CBC, PT, PTT, CMP, MG, CK, CKMB #### [address] AST [Catalytic activity/Vol] 216 U/L High 10-42 [facility] Comment on above: Performed By: #### H S TROP, CUBLD, CBC, PT, PTT, CMP, MG, CK, CKMB #### [address] Bilirubin [Mass/Vol] 1.3 mg/dL High 0.3-1.2 [facility] Comment on above: Result Comment: Samp les from patients who have taken Naproxen have shown spurious elevation in Total Bilirubin levels. A metabolite of Naproxen, O-desmethylnaproxen, has been shown to interfere with the Jendrjamaalik-Grof method for measuring Total Bilirubin. Performed By: #### H S TROP, CUBLD, CBC, PT, PTT, CMP, MG, CK, CKMB #### [address] Calcium [Mass/Vol] 8.5 mg/dL Normal 8.2-10.2 [facility] Comment on above: Performed By: #### H S TROP, CUBLD, CBC, PT, PTT, CMP, MG, CK, CKMB #### [address] Chloride [Moles/Vol] 104 mmol/L Normal 95-114 [facility] Comment on above: Performed By: #### H S TROP, CUBLD, CBC, PT, PTT, CMP, MG, CK, CKMB #### [address] CO2 [Moles/Vol] 21.1 mmol/L Low 22.0-30.0 [facility] Comment on above: Performed By: #### H S TROP, CUBLD, CBC, PT, PTT, CMP, MG, CK, CKMB #### [address] Creatinine [Mass/Vol] 1.27 mg/dL High 0.44-1.03 [facility] Comment on above: Performed By: #### H S TROP, CUBLD, CBC, PT, PTT, CMP, MG, CK, CKMB #### [facility] [address] Creatinine Clr Calc Pharmacy 29.08 [facility] Comment on above: Performed By: #### H S TROP, CUBLD, CBC, PT, PTT, CMP, MG, CK, CKMB #### [facility] [address] Estimated GFR ( Radha 49 [facility] Comment on above: Result Comment: GFR estimated reference range: According to KDOQI guidelines, <60 ml/min/1.73m2 is sufficient to diagnose a patient with chronic kidney disease. Performed By: #### H S TROP, CUBLD, CBC, PT, PTT, CMP, MG, CK, CKMB #### [facility] [address] Estimated GFR (Non- Am 41 [facility] Comment on above: Performed By: #### H S TROP, CUBLD, CBC, PT, PTT, CMP, MG, CK, CKMB #### [address] Globulin (S) [Mass/Vol] 2.7 g/dL [facility] Comment on above: Performed By: #### H S TROP, CUBLD, CBC, PT, PTT, CMP, MG, CK, CKMB #### [address] Glucose [Mass/Vol] 101 mg/dL High 70-100 [facility] Comment on above: Result Comment: [facility] Glucose Reference Range is dependent on time and content of last meal. Glucose of more than 200 mg/dL in a nonstressed, ambulatory subject supports the diagnosis of Diabetes Mellitus. ADA recommended reference range Performed By: #### H S TROP, CUBLD, CBC, PT, PTT, CMP, MG, CK, CKMB #### [address] Potassium [Moles/Vol] 3.9 mmol/L Normal 3.5-5.1 [facility] Comment on above: Performed By: #### H S TROP, CUBLD, CBC, PT, PTT, CMP, MG, CK, CKMB #### [address] Protein [Mass/Vol] 5.3 g/dL Low 6.1-7.9 [facility] Comment on above: Performed By: #### H S TROP, CUBLD, CBC, PT, PTT, CMP, MG, CK, CKMB #### [address] Sodium [Moles/Vol] 139 mmol/L Normal 136-146 [facility] Comment on above: Performed By: #### H S TROP, CUBLD, CBC, PT, PTT, CMP, MG, CK, CKMB #### [address] Urea nitrogen [Mass/Vol] 25 mg/dL High 9-23 [facility] Comment on above: Performed By: #### H S TROP, CUBLD, CBC, PT, PTT, CMP, MG, CK, CKMB #### [address] Cortisolon 06-19-2021 Cortisol 37.0 ug/dL Normal [facility] Comment on above: Result Comment: Refe rence range: AM 6 - 24 ug/dl PM <10 ug/dl PERFORMED BY: [place] [address] PATHOLOGIST CHOIR DIRECTOR TRELL ELAINE M.D. Performed By: #### C BC, HEPATIC, BMP #### [address] Creatine Kinaseon 06-19-2021 CK [Catalytic activity/Vol] 58 U/L Normal 22-269 [facility] Comment on above: Performed By: #### A 1C WT eA #### [address] Creatinine Kinase MBon 06-19 CK.MB [Mass/Vol] 1.7 ng/mL Normal 0.6-6.3 [facility] Comment on above: Performed By: #### A 1C WT eA #### [address] [place] [address] [facility] CKMB Relative Index 2.9 % High 0.00-2.50 [facility] Comment on above: Performed By: #### [address] [place] [address] #### [facility] [address] [place], [place] [id number] [facility] ECG 12 lead ECGon 06-19-2021 ECG 12 lead ECG [facility] [place] [place] [address] Electrocardiograph Report Signed Patient: Carlitos Rachel MR#: [id number] 305 : 1945 Acct:[id number] Age/Sex: 75 / F ADM Date: 06/19/21 Loc: Room: [address] [place] [address] Type: DIS IN Attending Dr: Janusz Vargas [...] previous ECGs available Confirmed by FANNIE CANNON [facility], TRISHA ([id number]) on 06/19/2021 3:41:45 PM Referred By: Electronically Signed By:TRISHA LIU MD [facility] Transcribed By: MUS Signed By Trisha Liu MD, [facility] 06/19/21 1541 Normal [facility] ECG 12 lead ECG [facility] [place] [address] Electrocardiograph Report Signed Patient: Carlitos Rachel MR#: [id number] 305 : 1945 Acct:[id number] Age/Sex: 75 / F ADM Date: 06/19/21 Loc: 4C Room: [address] [place] [address] Type: DIS IN Attending Dr: Janusz Vargas [...] previous ECGs available Confirmed by FANNIE CANNON [facility], TRISHA ([id number]) on 06/20/2021 12:25:45 PM Referred By: Electronically Signed By:TRISHA LIU MD [facility] Transcribed By: MUS Signed By Trisha Liu MD, [facility] 06/20/21 1225 [facility] echo transthoracicon [facility] echo transthoracic [facility] [place] [address] Echocardiogram Signed Patient: Carlitos Rachel MR#: [id number] 305 : 1945 Acct:[id number] Age/Sex: 75 / F ADM Date: 06/19/21 Loc: Room: [address] [place] [address] Type: DIS IN Attending Dr: Janusz Vargas DO Ordering Provider: Janusz Vargas DO Date of Service: 06/19/2112/01/958 [facility] echo transthoracic: bradycardia, hypotension Copies to: Trisha Liu MD, [facility] Janusz Vargas DO Weight: 123 lb Performed [...] 06/19/21 1140 Signed By: Trisha Liu MD, [facility] 06/19/21 1223 Normal [facility] Free T4 (Free Thyroxine)on 0 06-19-2021 Free T4 [Mass/Vol] 1.58 ng/dL High 0.61-1.12 [facility] Comment on above: Performed By: #### C BC, HEPATIC, BMP #### [address] Magnesiumon 06-19-2021 Magnesium [Mass/Vol] 1.7 mg/dL Normal 1.6-2.6 [facility] Comment on above: Result Comment: PERF ORMED BY: [place] [address] PATHOLOGIST CHOIR DIRECTOR TRELL ELAINE M.D. Performed By: #### H S TROP, CUBLD, CBC, PT, PTT, CMP, MG, CK, CKMB #### [address] Partial Thromboplastin Timeo n 06-19-2021 aPTT Coag (Bld) [Time] 24.2 s Low 25.1-36.5 [facility] Comment on above: Result Comment: PERF ORMED BY: [place] [address] PATHOLOGIST CHOIR DIRECTOR TRELL ELAINE M.D. Performed By: #### H S TROP, CUBLD, CBC, PT, PTT, CMP, MG, CK, CKMB #### [address] Prothrombin Time INRon 06-19 INR Coag (PPP) [Relative time] 1.0 {INR} Normal [facility] Comment on above: Result Comment: INR Therapeutic [...] PT, PTT, CMP, MG, CK, CKMB #### [address] PT Coag (PPP) [Time] 10.7 s Normal 9.0-12.9 [facility] Comment on above: Performed By: #### H S TROP, CUBLD, CBC, PT, PTT, CMP, MG, CK, CKMB #### [address] Thyroid Stimulating Hormoneo n 06-19-2021 TSH Qn 0.15 m[IU]/L Low 0.45-5.33 [facility] Comment on above: Performed By: #### C BC, HEPATIC, BMP #### [address] Thyroxine (T4) Totalon 06-19 T4 [Mass/Vol] 6.62 ug/dL Normal 5.39-11.82 [facility] Comment on above: Performed By: #### C BC, HEPATIC, BMP #### [address] Troponin I High Sensitivityo n 06-19-2021 Troponin I High Sensitivity 7 pg/mL Normal 0-15 [facility] Comment on above: Result Comment: PERF ORMED BY: [place] [address] PATHOLOGIST CHOIR DIRECTOR TRELL ELAINE M.D. Performed By: #### A 1C [facility] eA #### [address] US liveron 06-19-2021 liver [facility] [place] [address] Ultrasound Report Signed Patient: Carlitos Rachel MR#: [id number] 305 : 1945 Acct:[id number] Age/Sex: 75 / F ADM Date: 06/19/21 Loc: Room: [address] [place] [address] Type: ADM IN Attending Dr: Janusz Vargas [...] recommended. Impression dictated by: Gavin Anderson Jr., D.OBillie06/19/2021 1:56 PM Dictation Location: [place] [address] Tech: Mable Randall Transcribed By: INEZ 06/19/21 1356 Dictated By: Gavin Anderson Jr, DO 06/19/21 1352 Signed By: 06/19/21 1356 [facility] XR chest 1V portableon 06-19 XR chest 1V portable [facility] [place] [address] XRay Report Signed Patient: Carlitos Rachel MR#: [id number] 305 : 1945 Acct:[id number] Age/Sex: 75 / F ADM Date: 06/19/21 Loc: Room: [address] [place] [address] Type: ADM IN Attending Dr: Janusz Vargas DO Ordering Provider: Janusz Vargas DO Date of Service: 06/19/21 XR/XR chest 1V portable: bradycardia, hypotension Copies to: Janusz L Lindbloom, DO PORTABLE AP CHEST CLINICAL HISTORY: Bradycardia. Hypotension. COMPARISON: None FINDINGS: Heart appears normal in size. Lungs are clear. No free air. XR/XR chest 1V portable IMPRESSION: NO ACUTE FINDINGS Impression dictated by: Gavin Anderson Jr., D.O.06/19/2021 10:42 AM Dictation Location: [place] [address] Transcribed By: [facility] 06/19/21 1042 Dictated By: Gavin Anderson Jr, DO 06/19/21 1042 Signed By: 06/19/21 1042 [facility] Social History Date Type Detail Facility Start: 05-01-2023 Tobacco smoking status Ex-smoker (fi nding) [facility] [place] Tobacco smoking status Never [facility] [place] Sex Assigned At Female [facility] Vital Signs Date Time Vital Sign Value Performing Clinician Deny phan 05-01-2023 15:51-0500 Blood Pressure Location [facility] 05-01-2023 15:51-0500 Diastolic blood pressure 90 mm[Hg] [facility] 05-01-2023 15:51-0500 Heart rate 76 /min [facility] 05-01-2023 15:51-0500 Respiratory rate 16 /min [facility] 05-01-2023 15:51-0500 Systolic blood pressure 132 mm[Hg] [facility] Functional Status Date Assessment Result Facility 05-01-2023 Functional Status N/A [facility] Clinical Notes 12-22-2021 to 05-03-2023 Note Date & Type Note Facility 05-03-2023 Note [facility] Consul t Note Reason for visit: follow up, last seen 07/25/2021 05/03/23 She is here for follow-up Since last seen 05/2022 she has been in the ER multiple times She denies CP, SOB, FUNES, LE alisia a She went to [place] ER 10/2022 6, 11/29/2022 and 03/01/2023. 02/2023 [...] hypertension, depression who was recently admitted to [place] where she was noted to be having significant bradycardia and low blood pressure associated with thi. She was initially taken to [facility] and was noted to have marked bradycardia and transcutaneous pacing was initiated and transferred to [facility] in [place]. Upon arrival that her heart rate seemed to have been stabilized at 60 bpm. She was [facility] and monitored and was noted to have [...] use 20 years ago and had a 94-tgtl-fccn history and does not consume any alcohol Family history significant for mother who of breast cancer in father who had [place] EKG 02/01/2014 shows sinus of the normal intervals Echocardiogram performed on 05/11/2017 showed normal EF with normal chamber size and no significant valvular problems PMH: Past Medical History: Diagnosis Date Chest pain 12/26/2021 Chronic anxiety 12/26/2021 Diabetes mellitus type II, non insulin dependent ([facility]HCC) 12/26/2021 H/O: hysterectomy 12/26/2021 History of musculoskeletal disease 12/26/2021 Mobitz type II atrioventricular block 12/26/2021 Recurrent major depression in partial remission (CMS/HCC) 12/26/2021 Tight chest 12/26/2021 PSH: Past Surgical History: Procedure Laterality Date BARIATRIC SURGERY CHOLECYSTECTOMY HERNIA REPAIR HYSTERECTOMY INSERT / REPLA (more content not included)... [facility] 05-03-2023 Note Patient here for 1 y ear follow up Mobitz type II AV block and hypertension. Her device was interrogated in the office on 04/22/2023. Had routine labs last month. Says chest pain has resolved. She feels good, denies SOB, palpitations, and lightheadedness/syncope. Review of Systems All other systems reviewed and are negative. [facility] 05-01-2023 Note Chief Complaint consultation for anemia [...] Oral, Daily quetiap (more content not included)... [facility] Comment on above: Result Comment: Elec tronically Signed By: DEJAH CANNON, Yury Ortiz\brittney\Date and Time Signed: 05/01/23 16:36 EST 06-12-2022 Note -s/p PPM 06/2021 -device functioning well, follow up with device clinic as scheduled (should be around 3 months from now) [facility] 06-12-2022 Note Hypertension is elev ated -patient agreeable to starting low dose norvasc 2.5mg -unclear when or why she stopped her lisinopril/hctz [facility] 06-12-2022 Note Had chest pain in th e middle of the month, she was upset and had 15 beats of pain, then it stopped and hasnt done it since, she has been under a lot of stress lately due to husbands health. She is very upset and tearful she lost her anxitey meds Review of Systems Cardiovascular: Positive for chest pain. [facility] 06-12-2022 Note [place] [facility] Consul t Note Reason for visit: [...] hypertension, depression who was recently admitted to [place] where she was noted to be having significant bradycardia and low blood pressure associated with thi. She was initially taken to [facility] and was noted to have marked bradycardia and transcutaneous pacing was initiated and transferred to [facility] in [place]. Upon arrival that her heart rate seemed to have been stabilized at 60 bpm. She was [facility] and monitored and was noted to have [...] use 20 years ago and had a 54-lcpt-dwzz history and does not consume any alcohol Family history significant for mother who of breast cancer in father who had [place] EKG 02/01/2014 shows sinus of the normal [...] 28 mg capsule,spri (more content not included)... [facility] 12-22-2021 Note PROCEDURE: XR HIP RT 2 [...] authenticated by: NISREEN VALDEZ Date: 2021-12-22 17:40 [facility] Evaluation + Plan note No data available for this section [facility] [place] [facility] Discharge instructions No data available for this section [facility] [place] Progress note No data available for this section [facility] [place] Summary Purpose Family History No Family History Records FoundNo Family History Records Found No data available for this section No Family History Records FoundNo Family History Records Found Advance Directives No Advanced Directives Records FoundNo Advanced Directives Records FoundNo Advanced Directives Records FoundNo Advanced Directives Records Found Additional Source Comments INFORMATION SOURCE (unrecogn ized section and content) DATE CREATED AUTHOR 06/16/2022 [facility] DATE CREATED AUTHOR AUTHOR'S ORGANIZ ATION 07/19/2022 [facility] DATE CREATED AUTHOR AUTHOR'S ORGANIZ ATION 05/04/2023 [facility] DATE CREATED AUTHOR AUTHOR'S ORGANIZ ATION 06/18/2023 [facility] Patient Care team informatio n (unrecognized section and content) Personnel Name: Katie Burk MD Address: Address: [address] [place] [address] FOR RECORDS PERTAINING TO PATIENTS WHO ARE [...] BE BASED ON THE PRIMARY CLINICAL RECORDS. [facility] [employer] [facility]. provides no warranty or guarantee of the accuracy or completeness of information in this document.
--- NOTE | 2023-11-14 20:10 | XR_ITS ---
[facility] [place] [id number] Patient Name: CARLITOS RACHEL MRN: [facility]:[id number] date: 1945 Sex: F Assigned Patient Location: ED.MAIN Current Patient Location: ED.MAIN Accession/Order Number: [id number] Exam Date: 11/14/2023 20:21 Report Date: 11/14/2023 21:08 At the request of: THERESA SEALS Procedure: XR chest 1V EXAMINATION: XR chest 1V, , 11/14/2023 8:21 PM EDT INDICATION: hypotension HISTORY: Ordering Provider Reason for Exam: hypotension Technologist Note: Additional: COMPARISON: None. TECHNIQUE: Chest x-ray: One view. FINDINGS: No pneumothorax, pleural effusion or focal airspace consolidation. Heart is normal in size. Cardiac pacemaker is seen in place. Bony thorax is unremarkable. XR/XR chest 1V IMPRESSION: No acute cardiopulmonary process. Electronically authenticated by: ZEE MCDANIELS Date: 11/14/2023 21:08
--- NOTE | 2023-11-14 20:11 | ED_ITS ---
HPI - Weakness General Chief complaint: Weakness Stated complaint: SYNCOPY Time Seen by Provider: 11/14/23 20:05 Source: patient Mode of arrival: ambulance Limitations: no limitations History of Present Illness HPI Narrative: patient presents from [facility]. Nursing staff report she passed out. She denies passing out and states she has been weak for a couple of days. Denies chest pain, shortness of breath, abdominal pain, nausea, diarrhea. Not sure why she is weak. Denies starting new medications MD Complaint: Reports generalized weakness Related Data Home Medications ?Medication ?Instructions ?Recorded ?Confirmed donepezil 10 mg tablet (Aricept) 10 mg PO DAILY 11/06/22 11/14/23 meloxicam 7.5 mg tablet 7.5 mg PO QAM 11/06/22 05/10/23 memantine 28 mg capsule 28 mg PO DAILY 11/06/22 11/14/23 sprinkle,extended release 24hr (Namenda XR) pantoprazole 20 mg tablet,delayed 20 mg PO DAILY 11/06/22 11/14/23 release quetiapine 50 mg tablet (Seroquel) 50 mg PO DAILY 11/06/22 11/14/23 ropinirole 0.25 mg tablet 0.25 mg PO .AT BEDTIME 11/06/22 11/14/23 trazodone 100 mg tablet 100 mg PO .AT BEDTIME insomnia 11/06/22 11/14/23 hydroxyzine HCl 25 mg tablet 25 mg PO QID anxiety 11/07/22 11/14/23 buspirone 15 mg tablet 15 mg PO BID 02/15/23 11/14/23 ascorbate calcium (vitamin C) 500 mg PO DAILY 05/10/23 11/14/23 bisacodyl 5 mg tablet,delayed 5 mg PO DAILY 05/10/23 05/10/23 release (Dulcolax (bisacodyl)) cholecalciferol (vitamin D3) 50 50 mcg PO BID 05/10/23 11/14/23 mcg (2,000 unit) capsule (Vitamin D3) ferrous sulfate 325 mg (65 mg 325 mg PO BID 05/10/23 11/14/23 iron) tablet olmesartan 5 mg tablet (Benicar) 5 mg PO DAILY PRN elevated bp 05/10/23 11/14/23 greater than 160 systolic paroxetine mesylate 30 mg tablet 40 mg PO DAILY 05/10/23 11/14/23 sucralfate 1 gram tablet (Carafate) 1 g PO DAILY 05/10/23 05/10/23 topiramate 50 mg tablet 50 mg PO DAILY 11/14/23 11/14/23 Allergies Allergy/AdvReac Type Severity Reaction Status Date / Time lisinopril Allergy Unknown Unknown Verified 11/14/23 20:18 chlordiazepoxide Allergy Unknown Verified 11/14/23 20:18 [From Librax (with clidinium)] Review of Systems ROS Status of ROS 10 or more systems reviewed and unremark able except as noted in history and below [facility] Medical History (Updated 11/15/23 @ 00:25 by Hernán Wagner MD) Tremors of nervous system ?R25.1 - Tremor, unspecified (ICD-10) Restless leg ?G25.81 - Restless legs syndrome (ICD-10) History of pacemaker ?Z95.0 - Presence of cardiac pacemaker (ICD-10) Diabetes mellitus ?E11.9 - Type 2 diabetes mellitus without complications (ICD-10) Osteopenia ?M85.80 - Other specified disorders of bone density and structure, unspecified site (ICD-10) Iron deficiency anemia ?D50.9 - Iron deficiency anemia, unspecified (ICD-10) Ulcer GERD (gastroesophageal reflux disease) ?K21.9 - Gastro-esophageal reflux disease without esophagitis (ICD-10) Hypertension ?I10 - Essential (primary) hypertension (ICD-10) Dementia ?F03.90 - Unspecified dementia, unspecified severity, without behavioral disturbance, psychotic disturbance, mood disturbance, and anxiety (ICD-10) Anxiety ?F41.9 - Anxiety disorder, unspecified (ICD-10) Depression ?F32.A - Depression, unspecified (ICD-10) Surgical History (Updated 05/10/23 @ 09:26 by Sadaf Aleman) History of arthroscopy of knee ?Z98.890 - Other specified postprocedural states (ICD-10) History of hysterectomy ?Z90.710 - Acquired absence of both cervix and uterus (ICD-10) History of esophagogastroduodenoscopy (EGD) ?Z98.890 - Other specified postprocedural states (ICD-10) Bariatric surgery status ?Z98.84 - Bariatric surgery status (ICD-10) Family History (Updated 05/10/23 @ 13:34 by Christy Moctezuma RN) Mother Family history of diabetes mellitus Brother Family history of hypertension Brother Heart disease Mother Lung cancer Father Cardiac arrest Other Breast cancer Eye cancer Social History (Updated 05/10/23 @ 09:29 by Sadaf Aleman) Within the past year, how often did you have a drink containing alcohol: never Score interpretation: A score less than 3 is consistent with normal alcohol consumption. 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 Highest level of school completed/degree received: some college, no degree Are you now , , , , never or living with a partner: Exam Constitutional Vital Signs, click to edit/add: Last Vital Signs Temp 98.7 F 11/14/23 19:58 Pulse 70 11/14/23 23:25 Resp 16 11/14/23 23:25 BP 144/76 H 11/14/23 23:25 Pulse Ox 98 11/14/23 23:25 O2 Del Method Nasal Cannula 11/14/23 23:25 O2 Flow Rate 2 11/14/23 23:25 Common normals: no apparent distress, average body habitus, oriented x3, no limitations, healthy appearing, alert and well nourished [facility] Common normals: normocephalic and head/scalp atraumatic Eye Common normals: EOMs intact bilaterally and conjunctivae normal Respiratory Common normals: normal respiratory effort, no retractions, no use of accessory muscles and clear to auscultation bilaterally Cardio Common normals: regular rate, regular rhythm, S1 normal heart sound and S2 normal heart sound GI Common normals: Normal to inspection, nondistended, normoactive bowel sounds present, soft to palpation and non-tender Extremity Common normals: normal to inspection and full ROM Neuro Common normals: oriented x3, CN's II-XII intact bilaterally, moves all extremities and no focal motor deficits Psych Appearance: grossly normal Course Vital Signs Vital signs: Vital Signs Temperature 98.7 F 11/14/23 19:58 Pulse Rate 88 11/14/23 19:58 Respiratory Rate 16 11/14/23 19:58 Blood Pressure 80/47 L 11/14/23 19:58 Pulse Oximetry 95 11/14/23 19:58 Oxygen Delivery Method Room Air 11/14/23 19:58 Temperature 98.7 F 11/14/23 19:58 Pulse Rate 70 11/14/23 23:25 Respiratory Rate 16 11/14/23 23:25 Blood Pressure 144/76 H 11/14/23 23:25 Pulse Oximetry 98 11/14/23 23:25 Oxygen Delivery Method Nasal Cannula 11/14/23 23:25 Oxygen Delivery Flow Rate 2 11/14/23 23:25 MDM - Weakness MDM Narrative Medical decision making narrative: patient presents with 2 days of weakness. found to be hypotensive. BP improved after 1L NS but she is still orthostatic and additional fluid ordered. D-dimer elevated and CTA ordered CTA neg for PE. did demonstrate incident adrenal adenoma that can be followed up by her doctor. She is feeling better after hydration and discharged back to the halfway Lab Data Labs: Lab Results 11/14/23 11/14/23 Range/Units 20:29 21:00 WBC 4.8 (4.0-11.0) 10^3/uL RBC 3.68 L (4.20-5.40) 10^6/uL Hgb 11.0 L (12.0-16.0) g/dL Hct 34.4 L (36.0-48.0) % MCV 93.5 (81.0-99.0) fL MCH 29.9 (26.7-34.0) pg MCHC 32.0 (29.9-35.2) g/dL RDW 13.1 (11.0-15.0) % Plt Count 184 (150-450) 10^3/uL MPV 9.2 L (9.5-13.5) fL Neut % (Auto) 56.2 (43.0-75.0) % Lymph % (Auto) 35.6 (20.5-60.0) % [place] % (Auto) 6.5 (1.7-12.0) % Eos % (Auto) 1.3 (0.9-7.0) % Baso % (Auto) 0.2 (0.2-2.0) % Neut # (Auto) 2.7 (1.4-6.5) 10^3/uL Lymph # (Auto) 1.7 (1.2-3.8) 10^3/uL [place] # (Auto) 0.3 (0.3-0.8) 10^3/uL Eos # (Auto) 0.1 (0.0-0.7) 10^3/uL Baso # (Auto) 0.0 (0.0-0.1) 10^3/uL Abs Immat Gran (auto) 0.01 (0.00-0.03) 10^3/uL Imm/Tot Granulo (auto) 0.2 (0.0-0.5) % D-Dimer 1.61 H* (<=0.59) mg/L FEU Sodium 141 (136-145) mmol/L Potassium 4.0 (3.5-5.1) mmol/L Chloride 109 H (98-107) mmol/L Carbon Dioxide 26.7 (21.0-32.0) mmol/L Anion Gap 9.3 BUN 26.0 H (7.0-18.0) mg/dL Creatinine 1.44 H (0.55-1.02) mg/dL Est GFR ( Amer) 42 L (>=60) Est GFR (Non-Af Amer) 35 L (>=60) BUN/Creatinine Ratio 18.1 Glucose 112 H (74-106) mg/dL Lactate 1.5 (0.4-2.0) mmol/L Calcium 7.8 L (8.5-10.1) mg/dL Total Bilirubin 0.3 (0.2-1.0) mg/dL AST 14 L (15-37) U/L ALT 10 L (14-59) U/L Alkaline Phosphatase 82 (46-116) U/L Troponin I High Sens 7.7 (4.0-51.3) pg/mL Total Protein 4.7 L (6.4-8.2) g/dL Albumin 2.5 L (3.4-5.0) g/dL Globulin 2.2 g/dL Albumin/Globulin Ratio 1.1 Urine Color Yellow (YELLOW) Urine Clarity Clear (CLEAR) Urine pH 5.5 (5.0-9.0) Ur Specific [place] >=1.030 A (1.005-1.025) Urine Protein Trace (NEG/TRACE) mg/dL Urine Glucose (UA) Negative (NEGATIVE) mg/dL Urine Ketones Trace A (NEGATIVE) mg/dL Urine Occult Blood Negative (NEGATIVE) Urine Nitrite Negative (NEGATIVE) Urine Bilirubin Negative (NEGATIVE) Urine Urobilinogen 1.0 (0.2-1.0) EU/dL Ur Leukocyte Esterase Negative (NEGATIVE) Discharge Plan Discharge Stand Alone Forms: Portal Instructions Chief Complaint: Weakness Clinical Impression: Dehydration, Hypotension, Adrenal adenoma Patient Disposition: Home, Self-Care Prescriptions / Home Meds: No Action donepezil [Aricept] 10 mg tablet 10 mg PO DAILY meloxicam 7.5 mg tablet 7.5 mg PO QAM memantine [Namenda XR] 28 mg capsule,sprinkle,ER 24hr 28 mg PO DAILY pantoprazole 20 mg tablet,delayed release (DR/EC) 20 mg PO DAILY quetiapine [Seroquel] 50 mg tablet 50 mg PO DAILY ropinirole 0.25 mg tablet 0.25 mg PO .AT BEDTIME trazodone 100 mg tablet 100 mg PO .AT BEDTIME hydroxyzine HCl 25 mg tablet 25 mg PO QID buspirone 15 mg tablet 15 mg PO BID ferrous sulfate 325 mg (65 mg iron) tablet 325 mg PO BID paroxetine mesylate 30 mg tablet 40 mg PO DAILY sucralfate [Carafate] 1 gram tablet 1 g PO DAILY cholecalciferol (vitamin D3) [Vitamin D3] 50 mcg (2,000 unit) capsule 50 mcg PO BID ascorbate calcium (vitamin C) [Vitamin C (ascorbate calcium)] 500 mg PO DAILY bisacodyl [Dulcolax (bisacodyl)] 5 mg tablet,delayed release (DR/EC) 5 mg PO DAILY olmesartan [Benicar] 5 mg tablet 5 mg PO DAILY PRN (Reason: elevated bp greater than 160 systolic) topiramate 50 mg tablet 50 mg PO DAILY Rx Instructions: at HS Print Language: Slovak Instructions: Dehydration (ED), Hypotension (ED) Additional Instructions: follow up with Dr Burk next week will need to discuss findings of Adrenal adenoma with Dr Burk Referrals: Piyush Burk MD [Primary Care Provider] - 1 week
[2023-11-14 20:37] LABS: Basophils Percent Auto 0.2 % (0.2-2.0); Eosinophils Absolute Auto 0.1 10^3/uL (0.0-0.7); Eosinophils Percent Auto 1.3 % (0.9-7.0); Hematocrit 34.4 % (36.0-48.0); Immature Granulocytes Abs Auto 0.01 10^3/uL (0.00-0.03); Immature Granulocytes Pct Auto 0.2 % (0.0-0.5); Lymphocytes Absolute Auto 1.7 10^3/uL (1.2-3.8); Lymphocytes Percent Auto 35.6 % (20.5-60.0); Mean Corpuscular Hemoglobin 29.9 pg (26.7-34.0); Mean Corpuscular Volume 93.5 fL (81.0-99.0); Mean Platelet Volume 9.2 fL (9.5-13.5); Monocytes Absolute Auto 0.3 10^3/uL (0.3-0.8); Monocytes Percent Auto 6.5 % (1.7-12.0); Neutrophils Absolute Auto 2.7 10^3/uL (1.4-6.5); Neutrophils Percent Auto 56.2 % (43.0-75.0); Platelet Count 184 10^3/uL (150-450); Red Blood Count 3.68 10^6/uL (4.20-5.40); Red Cell Distribution Width 13.1 % (11.0-15.0); White Blood Count 4.8 10^3/uL (4.0-11.0)
[2023-11-14 20:57] LABS: Alanine Aminotransferase 10 U/L (14-59); Albumin Globulin Ratio 1.1; Albumin Level 2.5 g/dL (3.4-5.0); Alkaline Phosphatase 82 U/L (46-116); Anion Gap 9.3; Aspartate Amino Transferase 14 U/L (15-37); BUN Creatinine Ratio 18.1; Bilirubin Total 0.3 mg/dL (0.2-1.0); Calcium 7.8 mg/dL (8.5-10.1); Carbon Dioxide 26.7 mmol/L (21.0-32.0); Chloride 109 mmol/L (98-107); Estimated GFR (African America 42 (>=60); Estimated GFR (Non-African Ame 35 (>=60); Globulin 2.2 g/dL; Glucose 112 mg/dL (74-106); Sodium 141 mmol/L (136-145); Total Protein 4.7 g/dL (6.4-8.2); Troponin I High Sensitivity 7.7 pg/mL (4.0-51.3)
[2023-11-14 21:00] LABS: Lactate/Lactic Acid 1.5 mmol/L (0.4-2.0)
[2023-11-14 21:07] LABS: Bilirubin Urine NEGATIVE (NEGATIVE); Blood Urine NEGATIVE (NEGATIVE); Clarity Urine CLEAR (CLEAR); Color Urine YELLOW (YELLOW); Glucose Urine UA NEGATIVE (NEGATIVE); Ketones Urine TRACE mg/dL (NEGATIVE); Leukocyte Esterase Urine NEGATIVE (NEGATIVE); Nitrite Urine NEGATIVE (NEGATIVE); Protein Urine TRACE mg/dL (NEG/TRACE); Specific Gravity Urine >=1.030 (1.005-1.025); pH Urine 5.5 (5.0-9.0)
[2023-11-14 21:08] LABS: Urine Microscopic Indicated NO
[2023-11-14 21:13] VITALS: BP 116/62; PULSE 70; O2SAT 99
[2023-11-14 21:48] LABS: D Dimer 1.61 mg/L FEU (<=0.59)
--- NOTE | 2023-11-14 21:48 | CT_ITS ---
The [address] [address] Patient Name: CARLITOS RACHEL MRN: [facility]:[id number] date: 1945 Sex: F Assigned Patient Location: ER Current Patient Location: ER Accession/Order Number: [id number] Exam Date: 11/14/2023 22:30 Report Date: 11/14/2023 23:56 At the request of: THERESA SEALS Procedure: CT angio chest EXAM: CT angio chest HISTORY: elevated d-dimer COMPARISON: Chest x-ray, 11/14/2023. TECHNIQUE: IV contrast enhanced CTA imaging the chest was performed using 100 mL of Visipaque to 70 intravenous contrast. MIP, MPR and 3-D reconstructions are provided. Dose reduction techniques were achieved by using automated exposure control and/or adjustment of mA and/or kV according to patient size and/or use of iterative reconstruction technique. FINDINGS: There is excellent pulmonary artery enhancement. There is no acute pulmonary embolism. The heart is mildly enlarged. Heavy coronary arterial calcifications are present. Left subclavian dual-chamber cardiac pacemaker is noted. Pulsation artifact degrades ascending aorta. Mild atherosclerotic calcifications are present. The thoracic aorta and arch vessels are otherwise unremarkable. The thyroid gland is normal. There is nonspecific esophageal wall thickening measuring 5 mm in diameter on image 39. There is dependent atelectasis in the posterior lower lobes. The lungs are otherwise clear. There is either a large bilobed right adrenal adenoma or 2 contiguous adenomas, measuring 4.9 x 2.7 cm and 10 Hounsfield units on image 85 of series 4. Surgical change for gastric bypass is noted. There is a densely calcified 1.4 cm distal splenic artery aneurysm on image 79. The upper abdomen is otherwise unremarkable. No acute osseous abnormality or suspicious bony lesion is seen. Thoracic spine DISH is noted. CT/CT angio chest IMPRESSION: 1. No acute pulmonary embolism, aortic dissection, or other acute cardiopulmonary findings. 2. Nonspecific esophageal wall thickening could reflect reflux disease, other nonspecific esophagitis or possible mass. 3. Heavy coronary arterial calcifications, most prominent in the LAD. 4. Gastric bypass. 5. Densely calcified 1.4 cm distal splenic artery aneurysm. 6. Bilobed right adrenal adenoma versus 2 contiguous adenomas measuring 4.9 cm. No follow-up is required. Electronically authenticated by: MINDA SMITH Date: 11/14/2023 23:56
[2023-11-14 22:07] VITALS: BP 112/61; PULSE 70; O2SAT 100
[2023-11-14 22:08] VITALS: BP 112/70; BP 123/98; BP 133/80; PULSE 70; PULSE 73
--- NOTE | 2023-11-14 22:22 | PC.NURSE ---
Patient completed a liter of NS that EMS had started.
[2023-11-14 23:25] VITALS: BP 144/76; PULSE 70; O2SAT 98
[2023-11-14] MEDS: 0.9 % SODIUM CHLORIDE 1,000 ML 100 ML IV (23:55)
[2023-11-15 00:41] VITALS: BP 147/82; PULSE 70; O2SAT 98
[2023-11-15 01:02] VITALS: BP 133/88; PULSE 70; O2SAT 98
[2023-11-15 02:16] VITALS: BP 134/83; PULSE 70; O2SAT 97
[2023-11-15 03:55] VITALS: BP 149/82; PULSE 70; O2SAT 98
== END 2023-11-15 04:42 | disposition home or self-care (01) ==
PROVIDERS: Emergency Provider Internal Medicine; PCP Family Medicine
DX: E86.0 Dehydration (principal); I95.9 Hypotension, unspecified; D35.01 Benign neoplasm of right adrenal gland; Z87.891 Personal history of nicotine dependence
CPT/HCPCS: 36415; 71045; 71275; 80053; 81003; 83605; 84484; 85025; 85378; 93005; 96360; 96361; 99285; Q9966

== ENCOUNTER 2025-03-01 11:14 | Emergency (ER) | payer MEDICARE, BC, SELFPAY ==
[2025-03-01 11:23] VITALS: BP 176/80
--- NOTE | 2025-03-01 11:23 | ECG_ITS ---
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
--- NOTE | 2025-03-01 11:23 | XR_ITS ---
The [place] [id number] Patient Name: CARLITOS RACHEL MRN: [id number] date: 1945 Sex: F Assigned Patient Location: ED.MAIN Current Patient Location: ED.MAIN Accession/Order Number: [id number] Exam Date: 03/01/2025 12:15 Report Date: 03/01/2025 12:40 At the request of: DADA ORTEZ Procedure: XR hip LT 2V w/ pelvis XR hip LT 2V w/ pelvis 03/01/2025 12:23 PM SIGNS AND SYMPTOMS: ^fall, left hip pain and left LE shortening PROTOCOL: Frontal radiograph the pelvis with frontal and crosstable lateral views of the left hip COMPARISON: None FINDINGS: There is an intertrochanteric fracture of the left hip with varus angular deformity and shortening. There is mild narrowing of the left hip joint space. Degenerative changes are noted in the lumbar spine and sacral iliac joints. XR/XR hip LT 2V w/ pelvis IMPRESSION: There is an intertrochanteric fracture of the left hip with varus angular deformity and shortening. Impression dictated by: Washington Whitaker M.D. 03/01/2025 12:40 PM Dictation Location: [place] [address] Electronically authenticated by: [id number] Y Date: 03/01/2025 12:40
[2025-03-01 11:26] VITALS: BP 176/80; PULSE 71; TEMP 36.6; O2SAT 97; BMI 17.0
--- NOTE | 2025-03-01 11:26 | ED.LOWEXI1 ---
HPI HPI - Extremity Injury (Lower) General Chief Complaint: Extremity Injury, Lower Stated Complaint: FALL Time Seen by Provider: 03/01/25 11:22 History of Present Illness HPI Narrative: cc - left hip injury Pt fell and landed onto her left hip. She could not get up. EMS called and they brought the patient to our ED. They reported to me that the left LE had shortening and external rotation, unable to move the left hip. They told me that they gave 50mcg fentanyl IV in route. The patient told me that she was standing and trying to put on her pants, but the left leg caught and she fell forward and to her left. She denies any other injuries - no head injury, no neck pain, no LOC, no pain in the back or abdomen. no other extremities injured although attempting to move the right hip makes the left hip more painful. Related Data Home Medications ?Medication ?Instructions ?Recorded ?Confirmed donepezil 10 mg tablet (Aricept) 10 mg PO BEDTIME 11/06/22 03/01/25 memantine 28 mg capsule 28 mg PO BEDTIME 11/06/22 03/01/25 sprinkle,extended release 24hr (Namenda XR) pantoprazole 20 mg tablet,delayed 40 mg PO DAILY 11/06/22 03/01/25 release quetiapine 50 mg tablet (Seroquel) 50 mg PO BEDTIME 11/06/22 03/01/25 ropinirole 0.25 mg tablet 0.25 mg PO DAILY 11/06/22 03/01/25 hydroxyzine HCl 25 mg tablet 25 mg PO QID anxiety 11/07/22 03/01/25 buspirone 15 mg tablet 15 mg PO BID 02/15/23 03/01/25 ascorbate calcium (vitamin C) 500 mg PO DAILY 05/10/23 03/01/25 cholecalciferol (vitamin D3) 50 50 mcg PO BID 05/10/23 03/01/25 mcg (2,000 unit) capsule (Vitamin D3) ferrous sulfate 325 mg (65 mg 325 mg PO BID 05/10/23 03/01/25 iron) tablet olmesartan 5 mg tablet (Benicar) 5 mg PO DAILY elevated bp greater 05/10/23 03/01/25 than 160 systolic paroxetine mesylate 30 mg tablet 40 mg PO DAILY 05/10/23 03/01/25 topiramate 50 mg tablet 50 mg PO BEDTIME 11/14/23 03/01/25 atorvastatin 20 mg tablet 20 mg PO QPM 03/01/25 03/01/25 calcium carbonate (Tums) 200 mg PO QID 03/01/25 03/01/25 cyproheptadine 4 mg tablet 2 mg PO BID 03/01/25 03/01/25 docusate sodium 100 mg capsule 100 mg PO BID 03/01/25 03/01/25 (Colace) megestrol 400 mg/10 mL (10 mL) 40 mg PO DAILY 03/01/25 03/01/25 oral suspension mirtazapine 30 mg tablet 30 mg PO DAILY 03/01/25 03/01/25 ondansetron HCl 4 mg tablet 4 mg PO Q6H PRN nausea and vomiting 03/01/25 03/01/25 polyethylene glycol 3350 17 17 g PO DAILY 03/01/25 03/01/25 gram/dose oral powder (ClearLax) Allergies Allergy/AdvReac Type Severity Reaction Status Date / Time lisinopril Allergy Unknown Unknown Verified 11/14/23 20:18 chlordiazepoxide (From Allergy Unknown Verified 11/14/23 20:18 Librax (with clidinium)) Opioid HPI Opioid Management Most Recent Pain and Opioid Data: Last Pain Scale 7 Today, 12:38 Last Pain Intensity 7 11/10/22, 07:45 Last MAR Pain Assessment Today, 11:40 [facility] Medical History (Updated 03/01/25 @ 12:51 by Elvis Reaves) Tremors of nervous system ?R25.1 - Tremor, unspecified (ICD-10) Restless leg ?G25.81 - Restless legs syndrome (ICD-10) History of pacemaker ?Z95.0 - Presence of cardiac pacemaker (ICD-10) Diabetes mellitus ?E11.9 - Type 2 diabetes mellitus without complications (ICD-10) Osteopenia ?M85.80 - Other specified disorders of bone density and structure, unspecified site (ICD-10) Iron deficiency anemia ?D50.9 - Iron deficiency anemia, unspecified (ICD-10) Ulcer GERD (gastroesophageal reflux disease) ?K21.9 - Gastro-esophageal reflux disease without esophagitis (ICD-10) Hypertension ?I10 - Essential (primary) hypertension (ICD-10) Dementia ?F03.90 - Unspecified dementia, unspecified severity, without behavioral disturbance, psychotic disturbance, mood disturbance, and anxiety (ICD-10) Anxiety ?F41.9 - Anxiety disorder, unspecified (ICD-10) Depression ?F32.A - Depression, unspecified (ICD-10) Surgical History (Updated 05/10/23 @ 09:26 by Sadaf Aleman) History of arthroscopy of knee ?Z98.890 - Other specified postprocedural states (ICD-10) History of hysterectomy ?Z90.710 - Acquired absence of both cervix and uterus (ICD-10) History of esophagogastroduodenoscopy (EGD) ?Z98.890 - Other specified postprocedural states (ICD-10) Bariatric surgery status ?Z98.84 - Bariatric surgery status (ICD-10) Family History (Updated 05/10/23 @ 13:34 by Christy Moctezuma RN) Mother Family history of diabetes mellitus Brother Family history of hypertension Brother Heart disease Mother Lung cancer Father Cardiac arrest Other Breast cancer Eye cancer Social History (Updated 05/10/23 @ 09:29 by Sadaf Aleman) Within the past year, how often did you have a drink containing alcohol: never Score interpretation: A score less than 3 is consistent with normal alcohol consumption. 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 afebrile General: The patient appears well and in no apparent distress. Patient is resting comfortably on cart. GCS = 15. Skin: Warm, dry, no pallor noted. Head: Normocephalic, atraumatic Neck: Supple, trachea mid-line, no tenderness, no lymphadenopathy. Full ROM and no cervical spinal tenderness. The patient has no step-offs or crepitus noted Eyes: PERRLA, EOMI ENT: TM's clear, no hemotympanum detected, no blood in posterior oropharynx Cardiovascular: Regular Rate and Rhythm Respiratory: Patient is in no distress, no accessory muscle use, lungs are clear to auscultation, no wheezing, rales or rhonchi Chest Wall: no tenderness, flail chest, contusion, abrasion, or signs of trauma. Back: No thoracic vertebral or lumbar vertebral tenderness to palpation. No ecchymosis, abrasions, lacerations noted. Musculoskeletal: Tenderness throughout the left hip and pelvis with shortening and external rotation of the left LE. Any attempt to move the right hip worsens the left hip pain. distal left femur, left knee, left ankle and left foot without sign of bony fracture. No additional sign of long bone fracture to right LE and both UEs. Pulses at femoral, DP, PT, and popiteal were 2+ bilaterally. Moves all four extremities in all modalities with 5/5 strength. GI: Normal bowel sounds, no tenderness to palpation, no masses appreciated. No rebound, guarding, or rigidity noted. Neurological: A&O x4, normal equal family counselor strength, normal finger to nose, normal speech, normal coordination, normal motor, normal sensory. Psychiatric: Cooperative MDM - Extremity Injury (Lower) MDM Narrative Medical decision making narrative: The patient appears to a fracture of the left hip after a fall. She was ordered to receive Zofran for nausea and additional medicine for pain -IV Dilaudid. Blood was also drawn and sent for testing and EKG was obtained in anticipation of surgical intervention. X-rays of the left hip and pelvis were obtained findings are detailed below. Patient found to have an intertrochanteric fracture of the left hip. Blood testing is unremarkable. Call was placed to the orthopedist to discuss admission. I spoke with one of the nurses in the OR at 12:40 PM -Dr. Cerda is unavailable at this time but one of the orthopedists will call back to discuss this case. I spoke with Dr. Cerda at 1300 -we discussed the case and I texted him an image of the patient's hip fracture. He called back at 1340 and we talked -he asked that this patient be sent to pharmacy for admission to the hospital service and they will perform the surgery there. @[address] Myles, hospitalist at [facility], by phone. He agreed to admit this patient to his service and we will work to arrange transfer. Earlier, I spoke with the patient's son Naga, who is her guardian and apparently power of regulatory attorney. I let him know that the patient suffered an intertrochanteric fracture of the left hip and that she would be going to [facility] for admission with plans for surgical repair. Patient is stable for transfer at this time Lab Data Attestation: I reviewed the patient's lab results. Imaging Data xr hip, pelvis: Attestation: I have reviewed the pertinent imaging results. Radiologist's impression: ITS Impressions Hip/Pelvis X-Ray 03/01/25 11:23 IMPRESSION: There is an intertrochanteric fracture of the left hip with varus angular deformity and shortening. Impression dictated by: Washington Whitaker M.D. 03/01/2025 12:40 PM Dictation Location: [place] [address] Electronically authenticated by: [id number] Y Date: 03/01/2025 12:40 ECG Data Attestation: I personally reviewed and interpreted this ECG as follows: Interpretation: EKG interpretation:Emergency Department physician interpretation.electronic atrial pacemaker at 70bpm. Electronic pacing limits additional interpretation. Classic LAD and LBBB are noted. Discharge Plan Discharge Chief Complaint: Extremity Injury, Lower Clinical Impression: Intertrochanteric fracture of left femur Patient Disposition: [facility] Time of Disposition Decision: 12:51 Discharge Location: [facility]
--- OUTSIDE RECORDS SUMMARY | 2025-03-01 11:26 | XMS_ITS | CCD ---
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 Name Role Phone Katie Burk Primary Care [...] Unavailable HOY ., DR WILSON Consulting Unavailable OAKTOWN, DR NISREEN Trimble Consulting Unavailable Katie Burk Primary Care Physician Yury POND Attending Unavailable Yury POND Attending Unavailable Yury POND Attending Unavailable DANNY HINES Referring Unavailable FRANCIA GARCÍA Attending Unavailable DANNY HINES Referring Unavailable Allergies Allergy Classification Reported Allergen(s) Allergy Type Date of Onset Reaction(s) Facility (2 sources) atorvastatin; Translations: [ATORVASTATIN] Drug Allergy 06-19-19 [facility] Repository (1 source) chlordiazePOXIDE Drug Allergy 06-19-19 [facility] Repository (1 source) clidinium Drug Allergy 06-19-19 [facility] Repository (1 source) venom-honey bee Drug allergy (disorder) 06-19-19 [facility] Repository (1 source) chlordiazePOXIDE / clidinium Drug Allergy 02-26-20 13 [facility] Repository (1 source) Dextroamphetamine Drug Allergy 04-16-20 19 [facility] Repository (2 sources) chlordiazePOXIDE / clidinium; Translations: [chlordiazepoxide-cli dinium] Drug Allergy [facility] [place] (1 source) Bee pollen; Translations: [BEE POLLEN] Propensity to adverse reactions to drug (disorder) 12-27-19 [facility] Repository (1 source) chlordiazePOXIDE / clidinium; Translations: [CHLORDIAZEPOXIDE-CLI DINIUM] Drug Allergy 12-27-19 [facility] Repository Medications Current Medications Medication Drug Class(es) [...] mg extended release oral capsule (1 source) T-croxmt-B-aspartat e Receptor Antagonist Start: 04-15-2023 take 1 [...] [Anxiety] Onset: 06-19-2021 04-15-2023 Chronic Conduction disorders (8 sources) Atrioventricular block, second degree; Translations: [Presence [...] complication 04-15-2023 Chronic Disorders of lipid metabolism (3 sources) Hyperlipidemia, unspecified; Translations: [Pure hypercholesterolemia, unspecified] Onset: 11-08-2021 Chronic Esophageal disorders (3 sources) Gastro-esophageal reflux disease without esophagitis; Translations: [Gastroesophageal reflux disease without esophagitis] Onset: 06-19-2021 Chronic Essential hypertension (3 sources) Essential hypertension; Translations: [Essential (primary) hypertension] Onset: 06-12-2022 04-15-2023 Chronic Hypertension with complications and secondary [...] [OTHER ABNORMAL GLUCOSE] Onset: 11-08-2021 Episodic Other circulatory disease (2 sources) Orthostatic hypotension; Translations: [Orthostatic hypotension] Onset: 07-22-2024 Episodic Other lower respiratory disease (1 source) [...] Test Name Value Interpretation Reference Range Facility 36on 07-29-2024 36 Regarding lipid pane l done on 07/24/2024: MD Faith Lauren MA Inform patient that her cholesterol is significantly high. Lets start on atorvastatin 20 mg daily and recheck lipids and AST ALT in 2 months. Spoke with patient's son and made him aware. He asked that I send the RX to [facility] in [place]. I advised him I will also speak with the people at [facility] and make them aware of new medication and need for repeat labs in 2 months. He verbalized understanding and thanked me for my call. Normal [facility] Office Visiton 07-22-2024 Follow-up visit [id number] Johann Rachel ma 1945 F Date Provider Department Center 07/22/2024 [id number] MCKEON [facility] Family History Family history unknown: Yes Level of Service:48072 [place] OFFICE/OUTPATIENT ESTABLISHED LOW MDM 20 MIN Reason for Visit and Comments: Device Check [9111] Orthstatic hypertestion [Other] Normal [facility] Reminderson 06-17-2023 Reminders - From: Falguni Patton LPN To: N - Clinical; Sent: 06/17/2023 16:29:17 EST Show up: 04/21/2026 07:00:00 EST Subject: colonoscopy recall Due Date/Time: 05/22/2026 07:00:00 EST Reminder/Recall Patient due for surveillance colonoscopy 05/22/2026 due to flat tubular adenoma. Normal [facility] Pathology Noteon 05-27-2023 Pathology Note [id number]#1.00T IFF Normal [facility] Outside Colonoscopyon 2023 Outside Colonoscopy [id number]#1.00TI FF [facility] Consent for Procedure/Surger yon 05-02-2023 Consent for Procedure/Surgery [id number]#1.00T IFF [facility] Facesheeton 05-02-2023 Facesheet [id number]#1.00 TIFF [facility] Ambulatory Visit Summaryon 1 07-02-2022 Ambulatory [...] for choosing us for your care. Normal [facility] Physician Referralon 023 Physician Referral [id number]#1.00T IFF Normal [facility] Covid-19 PCR ([facility])on SARS-CoV-2 (COVID-19) RNA KURTIS+probe Ql (Unsp spec) Not detected Normal NOT DETECTED [facility] Comment on above: Result Comment: When diagnostic [...] for this test is supported by the [place] of Health and Human Service's declaration that [...] longer be used). Performed By: #### C [facility] ####[id number] [place], [place] [address]Di. Karla Benjamin XR LSPINE MIN 4 VIEWSon 12-11 XR [...] by: NISREEN VALDEZ Date: 2021-12-22 17:38 Normal [facility] ECHOCARDIO M/2D COMPLETEon 0 11-17-2021 ECHOCARDIO M/2D COMPLETE Patient: CARLITOS RACHEL Exam Date: 11/17/2021 : 1945 Gender:F Ordering : DR KATIE BURK . Admission #: [id number] Family : Order #: [id number] CLICK HERE TO VIEW EXAM ECHOCARDIOGRAM REPORT [...] Salgado M.D. on 11/20/2021 at 09:29 Normal [facility] US CAROTID ART BILon 08-2 022 US CAROTID ART MIGUEL EXAMINATION: US [...] SATURNINO HOLGUIN Date: 2021-11-17 17:57 Normal [facility] BNPon 11-03-2021 Natriuretic peptide B (Bld) [Mass/Vol] 284.0 pg/mL Normal <=1,800.0 [facility] Comment on above: Performed By: #### B CLINICIAN ONCOLOGY, T7, LIPID, TSH #### [facility] [address] [place] [address] Dr. Karla Benjamin CBC AUTO DIFFon 11-03-2021 BASO # 0.0 103/ul Normal 0.0-0.1 [facility] Comment on above: Performed By: #### C BC #### [facility] [address] [place] [address] Dr. Karla Benjamin Basophils/100 WBC (Bld) 0.2 % Normal 0.2-2.0 [facility] Comment on above: Performed By: #### C BC #### [facility] [address] [place] [address] Dr. Karla Benjamin EO # 0.1 103/ul Normal 0.0-0.7 [facility] Comment on above: Performed By: #### C BC #### [facility] [address] [place] [address] Dr. Karla Benjamin Eosinophils/100 WBC (Bld) 2.5 % Normal 0.9-7.0 [facility] Comment on above: Performed By: #### C BC #### [facility] [address] [place] [address] Dr. Karla Benjamin Erythrocyte distribution width (RBC) [Ratio] 15.1 % Critically high 11.0-15.0 [facility] Comment on above: Performed By: #### C BC #### [facility] [address] [place] [address] Dr. Karla Benjamin Hematocrit (Bld) [Volume fraction] 35.0 % Critically low 36.0-48.0 [facility] Comment on above: Performed By: #### C BC #### [facility] [address] [place] [address] Dr. Karla Benjamin Hemoglobin (Bld) [Mass/Vol] 10.5 g/dL Critically low 12.0-16.0 [facility] Comment on above: Performed By: #### C BC #### [facility] [address] [place] [address] Dr. Karla Benjamin IG # 0.00 10e3/ul Normal 0.00-0.03 [facility] Comment on above: Performed By: #### C BC #### [facility] [address] [place] [address] Dr. Karla Benjamin IG % 0.0 % Normal 0.0-0.5 [facility] Comment on above: Performed By: #### C BC #### [facility] [address] [place] [address] Dr. Karla Benjamin LYMPH # 2.2 103/ul Normal 1.2-3.8 [facility] Comment on above: Performed By: #### C BC #### [facility] [address] [place] [address] Dr. Karla Benjamni Lymphocytes/100 WBC (Bld) 50.2 % Normal 20.5-60.0 [facility] Comment on above: Performed By: #### C BC #### [facility] [address] [place] [address] Dr. Karla Benjamin MANUAL DIFF REQ NO Normal [facility] Comment on above: Performed By: #### C BC #### [facility] [address] [place] [address] Dr. Karla Benjamin MCH (RBC) [Entitic mass] 24.2 pg Critically low 26.7-34.0 [facility] Comment on above: Performed By: #### C BC #### [facility] [address] [place] [address] Dr. Karla Benjamin MCHC (RBC) [Mass/Vol] 30.0 g/dL Normal 29.9-35.2 [facility] Comment on above: Performed By: #### C BC #### [facility] [address] [place] [address] Dr. Karla Benjamin MCV (RBC) [Entitic vol] 80.6 fL Critically low 81.0-99.0 [facility] Comment on above: Performed By: #### C BC #### [facility] [address] [place] [address] Dr. Karla Benjamin MONO # 0.3 103/ul Normal 0.3-0.8 [facility] Comment on above: Performed By: #### C BC #### [facility] [address] [place] [address] Dr. Karla Benjamin Monocytes/100 WBC (Bld) 6.1 % Normal 1.7-12.0 [facility] Comment on above: Performed By: #### C BC #### [facility] [address] [place] [address] Dr. Karla Benjamin NEUT # 1.8 103/ul Normal 1.4-6.5 [facility] Comment on above: Performed By: #### C BC #### [facility] [address] [place] [address] Dr. Karla Benjamin Neutrophils/100 WBC (Bld) 41.0 % Critically low 43.0-75.0 [facility] Comment on above: Performed By: #### C BC #### [facility] [address] [place] [address] Dr. Karla Benjamin Platelet mean volume (Bld) [Entitic vol] 8.9 fL Critically low 9.5-13.5 [facility] Comment on above: Performed By: #### C BC #### [facility] [address] [address] [address] Karla Benjamin PLT 279 103/ul Normal 150-450 [facility] Comment on above: Performed By: #### C BC #### [facility] [address] [place] [address] Dr. Karla Benjamin RBC 4.34 106/ul Normal 4.20-5.40 [facility] Comment on above: Performed By: #### C BC #### [facility] [address] [address] [address] Karla Benjamin WBC 4.4 103/ul Normal 4.0-11.0 [facility] Comment on above: Performed By: #### C BC #### [facility] [address] [place] [address] HEAD WO W [...] SATURNINO HOLGUIN Date: 2021-11-03 14:41 Normal [facility] FREE THYROXINE INDEX T7on FTI 2.61 Normal 1.30-4.50 [facility] Comment on above: Performed By: #### B CLINICIAN ONCOLOGY, T7, LIPID, TSH #### [facility] [address] [address] [address] Karla Benjamin T3U 33.0 % Normal 30.0-39.0 [facility] Comment on above: Performed By: #### B CLINICIAN ONCOLOGY, T7, LIPID, TSH #### [facility] [address] [address] [address] Karla Benjamin T4 [Mass/Vol] 7.90 ug/dL Normal 4.80-13.90 [facility] Comment on above: Performed By: #### B CLINICIAN ONCOLOGY, T7, LIPID, TSH #### [facility] [address] [address] [address] Karla Benjamin GLYCOHEMOGLOBIN A1Con 2021 ADA RECOMMENDATION SEE BELOW Normal [facility] Comment on above: Result Comment: ADA RECOMMENDED LIMIT 4.0 - 6.0 ADA THERAPEUTIC TARGET < 7.0 ACTION SUGGESTED > 7.0 Performed By: #### A 1C ####[facility] [address] [place] [address]Dr. Karla Benjamin Glucose [Mass/Vol] 131 mg/dL Normal [facility] Comment on above: Performed By: #### A 1C ####[facility] [address] [place] [address]DrBillie Benjamin HbA1c (Bld) [Mass fraction] 6.2 % Normal 4.5-6.2 [facility] Comment on above: Performed By: #### A 1C ####[facility] [address] [address]Dr. Karla Benjamin IRONon 11-03-2021 Iron [Mass/Vol] 55.0 ug/dL Normal 50.0-170.0 [facility] Comment on above: Performed By: #### I FADIA ####[facility] [address] [place], [place] [address]OhDr. Karla Benjamin LIPID PROFILEon 11-03-2021 CHOL-HDL RATIO NORM SEE BELOW Normal [facility] Comment on above: Result Comment: 3.3 - 4.4 LOW RISK 4.4 - 7.1 AVERAGE RISK 7.1 - 11.0 MODERATE RISK >11.0 HIGH RISK Performed By: #### B CLINICIAN ONCOLOGY, T7, LIPID, TSH #### [facility] [address] [address] [address] Karla Benjamin Cholesterol [Mass/Vol] 248 mg/dL Critically high <=200 [facility] Comment on above: Performed By: #### B CLINICIAN ONCOLOGY, T7, LIPID, TSH #### [facility] [address] [address] [address] Karla Benjamin Cholesterol in HDL [Mass/Vol] 71 mg/dL Critically high 40-60 [facility] Comment on above: Performed By: #### B CLINICIAN ONCOLOGY, T7, LIPID, TSH #### [facility] [address] [address] [address] Karla Benjamin Cholesterol in LDL [Mass/Vol] 157.6 mg/dL Normal [facility] Comment on above: Performed By: #### B CLINICIAN ONCOLOGY, T7, LIPID, TSH #### [facility] [address] [address] [address] Karla Benjamin Cholesterol.total/Ch olesterol in HDL [Mass ratio] 3.5 {ratio} Normal [facility] Comment on above: Performed By: #### B CLINICIAN ONCOLOGY, T7, LIPID, TSH #### [facility] [address] [address] [address] Karla Benjamin HDL NORMAL > or = 60 mg/dl - LO W CARDIOVASCULAR RISK <40 mg/dl - HIGH CARDIOVASCULAR RISK Normal [facility] Comment on above: Performed By: #### B CLINICIAN ONCOLOGY, T7, LIPID, TSH #### [facility] [address] [address] [address] Karla Benjamin LDL CALC NORMAL SEE BELOW Normal [facility] Comment on above: Result Comment: <100 mg/dl OPTIMAL 100 - 129 mg/dl NEAR OR ABOVE OPTIMAL 130 - 159 mg/dl BORDERLINE HIGH 160 - 189 mg/dl HIGH >190 mg/dl VERY HIGH Performed By: #### B CLINICIAN ONCOLOGY, T7, LIPID, TSH #### [facility] [address] [address] [address] Karla Benjamin Triglyceride [Mass/Vol] 97 mg/dL Normal <=150 [facility] Comment on above: Performed By: #### B CLINICIAN ONCOLOGY, T7, LIPID, TSH #### [facility] [address] [address] [address] Karla Benjamin VLDL CALC 19.4 mg/dL Normal [facility] Comment on above: Performed By: #### B CLINICIAN ONCOLOGY, T7, LIPID, TSH #### [facility] [address] [address] [address] Karla Benjamin PROF 14(COMP METB)on 022 Albumin [Mass/Vol] 3.4 g/dL Normal 3.4-5.0 [facility] Comment on above: Performed By: #### C MP ####[facility] [address] [address]DrBillie Benjamin Albumin/Globulin [Mass ratio] 1.1 {ratio} Normal [facility] Comment on above: Performed By: #### C MP ####[facility] [address] [address]Dr. Karla Benjamin ALP [Catalytic activity/Vol] 116 U/L Normal 46-116 [facility] Comment on above: Performed By: #### C MP ####[facility] [address] [address]Dr. Karla Benjamin ALT [Catalytic activity/Vol] 26 U/L Normal 14-59 [facility] Comment on above: Performed By: #### C MP ####[facility] [address] [address]DrBillie Benjamin Anion gap [Moles/Vol] 10.3 mmol/L Normal [facility] Comment on above: Performed By: #### C MP ####[facility] [address] [address]Dr. Karla Benjamin AST [Catalytic activity/Vol] 21 U/L Normal 15-37 [facility] Comment on above: Performed By: #### C MP ####[facility] [address] [address]Dr. Meryantoinette Sourav Bilirubin [Mass/Vol] 0.8 mg/dL Normal 0.2-1.0 [facility] Comment on above: Performed By: #### C MP ####[facility] [address] [place], [place] [address]Dr. Karla Benjamin Calcium [Mass/Vol] 9.0 mg/dL Normal 8.5-10.1 [facility] Comment on above: Performed By: #### C MP ####[facility] [address] [place], [place] [address]Dr. Karla Benjamin Chloride [Moles/Vol] 106 mmol/L Normal 98-107 [facility] Comment on above: Performed By: #### C MP ####[facility] [address] [place], [place] [address]Dr. Karla Benjamin CO2 [Moles/Vol] 31.2 mmol/L Normal 21.0-32.0 [facility] Comment on above: Performed By: #### C MP ####[facility] [address] [place], [place] [address]Dr. Karla Benjamin Creatinine [Mass/Vol] 1.19 mg/dL Critically high 0.55-1.02 [facility] Comment on above: Performed By: #### C MP ####[facility] [address] [place], [place] [address]Dr. Karla Benjamin EGFR-AF AZERBAIJANI 53 mL/min/1.73m2 Critically low >=60 [facility] Comment on above: Performed By: #### C MP ####[facility] [address] [place], [place] [address]Dr. Karla Benjamin EGFR-NON AF AZERBAIJANI 44 mL/min/1.73m2 Critically low >=60 [facility] Comment on above: Performed By: #### C MP ####[facility] [address] [place], [place] [address]Dr. Karla Benjamin Globulin (S) [Mass/Vol] 3.1 g/dL Normal [facility] Comment on above: Performed By: #### C MP ####[facility] [address] [address]DrBillie Benjamin Glucose [Mass/Vol] 91 mg/dL Normal 74-106 [facility] Comment on above: Performed By: #### C MP ####[facility] [address] [address]DrBillie Benjamin Potassium [Moles/Vol] 4.6 mmol/L Normal 3.5-5.1 [facility] Comment on above: Performed By: #### C MP ####[facility] [address] [address]DrBillie Benjamin Protein [Mass/Vol] 6.5 g/dL Normal 6.4-8.[address] [facility] Comment on above: Performed By: #### C MP ####[facility] [address] [place], [place] [address]DrBillie Benjamin Sodium [Moles/Vol] 143 mmol/L Normal 136-145 [facility] Comment on above: Performed By: #### C MP ####[facility] [address] [address]Dr. Karla Benjamin Urea nitrogen [Mass/Vol] 34.0 mg/dL Critically high 7.0-18.0 [facility] Comment on above: Performed By: #### C MP ####[facility] [address] [address]DrBillie Benjamin Urea nitrogen/Creatinine [Mass ratio] 28.6 mg/mg Normal [facility] Comment on above: Performed By: #### C MP ####[facility] [id number] Karla Benjamin TSHon 11-03-2021 TSH 0.923 uIU/mL Normal 0.358-3.740 [facility] Comment on above: Performed By: #### B CLINICIAN ONCOLOGY, T7, LIPID, TSH #### [facility] [id number] Karla Benjamin Basic Metabolic Panelon Calcium [Mass/Vol] 7.8 mg/dL Low 8.2-10.2 [facility] Comment on above: Performed By: #### C BC, HEPATIC, BMP #### [facility] [address] Chloride [Moles/Vol] 108 mmol/L Normal 95-114 [facility] Comment on above: Performed By: #### C BC, HEPATIC, BMP #### [facility] [address] CO2 [Moles/Vol] 22.7 mmol/L Normal 22.0-30.0 [facility] Comment on above: Performed By: #### C BC, HEPATIC, BMP #### [address] Creatinine [Mass/Vol] 0.82 mg/dL Normal 0.44-1.03 [facility] Comment on above: Performed By: #### C BC, HEPATIC, BMP #### [place] [address] [place] Creatinine Clr Calc Pharmacy 48.89 [facility] Comment on above: Result Comment: PERF ORMED BY: [place] [address] PATHOLOGIST HEAD OF HOUSEKEEPING TRELL ELAINE M.D. Performed By: #### C BC, HEPATIC, BMP #### [address] Estimated GFR ( Radha > 60 [facility] Comment on above: Result Comment: GFR estimated reference range: According to KDOQI guidelines, <60 ml/min/1.73m2 is sufficient to diagnose a patient with chronic kidney disease. Performed By: #### C BC, HEPATIC, BMP #### [place] [address] [place] Estimated GFR (Non- Am > 60 [facility] Comment on above: Performed By: #### C BC, HEPATIC, BMP #### [place] [address] [place] Glucose [Mass/Vol] 88 mg/dL Normal 70-100 [facility] Comment on above: Result Comment: [facility] Glucose Reference Range is dependent on time and content of last meal. Glucose of more than 200 mg/dL in a nonstressed, ambulatory subject supports the diagnosis of Diabetes Mellitus. ADA recommended reference range Performed By: #### C BC, HEPATIC, BMP #### [facility] [address] Potassium Normal 3.5-5.1 [facility] Comment on above: Result Comment: Spec imen hemolyzed, redraw requested Performed By: #### C BC, HEPATIC, BMP #### [facility] [id number] [facility] Sodium [Moles/Vol] 140 mmol/L Normal 136-146 [facility] Comment on above: Performed By: #### C BC, HEPATIC, BMP #### [facility] [address] Urea nitrogen [Mass/Vol] 15 mg/dL Normal 9-23 [facility] Comment on above: Performed By: #### C BC, HEPATIC, BMP #### [facility] [id number] [place] Bilirubin, Total and Directo n 06-21-2021 Bilirubin [Mass/Vol] 1.0 mg/dL Normal 0.3-1.2 [facility] Comment on above: Performed By: #### A 1C WTH eA #### [facility] [id number] [place] Bilirubin,Indirect 0.8 mg/dL Normal [facility] Comment on above: Performed By: #### A 1C WT eA #### [facility] [id number] [place] Redraw Bilirubin,Direct 0.2 mg/dL Normal 0.0-0.4 [facility] Comment on above: Performed By: #### A 1C WT eA #### [facility] [id number] [place] CT abdomen pelvis w conon CT abdomen pelvis w con [facility] Main [place] [address] [place] [address] CT Scan Report Signed Patient: Carlitos Rachel MR#: [id number] 305 : 1945 Acct:[id number] Age/Sex: 75 / F ADM Date: 06/19/21 Loc: Room: [address] [place] [address] Type: ADM IN Attending Dr: Janusz Vargas [...] Modesta Salgado M.D.06/21/2021 11:31 AM Dictation Location: [place] [address] Transcribed By: [facility] 06/21/21 1131 Dictated By: Modesta Salgado MD 06/21/21 1119 Signed By: 06/21/21 1131 Normal [facility] Complete Blood Count Auto Di ffon 06-21-2021 Basophils (Bld) [#/Vol] 0.0 10*3/uL Normal 0.0-0.2 [facility] Comment on above: Result Comment: PERF ORMED BY: [place] [address] PATHOLOGIST HEAD OF [employer]KEEP[employer] TRELL ELAINE M.D. Performed By: #### C BC, HEPATIC, BMP #### [address] Basophils/100 WBC (Bld) 0.2 % Normal . [facility] Comment on above: Performed By: #### C BC, HEPATIC, BMP #### [facility] [address] [place] [address] Eosinophils (Bld) [#/Vol] 0.1 10*3/uL Normal 0.0-0.45 [facility] Comment on above: Performed By: #### C BC, HEPATIC, BMP #### [address] Eosinophils/100 WBC (Bld) 1.4 % Normal . [facility] Comment on above: Performed By: #### C BC HEPATIC, BMP #### [facility] [address] Erythrocyte distribution width (RBC) [Ratio] 16.3 % High 11.9-15.3 [facility] Comment on above: Performed By: #### C BC HEPATIC, BMP #### [address] Hematocrit (Bld) [Volume fraction] 30.9 % Low 34.0-46.4 [facility] Comment on above: Performed By: #### C BC HEPATIC, BMP #### [address] Hemoglobin (Bld) [Mass/Vol] 9.9 g/dL Low 11.8-15.4 [facility] Comment on above: Performed By: #### C BC HEPATIC, BMP #### [address] Lymphocytes (Bld) [#/Vol] 1.9 10*3/uL Normal 1.00-4.8 [facility] Comment on above: Performed By: #### C BC HEPATIC, BMP #### [address] Lymphocytes/100 WBC (Bld) 34.5 % Normal . [facility] Comment on above: Performed By: #### C BC, HEPATIC, BMP #### [address] MCH (RBC) [Entitic mass] 25.3 pg Normal 24.7-34.3 [facility] Comment on above: Performed By: #### C BC HEPATIC, BMP #### [address] MCV (RBC) [Entitic vol] 78.6 fL Low 80-100 [facility] Comment on above: Performed By: #### C BC, HEPATIC, BMP #### [place] [id number] [place] Mean Corpuscular HGB Conc 32.2 g/dL Normal 32.0-35.0 [facility] Comment on above: Performed By: #### C BC, HEPATIC, BMP #### [facility] [address] [place] [id number] [place] Monocytes (Bld) [#/Vol] 0.3 10*3/uL Normal 0.0-0.8 [facility] Comment on above: Performed By: #### C BC, HEPATIC, BMP #### [facility] [address] [place] [address] [place] Monocytes/100 WBC (Bld) 4.9 % Normal . [facility] Comment on above: Performed By: #### C BC, HEPATIC, BMP #### [facility] [address] [place] [address] [place] Neutrophils (Bld) [#/Vol] 3.2 10*3/uL Normal 1.8-7.7 [facility] Comment on above: Performed By: #### C BC, HEPATIC, BMP #### [facility] [address] [place] [address] [place] Neutrophils/100 WBC (Bld) 59.0 % Normal . [facility] Comment on above: Performed By: #### C BC, HEPATIC, BMP #### [facility] [address] [place] [address] [place] Nucleated RBC/100 WBC (Bld) [Ratio] 0.0 % Normal 0-0.5 [facility] Comment on above: Performed By: #### C BC, HEPATIC, BMP #### [facility] [address] [place] [address] [place] Platelet mean volume (Bld) [Entitic vol] 7.6 fL Normal 6.3-10.7 [facility] Comment on above: Performed By: #### C BC, HEPATIC, BMP #### [facility] [address] [place] [id number] [place] Platelets (Bld) [#/Vol] 231 10*3/uL Normal 150-450 [facility] Comment on above: Performed By: #### C BC, HEPATIC, BMP #### [facility] [address] RBC (Bld) [#/Vol] 3.93 10*6/uL Normal 3.60-5.00 [facility] Comment on above: Performed By: #### C BC, HEPATIC, BMP #### [facility] [address] [place] [address] [facility] WBC (Bld) [#/Vol] 5.4 10*3/uL Normal 4.5-11.0 [facility] Comment on above: Performed By: #### C BC, HEPATIC, BMP #### [facility] [address] ECG 12 lead ECGon 06-21-2021 ECG 12 lead ECG [facility] Main [place] [address] [place] [address] Electrocardiograph Report Signed Patient: Carlitos Rachel MR#: [id number] 305 : 1945 Acct:[id number] Age/Sex: 75 / F ADM Date: 06/19/21 Loc: Room: [address] [place] [address] Type: DIS IN Attending Dr: Janusz Vargas [...] bundle branch block Confirmed by FANNIE CANNON [facility], TRISHA ([id number]) on 06/21/2021 9:48:54 PM Referred By: Electronically Signed By:TRISHA LIU MD [facility] Transcribed By: MUS Signed By Trisha Liu MD, FACC 06/21/21 4557 Normal [facility] Hepatic Panelon 06-21-2021 Alanine Aminotransferase Normal 10-60 [facility] Comment on above: Result Comment: Spec imen hemolyzed, redraw requested Performed By: #### C BC, HEPATIC, BMP #### [facility] [address] [place] [id number] [place] Albumin [Mass/Vol] 2.1 g/dL Low 3.2-5.5 [facility] Comment on above: Performed By: #### C BC, HEPATIC, BMP #### [facility] [address] [place] [id number] [place] Albumin/Globulin [Mass ratio] 1.1 {ratio} Normal [facility] Comment on above: Performed By: #### C BC, HEPATIC, BMP #### [facility] [address] [place] [address] [place] Alkaline Phosphatase Normal 32-92 [facility] Comment on above: Result Comment: Spec imen hemolyzed, redraw requested Performed By: #### C BC, HEPATIC, BMP #### [facility] [address] [place] [id number] [place] Aspartate Amino Transferase Normal 10-42 [facility] Comment on above: Result Comment: Spec imen hemolyzed, redraw requested Performed By: #### C BC, HEPATIC, BMP #### [facility] [address] [place] [id number] [place] Bilirubin,Direct Normal 0.0-0.4 [facility] Comment on above: Result Comment: Spec imen hemolyzed, redraw requested Performed By: #### C BC, HEPATIC, BMP #### [facility] [address] [place] [address] [place] Bilirubin,Indirect Not performed Normal [facility] Comment on above: Performed By: #### C BC, HEPATIC, BMP #### [facility] [address] [place] [address] [place] Bilirubin,Total Normal 0.3-1.2 [facility] Comment on above: Result Comment: Spec imen hemolyzed, redraw requested Performed By: #### C BC, HEPATIC, BMP #### [facility] [address] [place] [id number] [place] Globulin (S) [Mass/Vol] 2.0 g/dL Normal [facility] Comment on above: Performed By: #### C BC, HEPATIC, BMP #### [address] Protein [Mass/Vol] 4.1 g/dL Low 6.1-7.9 [facility] Comment on above: Performed By: #### C BC, HEPATIC, BMP #### [place] [address] [place] Redraw Lan 06-21-2021 ALT [Catalytic activity/Vol] 44 U/L Normal 10-60 [facility] Comment on above: Performed By: #### A 1C WTH eA #### [place] [address] [place] Redraw Brandee 06-21-2021 AST [Catalytic activity/Vol] 38 U/L Normal 10-42 [facility] Comment on above: Performed By: #### A 1C WTH eA #### [place] [address] [place] Redraw Alkaline Phosphataseo n 06-21-2021 ALP [Catalytic activity/Vol] 151 U/L High 32-92 [facility] Comment on above: Result Comment: PERF ORMED BY: [place] [address] PATHOLOGIST HEAD OF [employer] T[employer]LL ELAINE M.D. Performed By: #### A 1C WTH eA #### [address] Redraw Potassiumon 2 Potassium [Moles/Vol] 3.3 mmol/L Low 3.5-5.1 [facility] Comment on above: Performed By: #### A 1C WTH eA #### [place] [address] [place] XR ankle RT min 3V*on 2021 XR ankle RT min 3V* [facility] Main [place] [address] [place] [address] XRay Report Signed Patient: Carlitos Rachel MR#: [id number] 305 : 1945 Acct:[id number] Age/Sex: 75 / F ADM Date: 06/19/21 Loc: Room: [address] [place] [address] Type: ADM IN Attending Dr: Janusz Vargas [...] Washington Whitaker M.D.06/21/2021 2:42 PM Dictation Location: [place] [address] Transcribed By: [facility] 06/21/21 1442 Dictated By: Washington Whitaker II, MD 06/21/21 1441 Signed By: 06/21/21 1442 [facility] XR chest 2V*on 06-21-2021 XR chest 2V* [facility] [place] [address] XRay Report Signed Patient: Carlitos Rachel MR#: [id number] 305 : 1945 Acct:[id number] Age/Sex: 75 / F ADM Date: 06/19/21 Loc: Room: [address] [place] [address] Type: ADM IN Attending Dr: Janusz Vargas [...] Washington Whitaker M.D.06/21/2021 11:03 AM Dictation Location: [place] [address] Transcribed By: INEZ 06/21/21 110 Dictated By: Washington Whitaker II, MD 06/21/21 110 Signed By: 06/21/21 110 Normal [facility] Basic Metabolic Panelon Calcium [Mass/Vol] 8.7 mg/dL Normal 8.2-10.2 [facility] Comment on above: Performed By: #### C BC, HEPATIC, BMP #### [facility] [address] [place] [address] [place] Chloride [Moles/Vol] 106 mmol/L Normal 95-114 [facility] Comment on above: Performed By: #### C BC, HEPATIC, BMP #### [facility] [address] [place] [address] [place] CO2 [Moles/Vol] 25.0 mmol/L Normal 22.0-30.0 [facility] Comment on above: Performed By: #### C BC, HEPATIC, BMP #### [facility] [address] [place] [id number] [place] Creatinine [Mass/Vol] 0.99 mg/dL Normal 0.44-1.03 [facility] Comment on above: Performed By: #### C BC, HEPATIC, BMP #### [facility] [address] [place] [address] [place] Creatinine Clr Calc Pharmacy 37.31 Normal [facility] Comment on above: Result Comment: PERF ORMED BY: [facility] [address] [place] [address] PATHOLOGIST HEAD OF [employer]EEP[employer] TRELL ELAINE M.D. Performed By: #### C BC, HEPATIC, BMP #### [address] Estimated GFR ( Radha > 60 [facility] Comment on above: Result Comment: GFR estimated reference range: According to KDOQI guidelines, <60 ml/min/1.73m2 is sufficient to diagnose a patient with chronic kidney disease. Performed By: #### C BC, HEPATIC, BMP #### [address] Estimated GFR (Non- Am 54 Normal [facility] Comment on above: Performed By: #### C BC, HEPATIC, BMP #### [address] Glucose [Mass/Vol] 131 mg/dL High 70-100 [facility] Comment on above: Result Comment: [place] om Glucose Reference Range is dependent on time and content of last meal. Glucose of more than 200 mg/dL in a nonstressed, ambulatory subject supports the diagnosis of Diabetes Mellitus. ADA recommended reference range Performed By: #### C BC, HEPATIC, BMP #### [address] Potassium [Moles/Vol] 4.0 mmol/L Normal 3.5-5.1 [facility] Comment on above: Performed By: #### C BC, HEPATIC, BMP #### [place] [address] [place] Sodium [Moles/Vol] 141 mmol/L Normal 136-146 [facility] Comment on above: Performed By: #### C BC, HEPATIC, BMP #### [address] Urea nitrogen [Mass/Vol] 27 mg/dL High 9-23 [facility] Comment on above: Performed By: #### C BC, HEPATIC, BMP #### [address] Complete Blood Count Auto Di ffon 06-20-2021 Basophils (Bld) [#/Vol] 0.0 10*3/uL Normal 0.0-0.2 [facility] Comment on above: Result Comment: PERF ORMED BY: [place] [address] PATHOLOGIST HEAD OF [employer] T[employer] ELAINE M.D. Performed By: #### C BC, HEPATIC, BMP #### [facility] [address] [place] [address] [place] Basophils/100 WBC (Bld) 0.1 % Normal . [facility] Comment on above: Performed By: #### C BC, HEPATIC, BMP #### [facility] [address] [place] [address] [place] Eosinophils (Bld) [#/Vol] 0.0 10*3/uL Normal 0.0-0.45 [facility] Comment on above: Performed By: #### C BC, HEPATIC, BMP #### [place] [address] [place] Eosinophils/100 WBC (Bld) 0.0 % Normal . [facility] Comment on above: Performed By: #### C BC, HEPATIC, BMP #### [facility] [address] [place] [address] Erythrocyte distribution width (RBC) [Ratio] 16.3 % High 11.9-15.3 [facility] Comment on above: Performed By: #### C BC, HEPATIC, BMP #### [facility] [address] [place] [address] [place] Hematocrit (Bld) [Volume fraction] 34.4 % Normal 34.0-46.4 [facility] Comment on above: Performed By: #### C BC, HEPATIC, BMP #### [facility] [address] [place] [address] Hemoglobin (Bld) [Mass/Vol] 11.4 g/dL Low 11.8-15.4 [facility] Comment on above: Performed By: #### C BC, HEPATIC, BMP #### [facility] [address] [place] [address] [place] Lymphocytes (Bld) [#/Vol] 0.7 10*3/uL Low 1.00-4.8 [facility] Comment on above: Performed By: #### C BC, HEPATIC, BMP #### [facility] [address] Lymphocytes/100 WBC (Bld) 10.2 % Normal . [facility] Comment on above: Performed By: #### C BC, HEPATIC, BMP #### [facility] [address] MCH (RBC) [Entitic mass] 25.9 pg Normal 24.7-34.3 [facility] Comment on above: Performed By: #### C BC, HEPATIC, BMP #### [facility] [address] MCV (RBC) [Entitic vol] 78.3 fL Low 80-100 [facility] Comment on above: Performed By: #### C BC, HEPATIC, BMP #### [facility] [address] Mean Corpuscular HGB Conc 33.1 g/dL Normal 32.0-35.0 [facility] Comment on above: Performed By: #### C BC, HEPATIC, BMP #### [place] [address] [place] Monocytes (Bld) [#/Vol] 0.2 10*3/uL Normal 0.0-0.8 [facility] Comment on above: Performed By: #### C BC, HEPATIC, BMP #### [place] [address] [place] Monocytes/100 WBC (Bld) 2.4 % Normal . [facility] Comment on above: Performed By: #### C BC, HEPATIC, BMP #### [facility] [address] [place] [address] [place] Neutrophils (Bld) [#/Vol] 6.2 10*3/uL Normal 1.8-7.7 [facility] Comment on above: Performed By: #### C BC, HEPATIC, BMP #### [facility] [address] [place] [address] [place] Neutrophils/100 WBC (Bld) 87.3 % Normal . [facility] Comment on above: Performed By: #### C BC HEPATIC, BMP #### [facility] [address] [place] [address] [place] Nucleated RBC/100 WBC (Bld) [Ratio] 0.1 % Normal 0-0.5 [facility] Comment on above: Performed By: #### C AYANNA HEPATIC, BMP #### [facility] [address] Platelet mean volume (Bld) [Entitic vol] 7.4 fL Normal 6.3-10.7 [facility] Comment on above: Performed By: #### C AYANNA HEPATIC, BMP #### [address] Platelets (Bld) [#/Vol] 282 10*3/uL Normal 150-450 [facility] Comment on above: Performed By: #### C BC HEPATIC, BMP #### [address] RBC (Bld) [#/Vol] 4.39 10*6/uL Normal 3.60-5.00 [facility] Comment on above: Performed By: #### C BC HEPATIC, BMP #### [address] WBC (Bld) [#/Vol] 7.1 10*3/uL Normal 4.5-11.0 [facility] Comment on above: Performed By: #### C BC, HEPATIC, BMP #### [place] [address] [place] Creatine Kinaseon 06-20-2021 CK [Catalytic activity/Vol] 51 U/L Normal 22-269 [facility] Comment on above: Performed By: #### C BC, HEPATIC, BMP #### [place] [address] [place] ECG 12 lead ECGon 06-20-2021 ECG 12 lead ECG [facility] Main [place] [address] [place] [address] Electrocardiograph Report Signed Patient: Carlitos Rachel MR#: [id number] 305 : 1945 Acct:[id number] Age/Sex: 75 / F ADM Date: 06/19/21 Loc: Room: [address] [place] [address] Type: DIS IN Attending Dr: Janusz Vargas [...] block (Mobitz I) Confirmed by FANNIE CANNON [facility], TRISHA ([id number]) on 06/20/2021 12:26:23 PM Referred By: Electronically Signed By:TRISHA LIU MD [facility] Transcribed By: MUS Signed By Trisha Liu MD, FACC 06/20/21 1226 Normal [facility] ECG 12 lead ECG [facility] Main [place] [address] [place] [address] Electrocardiograph Report Signed Patient: Carlitos Rachel MR#: [id number] 305 : 1945 Acct:[id number] Age/Sex: 75 / F ADM Date: 06/19/21 Loc: Room: [address] [place] [address] Type: DIS IN Attending Dr: Janusz Vargas [...] previous ECGs available Confirmed by FANNIE CANNON [facility], TRISHA ([id number]) on 06/20/2021 12:26:02 PM Referred By: Electronically Signed By:TRISHA LIU MD [facility] Transcribed By: MUS Signed By Trisha Liu MD, [facility] 06/20/21 1226 [facility] Hepatic Panelon 06-20-2021 Albumin [Mass/Vol] 2.6 g/dL Low 3.2-5.5 [facility] Comment on above: Performed By: #### C BC, HEPATIC, BMP #### [facility] [address] [place] [address] Albumin/Globulin [Mass ratio] 1.0 {ratio} [facility] Comment on above: Performed By: #### C BC, HEPATIC, BMP #### [facility] [address] [place] [address] [place] ALP [Catalytic activity/Vol] 190 U/L High 32-92 [facility] Comment on above: Performed By: #### C BC, HEPATIC, BMP #### [facility] [address] [place] [id number] [place] ALT [Catalytic activity/Vol] 79 U/L High 10-60 [facility] Comment on above: Performed By: #### C BC, HEPATIC, BMP #### [facility] [address] [place] [id number] [place] AST [Catalytic activity/Vol] 111 U/L High 10-42 [facility] Comment on above: Performed By: #### C BC, HEPATIC, BMP #### [facility] [address] [place] [id number] [place] Bilirubin [Mass/Vol] 1.0 mg/dL Normal 0.3-1.2 [facility] Comment on above: Performed By: #### C BC, HEPATIC, BMP #### [facility] [address] Bilirubin,Indirect 0.7 mg/dL Normal [facility] Comment on above: Performed By: #### C BC, HEPATIC, BMP #### [facility] [address] Bilirubin.indirect [Mass/Vol] 0.3 mg/dL Normal 0.0-0.4 [facility] Comment on above: Performed By: #### C BC, HEPATIC, BMP #### [address] Globulin (S) [Mass/Vol] 2.5 g/dL Normal [facility] Comment on above: Performed By: #### C BC, HEPATIC, BMP #### [address] Protein [Mass/Vol] 5.1 g/dL Low 6.1-7.9 [facility] Comment on above: Performed By: #### C BC, HEPATIC, BMP #### [address] Troponin I High Sensitivityo n 06-20-2021 Troponin I High Sensitivity 8 pg/mL Normal 0-15 [facility] Comment on above: Result Comment: PERF ORMED BY: [place] [address] PATHOLOGIST HEAD OF [employer]KEEP[employer] TERLL ELAINE M.D. Performed By: #### C BC, HEPATIC, BMP #### [address] XR chest 1V portableon 06-20 XR chest 1V portable [facility] Main [place] [address] [place] [address] XRay Report Signed Patient: Carlitos Rachel MR#: [id number] 305 : 1945 Acct:[id number] Age/Sex: 75 / F ADM Date: 06/19/21 Loc: Room: [address] [place] [address] Type: ADM IN Attending Dr: Janusz Vargas [...] Modesta Salgado M.D.06/20/2021 4:57 PM Dictation Location: [place] [address] Transcribed By: [facility] 06/20/211656 Dictated By: Modesta Salgado MD 06/20/211654 Signed By: 06/20/211656 Normal [facility] A1C with Estimated Average G jeremy 06-19-2021 Glucose [Mass/Vol] 131 mg/dL Normal [facility] Comment on above: Result Comment: PERF ORMED BY: [address] [place] [address] PATHOLOGIST HEAD OF [employer] T[employer]LL ELAINE M.D. Performed By: #### A 1C [facility] eA #### [address] HbA1c (Bld) [Mass fraction] 6.2 % High 4.3-5.6 [facility] Comment on above: Result Comment: Incr eased risk for diabetes: 5.7 - 6.4 diabetes: >6.4 glycemic control for adults with diabetes: <7.0 Performed By: #### A 1C [facility] eA #### [facility] [address] [place], [place] [id number] [facility] Blood Cultureon 06-19-2021 Bacteria identified Cx Nom (Bld) NO GROWTH 5 DAYS PERFORMED BY: [address] [place] [address] PATHOLOGIST HEAD OF [employer]KEEP[employer] TRELL ELAINE M.D. [facility] Comment on above: Performed By: #### A 1C [facility] eA #### [address] Bacteria identified Cx Nom (Bld) NO GROWTH 5 DAYS PERFORMED BY: [place] [address] PATHOLOGIST HEAD OF [employer] TRELL ELAINE M.D. [facility] Comment on above: Performed By: #### A 1C [facility] eA #### [address] Complete Blood Count Auto Di ffon 06-19-2021 Basophils (Bld) [#/Vol] 0.0 10*3/uL Normal 0.0-0.2 [facility] Comment on above: Result Comment: PERF ORMED BY: [place] [address] PATHOLOGIST HEAD OF [employer] T[employer]LL ELAINE M.D. Performed By: #### H S TROP, CUBLD, CBC, PT, PTT, CMP, MG, CK, CKMB #### [address] Basophils/100 WBC (Bld) 0.3 % Normal . [facility] Comment on above: Performed By: #### H S TROP, CUBLD, CBC, PT, PTT, CMP, MG, CK, CKMB #### [address] Eosinophils (Bld) [#/Vol] 0.0 10*3/uL Normal 0.0-0.45 [facility] Comment on above: Performed By: #### H S TROP, CUBLD, CBC, PT, PTT, CMP, MG, CK, CKMB #### [address] Eosinophils/100 WBC (Bld) 0.1 % Normal . [facility] Comment on above: Performed By: #### H S TROP, CUBLD, CBC, PT, PTT, CMP, MG, CK, CKMB #### [address] Erythrocyte distribution width (RBC) [Ratio] 16.2 % High 11.9-15.3 [facility] Comment on above: Performed By: #### H S TROP, CUBLD, CBC, PT, PTT, CMP, MG, CK, CKMB #### [address] Hematocrit (Bld) [Volume fraction] 35.2 % Normal 34.0-46.4 [facility] Comment on above: Performed By: #### H S TROP, CUBLD, CBC, PT, PTT, CMP, MG, CK, CKMB #### [address] Hemoglobin (Bld) [Mass/Vol] 11.3 g/dL Low 11.8-15.4 [facility] Comment on above: Performed By: #### H S TROP, CUBLD, CBC, PT, PTT, CMP, MG, CK, CKMB #### [address] Lymphocytes (Bld) [#/Vol] 0.8 10*3/uL Low 1.00-4.8 [facility] Comment on above: Performed By: #### H S TROP, CUBLD, CBC, PT, PTT, CMP, MG, CK, CKMB #### [address] Lymphocytes/100 WBC (Bld) 13.6 % Normal . [facility] Comment on above: Performed By: #### H S TROP, CUBLD, CBC, PT, PTT, CMP, MG, CK, CKMB #### [address] MCH (RBC) [Entitic mass] 25.2 pg Normal 24.7-34.3 [facility] Comment on above: Performed By: #### H S TROP, CUBLD, CBC, PT, PTT, CMP, MG, CK, CKMB #### [address] MCV (RBC) [Entitic vol] 78.5 fL Low 80-100 [facility] Comment on above: Performed By: #### H S TROP, CUBLD, CBC, PT, PTT, CMP, MG, CK, CKMB #### [address] Mean Corpuscular HGB Conc 32.2 g/dL Normal 32.0-35.0 [facility] Comment on above: Performed By: #### H S TROP, CUBLD, CBC, PT, PTT, CMP, MG, CK, CKMB #### [address] Monocytes (Bld) [#/Vol] 0.2 10*3/uL Normal 0.0-0.8 [facility] Comment on above: Performed By: #### H S TROP, CUBLD, CBC, PT, PTT, CMP, MG, CK, CKMB #### [address] Monocytes/100 WBC (Bld) 3.1 % Normal . [facility] Comment on above: Performed By: #### H S TROP, CUBLD, CBC, PT, PTT, CMP, MG, CK, CKMB #### [address] Neutrophils (Bld) [#/Vol] 4.8 10*3/uL Normal 1.8-7.7 [facility] Comment on above: Performed By: #### H S TROP, CUBLD, CBC, PT, PTT, CMP, MG, CK, CKMB #### [address] Neutrophils/100 WBC (Bld) 82.9 % Normal . [facility] Comment on above: Performed By: #### H S TROP, CUBLD, CBC, PT, PTT, CMP, MG, CK, CKMB #### [address] Nucleated RBC/100 WBC (Bld) [Ratio] 0.0 % Normal 0-0.5 [facility] Comment on above: Performed By: #### H S TROP, CUBLD, CBC, PT, PTT, CMP, MG, CK, CKMB #### [facility] [address] Platelet mean volume (Bld) [Entitic vol] 7.3 fL Normal 6.3-10.7 [facility] Comment on above: Performed By: #### H S TROP, CUBLD, CBC, PT, PTT, CMP, MG, CK, CKMB #### [facility] [address] Platelets (Bld) [#/Vol] 265 10*3/uL Normal 150-450 [facility] Comment on above: Performed By: #### H S TROP, CUBLD, CBC, PT, PTT, CMP, MG, CK, CKMB #### [address] RBC (Bld) [#/Vol] 4.49 10*6/uL Normal 3.60-5.00 [facility] Comment on above: Performed By: #### H S TROP, CUBLD, CBC, PT, PTT, CMP, MG, CK, CKMB #### [address] WBC (Bld) [#/Vol] 5.8 10*3/uL Normal 4.5-11.0 [facility] Comment on above: Performed By: #### H S TROP, CUBLD, CBC, PT, PTT, CMP, MG, CK, CKMB #### [address] Comprehensive Metabolic Pane gretchen 06-19-2021 Albumin [Mass/Vol] 2.6 g/dL Low 3.2-5.5 [facility] Comment on above: Performed By: #### H S TROP, CUBLD, CBC, PT, PTT, CMP, MG, CK, CKMB #### [address] Albumin/Globulin [Mass ratio] 1.0 {ratio} Normal [facility] Comment on above: Performed By: #### H S TROP, CUBLD, CBC, PT, PTT, CMP, MG, CK, CKMB #### [facility] [address] ALP [Catalytic activity/Vol] 186 U/L High 32-92 [facility] Comment on above: Performed By: #### H S TROP, CUBLD, CBC, PT, PTT, CMP, MG, CK, CKMB #### [facility] [address] ALT [Catalytic activity/Vol] 84 U/L High 10-60 [facility] Comment on above: Performed By: #### H S TROP, CUBLD, CBC, PT, PTT, CMP, MG, CK, CKMB #### [facility] [address] AST [Catalytic activity/Vol] 216 U/L High 10-42 [facility] Comment on above: Performed By: #### H S TROP, CUBLD, CBC, PT, PTT, CMP, MG, CK, CKMB #### [address] Bilirubin [Mass/Vol] 1.3 mg/dL High 0.3-1.2 [facility] Comment on above: Result Comment: Samp les from patients who have taken Naproxen have shown spurious elevation in Total Bilirubin levels. A metabolite of Naproxen, O-desmethylnaproxen, has been shown to interfere with the Jendrassik-Grof method for measuring Total Bilirubin. Performed By: #### H S TROP, CUBLD, CBC, PT, PTT, CMP, MG, CK, CKMB #### [address] Calcium [Mass/Vol] 8.5 mg/dL Normal 8.2-10.2 [facility] Comment on above: Performed By: #### H S TROP, CUBLD, CBC, PT, PTT, CMP, MG, CK, CKMB #### [address] Chloride [Moles/Vol] 104 mmol/L Normal 95-114 [facility] Comment on above: Performed By: #### H S TROP, CUBLD, CBC, PT, PTT, CMP, MG, CK, CKMB #### [address] CO2 [Moles/Vol] 21.1 mmol/L Low 22.0-30.0 [facility] Comment on above: Performed By: #### H S TROP, CUBLD, CBC, PT, PTT, CMP, MG, CK, CKMB #### [address] Creatinine [Mass/Vol] 1.27 mg/dL High 0.44-1.03 [facility] Comment on above: Performed By: #### H S TROP, CUBLD, CBC, PT, PTT, CMP, MG, CK, CKMB #### [address] Creatinine Clr Calc Pharmacy 29.08 [facility] Comment on above: Performed By: #### H S TROP, CUBLD, CBC, PT, PTT, CMP, MG, CK, CKMB #### [address] Estimated GFR ( Radha 49 [facility] Comment on above: Result Comment: GFR estimated reference range: According to KDOQI guidelines, <60 ml/min/1.73m2 is sufficient to diagnose a patient with chronic kidney disease. Performed By: #### H S TROP, CUBLD, CBC, PT, PTT, CMP, MG, CK, CKMB #### [address] Estimated GFR (Non- Am 41 [facility] Comment on above: Performed By: #### H S TROP, CUBLD, CBC, PT, PTT, CMP, MG, CK, CKMB #### [address] Globulin (S) [Mass/Vol] 2.7 g/dL [facility] Comment on above: Performed By: #### H S TROP, CUBLD, CBC, PT, PTT, CMP, MG, CK, CKMB #### [address] [address] [place] Glucose [Mass/Vol] 101 mg/dL High 70-100 [facility] Comment on above: Result Comment: [facility] Glucose Reference Range is dependent on time and content of last meal. Glucose of more than 200 mg/dL in a nonstressed, ambulatory subject supports the diagnosis of Diabetes Mellitus. ADA recommended reference range Performed By: #### H S TROP, CUBLD, CBC, PT, PTT, CMP, MG, CK, CKMB #### [address] Potassium [Moles/Vol] 3.9 mmol/L Normal 3.5-5.1 [facility] Comment on above: Performed By: #### H S TROP, CUBLD, CBC, PT, PTT, CMP, MG, CK, CKMB #### [facility] [address] [place] [address] Protein [Mass/Vol] 5.3 g/dL Low 6.1-7.9 [facility] Comment on above: Performed By: #### H S TROP, CUBLD, CBC, PT, PTT, CMP, MG, CK, CKMB #### [facility] [address] [place] [address] Sodium [Moles/Vol] 139 mmol/L Normal 136-146 [facility] Comment on above: Performed By: #### H S TROP, CUBLD, CBC, PT, PTT, CMP, MG, CK, CKMB #### [facility] [address] [place] [address] Urea nitrogen [Mass/Vol] 25 mg/dL High 9-23 [facility] Comment on above: Performed By: #### H S TROP, CUBLD, CBC, PT, PTT, CMP, MG, CK, CKMB #### [facility] [address] [place] [address] Cortisolon 06-19-2021 Cortisol 37.0 ug/dL Normal [facility] Comment on above: Result Comment: Refe rence range: AM 6 - 24 ug/dl PM <10 ug/dl PERFORMED BY: [place] [address] PATHOLOGIST HEAD OF [employer]KEEP[employer] TRELL ELAINE M.D. Performed By: #### C BC, HEPATIC, BMP #### [facility] [address] [place] [id number] [facility] Creatine Kinaseon 06-19-2021 CK [Catalytic activity/Vol] 58 U/L Normal 22-269 [facility] Comment on above: Performed By: #### A 1C [facility] eA #### [facility] [address] [place] [id number] [facility] Creatinine Kinase MBon 06-19 CK.MB [Mass/Vol] 1.7 ng/mL Normal 0.6-6.3 [facility] Comment on above: Performed By: #### A 1C [facility] eA #### [facility] [address] CKMB Relative Index 2.9 % High 0.00-2.50 [facility] Comment on above: Performed By: #### A 1C [facility] eA #### [facility] [address] [place] [id number] [facility] ECG 12 lead ECGon 06-19-2021 ECG 12 lead ECG [facility] Main [place] [address] [place] [address] Electrocardiograph Report Signed Patient: Carlitos Rachel MR#: [id number] 305 : 1945 Acct:[id number] Age/Sex: 75 / F ADM Date: 06/19/21 Loc: Room: [address] [place] [address] Type: DIS IN Attending Dr: Janusz Vargas [...] TRISHA LIU MD, FACC ([id number]) on 06/20/2021 12:25:45 PM Referred By: Electronically Signed By:TRISHA LIU MD [facility] Transcribed By: MUS Signed By Trisha Liu MD, [facility] 06/20/21 1225 [facility] ECG 12 lead ECG [facility] Main [place] [id number] Electrocardiograph Report Signed Patient: Carlitos Rachel MR#: [id number] 305 : 1945 Acct:[id number] Age/Sex: 75 / F ADM Date: 06/19/21 Loc: 4C Room: [address] [place] [address] Type: DIS IN Attending Dr: Janusz Vargas [...] by TRISHA LIU MD, FACC (137) on 06/19/2021 3:41:45 PM Referred By: Electronically Signed By:TRISHA LIU MD [facility] Transcribed By: MUS Signed By Trisha Liu MD, [facility] 06/19/21 1541 [facility] ECH echo transthoracicon ECH echo transthoracic [facility] Main [place] [id number] Echocardiogram Signed Patient: Carlitos Rachel MR#: [id number] 305 : 1945 Acct:[id number] Age/Sex: 75 / F ADM Date: 06/19/21 Loc: 4C Room: [address] [place] [address] Type: DIS IN Attending Dr: Janusz Vargas DO Ordering Provider: Janusz Vargas DO Date of Service: 06/19/2112/01/958 ECH/ECH echo transthoracic: bradycardia, hypotension Copies to: Trisha Liu MD, FACC Janusz Linette DO Alicia Weight: 123 lb Performed By: Roya Nolasco [...] 06/19/21 1140 Signed By: Trisha Liu MD, [facility] 06/19/21 1223 Normal [facility] Free T4 (Free Thyroxine)on 0 06-19-2021 Free T4 [Mass/Vol] 1.58 ng/dL High 0.61-1.12 [facility] Comment on above: Performed By: #### C BC, HEPATIC, BMP #### [facility] [address] Magnesiumon 06-19-2021 Magnesium [Mass/Vol] 1.7 mg/dL Normal 1.6-2.6 [facility] Comment on above: Result Comment: PERF ORMED BY: [place] [address] PATHOLOGIST HEAD OF [employer]EEP[employer] T[employer]LL ELAINE M.D. Performed By: #### H S TROP, CUBLD, CBC, PT, PTT, CMP, MG, CK, CKMB #### [facility] [address] Partial Thromboplastin Timeo n 06-19-2021 aPTT Coag (Bld) [Time] 24.2 s Low 25.1-36.5 [facility] Comment on above: Result Comment: PERF ORMED BY: [place] [address] PATHOLOGIST HEAD OF [employer] TRELL ELAINE M.D. Performed By: #### H S TROP, CUBLD, CBC, PT, PTT, CMP, MG, CK, CKMB #### [address] Prothrombin Time INRon 06-19 INR Coag (PPP) [Relative time] 1.0 {INR} Normal [facility] Comment on above: Result Comment: INR [...] PT, PTT, CMP, MG, CK, CKMB #### [address] PT Coag (PPP) [Time] 10.7 s Normal 9.0-12.9 [facility] Comment on above: Performed By: #### H S TROP, CUBLD, CBC, PT, PTT, CMP, MG, CK, CKMB #### [address] Thyroid Stimulating Hormoneo n 06-19-2021 TSH Qn 0.15 m[IU]/L Low 0.45-5.33 [facility] Comment on above: Performed By: #### C BC, HEPATIC, BMP #### [address] Thyroxine (T4) Totalon 06-19 T4 [Mass/Vol] 6.62 ug/dL Normal 5.39-11.82 [facility] Comment on above: Performed By: #### C BC, HEPATIC, BMP #### [address] Troponin I High Sensitivityo n 06-19-2021 Troponin I High Sensitivity 7 pg/mL Normal 0-15 [facility] Comment on above: Result Comment: PERF ORMED BY: [place] [address] PATHOLOGIST HEAD [employer] TRELL ELAINE M.D. Performed By: #### A 1C [facility] #### [address] US liveron 06-19-2021 liver [facility] Main [place] [address] [place] [address] Ultrasound Report Signed Patient: Carlitos Rachel MR#: [id number] 305 : 1945 Acct:[id number] Age/Sex: 75 / F ADM Date: 06/19/21 Loc: Room: [address] [place] [address] Type: ADM IN Attending Dr: Janusz Vargas [...] Anderson Jr., D.O.06/19/2021 1:56 PM Dictation Location: [place] [address] Tech: Mable Randall Transcribed By: INEZ 06/19/21 1356 Dictated By: Gavin Anderson Jr, DO 06/19/21 1352 Signed By: 06/19/21 1356 [facility] XR chest 1V portableon 06-19 XR chest 1V portable [facility] [place] [address] XRay Report Signed Patient: Carlitos Rachel MR#: [id number] 305 : 1945 Acct:[id number] Age/Sex: 75 / F ADM Date: 06/19/21 Loc: Room: [address] [place] [address] Type: ADM IN Attending Dr: Janusz Vargas DO Ordering Provider: Janusz Vargas DO Date of Service: 06/19/21 XR/XR chest 1V portable: bradycardia, hypotension Copies to: Janusz Vargas DO PORTABLE AP CHEST CLINICAL HISTORY: Bradycardia. Hypotension. COMPARISON: None FINDINGS: Heart appears normal in size. Lungs are clear. No free air. XR/XR chest 1V portable IMPRESSION: NO ACUTE FINDINGS Impression dictated by: Gavin Anderson Jr., DBillieOBillie06/19/2021 10:42 AM Dictation Location: [facility] Transcribed By: [facility] 06/19/21 1042 Dictated By: Gavin Anderson Jr, DO 06/19/21 1042 Signed By: 06/19/21 1042 [facility] Vital Signs Date Time Vital Sign Value Performing Clinician Deny phan 05-01-2023 15:51-0500 Blood Pressure Location Yury POND [facility] 05-01-2023 15:51-0500 Diastolic blood pressure 90 mm[Hg] Yury POND [facility] 05-01-2023 15:51-0500 Heart rate 76 /min Yury POND [facility] 05-01-2023 15:51-0500 Respiratory rate 16 /min Yury POND [facility] 05-01-2023 15:51-0500 Systolic blood pressure 132 mm[Hg] Yury POND [facility] Encounters Encounter Date Encounter Type Care Provider Facility Start: 01-27-2025 End: 01-27-2025 ambulatory DANNY HINES [facility] Start: 07-22-2024 End: 07-22-2024 ambulatory FRANCIA GARCÍA [facility] Start: 06-18-2023 ambulatory Yury POND Facility : [facility] Start: 05-22-2023 End: 05-23-2023 ambulatory Yury POND Facility:CD:[id number] Start: 05-01-2023 End: 05-02-2023 ambulatory Yury POND Facility: [facility] Start: 05-01-2023 End: 05-01-2023 Patient encounter procedure Yury Ortiz [facility]/Jennifer Marquez Start: 07-17-2022 End: 07-17-[address] KATIE BURK . Facility:[facility] Start: 12-22-2021 End: 12-23-[address] KATIE BURK . Facility:[facility] Start: 11-17-2021 End: 11-18-[address] KATIE BURK . Facility:[facility] Start: 11-03-2021 End: 11-04-[address] KATIE BURK . Facility:[facility] Start: 06-19-2021 End: 06-21-2021 Evaluation and management of inpatient Katie Burk Facility:[facility] Procedures Date Procedure Procedure Detail Performing Clinician Arthroscopy of knee Yury POND Bariatric operative procedure Yury JAKOBLinette Biopsy of adrenal gland Eric marylinette ROBERTL Esophagogastroduodenoscopy M ichael DEJAH Hysterectomy Yury POND Insertion of pacemaker pulse generator Yury ROBERTL Immunizations Immunization Date Immunization Notes Care Provider Fa cilikylah 12-25-2021 SARS-CoV-2 mRNA ([id number]-dfli ose) vaccine Yury POND [facility] 08-23-2020 SARS-CoV-2 (COVID-19 ) mRNA BNT-162b2 vax Yury POND [facility] 07-30-2020 SARS-CoV-2 (COVID-19 ) mRNA BNT-162b2 vax Yury POND [facility] NEGATED: Highlighted row has not occurred!05-01-2023 influenza virus vaccine, unspecified formulation Yury POND [facility] Payers Date Payer Category Payer Medicaid [id number] 2021 Self-pay 1961 Medicare [id number] 1959 Unknown [id number] 1959 Unknown [id number] 1945 Unknown [id number] 2.16.84 [id number] 1945 Unknown [id number] 2.16.84 [id number] 1945 Unknown [id number] 2.16.84 [id number] 1945 Unknown [id number] 2.16.84 [id number] 1945 Unknown [id number] 2.16.8 [id number] 1945 Unknown [id number] 2.16.8 [id number] 1945 Unknown [id number] 2.16.8 [id number] Unknown [id number] 2.16.8 [id number] Social History Date Type Detail Facility Start: 05-01-2023 Tobacco smoking status Ex-smoker (fi nding) [facility] Tobacco smoking status Never [facility] Sex Assigned At Female [facility] Functional Status Date Assessment Result Facility 05-01-2023 Functional Status N/A [facility] Mar[facility] Progress note 07-22-2024 Note Date & Type Note Facility 07-22-2024 Note [facility] Subjective Carlitos Rachel is a 78 y.o. 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 Dementia (CMS/HCC) Depressive disorder Disc displacement, lumbar Disorder of sacrum Former smoker Generalized anxiety disorder GERD (gastroesophageal reflux disease) Iron deficiency anemia Osteopenia Marital conflict Major depressive disorder, single episode, moderate (CMS/HCC) RAMILA (acute kidney injury) Anemia, unspecified Arthritis Body mass index (BMI) 26.0-26.9, adult Bradycardia Calcaneal spur, left foot Constipation, unspecified Difficulty in walking, not elsewhere classified Elevated LFTs History of falling Hypertension Insomnia, unspecified Iron deficiency Muscle weakness (generalized) Other fatigue Other specified disorders of bone density and structure, unspecified site Pacemaker Personal history of nicotine dependence Prediabetes Pure hypercholesterolemia, unspecified Restless legs Right ankle sprain Vitamin D deficiency, unspecified Calcaneal spur Fall Fracture of cuboid Metatarsal bone fracture Nicotine dependence HPI Patient has history of hypertension with orthostatic hypotension, Mobitz 2 AV block status post permanent pacemaker in 2021, anxiety depression, and dementia Patient states that she has been doing well. She denies any chest discomfort at rest or with exertion. She denies exertional dyspnea, orthopnea or paroxysmal nocturnal dyspnea. She denies dizziness, syncope or near syncope. She denies palpitations, legs edema or discomfort on exertion. ROS All systems were reviewed and they were negative except for the positive findings noted above in the history Past Medical History: Diagnosis Date Abnormal ECG Chest pain 12/26/2021 Chronic anxiety 12/26/2021 Chronic kidney disease Diabetes mellitus type II, non insulin dependent (CMS/HCC) 12/26/2021 H/O: hysterectomy 12/26/2021 History of musculoskeletal disease 12/26/2021 Hypertension Mobitz type II atrioventricular block 12/26/2021 Recurrent major depression in partial remission 12/26/2021 Tight chest 12/26/2021 Past Surgical History: Procedure Laterality Date BARIATRIC SURGERY CHOLECYSTECTOMY HERNIA REPAIR HYSTERECTOMY INSERT / REPLACE / REMOVE PACEMAKER 06/19/2021 KNEE SURGERY Left SMALL INTESTINE SURGERY TONSILLECTOMY TUMOR REMOVAL LEFT KIDNEY Family History Family history unknown: Yes Social History Tobacco Use Smoking status: Former Types: Cigarettes Smokeless tobacco: Never Substance Use Topics Alcohol use: Never Drug use: Never Allergies Allergies Allergen Reactions Bee Pollen Librax (With Clidinium) [Chlordiazepoxide-Clidinium] Lipitor [Atorvastatin] Medications Current Outpatient Medications: ascorbic acid (Vitamin C) 500 mg/5 mL liquid, Take by mouth in the morning., Disp: , Rfl: busPIRone (Buspar) 5 mg tablet, Take 3 tablets by mouth two times daily., Disp: , Rfl: donepezil ODT (Aricept ODT) 10 mg disintegrating tablet, 1 tablet Orally at bedtime for 30 days, Disp: , Rfl: FeroSuL 325 mg (65 mg iron) tablet, Take 1 tablet by mouth in the morning and at bedtime., Disp: , Rfl: hydrOXYzine HCL (Atarax) 25 mg tablet, every 6 (six) hours., Disp: , Rfl: memantine (Namenda XR) 28 mg capsule,sprinkle,ER 24hr, Take 28 mg by mouth., Disp: , Rfl: mirtazapine (Remeron) 30 mg tablet, Take 30 mg by mouth at bedtime., Disp: , Rfl: pantoprazole (ProtoNix) 20 mg EC tablet, 1 (one) time each day at the same time., Disp: , Rfl: PARoxetine (Paxil) 40 mg tablet, Take 40 mg by mouth in the morning., Disp: , Rfl: QUEtiapine (SEROquel) 50 mg tablet, 1 (one) time each day at the same time., Disp: , Rfl: rOPINIRole (Requip) 0.25 mg tablet, 1 (one) time each day at the same time., Disp: , Rfl: Topamax 50 mg tablet, 100 mg in the morning., Disp: , Rfl: Objective Visit Vitals BP 138/88 (BP Location: Left arm, Patient Position: Sitting) Pulse 67 Ht 1.524 m (5') Wt 44.9 kg (99 lb) SpO2 98% BMI 19.33 kg/m??? Smoking Status Former BSA 1.38 m??? Physical exam: GENERAL: alert and oriented x3, well developed, in no acute distress. HEAD: atraumatic, normocephalic. EYES: WANDA, EOMI. NECK: trachea midline, no JVD present, no carotid bruits present. CARDIAC: S1, S2 present. RRR. No murmur, rubs, or gallops. RESPIRATORY: CTAB, no increased effort of breathing, no rales, rhonchi, or wheezing. ABDOMEN: soft, non (more content not included)... [facility] Clinical Note 05-01-2023 Note Date & Type Note Facility 05-01-2023 Note Chief Complaint consultation for anemia [...] Oral, Daily quetiap (more content not included)... [facility] Comment on above: Result Comment: Elec tronically Signed By: DEJAH CANNON, Yury Mccrary.omar\Date and Time Signed: 05/01/23 16:36 EST Clinical Note 12-22-2021 Note Date & Type Note Facility 12-22-2021 Note PROCEDURE: XR HIP RT 2 [...] authenticated by: NISREEN VALDEZ Date: 2021-12-22 17:40 [facility] Evaluation + Plan note Note Date & Type Note Facility Evaluation + Plan note No data available for this section [facility] Discharge instructions Note Date & Type Note Facility Hospital Discharge instructions No data available for this section [facility] Progress note Note Date & Type Note Facility Progress note No data available for this section [facility] Summary Purpose Family History No Family History Records FoundNo Family History Records Found No data available for this section No Family History Records FoundNo Family History Records Found Advance Directives No Advanced Directives Records FoundNo Advanced Directives Records FoundNo Advanced Directives Records FoundNo Advanced Directives Records Found Additional Source Comments INFORMATION SOURCE (unrecogn ized section and content) DATE CREATED AUTHOR 06/16/2022 [facility] DATE CREATED AUTHOR AUTHOR'S ORGANIZ ATION 07/19/2022 [facility] DATE CREATED AUTHOR AUTHOR'S ORGANIZ ATION 06/18/2023 [facility] DATE CREATED AUTHOR AUTHOR'S ORGANIZ ATION 01/28/2025 [facility] Patient Care team informatio n (unrecognized section and content) Personnel Name: Katie Burk MD Address: Address: [address] [place] [address] FOR RECORDS PERTAINING TO PATIENTS WHO ARE [...] BE BASED ON THE PRIMARY CLINICAL RECORDS. [facility] [employer] [facility]. provides no warranty or guarantee of the accuracy or completeness of information in this document.
[2025-03-01 11:31] VITALS: BP 133/94
[2025-03-01] MEDS: 0.9 % SODIUM CHLORIDE 1,000 ML 150 ML IV (11:39)
[2025-03-01] MEDS: HYDROMORPHONE HCL 1 MG/ML CARTRIDGE 0.5 MG IVP (11:40)
[2025-03-01 12:00] VITALS: BP 150/80
[2025-03-01 12:02] LABS: Alanine Aminotransferase 62 U/L (14-59); Albumin Globulin Ratio 0.9; Albumin Level 2.7 g/dL (3.4-5.0); Alkaline Phosphatase 89 U/L (46-116); Anion Gap 20.1; Aspartate Amino Transferase 40 U/L (15-37); Blood Urea Nitrogen 29.0 mg/dL (7.0-18.0); Calcium 8.7 mg/dL (8.5-10.1); Carbon Dioxide 16.6 mmol/L (21.0-32.0); Chloride 110 mmol/L (98-107); Estimated GFR (African America 43 (>=60 mL/min/1.73m^2); Estimated GFR (Non-African Ame 35 (>=60 mL/min/1.73m^2); Globulin 3.0 g/dL; Glucose 107 mg/dL (74-106); Potassium 3.7 mmol/L (3.5-5.1); Sodium 143 mmol/L (136-145); Total Protein 5.7 g/dL (6.4-8.2)
[2025-03-01 12:28] LABS: Hematocrit 37.8 % (36.0-48.0); Hemoglobin 12.2 g/dL (12.0-16.0); Immature Granulocytes Abs Auto 0.02 10^3/uL (0.00-0.03); Immature Granulocytes Pct Auto 0.2 % (0.0-0.5); Lymphocytes Absolute Auto 4.3 10^3/uL (1.2-3.8); Mean Corpuscular HGB Conc 32.3 g/dL (29.9-35.2); Mean Corpuscular Hemoglobin 29.3 pg (26.7-34.0); Mean Corpuscular Volume 90.9 fL (81.0-99.0); Platelet Count 220 10^3/uL (150-450); Red Blood Count 4.16 10^6/uL (4.20-5.40); White Blood Count 9.4 10^3/uL (4.0-11.0)
[2025-03-01 12:30] VITALS: BP 123/80
[2025-03-01 12:39] LABS: INR 0.99; Prothrombin Time 10.5 sec (9.0-11.6)
[2025-03-01 12:40] VITALS: PULSE 70; O2SAT 98
[2025-03-01 12:56] LABS: Partial Thromboplastin Time 20.2 sec (22.3-36.2)
--- NOTE | 2025-03-01 13:59 | PC.NURSE ---
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
[2025-03-01] MEDS: MORPHINE SULFATE 4 MG/ML VIAL IV (14:50)
== END 2025-03-01 14:55 | disposition short-term general hospital (02) ==
PROVIDERS: Emergency Provider Emergency Medicine; PCP Family Medicine
DX: S72.142A Displaced intertrochanteric fracture of left femur, initial encounter for closed fracture (principal); W18.39XA Other fall on same level, initial encounter; Z87.891 Personal history of nicotine dependence
CPT/HCPCS: 36415; 73502; 80053; 85025; 85610; 85730; 93005; 96374; 96375; 99285; J1171; J2270; J2405

== ENCOUNTER 2025-05-04 11:13 | Outpatient (OUT) | payer MEDICARE, BC, SELFPAY ==
--- OUTSIDE RECORDS SUMMARY | 2024-01-22 08:00 | XMS_ITS ---
Author Organization [facility] Address [address] [place] [address] [place] [address] Care Team Providers Care Furnace Tender Name Role Phone Bhargavi CANNON, Piyush Primary Care Provider UnavailConstantino Kendrick Unavailable [phone] Encounters Encounter Location Date Provider Diagnosis [address] [address] 01/22/2024 Constantino Velasquez Plan Of Treatment No Information Progress Notes * Gayathri RACHELDOB:1945 (79 yo F)Acc No.[id number]:01/22/2024 Patient:?Gayathri Rachel :?ZAY ChristiansonOB:1945???Age:78 Y???Sex: FemaleDate:01/22/2024hone:[phone]:[address] [place], [place] [id number]:Piyush Burk MD * Electronic signature of Constantino Velasquez DPM on 05/04/2025 at 11:20 AM ESTSign off status: Pending * Provider: Alexandria Velasquez DPM Date: 0 01/22/2024 Generated for Printing/Faxing/eTransmitting on:?05/04/2025 11:20 AM EST
--- OUTSIDE RECORDS SUMMARY | 2024-04-15 09:45 | XMS_ITS ---
Author Organization [facility] Address [address] [place] [address] [place] [address] Care Team Providers Care Crime Scene Examiner Name Role Phone Bhargavi CANNON, Piyush Primary Care Provider UnavailConstantino Kendrick Unavailable [phone] Encounters Encounter Location Date Provider Diagnosis [address] [address] 04/15/2024 Constantino Velasquez Plan Of Treatment No Information Progress Notes * Gayathri RACHELDOB:1945 (79 yo F)Acc No.[id number]:04/15/2024 Patient:?Gayathri Rachel :?ZAY ChristiansonOB:1945???Age:78 Y???Sex: FemaleDate:04/15/2024hone:[phone]:[address] [place] [address]Kqe:Piyush Burk MD * Electronic signature of Constantino Velasquez DPM on 05/04/2025 at 11:19 AM ESTSign off status: Pending * Provider: Alexandria Velasquez DPM Date: 06/16/2023 Generated for Printing/Faxing/eTransmitting on:?05/04/2025 11:19 AM EST
--- OUTSIDE RECORDS SUMMARY | 2024-07-15 09:45 | XMS_ITS ---
Author Organization [facility] Address [address] [place] [address] [place] [address] Care Team Providers Care Last Model Department Supervisor Name Role Phone Bhargavi CANNON, Piyush Primary Care Provider UnavailConstantino Kendrick Unavailable [phone] Encounters Encounter Location Date Provider Diagnosis [address] [address] 07/15/2024 Constantino Velasquez Plan Of Treatment No Information Progress Notes * Gayathri RACHELDOB:1945 (79 yo F)Acc No.[id number]:07/15/2024 Patient:?Gayathri Rachel :?ZAY ChristiansonOB:1945???Age:78 Y???Sex: FemaleDate:07/15/2024Phone:[phone]:[address] [place] [address]Sja:Piyush Burk MD * Electronic signature of Constantino Velasquez DPM on 05/04/2025 at 09:43 AM ESTSign off status: Pending * Provider: Alexandria Velasquez DPM Date: 0 07/15/2024 Generated for Printing/Faxing/eTransmitting on:?05/04/2025 09:43 AM EST
--- OUTSIDE RECORDS SUMMARY | 2024-10-14 08:30 | XMS_ITS ---
Author Organization [facility] Address [address] [place] [address] [place] [address] Care Team Providers Care Foreign Language Teacher Name Role Phone Bhargavi CANNON, Piyush Primary Care Provider UnavailConstantino Kendrick Unavailable [phone] Encounters Encounter Location Date Provider Diagnosis [address] [address] 10/14/2024 Constantino Velasquez Plan Of Treatment No Information Progress Notes * Gayathri RACHELDOB:1945 (79 yo F)Acc No.[id number]:10/14/2024 Patient:?Gayathri Rachel :?ZAY ChristiansonOB:1945???Age:79 Y???Sex: FemaleDate:10/14/2024Phone:[phone]:[address] [place] [address]Rpt:Piyush Burk MD * Electronic signature of Constantino Velasquez DPM on 05/04/2025 at 09:43 AM ESTSign off status: Pending * Provider: Alexandria Velasquez DPM Date: 0 10/14/2024 Generated for Printing/Faxing/eTransmitting on:?05/04/2025 09:43 AM EST
--- OUTSIDE RECORDS SUMMARY | 2025-01-13 08:45 | XMS_ITS ---
Author Organization [facility] Address [address] [place] [address] [place] [address] Care Team Providers Care Chemist Name Role Phone Bhargavi CANNON, Piyush Primary Care Provider UnavailConstantino Kendrick Unavailable [phone] Encounters Encounter Location Date Provider Diagnosis [address] [address] 01/13/2025 Constantino Velasquez Plan Of Treatment No Information Progress Notes * Gayathri RACHELDOB:1945 (79 yo F)Acc No.[id number]:01/13/2025 Patient:?Gayathri Rachel :?ZAY ChristiansonOB:1945???Age:79 Y???Sex: FemaleDate:01/13/2025Phone:[phone]:[address] [place] [address]Tog:Piyush Burk MD * Electronic signature of Constantino Velasquez DPM on 05/04/2025 at 09:43 AM ESTSign off status: Pending * Provider: Alexandria Velasquez DPM Date: 0 01/13/2025 Generated for Printing/Faxing/eTransmitting on:?05/04/2025 09:43 AM EST
--- OUTSIDE RECORDS SUMMARY | 2025-05-04 11:20 | XMS_ITS | Clinical Summary ---
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 Name Role Phone Unavailable Primary Care Provider Unavailabl e Social History Tobacco UseTypesPacks/DayYears UsedDateSmoking Tobacco: Never Assessed CommentsUnknownSex and Gender InformationValueDate RecordedSex Assigned at Not on fileLegal OmzVctyex96/02/2012 9:45 AM ESTGender IdentityNot on fileSexual OrientationNot on file Plan of Treatment Health MaintenanceDue DateLast DoneCommentsAnxiety Yqogallrd37/06/1962Depression Kglzuvwag39/06/1962DTaP,Tdap,Td Vaccine (1 - Tdap)09/15/1962Pneumococcal Vaccine: 50+ (1 of 1 - PCV)09/15/1993Shingrix Vaccine (1 of 2)09/15/1993Diabetes Sbewhijxt84/06/Bone Density Yqrvwlbot59/06/2009RSV Vaccine (1 - 1- dose 75+ series)09/15/2018Advance Directive Xdqkrkucmk81/01/2025ovid-19 Vaccine ( - 2024- season)2025Influenza Vaccine (#1)2025 Procedures Procedure NamePriorityDate/TimeAssociated DiagnosisCommentsCOMPREHENSIVE METABOLIC PANEL12/16/2000 10:42 AM EDT from Last 3 Months or Most Recently Relevant to Health Maintenance Results * (ABNORMAL) COMP CHEMISTRY PKG (12/16/2000 10:42 AM EDT)ComponentValueRef Range Test MethodAnalysis TimePerformed AtPathologist SignatureProtein, Total6.96.0 - 8.4 g/dLAD[facility] LABAlbumin3.93.5 - 5.0 g/dLAD[facility] Calcium9.38.5 - 10.5 mg/dLADENA [facility]KE [facility] LABBilirubin, Total0.40.0 - 1.5 mg/dLADENA PIKE [facility] LABAlkaline Thbwzuprdlp2575 - 120 U/LCP[facility] RIZGMI030 - 40 U/LCPARK[facility] LVGKnocmjs316(A)65 - 110 mg/dLAD[facility] LHLBFE525 - 25 mg/dLAD[facility] LABCreatinine0.5(A)0.7 - 1.4 mg/dL [facility] WJLRowedg454897 - 148 mmol/LCPARKVIEW [facility] LABPotassium4.3 3.5 - 5.0 mmol/LCPARKVIEW [facility] FVEXyrnhekg81338 - 110 mmol/LCPARK[facility] TRJEM308(A)24 - 32 mmol/LCPARK[facility] LABAnion Gap16(A)0 - 15 mmol/L [facility] VLPKCJ485 - 45 U/LCPARKVIEW [facility] LABSpecimen (Source) Anatomical Location / LateralityCollection Method / VolumeCollection Time Received Time12/16/2000 10:42 AM EDT Narrative Authorizing ProviderResult TypeResult StatusRodri Soria MD, PhDLABORATORYFinal ResultPerforming OrganizationAddressCity/State/ZIP CodePhone Number [facility] [address] [place] [address] from Last 3 Months or Most Recently Relevant to Health Maintenance
--- OUTSIDE RECORDS SUMMARY | 2025-05-04 11:20 | XMS_ITS | Clinical Summary ---
Author Organization [facility] Address [address] [place] [address] Care Team Providers Care Indigo Mixer Name Role Phone Piyush Burk MD Primary Care Provider [phone] Allergies Active AllergyReactionsCriticalityNoted DateCommentsBee Nfoovm4012/26/2021 Chlordiazepoxide-Hlnnytcgs92/16/5904Iiahngohrysu73/16/2022 Medications MedicationSigDispense QuantityRefillsLast FilledStart DateEnd DateStatus busPIRone (Buspar) 5 mg tablet Take 3 tablets by mouth two times daily.Active FeroSuL 325 mg (65 mg iron) tablet Take 1 tablet by mouth in the morning and at bedtime.04/15/2023ctive hydrOXYzine HCL (Atarax) 25 mg tablet every 6 (six) hours.Active memantine (Namenda XR) 28 mg capsule,sprinkle,ER 24hr Take 28 mg by mouth.11/20/2021ctive donepezil ODT (Aricept ODT) 10 mg disintegrating tablet 1 tablet Orally at bedtime for 30 daysActive pantoprazole (ProtoNix) 20 mg EC tablet 1 (one) time each day at the same time.Active PARoxetine (Paxil) 40 mg tablet Take 40 mg by mouth in the morning.04/16/2023ctive QUEtiapine (SEROquel) 50 mg tablet 1 (one) time each day at the same time.Active rOPINIRole (Requip) 0.25 mg tablet 1 (one) time each day at the same time.Active Topamax 50 mg tablet 100 mg in the morning.09/11/2023ctive mirtazapine (Remeron) 30 mg tablet Take 30 mg by mouth at bedtime.5Active ascorbic acid (Vitamin C) 500 mg/5 mL liquid Take by mouth in the morning.Active atorvastatin (Lipitor) 20 mg tablet Indications:Pure hypercholesterolemiaTake 1 tablet (20 mg) by mouth at bedtime. 90 tablet ctive Active Problems ProblemNoted DateDiagnosed DateOrthostatic jymlwmvikvq72/12/2025KI (acute kidney injury)12/03/20239630Bnhcpphsl21/23/4117Vchbuecukch14/23/2024Elevated LFTs 12/03/2023ight ankle arksnk4412/03/2023MI 24.0-24.9, adult Depressive rvisrsez26Former bzuyir76ERD (gastroesophageal reflux disease)Iron deficiency anemia Osteopeniaure hypercholesterolemia 01/28/2023ody mass index (BMI) 26.0-26.9, adult12/02/20221348Mypyucjjzcw35/10/2023 Vitamin D deficiency, usgjypondjv23/06/2023ifficulty in walking, not elsewhere jyvggzmgze68/03/2023Muscle weakness (generalized)11/12/2022Other fatigue 11/12/2022onstipation, /02/2023Iron glrcgligow82/02/2023acemaker 11/11/2022Restless legs11/11/2022nemia, jqzowlaxwqx51/30/2023alcaneal spur, left foot11/09/2022History of azqfyyh0211/09/20224355Xipolupiwbqr00/30/2023Insomnia, ddudxxouutk26/30/2023Other specified disorders of bone density and structure, unspecified site11/09/2022ersonal history of nicotine /30/2023 Calcaneal spur11/09/2022Fall11/09/2022Fracture of mkaxix9511/09/2022Metatarsal bone danghybw37/30/2023Nicotine dpaetpqgrz06/30/2023nxiety as acute reaction to exceptional /2023Caregiver /isc displacement, sjmoyt52isorder of lmazot28 Chest pain12/26/2021Hx of tahepivlthfitmo86/16/2022hronic znrjykn3312/26/2021 History of musculoskeletal hdswcga6612/26/2021Essential hypertension, benign 12/26/2021 Assessment & Plan (06/12/2022 12:55 PM EST): Hypertension is elevated -patient agreeable to starting low dose norvasc 2.5mg -unclear when or why she stopped her lisinopril/hctz H/O: aqncygbumoki89/16/2022Mobitz type II atrioventricular block12/26/2021 Assessment & Plan (06/12/2022 12:55 PM EST): -s/p PPM 06/2021 -device functioning well, follow up with device clinic as scheduled (should be around 3 months fromnow) Recurrent major depression in partial btmczuokl17/16/2022Tight chest12/26/2021 Diabetes mellitus type II, non insulin gpgsotnkl37/16/1090Mwvukufe61/13/2022 05/03/2023Marital flhnxbdf22eneralized anxiety disorder Major depressive disorder, single episode, moderate Social History Tobacco UseTypesPacks/DayYears UsedDateSmoking Tobacco: FormerCigarettes Smokeless Tobacco: NeverAlcohol UseStandard Drinks/WeekCommentsNever0 (1 standard drink = 0.6 oz pure alcohol)UT Safety & EnvironmentAnswerDate Recorded Fear of Current or Ex-PartnerNot on file07/04/2023Emotionally AbusedNot on file 07/04/2023hysically AbusedNot on file07/04/2023Sexually AbusedNot on file 07/04/2023hysically or Sexually AbusedNot on file07/04/2023Comments UnknownSex and Gender InformationValueDate RecordedSex Assigned at BirthFemale 01/18/2025 3:04 PM EDTLegal WojCxlayn13/29/2022 10:03 PM EDTGender Identity Rulirx2201/18/2025 3:04 PM EDTSexual OrientationHeterosexual or Uknxvfcr01/08/2025 3:04 PM EDT Last Filed Vital Signs Vital SignReadingTime TakenCommentsBlood Lwspbasg468/8807/22/2024 10:23 AM EDT Gtgey980507/22/2024 10:23 AM EDTTemperature--Respiratory Rate--Oxygen Saturation 98%07/22/2024 10:23 AM EDTInhaled Oxygen Concentration--Fiyccg36.9 kg (99 lb) 07/22/2024 10:23 AM VGWHifxyl264.4 cm (5')07/22/2024 10:23 AM EDTBody Mass Index 19.33007/22/2024 10:23 AM EDT Plan of Treatment Health MaintenanceDue DateLast DoneCommentsDiabetes: Hemoglobin A1C1943 Medicare Annual Wellness (AWV)4Diabetes: Retinopathy Screening 4Depression Bceqoddbx25/06/1956Diabetes: Urine Protein Screening 09/15/1962Pneumococcal Vaccine: 50+ Years (1 of 2 - PCV)09/15/1962Adult Tetanus 09/15/1965Zoster Vaccines (1 of 2)09/15/1993Fall Risk Nzzpdftcz22/06/2009COVID- 19 Vaccine ( season)/, 12/25/2021, 08/23/2020, Additional history existsInfluenza Vaccine (#1)/, 05/03/2020, 02/22/2014, Additional history existsHIB VaccinesAged OutNo longer eligible based on patient's age to complete this topicHPV VaccinesAged OutNo longer eligible based on patient's age to complete this topicIPV VaccinesAged OutNo longer eligible based on patient's age to complete this topicMeningococcal B VaccineAged OutNo longer eligible based on patient's age to complete this topic Meningococcal VaccineAged OutNo longer eligible based on patient's age to complete this topicRotavirus VaccinesAged OutNo longer eligible based on patient's age to complete this topic Insurance Care Teams Team MemberRelationshipSpecialtyStart DateEnd Piyush Burk MD [address] [facility] [address] [address] PCP - Ugupbet81/22/23
--- OUTSIDE RECORDS SUMMARY | 2025-05-04 11:20 | XMS_ITS | Patient Health Record ---
Author Organization [facility] Address [address] [place] [address] [place] [address] Care Team Providers Care Steel Finisher Name Role Phone Piyush Burk MD Primary Care Provider UnavailConstantino Kendrick Unavailable [phone] Reason For Referral No Information Encounters Encounter Location Date Provider Diagnosis [facility] [address] [place] [address] 07/15/2024 Constantino Velasquez [facility] [address] [place] [address]/08/2024 Constantino [facility] [id number] [place] [address]/07/2024Constantino Velasquez Plan Of Treatment No Information Insurance Providers Payer Name Payer Address Payer Phone Subscriber Number Group Number Insured Name Patient Relationship to Insured Coverage Start Date Coverage End Date Medicare Part B J-15 Part [facility] Claims [address] [place] [address] [id number], WilmaSelf - patient is the insuredAnth Blue Cross and Blue [facility] [address] [place], [place] [id number], WilmaSelf - patient is the insuredMedicaid [place] [employer] [facility] Job Fmly [address] [place], [place] [id number], WilmaSelf - patient is the insured
--- OUTSIDE RECORDS SUMMARY | 2025-05-04 11:20 | XMS_ITS | Patient Health Record ---
Author Organization [facility] Address [address] [address] Support Name Relationship Address Phone [place] [address] CARLITOS RACHEL Guarantor Unknown [phone] Allergies Allergen (clinical drug ingredient) Drug/Non Drug Allergy documented on EMR Reaction Allergy Type Onset Date Status chlordiazepoxide / clidinium Librax Unknown Drug Al lergy ActiveBee StingUnknownAllergyActive Reason For Referral No Information Medications Medication SIG (Take, Route, Frequency, Duration) Notes Start Date End Date Status Sucralfate 1 GM Tablet 1 tablet Orally once a da y ActiveAlbuterol Sulfate HFA 108 (90 Base) MCG/ACT Aerosol Solution1 puff as needed Inhalation twice a day (bid)ActiveAmoxicillin-Pot Clavulanate 875-125 MG Tablet1 tablet Orally twice a day (bid)ActiveBenzonatate 100 MG Capsule1 capsule Orally Three times a day prnActivepredniSONE 10 MG Tablet1 tablet Orally once a dayActiveLisinopril-hydroCHLOROthiazide 20-25 MG Tablet1 tablet Orally Once a dayActivePARoxetine HCl 30 MG Tablet1 tablet Orally once a day; Duration: 30 day(s)ActivePantoprazole Sodium 20 MG Tablet Delayed Release1 tablet Orally once a dayActive Social History Tobacco Use: Social History Observation Description Date Details (start date - stop date) Former Smoker NA - NA Social History GeneralSocial InfoQuestionAnswerNotesDepression Screening (PHQ-9):Little interest or pleasure in doing thingsSeveral daysFeeling down, depressed, or hopelessMore than half the daysTrouble falling or staying asleep, or sleeping too muchNearly every dayFeeling tired or having little energyNearly every day Poor appetite or overeatingNearly every dayFeeling bad about yourself-or that you are a failure or have let yourself or your family downNearly every day Trouble concentrating on things, such as reading the newspaper or watching televisionNearly every dayMoving or speaking so slowly that other people could have noticed. Or the opposite being so fidgetyor restless that you have been moving around a lot more than usualMore than half the daysThoughts that you would be better off , or of hurting yourself in some wayNot at allTotal Lybrs70NatrflaccjdeuEuhgmx DepressionTobacco Screen:Are you a:former smoker? How long has it been since you last smoked?> 10 yearsAlcohol Screening:Did you have a drink containing alcohol in the past year?PlIwlspe4DycewedfmcovznMrgfwifp Problems Problem Type SNOMED Code ICD Code Onset Dates Problem Status W/U Status Risk Notes Problem Moderate recurrent m ajor depression (15674490) Moderate episode of recurrent major depressive disorder (F33.1) ActiveconfirmedProblemGeneralized anxiety disorder (21940848)Generalized anxiety disorder (F41.1)Activeconfirmed Plan Of Treatment No Information Insurance Providers Payer Name Payer Address Payer Phone Subscriber Number Group Number Insured Name Patient Relationship to Insured Coverage Start Date Coverage End Date [employer] MEDICARE ADVANTAGE [address] [place] [address] [id number] CARLITOS RACHEL Self - patient is the insured 2 MEDICARE [address] [place] [id number] Samreen RACHELlf - patient is the [id number] 2021 Medical (General) History Medical History History ICD Code Anxiety DepressionHypertensionLower back painRestless leg syndromeAcid RefluxSurgical History Surgery Date(Month/Year) Tonsillectomy LT toenail RemovalTubal LigationTotal HysterectomyBariatricCholecystectomyTumor on adrenal glandBroken arms/wrists LT and RTHospitalization History Reason Date(Month/Year) Child Surgery
--- OUTSIDE RECORDS SUMMARY | 2025-05-04 11:20 | XMS_ITS | Patient Health Record ---
Author Organization [facility] in [place] Address [address] [place] [address] Care Team Providers Care Automatic Glove Former Name Role Phone Angel Burk Primary Care Provider Allergies Allergen (clinical drug ingredient) Drug/Non Drug Allergy documented on EMR Reaction Allergy Type Onset Date Status chlordiazepoxide / clidinium Librax Unknown Drug Al lergy ActivelisinoprilLisinoprilUnknownDrug AllergyActiveprimidonePrimidonenightmares Drug AllergyActive Results Component Value Reference Range Notes CBC AUTO DIFF Reviewed date:03/01/2025 02:24:16 PM Interpretation: Performing Lab: Notes/Report: [facility] , White Blood Count 9.4 4.0-11.0 10 3/uL Red Blood Count4.164.20-5.40 10 6/vYZrzrgzyfvr69.212.0-16.0 g/qQBygvxptryf51.8 36.0-48.0 %Mean Corpuscular Xyegmv70.981.0-99.0 fLMean Corpuscular Hemoglobin 29.326.7-34.0 pgMean Corpuscular HGB Conc32.329.9-35.2 g/dLRed Cell Distribution Width13.911.0-15.0 %Platelet Lwdct651936-026 10 3/uLMean Platelet Wpreyu28.59.5- 13.5 fLNeutrophils Percent Auto47.543.0-75.0 %Lymphocytes Percent Auto45.720.5- 60.0 %Monocytes Percent Auto4.61.7-12.0 %Eosinophils Percent Auto1.80.9-7.0 % Basophils Percent Auto0.20.2-2.0 %Immature Granulocytes Pct Auto0.20.0-0.5 % Neutrophils Absolute Auto4.51.4-6.5 10 3/uLLymphocytes Absolute Auto4.31.2-3.8 10 3/uLMonocytes Absolute Auto0.40.3-0.8 10 3/uLEosinophils Absolute Auto0.20.0- 0.7 10 3/uLBasophils Absolute Auto0.00.0-0.1 10 3/uLImmature Granulocytes Abs Auto0.020.00-0.03 10 3/uLPerforming Lab:see noteML - [facility] LBPTT Reviewed date:03/01/2025 02:24:16 PM Interpretation: Performing Lab: Notes/Report: [facility] ,Partial Thromboplastin Time20.222.3-36.2 secPerforming Lab:see noteML - [facility] LBProthrombin Time INR Reviewed date:03/01/2025 02:24:16 PM Interpretation: Performing Lab: Notes/Report: [facility] ,Prothrombin Time10.59.0-11.6 secINR0.99 2.5-3.5 RECURRENT THROMBOSIS DESIRED INR: 2.5-3.5 FOR PROSTHETIC HEART VALVE REPLACEMENT 2.0-3.0 CONDITIONS NOT LISTED BELOW Performing Lab:see noteML - [facility] LBXR hip LT 2V w/ pelvis Reviewed date:03/01/2025 02:24:16 PM Interpretation: Performing Lab: Notes/Report: Source Facility: [facility]-[address] [place] [address] [place] [address] XRay Report Signed Patient: CARLITOS RACHEL MR#: [id number] : 1945 Acct:[id number] Age/Sex: 79 / F ADM Date: 03/01/25 Loc: ER Attending Dr: Ordering Physician: Dada Ortez D.O. Date of Service: 03/01/25 Procedure(s): XR hip LT 2V w/ pelvis Accession Number(s): [id number] cc: Dada Ortez D.O.; Piyush Burk M.D. [place] [address] Patient Name: CARLITOS RACHEL MRN: [facility]:[id number] date: 1945 Sex: F Assigned Patient Location: ED.MAIN Current Patient Location: ED.MAIN Accession/Order Number: [id number] Exam Date: 03/01/2025 12:15 Report Date: 03/01/2025 12:40 At the request of: DADA ORTEZ Procedure: XR hip LT 2V w/ pelvis XR hip LT 2V w/ pelvis 03/01/2025 12:23 PM SIGNS AND SYMPTOMS: fall, left hip pain and left LE shortening PROTOCOL: Frontal radiograph the pelvis with frontal and crosstable lateral views of the left hip COMPARISON: None FINDINGS: There is an intertrochanteric fracture of the left hip with varus angular deformity and shortening. There is mild narrowing of the left hip joint space. Degenerative changes are noted in the lumbar spine and sacral iliac joints. XR/XR hip LT 2V w/ pelvis IMPRESSION: There is an intertrochanteric fracture of the left hip with varus angular deformity and shortening. Impression dictated by: Washington Whitaker M.D. 03/01/2025 12:40 PM Dictation Location: [place] [address] Electronically authenticated by: [id number] Y Date: 03/01/2025 12:40 Dictated By: Washington Whitaker M.D. Signed By: 03/01/25 1243 DD/ 1240 TD/TT: Assistant Grocery:ECG 12 lead Reviewed date:03/01/2025 02:24:16 PM Interpretation: Performing Lab: Notes/Report: Source Facility: [place] [address] [place] [address] Electrocardiograph Report Signed Patient: CARLITOS RACHEL MR#: [id number] : 1945 Acct:[id number] Age/Sex: 79 / F ADM Date: 03/01/25 Loc: ER Attending Dr: Ordering Physician: Dada Ortez D.O. Date of Service: 03/01/25 Procedure(s): ECG 12 lead Accession Number(s): [id number] cc: [facility] Test Date: 2025-03-01 Pat Name: CARLITOS RACHEL Department: Room: - Gender: Female Dough Sheeter: : 1945 Requested By: Dada Ortez Order Number: [id number] Reading MD: JESSIE GREEN Measurements Intervals [place] Rate: 70 P: -58 CA: 148 QRS: -83 QRSD: 166 T: 83 QT: 476 QTc: 497 Interpretive Statements 02977 Electronic atrial pacemaker 2550 Left bundle branch block 7200 Abnormal left axis deviation 9150 abnormal ECG Compared to ECG 11/14/2023 20:02:52 Left bundle-branch block now present Left-axis deviation now present Electronically Signed On 03-01-2025 13:18:08 EDT by JESSIE GREEN Dictated By: Jessie Green M.D. Signed By: 03/01/25 1318 DD/ 1124 TD/TT: Assistant Grocery:PROF Rolon(COMP METB) Reviewed date:03/01/2025 02:24:16 PM Interpretation: Performing Lab: Notes/Report: [facility] ,Jykgep340021-963 mmol/LPotassium3.73.5-5.1 mmol/UXkxkxydj46660-874 mmol/LCarbon Xplmsbz00.621.0-32.0 mmol/LAnion Gap20.4Gnmsqyb21995-030 mg/dLBlood Urea Gyijjlxj25.07.0-18.0 mg/dLCreatinine1.430.55-1.02 mg/dLEstimated GFR ( Lkjutri06>=60 mL/min/1.73m 2Estimated GFR (Non- Ame35>=60 mL/min/1.73m 2 BUN Creatinine Ratio20.8Ocvzpze6.78.5-10.1 mg/dLBilirubin Total1.00.2-1.0 mg/dL Aspartate Amino Jjgizezxdoa0790-02 U/LAlanine Znrdltevptvbgdlu3880-70 U/L Alkaline Apdcewfnyvc0531-155 U/LTotal Protein5.76.4-8.2 g/dLAlbumin Level2.73.4- 5.0 g/dLGlobulin3.0Albumin Globulin Ratio0.9Performing Lab:see noteML - [facility] Reason For Referral No Information Medications Medication SIG (Take, Route, Frequency, Duration) Notes Start Date End Date Status Mirtazapine 30 MG 1 tablet at bedtime Orally Onc e a day; Duration: 30 days 5ActiveMemantine HCl ER 28 MGTAKE 1 CAPSULE BY MOUTH DAILY; Duration: 90ActiveOlmesartan Medoxomil 5 MGTAKE 1 TABLET BY MOUTH DAILY; Duration: 90 ActiveCholecalciferol 25 MCG (1000 UT)2 capsule Orally Once a day; Duration: 90 daysActivebusPIRone HCl 15 MGTAKE 1 TABLET BY MOUTH TWICE DAILY; Duration: 90 ActiveFerrous Sulfate 325 (65 Fe) MG1 tablet Orally BID; Duration: 90 daysActive Colace 100 MG1 capsule as needed Orally twice daily5ActiveQUEtiapine Fumarate 50 MGTAKE 1 TABLET BY MOUTH ONCE DAILY; Duration: 90ActivePARoxetine HCl 20 MGTAKE 1 TABLET BY MOUTH DAILY daily; Duration: 90 daysActiveAscorbic Acid 500 MG1 tablet Orally Once a day; Duration: 30 daysActiveTopiramate 50 mg TAKE ONE TABLET BY MOUTH DAILY AT BEDTIME; Duration: 30ActiveAlbuterol Sulfate HFA 108 (90 Base) MCG/ACT1 puff as needed Inhalation every 4 hrsActiverOPINIRole HCl 0.25 MGTAKE 1 TABLET BY MOUTH ONCE DAILY; Duration: 90Active Social History Tobacco Use: Social History Observation Description Date Details (start date - stop date) Former Smoker NA - NA Tobacco Use/Smoking Question Answer Notes Patient is a former smoker Alcohol Screen (Audit-C) Question Answer Notes Did you have a drink containing alcohol in the p ast year? No Qlzoxt5RlxqoyofhstflzCzjzyuysBGPBI-S (Standard) Question Answer Notes Did you have a drink containing alcohol in the p ast year? No Gdkacv2RdnvhvpdfkheyiArvluniz Problems Problem Type SNOMED Code ICD Code Onset Dates Problem Status W/U Status Risk Notes Problem Bronchitis (58036852) Bronchitis , not specified as acute or chronic (J40) ActiveconfirmedProblemIngrowing nail (641424976)Ingrowing nail (L60.0)Active confirmedProblemOther specified disorders of bone density and structure, unspecified ankle and foot (M85.879)ActiveconfirmedProblemAbdominal pain (24738822)Abdominal pain (R10.9)ActiveconfirmedProblemAnxiety (47859375)Anxiety (F41.9)ActiveconfirmedProblemTremor (07922353)Tremor (R25.1)Activeconfirmed ProblemDementia (74107424)Dementia (F03.90)ActiveconfirmedProblemType II diabetes mellitus without complication (637709753)Type 2 diabetes mellitus without complication (E11.9)ActiveconfirmedProblemClosed fracture of femur (05665799)Femur fracture, left (S72.92XA)ActiveconfirmedProblemChest wall tenderness (491975667)Chest wall tenderness (R07.89)ActiveconfirmedProblemClosed fracture of metatarsal bone (72173786)Closed displaced fracture of fourth metatarsal bone of left foot (S92.342A)ActiveconfirmedProblemClosed fracture of metatarsal bone (50862953)Closed displaced fracture of second metatarsal bone of left foot (S92.322A)ActiveconfirmedProblemClosed fracture of metatarsal bone (39921959)Closed displaced fracture of third metatarsal bone of left foot (S92.332A)ActiveconfirmedProblemEssential hypertension (43873160)BP (high blood pressure) (I10)ActiveconfirmedProblemClosed fracture of metatarsal bone (90960168)Closed displaced fracture of first metatarsal bone of left foot, initial encounter (S92.312A)ActiveconfirmedProblemChronic kidney disease stage 3B (disorder) (588957211)Chronic kidney disease, stage 3b (N18.32)Active confirmedProblemDementia (60408684)Unspecified dementia, unspecified severity, without behavioral disturbance, psychotic disturbance, mood disturbance, and anxiety (F03.90)Activeconfirmed Vital Signs Blood pressure diastolic 82 mm Hg 05/04/2025 Rqoasv90 in05/04/2025lood pressure emdlpkpz698 mm Hg05/04/20257143Krvpft983.8 lbs 05/04/2025BMI20.07 kg/m205/04/2025 Encounters Encounter Location Date Provider Diagnosis [facility] [address] [place] [facility] [place] [address] 07/22/2024 Angel Burk Type 2 diabetes louisa itus without complication E11.9 ; Other specified disorders of bone density and structure, unspecified ankle and foot M85.879 ; Dementia F03.90 and Anxiety F41.9 [facility] [address] [place] [place] [address] 04/19/2025 Angel Michely Chronic kidney disea se, stage 3b N18.32 ; Type 2 diabetes mellitus without complication E11.9 and Unspecified dementia, unspecified severity, without behavioral disturbance, psychotic disturbance, mood disturbance, and anxiety F03.90 [facility] [address] [place] [place] [address] 05/04/2025 Angel Burk Abdominal pain R10.9 [facility] [address] [place] [facility] [place] [address] 03/08/2025 Angel Hoy [facility] [place] [facility] [place] [address] 04/14/2025Doug [facility] [place] [place] [address]/12/2024Doug HoyFemur fracture, left S72.92[facility] [place] [facility] [place] [address]/09/2025Doug [facility] [place] [place] [address] 12/16/2024Doug [facility] [place] [facility] [place] [address]/09/2024Doug [facility] [place] [place] [address]Doug [facility] [facility] [place] [address]/01/2025Doug [facility] [place] [place] [address]/Doug [facility] [facility] [place] [address]/ [facility] [facility] [place] [address]/Doug [facility] [facility] [place] [address]/Doug HoyDementia F03.90[facility] [facility] [place] [address]/Doug [facility] [facility] [place] [address]/ [facility] [facility] [place] [address]/Doug [facility] [facility] [place] [address]/Doug [facility] [facility] [place] [address]/11/2024Doug [facility] [facility] [place] [address]/Doug [facility] [facility] [place] [address]/04/2025 [facility] [facility] [place] [address]/04/2025Doug HoyDementia F03.90 Assessments Encounter Date Diagnosis (ICD Code) Assessment Notes Treatment Notes Treatment Clinical Notes Section Notes 07/22/2024 Other specified diso rders of bone density and structure, unspecified ankle and foot (ICD-10 - M85.879) 07/22/2024Type 2 diabetes mellitus without complication (ICD-10 - E11.9) 04/19/2025Type 2 diabetes mellitus without complication (ICD-10 - E11.9) 04/19/2025hronic kidney disease, stage 3b (ICD-10 - N18.32)05/04/2025bdominal pain (ICD-10 - R10.9)07/22/2024Dementia (ICD-10 - F03.90)08/04/2024Dementia (ICD-10 - F03.90)04/19/2025Femur fracture, left (ICD-10 - S72.92XA)04/19/2025 Unspecified dementia, unspecified severity, without behavioral disturbance, psychotic disturbance, mood disturbance, and anxiety (ICD-10 - F03.90)07/22/2024 Dementia (ICD-10 - F03.90)07/22/2024nxiety (ICD-10 - F41.9) Plan Of Treatment Pending Test Test Name Order Date CMP (COMPLETE METABOLIC PANEL) 3 HEMOGLOBIN A1C (GLYCO) 03/28/2023 IRON, TOTAL 03/28/2023 LIPID PANEL (CHOL/TRIG/HDL/LDL) 03/28/20 CBC WITH DIFF (EXP 03/2025) 03/28/2023 VITAMIN D, 25 LEVEL (TOTAL) 03/28/2023 CT ABD and PELV W CON 05/04/2025 THYROID PANEL (T4/TSH/FREE T3) 3 Insurance Providers Payer Name Payer Address Payer Phone Subscriber Number Group Number Insured Name Patient Relationship to Insured Coverage Start Date Coverage End Date [place] [address] [place] [address] [id number] Carlitos RachelSelf - patient is the [id number] 2008[employer] MEDICARE SUPPLEMENT [address] [place] [id number], Wilma Self - patient is the [id number] 2011MEDICAID [facility] [address] OFFICE OF [place], [place] [id number], Wilma Self - patient is the insured Medical (General) History Medical History History ICD Code hypertension GERDAnemiaformer smokerleft foot calcaneal spurnondisplaced fracture of cuboid , medial cuneiform, 1, 2, 3, 4th metatarsal, leftmild dementiaosteoarthritis Surgical History Surgery Date(Month/Year) intramedullary nailing Left proximal fem ur, Synthes TFN Colonoscopy & EGD Dr. Wilson4adrenal gland surgeryright knee surgery hysterectomybariatric surgeryHospitalization History Reason Date(Month/Year) fall, fracture left foot 11/02
--- NOTE | 2025-05-04 11:31 | CT_ITS ---
The [address] [address] Patient Name: CARLITOS RACHEL MRN: [id number] date: 1945 Sex: F Assigned Patient Location: LAB Current Patient Location: LAB Accession/Order Number: [id number] Exam Date: 05/04/2025 12:00 Report Date: 05/04/2025 13:00 At the request of: KATIE SANTIAGO MD Procedure: CT abdomen pelvis w con CT ABDOMEN AND PELVIS WITH CONTRAST COMPARISON: 06/16/2020 CLINICAL DATA: Abdominal pain at the left lower quadrant for the past couple weeks. Constipation. Spiral images were obtained through the abdomen pelvis following 100 mL of Omnipaque 300. This CT exam was performed using one or more following dose reduction techniques: Automated exposure control, adjustment of the mA and/or kV according to patient size, or use of iterative reconstruction technique. Limited cuts through the lung bases show no contributory pulmonary findings. There is a tiny hiatal hernia with associated suture material suggesting prior bariatric surgery. The gallbladder is surgically absent. That may be the etiology of intra and extrahepatic biliary dilatation. No common duct stones are noted. Tiny cysts are also visualized at the right hepatic lobe. A small splenic cyst is also visualized. The pancreatic duct remains slightly prominent. No other pancreatic abnormalities are seen. The left adrenal gland is not well seen. At the expected location of the adrenal gland on the right, there is redemonstration of a bilobed hypodense mass measuring approximately 5.2 cm in size. The renal nephrograms are symmetric. No hydronephrosis is seen. Bilateral punctate renal stones are not excluded. There are small renal cysts. Atherosclerotic plaque is visualized at the aorta, iliac and some of the visceral arteries. 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 The small bowel loops are not significantly distended. There is stool along the colon. There is subcutaneous edema. A potential lipoma is seen at the left flank. There are multilevel degenerative changes at the spine. Images through the pelvis show prior left ventral hernia repair. There is a new ventral hernia which contains fluid and air. Some of this is bowel however associated abscess is difficult to exclude. The area measures at least 10 cm in greatest dimension. There is infiltration within the subcutaneous fat as well as diffuse edema. The intrapelvic small bowel loops are not significantly distended. There is stool within the right colon and at the rectum. No prominent diverticular disease is noted. The urinary bladder is not well distended for assessment. No pelvic ascites is seen. There are degenerative changes at the hips and a dynamic hip screw on the right. CT/CT abdomen pelvis w con IMPRESSION: CONTINUED BILIARY AND PANCREATIC DUCTAL DILATATION, SIMILAR TO THE PRIOR. HEPATIC AND RENAL CYSTS. POSSIBLE NEPHROLITHIASIS. NO BOWEL OR URINARY TRACT OBSTRUCTION. PRIOR LEFT PELVIC VENTRAL HERNIA REPAIR WITH LARGE RECURRENT HERNIA CONTAINING FLUID-FILLED BOWEL AND/OR ABSCESS. REPEAT PELVIC CT FOLLOWING ORAL CONTRAST MAY BE HELPFUL FOR DIFFERENTIATION. DIFFUSE SUBCUTANEOUS EDEMA. Impression dictated by: Modesta Salgado M.D. 05/04/2025 1:00 PM Dictation Location: [place] Electronically authenticated by: [id number] Y Date: 05/04/2025 13:00
[2025-05-04 11:37] LABS: Estimated GFR (African America 40 (>=60 mL/min/1.73m^2); Estimated GFR (Non-African Ame 33 (>=60 mL/min/1.73m^2)
== END 2025-05-04 11:14 | disposition home or self-care (01) ==
PROVIDERS: PCP Family Medicine; Visit Provider Family Medicine
DX: R10.9 Unspecified abdominal pain (principal); N28.1 Cyst of kidney, acquired; K76.89 Other specified diseases of liver
CPT/HCPCS: 36415; 74177; 82565; Q9967

== ENCOUNTER 2025-05-04 14:39 | Emergency (ER) | payer MEDICARE, BC, MEDICAID, SELFPAY ==
--- OUTSIDE RECORDS SUMMARY | 2020-08-04 09:45 | XMS_ITS | Continuity of Care Document ---
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 Advance Directives Directive Yes / No Effective Date File Name No Information Encounters Encounter Description Practice Location Reason(s) For Visit Diagnoses Date Provider Encounter Disposition OFFICE/OUTPAT IENT VISIT, [facility], [address] [place] [address], [id number], [place] tel:[phone] [facility] No Information Brant Mishra. [address] [place] [address], [id number], [place]. tel:[phone] [facility] [facility], [address] [place] [address], [id number], [place] tel:[phone] [facility] No Information Brant Mishra. [address], [id number], [place]. tel:[phone] [facility] [facility], [address] [place] [address], [id number], [place] tel:[phone] [facility] No Information Brant Mishra. [address], [id number], [place]. tel:[phone] Family History Family Member Type Diagnosis Age At Onset No Information Payers Payer name Insurance type Identifiers Authorization(s) Com ments Medicare MB iber ID: [id number] Name: Coverage Status Eligibility Check on: UnknownRelationship to Subscriber: selfPayer Address: [address] , [place], [place], [id number] Phone: [phone] Kelsey CI riber ID: [id number] Name: Coverage Status Eligibility Check on: UnknownRelationship to Subscriber: selfPayer Address: [address], [place], [place], [id number], [facility] Phone: [phone] Social History Type Description Quantity Date Captured Comments Sex Female Smoking Status No Information Current Gender Female (finding) Chief Complaint And Reason For Visit No Information History Of Present Illness Encounter Date Complaint History Of Prese nt Illness No Information Functional Status Date Description Comments No Information Instructions Date Instruction Additional Infor mation No Information Assessments Type Assessment Date No Information
[2025-05-04 14:43] VITALS: BP 98/57; PULSE 86; TEMP 36.8; O2SAT 100; BMI 20.7
--- OUTSIDE RECORDS SUMMARY | 2025-05-04 17:03 | XMS_ITS | Clinical Summary ---
Author Organization [facility] Address [address] [place] [address] Care Team Providers Care Emergency Department Coordinator Name Role Phone Unavailable Primary Care Provider Unavailabl e Social History Tobacco UseTypesPacks/DayYears UsedDateSmoking Tobacco: Never Assessed CommentsUnknownSex and Gender InformationValueDate RecordedSex Assigned at Not on fileLegal SjbOdvfos51/02/2012 9:45 AM ESTGender IdentityNot on fileSexual OrientationNot on file Plan of Treatment Health MaintenanceDue DateLast DoneCommentsAnxiety Rvqxhnhlj49/06/1962Depression Jrehqkrfx78/06/1962DTaP,Tdap,Td Vaccine (1 - Tdap)09/15/1962Pneumococcal Vaccine: 50+ (1 of 1 - PCV)09/15/1993Shingrix Vaccine (1 of 2)09/15/1993Diabetes Mtmopgqmr88/06/Bone Density Bhiyiunqr61/06/2009RSV Vaccine (1 - 1- dose 75+ series)09/15/2018Advance Directive Aqujganrni12/01/2025ovid-19 Vaccine ( - 2024- season)2025Influenza Vaccine (#1)2025 Procedures Procedure NamePriorityDate/TimeAssociated DiagnosisCommentsCOMPREHENSIVE METABOLIC PANEL12/16/2000 10:42 AM EDT from Last 3 Months or Most Recently Relevant to Health Maintenance Results * (ABNORMAL) COMP CHEMISTRY PKG (12/16/2000 10:42 AM EDT)ComponentValueRef Range Test MethodAnalysis TimePerformed AtPathologist SignatureProtein, Total6.96.0 - 8.4 g/dLOH[facility] LABAlbumin3.93.5 - 5.0 g/dLOHIO [facility] LAB Calcium9.38.5 - 10.5 mg/dLOHIO [facility]ARDING [facility]OSP[facility] LABBilirubin, Total0.40.0 - 1.5 mg/dLOHIO [facility]ARDING [facility] LABAlkaline Cezsffhwdrb1317 - 120 U/LCMADISON [facility]ALTH MHUBBQ805 - 40 U/LCMADISON [facility] ESNYotlcef387(A)65 - 110 mg/dLOHIO [facility] GDHDBO866 - 25 mg/dLOHIO [facility] LABCreatinine0.5(A)0.7 - 1.4 mg/dL [facility] TDUVvlxqm713779 - 148 mmol/LCMADISON HEALTH LABPotassium4.3 3.5 - 5.0 mmol/LCMADISON [facility]ALTH RDOAvrbtxik97529 - 110 mmol/LCMADISON [facility]ALTH YPXUJ497(A)24 - 32 mmol/LCMADISON HEALTH LABAnion Gap16(A)0 - 15 mmol/L [facility] CTXYJP607 - 45 U/LCMADISON HEALTH LABSpecimen (Source) Anatomical Location / LateralityCollection Method / VolumeCollection Time Received Time12/16/2000 10:42 AM EDT Narrative Authorizing ProviderResult TypeResult StatusRodri Soria MD, PhDLABORATORYFinal ResultPerforming OrganizationAddressCity/State/ZIP CodePhone Number [facility] [address] [place] [address] from Last 3 Months or Most Recently Relevant to Health Maintenance
--- OUTSIDE RECORDS SUMMARY | 2025-05-04 17:03 | XMS_ITS | Clinical Summary ---
Author Organization [facility] Address [address] [place] [address] Care Team Providers Care Ambulance Operations Supervisor Name Role Phone Piyush Burk MD Primary Care Provider [phone] Allergies Active AllergyReactionsCriticalityNoted DateCommentsBee Dqrffb0312/26/2021 Chlordiazepoxide-Jdjjepysf08/16/7545Pozpuztnjdvz11/16/2022 Medications MedicationSigDispense QuantityRefillsLast FilledStart DateEnd DateStatus busPIRone [...] tablet ctive Active Problems ProblemNoted DateDiagnosed DateOrthostatic /12/2025KI (acute kidney injury)12/03/20231196Qncdvhsbw76/23/8611Aekogwsoalr52/23/2024Elevated LFTs 12/03/2023ight ankle dnigsg5012/03/2023MI 24.0-24.9, adult Depressive uawfgywa33Former pgnvzp32ERD (gastroesophageal reflux disease)Iron deficiency anemia Osteopeniaure hypercholesterolemia 01/28/2023ody mass index (BMI) 26.0-26.9, adult12/02/20225462Efdkfmcchyi31/10/2023 Vitamin D deficiency, xixetoallfe97/06/2023ifficulty in walking, not elsewhere witzidgtgt18/03/2023Muscle weakness (generalized)11/12/2022Other fatigue 11/12/2022onstipation, avauzfoqogb16/02/2023Iron uwbegdvlzh15/02/2023acemaker 11/11/2022Restless legs11/11/2022nemia, wmrnpisojkd00/30/2023alcaneal spur, left foot11/09/2022History of hvjljmf9811/09/20222505Kucjsqcydijp90/30/2023Insomnia, tsugjbdayob64/30/2023Other specified disorders of bone density and structure, unspecified site11/09/2022ersonal history of nicotine btnygusfss01/30/2023 Calcaneal spur11/09/2022Fall11/09/2022Fracture of lopenp3411/09/2022Metatarsal bone xuhidvyg04/30/2023Nicotine iqjuvgbayy93/30/2023nxiety as acute reaction to exceptional bvqjmu69/2023Caregiver tsgeql66/isc displacement, ckgpaf62isorder of mbazta66 Chest pain12/26/2021Hx of lrkmsincqugrzif75/16/2022hronic whkxxls3612/26/2021 History of musculoskeletal dwezywx2112/26/2021Essential hypertension, benign 12/26/2021 Assessment & Plan (06/12/2022 12:55 PM EST): Hypertension is elevated -patient agreeable to starting low dose norvasc 2.5mg -unclear when or why she stopped her lisinopril/hctz H/O: ifwrqkxqmgba68/16/2022Mobitz type II atrioventricular block12/26/2021 Assessment & Plan (06/12/2022 12:55 PM EST): -s/p PPM 06/2021 -device functioning well, follow up with device clinic as scheduled (should be around 3 months fromnow) Recurrent major depression in partial jozeoecwm71/16/2022Tight chest12/26/2021 Diabetes mellitus type II, non insulin uofqndecg30/16/8415Sqbrtcei70/13/2022 05/03/2023Marital eucjlumz91eneralized anxiety disorder Major depressive disorder, single episode, [...] Assigned at BirthFemale 01/18/2025 3:04 PM EDTLegal OpoOwmyxv87/29/2022 10:03 PM EDTGender Identity Zliqje1001/18/2025 3:04 PM EDTSexual OrientationHeterosexual or Zfhfileq52/08/2025 3:04 PM EDT Last Filed Vital Signs Vital SignReadingTime TakenCommentsBlood Uusqqesx241/8807/22/2024 10:23 AM EDT Exged879807/22/2024 10:23 AM EDTTemperature--Respiratory Rate--Oxygen Saturation 98%07/22/2024 10:23 AM EDTInhaled Oxygen Concentration--Qbyvzq66.9 kg (99 lb) 07/22/2024 10:23 AM XKZDdjejj119.4 cm (5')07/22/2024 10:23 AM EDTBody Mass Index 19.33007/22/2024 10:23 AM EDT Plan of Treatment Health MaintenanceDue DateLast DoneCommentsDiabetes: Hemoglobin A1C1943 Medicare Annual Wellness (AWV)4Diabetes: Retinopathy Screening 4Depression Imipmegva21/06/1956Diabetes: Urine Protein Screening 09/15/1962Pneumococcal Vaccine: 50+ Years (1 of 2 - PCV)09/15/1962Adult Tetanus 09/15/1965Zoster Vaccines (1 of 2)09/15/1993Fall Risk Koipsmclm22/06/2009COVID- 19 Vaccine ( season)/, 12/25/2021, 08/23/2020, Additional [...] MemberRelationshipSpecialtyStart DateEnd Piyush Burk MD [address] [facility] [address] [place] [address] PCP - Dacexrh13/22/23
[2025-05-04] MEDS: 0.9 % SODIUM CHLORIDE 1,000 ML 999 ML IV (18:06)
[2025-05-04] MEDS: MORPHINE SULFATE 2 MG/ML SYRINGE IV (18:07)
[2025-05-04 18:13] LABS: Hematocrit 34.2 % (36.0-48.0); Hemoglobin 10.3 g/dL (12.0-16.0); Immature Granulocytes Abs Auto 0.07 10^3/uL (0.00-0.03); Immature Granulocytes Pct Auto 0.7 % (0.0-0.5); Lymphocytes Absolute Auto 2.1 10^3/uL (1.2-3.8); Mean Corpuscular HGB Conc 30.1 g/dL (29.9-35.2); Mean Corpuscular Hemoglobin 28.7 pg (26.7-34.0); Mean Corpuscular Volume 95.3 fL (81.0-99.0); Platelet Count 553 10^3/uL (150-450); Red Blood Count 3.59 10^6/uL (4.20-5.40); White Blood Count 10.0 10^3/uL (4.0-11.0)
[2025-05-04 18:23] LABS: Alanine Aminotransferase 16 U/L (14-59); Albumin Globulin Ratio 0.5; Albumin Level 1.8 g/dL (3.4-5.0); Alkaline Phosphatase 134 U/L (46-116); Anion Gap 12.4; Aspartate Amino Transferase 18 U/L (15-37); Blood Urea Nitrogen 42.0 mg/dL (7.0-18.0); Calcium 8.6 mg/dL (8.5-10.1); Carbon Dioxide 24.3 mmol/L (21.0-32.0); Chloride 109 mmol/L (98-107); Estimated GFR (African America 44 (>=60 mL/min/1.73m^2); Estimated GFR (Non-African Ame 36 (>=60 mL/min/1.73m^2); Globulin 4.0 g/dL; Glucose 224 mg/dL (74-106); Lipase 40.0 U/L (16.0-77.0); Potassium 4.7 mmol/L (3.5-5.1); Sodium 141 mmol/L (136-145); Total Protein 5.8 g/dL (6.4-8.2)
[2025-05-04 18:25] VITALS: BP 124/72
[2025-05-04 18:25] LABS: Lactate/Lactic Acid 1.4 mmol/L (0.4-2.0)
[2025-05-04] MEDS: PIPERACILLIN SODIUM/TAZOBACTAM 3.375 GM in 0.9 % SODIUM CHLORIDE 50 ML IV (18:45)
--- NOTE | 2025-05-04 18:45 | ED.GENADUL1 ---
HPI HPI - General Adult General Chief complaint: Abdominal Pain Stated complaint: ABNORMAL IMAGING RESULTS - SENT BY DR BURK Time Seen by Provider: 05/04/25 16:25 Source: patient Mode of arrival: Wheelchair Limitations: no limitations History of Present Illness HPI narrative: Patient is a full code, discussed today at bedside with patient and son is power of compliance attorney. Patient has stage V dementia that patient's son wants everyone to be clear on, she is a very poor historian. Patient has significant dementia, stage V per older son who is power of compliance attorney. He wants me to put this in the chart multiple times so that physicians and staff and nursing are aware that patient's a very extremely poor historian. Patient had gastric bypass surgery at where her son believes was [facility] in [place] a long time ago, over 20 + years. Patient has had several hernia repairs periumbilical and left lower quadrant as well. Patient recently a few months ago had left hip surgery as well, and currently is staying at [facility]/rehab facility. They do daily skin checks. It was noted by nursing staff that a change from Saturday to Saturday there was large area of swelling to left lower quadrant with some mild redness/pinkish discoloration to mass left lower quadrant. Dr. Burk was aware, ordering an outpatient CT of the abdomen pelvis to be done. This was done today and the results came across at approximate 1130 a.m. Patient had diffuse subcutaneous edema, possible nephrolithiasis, hepatic and renal cyst, continued biliary and pancreatic ductal dilatation, similar to previous. Patient has had previous gastric bypass surgery. CT report was compared to June 16, 2020. Dr. Burk had called to son who is a possible returning and recommended patient come to the ER for a surgical evaluation. I did speak to on the phone, he had not spoken to any surgeon prior to patient coming to the ER. We currently have no surgeon on-call today at [facility]. I discussed patient's case with Dr. Burk and recommendation was that patient may need to be transferred to tertiary care center, and we discussed her history briefly. Patient's 2 sons are updated on patient's CT report from this morning, they are aware that we do not have on-call surgery at this time as well but we will do the best to help this patient at this time. Patient has an IV to her right axilla that she is fidgeting with and irritated with. Patient does have mild to moderate left lower quadrant tenderness to palpation to the area with some mild pinkish discoloration to the skin with possible early cellulitis to that area. Patient is currently in rehab at [place]. Patient is a 79-year-old female who is presenting from the outpatient setting at the recommendation of PCP Dr. Burk secondary to having a CT report that shows a large recurrent hernia containing fluid-filled bowel and/or abscess. Patient 2 sons are at bedside, 1 son is power of compliance attorney. Patient states that she is passing gas and having flatulence and having small bowel movements. Unless otherwise stated in this report or unable to obtain because of the patient's clinical or mental status as evidenced by medical record, the patient's positive and negative responses for review of systems for constitutional, eyes, ENT, cardiovascular, respiratory, gastrointestinal, neurological, , musculoskeletal, and integument systems and related systems to the presenting problem are either stated in the history of present illness or were not pertinent or were negative for the symptoms and/or complaints related to the presenting medical problem. Nurses note and vital signs reviewed and patient is not hypoxic. Patient has stage V dementia per son is power of compliance attorney at bedside. General: The patient appears well and in mild distress secondary to situation and irritated with the IV in her right axilla. Patient is resting uncomfortably on cart. Patient is not toxic, lethargic, or listless Skin: Warm, dry, no pallor noted. There is no rash noted. No petechiae, purpura. Head: Normocephalic, atraumatic Eye: Normal conjunctiva, no drainage, EOMI. PERRL Ears, Nose, Mouth, and Throat: oral mucosa is moist. Nares patent. Mouth without vesicles. Cardiovascular: Regular Rate and Rhythm, no murmur, gallop, rub Respiratory: Patient is in no distress, no accessory muscle use, lungs are clear to auscultation, no wheezing, rales or rhonchi Back: non-tender, no CVA tenderness bilaterally to percussion. No CT LS midline pain GI: Patient has a large area of swelling/mass to left lower quadrant, approximately the size of a mini basketball sized does approximately 8 x 5 cm, approximately 6 cm depth. There is mild pinkish/minimal redness discoloration to left lower quadrant as well. Patient has mild suprapubic tenderness to palpation. Patient does have mild bowel sounds noted in this mass. Minimal peritoneal signs. No flank pain bilateral. Patient has no midepigastric or bilateral upper quadrant tenderness to palpation. No pain to back or CVA area. No bilateral lumbar pain. No tenderness to palpation, no masses appreciated. No rebound, guarding, or rigidity noted. No distention Musculoskeletal: Patient has full range of motion of all of the extremities, no motor, sensory, or focal neurological deficits Neurological: A&O x2, confused to time. Patient knows her name, knows that she is in the hospital, knows the [place] holidays coming up, but confused to time or president. This is baseline for the patient., normal speech Psychiatric: Cooperative, patient has progressing stage V dementia per son and is a very poor historian Related Data Home Medications ?Medication ?Instructions ?Recorded ?Confirmed ropinirole 0.25 mg tablet 0.25 mg PO DAILY 11/06/22 05/04/25 buspirone 15 mg tablet 15 mg PO BID 02/15/23 05/04/25 ferrous sulfate 325 mg (65 mg 325 mg PO BID 05/10/23 05/04/25 iron) tablet atorvastatin 20 mg tablet 20 mg PO QPM 03/01/25 05/04/25 cyproheptadine 4 mg tablet 2 mg PO BID 03/01/25 03/01/25 docusate sodium 100 mg capsule 100 mg PO BID 03/01/25 05/04/25 (Colace) megestrol 400 mg/10 mL (10 mL) 40 mg PO DAILY 03/01/25 05/04/25 oral suspension mirtazapine 30 mg tablet 30 mg PO DAILY 03/01/25 05/04/25 ondansetron HCl 4 mg tablet 4 mg PO Q6H PRN nausea and vomiting 03/01/25 05/04/25 polyethylene glycol 3350 17 17 g PO DAILY 03/01/25 05/04/25 gram/dose oral powder (ClearLax) etodolac 400 mg tablet 400 mg PO DAILY 05/04/25 05/04/25 paroxetine HCl 20 mg tablet (Paxil) 20 mg PO DAILY 05/04/25 05/04/25 Allergies Allergy/AdvReac Type Severity Reaction Status Date / Time lisinopril Allergy Unknown Unknown Verified 11/14/23 20:18 chlordiazepoxide (From Allergy Unknown Verified 11/14/23 20:18 Librax (with clidinium)) Opioid HPI Opioid Management Most Recent Opioid Data: Last Pain Scale 3 03/01/25, 14:50 Last Pain Intensity 7 11/10/22, 07:45 Last MAR Pain Assessment Today, 18:07 PFSH PFS Medical History (Updated 05/04/25 @ 18:22 by Horace Mc MD) Tremors of nervous system ?R25.1 - Tremor, unspecified (ICD-10) Restless leg ?G25.81 - Restless legs syndrome (ICD-10) History of pacemaker ?Z95.0 - Presence of cardiac pacemaker (ICD-10) Diabetes mellitus ?E11.9 - Type 2 diabetes mellitus without complications (ICD-10) Osteopenia ?M85.80 - Other specified disorders of bone density and structure, unspecified site (ICD-10) Iron deficiency anemia ?D50.9 - Iron deficiency anemia, unspecified (ICD-10) Ulcer GERD (gastroesophageal reflux disease) ?K21.9 - Gastro-esophageal reflux disease without esophagitis (ICD-10) Hypertension ?I10 - Essential (primary) hypertension (ICD-10) Dementia ?F03.90 - Unspecified dementia, unspecified severity, without behavioral disturbance, psychotic disturbance, mood disturbance, and anxiety (ICD-10) Anxiety ?F41.9 - Anxiety disorder, unspecified (ICD-10) Depression ?F32.A - Depression, unspecified (ICD-10) Surgical History (Updated 05/10/23 @ 09:26 by Sadaf Aleman) History of arthroscopy of knee ?Z98.890 - Other specified postprocedural states (ICD-10) History of hysterectomy ?Z90.710 - Acquired absence of both cervix and uterus (ICD-10) History of esophagogastroduodenoscopy (EGD) ?Z98.890 - Other specified postprocedural states (ICD-10) Bariatric surgery status ?Z98.84 - Bariatric surgery status (ICD-10) Family History (Updated 05/10/23 @ 13:34 by Christy Moctezuma RN) Mother Family history of diabetes mellitus Brother Family history of hypertension Brother Heart disease Mother Lung cancer Father Cardiac arrest Other Breast cancer Eye cancer Social History (Updated 05/10/23 @ 09:29 by Sadaf Aleman) Within the past year, how often did you have a drink containing alcohol: never Score interpretation: A score less than 3 is consistent with normal alcohol consumption. 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 Highest level of school completed/degree received: some college, no degree Are you now , , , , never or living with a partner: Little interest or pleasure in doing things: not at all Feeling down, depressed, or hopeless: not at all Exam Constitutional Vital Signs, click to edit/add: Last Vital Signs Temp 98.2 F 05/04/25 14:43 Pulse 86 05/04/25 14:43 Resp 18 05/04/25 14:43 BP 124/72 05/04/25 18:25 Pulse Ox 100 05/04/25 14:43 O2 Del Method Room Air 05/04/25 14:43 Course Vital Signs Vital signs: Vital Signs Temperature 98.2 F 05/04/25 14:43 Pulse Rate 86 05/04/25 14:43 Respiratory Rate 18 05/04/25 14:43 Blood Pressure 98/57 05/04/25 14:43 Pulse Oximetry 100 05/04/25 14:43 Oxygen Delivery Method Room Air 05/04/25 14:43 Temperature 98.2 F 05/04/25 14:43 Pulse Rate 86 05/04/25 14:43 Respiratory Rate 18 05/04/25 14:43 Blood Pressure 124/72 05/04/25 18:25 Pulse Oximetry 100 05/04/25 14:43 Oxygen Delivery Method Room Air 05/04/25 14:43 Medical Decision Making MDM Narrative Medical decision making narrative: Patient has stage V progressing dementia son wants everybody to know, and is progressing Patient seen and examined: Outpatient CT was done, showing prior left pelvic ventral hernia repair with large recurrent hernia containing fluid-filled bowel and/or abscess. Recommending repeat pelvic CT following oral contrast may be helpful to for differentiation. Official report has been noted. Differential diagnosis includes but is not limited to: Abscess, herniation, strangulation, acute on chronic hernia, early cellulitis, constipation, RAMILA, dehydration Relevant laboratory interpretation: Patient's BUN and creatinine are 42/1.39. Patient has signs of RAMILA. Patient H&H is 10/34, platelets 553. Radiological studies: See official report of CT of the abdomen pelvis this shows a previous left pelvic ventral hernia repair with large recurrent hernia containing fluid-filled bowel and/or abscess. Reevaluation: I did initially speak to the PCP, Dr. Burk. He has not spoken to any surgeon, he recommended patient come to the ER for surgical evaluation. We have no surgeon on-call today. 2 sons at bedside. They were directed to bring patient to the ER per their PCP, Dr. Burk. I initially spoke to Dr. Meng, local surgeon who is not on-call for [facility] but did take the phone call to discuss case. He recommended transfer to tertiary care center, we discussed the case and CT reports. Recommendation was transferring to tertiary care center, Dr. Meng do not believe [facility] surgeons would take this case as well secondary to multiple previous surgeries and complications potential. He was reviewing the case, discussing hernia versus fistula versus abscess. We recommend that we are not able to keep patient at [facility] or most likely [facility] either. I spoke to Dr. Mcdowell from [facility] at 1810. He graciously accepted consultation. When I initially spoke to Dr. Mcdowell, I knew her previous left ventral hernia repair. I was not aware of 20-30 years ago patient having gastric bypass surgery at [facility] or multiple hernia repairs that were done as well; not just 1 previous hernia surgery that I let Dr. Mcdowlel to believe with the information I had initially. I spoke to the son power of compliance attorney, and he gave more extensive history on patient's surgical history. I spoke to the ER physician from [facility], Dr. Gavin Mcginnis. Patient is accepted at [facility], ER to ER. He is aware I spoke to Dr. Mcdowell previously. He is aware that I was not able to give Dr. Mcdowell the full complete surgical history that I obtained from son and his power of compliance attorney after I spoke to Dr. Mcdowell. It has been document in the chart and Dr. Mcginnis will communicate this with Dr. Mcdowell as well. Patient has been given IV fluids, IV morphine, Zofran, and Zosyn. 191 patient is being picked up and transferred to [facility], ER to ER transfer. Patient has been hemodynamically stable, 2 sons at bedside agree. Social barriers to healthcare: There are no food insecurities, there is no issue with transportation, there are no insurance barriers. Critical care time 45 minutes exclusive from separate billable procedures that were performed. The following was considered in the determination of critical care but not limited to the level of medical decision making, intensive cardiac and/or respiratory monitoring, frequent vital sign monitoring, evaluation of laboratory studies, evaluation of radiographic studies, oxygen monitoring, and constant monitoring and speaking to family at bedside Lab Data Labs: Lab Results 05/04/25 Range/Units 15:41 WBC 10.0 (4.0-11.0) 10^3/uL RBC 3.59 L (4.20-5.40) 10^6/uL Hgb 10.3 L (12.0-16.0) g/dL Hct 34.2 L (36.0-48.0) % MCV 95.3 (81.0-99.0) fL MCH 28.7 (26.7-34.0) pg MCHC 30.1 (29.9-35.2) g/dL RDW 13.9 (11.0-15.0) % Plt Count 553 H (150-450) 10^3/uL MPV 9.1 L (9.5-13.5) fL Neut % (Auto) 69.3 (43.0-75.0) % Lymph % (Auto) 20.7 (20.5-60.0) % [place] % (Auto) 7.1 (1.7-12.0) % Eos % (Auto) 2.0 (0.9-7.0) % Baso % (Auto) 0.2 (0.2-2.0) % Neut # (Auto) 6.9 H (1.4-6.5) 10^3/uL Lymph # (Auto) 2.1 (1.2-3.8) 10^3/uL [place] # (Auto) 0.7 (0.3-0.8) 10^3/uL Eos # (Auto) 0.2 (0.0-0.7) 10^3/uL Baso # (Auto) 0.0 (0.0-0.1) 10^3/uL Abs Immat Gran (auto) 0.07 H (0.00-0.03) 10^3/uL Imm/Tot Granulo (auto) 0.7 H (0.0-0.5) % Sodium 141 (136-145) mmol/L Potassium 4.7 (3.5-5.1) mmol/L Chloride 109 H (98-107) mmol/L Carbon Dioxide 24.3 (21.0-32.0) mmol/L Anion Gap 12.4 BUN 42.0 H (7.0-18.0) mg/dL Creatinine 1.39 H (0.55-1.02) mg/dL Est GFR ( Amer) 44 L (>=60 mL/min/1.73m^2) Est GFR (Non-Af Amer) 36 L (>=60 mL/min/1.73m^2) BUN/Creatinine Ratio 30.2 Glucose 224 H (74-106) mg/dL Lactate 1.4 (0.4-2.0) mmol/L Calcium 8.6 (8.5-10.1) mg/dL Total Bilirubin 0.4 (0.2-1.0) mg/dL AST 18 (15-37) U/L ALT 16 (14-59) U/L Alkaline Phosphatase 134 H (46-116) U/L Troponin I High Sens 6.3 (4.0-51.3) pg/mL Total Protein 5.8 L (6.4-8.2) g/dL Albumin 1.8 L (3.4-5.0) g/dL Globulin 4.0 g/dL Albumin/Globulin Ratio 0.5 Lipase 40.0 (16.0-77.0) U/L Discharge Plan Discharge Chief Complaint: Abdominal Pain Clinical Impression: LLQ abdominal mass, Abdominal wall cellulitis Patient Disposition: [facility] Time of Disposition Decision: 18:20 Discharge Location: [facility] Discharge location: ER to ER transfer, Dr. cMginnis with Dr. Mcdowell in consultation for genera Condition: Fair Mode of Transportation: EMS Discharge Date/Time: 05/04/25 19:38
== END 2025-05-04 19:38 | disposition short-term general hospital (02) ==
PROVIDERS: Emergency Provider Emergency Medicine; PCP Family Medicine
DX: R19.04 Left lower quadrant abdominal swelling, mass and lump (principal); L03.311 Cellulitis of abdominal wall; F03.90 Unspecified dementia, unspecified severity, without behavioral disturbance, psychotic disturbance, mood disturbance, and anxiety; Z98.84 Bariatric surgery status; Z87.891 Personal history of nicotine dependence; N28.1 Cyst of kidney, acquired; K76.89 Other specified diseases of liver
CPT/HCPCS: 36415; 74177; 80053; 82565; 83605; 83690; 84484; 85025; 96365; 96375; 99285; J2270; J2405; J2543; Q9967